=== PATIENT | female | born 1945 | race American Indian/Alaskan Native ===

== ENCOUNTER 2024-09-07 14:26 | Outpatient (OUT) | payer MEDICARE, SELFPAY ==
--- NOTE | 2024-09-07 15:42 | P.CN_ITS ---
Consult Note: HPI Data of Consult Patient: new to practice Consult date: 09/07/24 Requesting Physician: Flor Mg MD Primary Care Provider: KATLIN AYALA Consult Narrative Reason for consult: low back pain, bilateral leg neuropathy Narrative: 78yof who presents for evaluation. longstanding low back pain history >1 year. previously had injections done in office at orthopedic clinic, but no notes available for review. patient describes what sounds like trigger point injection. these were very helpful and provided >1 year relief. no imaging available for review. also endorses bilateral lower extremity neuropathy. not diabetic. has tried gabapentin, but did not help. cc:: CC: Flor Mg MD Review of Systems ROS Status of ROS 10 or more systems reviewed and unremark able except as noted in history and below Exam Narrative Exam Narrative: Psych-alert and oriented x 3. Attentive and appropriate, constitutionally normal, displays normal mood and affect per situation.? There are no obvious deficits in memory, reasoning, or intellect.? Skin-no obvious rashes, bruising, erythema noted to the patient's area of pain. Extremities- extremities are warm with minimal edema and palpable pulses. Lumbar-no significant tenderness to palpation noted in the lumbar spine and paraspinal musculature.? Pain is elicited with extension, and lateral rotation of the lumbar spine. Range of motion is slightly diminished with these motions due to pain. Facet loading maneuvers are positive bilaterally and do appear to be concordant with the patient's normal complaints of pain.? Coordination remains intact.? Gait remains non-antalgic. Assessment and Plan Assessment and Plan (1) Low back pain: Qualifiers: Chronicity: chronic Back pain laterality: unspecified Sciatica presence: unspecified whether sciatica present Qualified Code(s): M54.50 - Low back pain, unspecified; G89.29 - Other chronic pain (2) Peripheral neuropathy: Qualifiers: Peripheral neuropathy type: polyneuropathy, unspecified Qualified Code(s): G62.9 - Polyneuropathy, unspecified Plan 78yof who presents for evaluation. failed conservative measures, as noted. at this point, will order lumbar xr. also will proceed with paralumbar trigger point injections. meds reviewed. will try lyrica 50mg tid. follow up after imaging.
== END 2024-09-07 14:27 | disposition home or self-care (01) ==
LOC: PM 14:27
PROVIDERS: PCP Family Medicine; Visit Provider Anesthesiology
DX: M54.50 Low back pain, unspecified (principal); G62.9 Polyneuropathy, unspecified
CPT/HCPCS: 72110; G0463

== ENCOUNTER 2024-09-07 15:47 | Outpatient (OUT) | payer MEDICARE, SELFPAY ==
--- NOTE | 2024-09-07 15:56 | XR_ITS ---
[place] [address] Patient Name: JI SHAFFER MRN: [id number] date: 1945 Sex: F Assigned Patient Location: [facility] Current Patient Location: [facility] Accession/Order Number: [id number] Exam Date: 09/08/2024 09:19 Report Date: 09/08/2024 09:21 At the request of: SANDY DSOUZA MD Procedure: XR lumbar spine min 4V 5 views Lumbar Spine HISTORY: Chronic low back pain COMPARISON: None POSTSURGICAL CHANGES: None BONY ALIGNMENT: Mild scoliosis HYPERMOBILITY:No bending imaging. LISTHESIS:Mild degenerative listhesis FRACTURE: None DEGENERATIVE CHANGES: Extensive multilevel disc space narrowing and endplate spurring. Multilevel hypertrophic facet changes. SOFT TISSUES: Unremarkable BONY MINERALIZATION:Adequate XR/XR lumbar spine min 4V IMPRESSION: Extensive multilevel lumbar degenerative changes. Impression dictated by: Joao Main M.D.09/08/2024 9:21 AM Dictation Location: [place] [address] Electronically authenticated by: [id number] Y Date: 09/08/2024 09:21
== END 2024-09-07 15:48 | disposition home or self-care (01) ==
PROVIDERS: PCP Family Medicine; Visit Provider Anesthesiology
DX: M54.50 Low back pain, unspecified (principal)
CPT/HCPCS: 72110

== ENCOUNTER 2024-09-14 12:21 | Outpatient (OUT) | payer MEDICARE, SELFPAY ==
--- NOTE | 2024-09-14 14:00 | P.CN_ITS ---
Consult Note: HPI Data of Consult Patient: known to practice within the last 3 years Consult date: 09/14/24 Requesting Physician: Flor Mg MD Primary Care Provider: KATLIN AYALA Consult Narrative Reason for consult: low back pain Narrative: 78yof who presents for in office injection. continues to have right sided low back pain, so would like to proceed with trigger point injection. lumbar xr reviewed, significant for extensive degenerative changes and facet arthropathy. cc:: CC: Flor Mg MD Review of Systems ROS Status of ROS 10 or more systems reviewed and unremark able except as noted in history and below Meds Home Medications and Allergies Home Medications ?Medication ?Instructions ?Recorded ?Confirmed ?Type amlodipine 10 mg tablet (Norvasc) 10 mg PO DAILY 09/08/24 09/08/24 History aspirin 81 mg tablet,delayed 81 mg PO DAILY 09/08/24 09/08/24 History release escitalopram oxalate 5 mg tablet 5 mg PO DAILY 09/08/24 09/08/24 History (Lexapro) levothyroxine 100 mcg tablet 100 mcg PO DAILY 09/08/24 09/08/24 History (Synthroid) losartan 50 mg-hydrochlorothiazide 1 tab PO DAILY 09/08/24 09/08/24 History 12.5 mg tablet magnesium oxide 400 mg (241.3 mg 200 mg PO DAILY 09/08/24 09/08/24 History magnesium) tablet metformin 500 mg tablet 500 mg PO DAILY 09/08/24 09/08/24 History montelukast 10 mg tablet 10 mg PO DAILY 09/08/24 09/08/24 History (Singulair) oxybutynin chloride 5 mg tablet 5 mg PO DAILY 09/08/24 09/08/24 History pregabalin 50 mg capsule (Lyrica) 50 mg PO TID 09/08/24 09/08/24 History rosuvastatin 10 mg tablet 10 mg PO DAILY 09/08/24 09/08/24 History trazodone 100 mg tablet 50 mg PO DAILY 09/08/24 09/08/24 History Allergies Allergy/AdvReac Type Severity Reaction Status Date / Time morphine Allergy Unknown Unknown Verified 09/08/24 08:16 Exam Narrative Exam Narrative: Psych-alert and oriented x 3. Attentive and appropriate, constitutionally normal, displays normal mood and affect per situation.? There are no obvious deficits in memory, reasoning, or intellect.? Skin-no obvious rashes, bruising, erythema noted to the patient's area of pain. Extremities- extremities are warm with minimal edema and palpable pulses. Lumbar- tenderness to palpation noted in the lumbar spine and paraspinal musculature. Multiple trigger points expressed on palpation.? Pain is elicited with extension, and lateral rotation of the lumbar spine. Range of motion is slightly diminished with these motions due to pain. Facet loading maneuvers are positive bilaterally and do appear to be concordant with the patient's normal complaints of pain.? Coordination remains intact.? Gait remains non-antalgic. Assessment and Plan Assessment and Plan (1) Low back pain: Qualifiers: Chronicity: chronic Back pain laterality: unspecified Sciatica presence: unspecified whether sciatica present Qualified Code(s): M54.50 - Low back pain, unspecified; G89.29 - Other chronic pain (2) Myalgia: Plan 78yof who presents for in office injection. continues to have right sided back pain, would like to proceed. also discussed that given her lumbar xr findings, if she continued to have symptoms, she may benefit from other modalities, such as lumbar mbbs/rfas. she expressed understanding. follow up in 6 weeks. Procedure: Right paralumbar trigger point injection Medications: Bupivacaine 0.25% 4cc, depomedrol 40mg I explained the details of the procedure to the patient including the risks, benefits, and alternatives.? We had an informed discussion.? The patient verbalized understanding and signed the consent form.? All questions were answered appropriately.? A time-out was performed.? After obtai seferino a comfortable seated position, the skin overlying the right paralumbar region was prepped with alcohol 3 times. The needle was inserted in a sterile manner through the skin towards the palpated trigger point areas. The contents of the syringe were gently injected without any resistance 1cc at a time into the appropriate trigger point.? The needle was removed and pressure was applied at the injection site to decrease the incidence of ecchymosis and hematoma formation.? A sterile bandage was applied. The patient tolerated the procedure well.
== END 2024-09-14 12:22 | disposition home or self-care (01) ==
PROVIDERS: PCP Family Medicine; Visit Provider Anesthesiology
DX: M54.50 Low back pain, unspecified (principal); G89.29 Other chronic pain; M79.18 Myalgia, other site
CPT/HCPCS: 20553; J0665; J1010

== ENCOUNTER 2024-10-29 12:34 | Outpatient (OUT) | payer MEDICARE, SELFPAY ==
--- OUTSIDE RECORDS SUMMARY | 2024-10-29 12:36 | XMS_ITS | Encounter Summary ---
Author Organization [facility] Sys tem Address [id number] [address] [place] [address] Care Team Providers Care Production Supervisor Off Shift Name Role Phone Taiwo Barker Primary Care Provider + [phone] Encounter Details Date Type Department Care Team (Late st Contact Info) Description 09/09/2024 Orders Only [facility] - Family Medicine [address] [place] [address] Ref Prov, [place] [address] Social History Tobacco Use Types Packs/Day Years Used Date Smoking Tobacco: Never Smokeless Tobacco: Never Alcohol Use Standard Drinks/Week Comments Yes 0 (1 standard drink = 0.6 oz pur e alcohol) occational glass of wine [facility] Utilities Answer Date Recorded In the past 12 months has [employer], gas, oil, or water company threatened to shut off services in your home? No 08/21/2023 Social Connection and Isolat ion Panel [NHANES] Answer Date Recorded In a typical week, how many times do you talk on the phone with family, friends, or neighbors? More than three times a week 03/24/2022 How often do you get togethe r with friends or relatives? More than three times a week 03/24/2022 How often do you attend chur ch or sabianist services? More than 4 times per year 03/24/2022 Do you belong to any clubs o r organizations such as baptist groups, unions, fraternal or athletic groups, or school groups? Yes 03/24/2022 How often do you attend meet ings of the clubs or organizations you belong to? More than 4 times per year 03/24/2022 Are you , , di vorced, , never , or living with a partner? 03/24/2022 AUDIT-C Answer Date Recorded Q1: How often do you have a drink containing alc ohol? 2-4 times a month 03/24/2022 Q2: How many drinks containi ng alcohol do you have on a typical day when you are drinking? 1 or 2 03/24/2022 Q3: How often do you have si x or more drinks on one occasion? Never 03/24/2022 Overall Financial Resource Strain (CARDIA) Answe r Date Recorded How hard is it for you to pa y for the very basics like food, housing, medical care, and heating? Not hard at all 03/24/2022 PHQ-2 Answer Date Recorded Total Score 0 03/24/2024 [facility] Questionnaire Answer Date Recorded Do you feel stress - tense, restless, nervous, or anxious, or unable to sleep at night because your mind is troubled all the time - these days? Only a little 01/15/2023 Exercise Vital Sign Answer Date Recorde d On average, how many days pe r week do you engage in moderate to strenuous exercise (like a brisk walk)? 0 days 03/24/2024 On average, how many minutes do you engage in exercise at this level? 0 min 03/24/2024 PRAPARE - Transportation Answer Date Re corded In the past 12 months, has l ack of transportation kept you from medical appointments or from getting medications? No 07/2023 In the past 12 months, has l ack of transportation kept you from meetings, work, or from getting things needed for daily living? No 08/21/2023 Housing Instability Answer Date Recorde d Are you worried or concerned that in the next two months you may not have stable housing that you own, rent or stay in as a part of a household? No 08/21/2023 Childcare Answer Date Recorded Do problems getting child ca re make it difficult for you to work or study? No 03/24/2022 Employment Answer Date Recorded Do you need help finding a [facility] and/or a training program? No 03/24/2022 Hunger Screening Answer Date Recorded Within the past 12 months we worried whether our food would run out before we got money to buy more. Never True 05/18/2024 Within the past 12 months th e food we bought just didn't last and we didn't have money to get more. Never True 05/18/2024 Purpose - Life Answer Date Recorded I have a purpose and direction in my life. Agree 03/24/2022 Comments No Sex and Gender Information Value Date Recorded Sex Assigned at Not on file Legal Sex Female 11:27 AM EDT Gender Identity Not on file Sexual Orientation Not on file documented as of this encounter Plan of Treatment Upcoming Encounters Date Type Department Care Team (Late st Contact Info) Description 01/12/2025 1:30 PM EDT Office Visit [facility] - Family Medicine [address] [place] [address] Taiwo Barker DO [address], [facility] [place] [address] 03/22/2025 1:00 PM EST Office Visit [facility] [address] [place] [address] Lola Begum, WHEEL SHOP SUPERVISOR-FRONT SIGHT ATTACHER [address] [place] [id number] documented as of this encounter Goals Goal Patient Goal Type Associated Problems Recent Progress Patient-Stated? Author Reduce salt intake to 2 grams per day or less Diet No Taiwo Barker DO Note: Evaluation of progress towards goal:Increase clonidine 0.1mg to BID A1C is excellent at 5.9% Monitor BP and pulse and will review at next visit documented as of this encounter Procedures Procedure Name Priority Date/Time Associated Diagnosis Comments XR LUMBAR SPINE AP, LATERAL, FLEXION AND EXTENSION ONLY Routine 09/07/2024 3:54 PM EDT documented in this encounter Results * X-ray spine lumbar ap, lateral, flexion and extension only (09/07/2024 3:54 PM EDT) Anatomical Region Laterality Modality MSK, Neuro, Spine, L-spine N/A Compu vera Radiography us Not In System Ref Prov IMG DIAGNOSTIC IMAGING OR DERABLES Final Result documented in this encounter Visit Diagnoses Not on filedocumented in this encounter Additional Health Concerns Assessment Noted Time PHQ-9 Depression Total Score: 0 03/24/20 12:51 PM EST A Body Mass Index follow-up plan has been documented for the patient 07/14/2024 2:15 PM EST documented as of this encounter Care Teams Production Supervisor Off Shift Relationship Specialty Start Date End Date Taiwo Barker DO [address] [facility], [facility] [place] [address] PCP - General Family Medicine 01/17/22 Marcia Calderon [facility] documented as of this encounter
--- OUTSIDE RECORDS SUMMARY | 2024-10-29 12:36 | XMS_ITS | Encounter Summary ---
Author Organization [facility] Sys tem Address [id number] [address] [place] [address] Care Team Providers Care Cone Runner Name Role Phone Taiwo Barker Primary Care Provider + [phone] Reason for Visit * Reason Onset Date Comments Med Refill 04/30/2022 Encounter Details Date Type Department Care Team (Late st Contact Info) Description 04/30/2022 Refill [facility] - Family Medicine [address] [place] [address] Betty Mcmahan MA Social History Tobacco Use Types Packs/Day Years Used Date Smoking Tobacco: Never Smokeless Tobacco: Never Alcohol Use Standard Drinks/Week Comments Yes 0 (1 standard drink = 0.6 oz pur e alcohol) occational glass of wine Social Connection and Isolat ion Panel [NHANES] Answer Date Recorded In a typical week, how many times do you talk on the phone with family, friends, or neighbors? More than three times a week 03/24/2022 How often do you get togethe r with friends or relatives? More than three times a week 03/24/2022 How often do you attend chur ch or muslim services? More than 4 times per year 03/24/2022 Do you belong to any clubs o r organizations such as sikh groups, unions, fraternal or athletic groups, or [...] 03/24/2022 PHQ-2 Answer Date Recorded Total Score 5 03/24/2022 [facility] [place] [facility] - Occupational Stress Questionnaire Answer Date Recorded Do you feel stress - tense, restless, nervous, or anxious, or unable to sleep at night because your mind is troubled all the time - these days? To some extent 03/24/2022 Exercise Vital Sign Answer Date Recorde d On average, how many days pe r week do you engage in moderate to strenuous exercise (like a brisk walk)? 3 days 03/24/2022 On average, how many minutes do you engage in exercise at this level? 20 min 03/24/2022 PRAPARE - Transportation Answer Date Re corded In the past 12 months, has l ack of transportation kept you from medical appointments or from getting medications? No 09/2021 In the past 12 months, has l ack of transportation kept you from meetings, work, or from getting things needed for daily living? No 03/24/2022 Childcare Answer Date Recorded Do problems getting child ca re make it difficult for you to work or study? No 03/24/2022 Employment Answer Date Recorded Do you need help finding a [facility] career [facility] and/or a training program? No 03/24/2022 Purpose - Life Answer Date Recorded I have a purpose and direction in my life. Agree 03/24/2022 Comments No Sex and Gender Information Value Date Recorded Sex Assigned at Not on file Legal Sex Female 11:27 AM EDT Gender Identity Not on file Sexual Orientation Not on file COVID-19 Exposure Response Date Recorded In the last month, have you been in contact with someone who was confirmed or suspected to have Coronavirus / COVID-19? No / Unsure 04/17/2022 1:49 PM EST documented as of this encounter Plan of Treatment Upcoming Encounters Date Type Department Care Team (Late st Contact Info) Description 01/12/2025 1:30 PM EDT Office Visit [facility] - Family Medicine [address] [place] [address] Taiwo Barker DO [address], [place] [address] 03/22/2025 1:00 PM EST Office Visit [facility] [address] [place] [phone] Lola Begum, MANUFACTURING SCHEDULER-MILKING MACHINE MECHANIC [address] [place] [address] documented as of this encounter Goals Goal Patient Goal Type Associated Problems Recent Progress Patient-Stated? Author Reduce salt intake to 2 grams per day or less Diet No Taiwo Barker DO Note: Evaluation of progress towards goal:Increase clonidine 0.1mg to BID A1C is excellent at 5.9% Monitor BP and pulse and will review at next visit documented as of this encounter Visit Diagnoses Not on filedocumented in this encounter Additional Health Concerns Assessment Noted Time PHQ-9 Depression Total Score: 5 03/24/20 22 5:55 AM EDT documented as of this encounter Care Teams Cone Runner Relationship Specialty Start Date End Date Taiwo Barker DO [address], [facility] [place] [place] [address] PCP - General Family Medicine 01/17/22 [facility] Calderon [facility]/19/24 documented as of this encounter
--- OUTSIDE RECORDS SUMMARY | 2024-10-29 12:36 | XMS_ITS | Encounter Summary ---
Author Organization [facility] Sys tem Address [id number] [address] [place] [address] Care Team Providers Care Assistant Director Of Residence Life Name Role Phone Taiwo Barker DO Primary Care Provider + [phone] Reason for Visit * Reason Comments Med Refill Encounter Details Date Type Department Care Team (Late st Contact Info) Description 01/24/2023 Refill [facility] - Family Medicine [address] [place] [address] Taiwo Barker DO [address], [facility] [place] [address] Insomnia, unspecified Social History Tobacco Use Types Packs/Day Years [...] often do you attend chur ch or mormon services? More than 4 times per year 03/24/2022 Do you belong to any clubs o r organizations such as restorationist groups, unions, fraternal or athletic groups, or [...] PHQ-2 Answer Date Recorded Total Score 0 01/15/2023 [facility] Occupat ional [facility] - Occupational Stress Questionnaire Answer Date [...] exercise (like a brisk walk)? 0 days 01/15/2023 On average, how many minutes do you engage in exercise at this level? 0 min 01/15/2023 PRAPARE - Transportation Answer Date Re corded [...] Recorded Do you need help finding a l ocal career center and/or a training program? No 03/24/2022 Hunger Screening Answer Date Recorded Within the past 12 months we worried whether our food would run out before we got money to buy more. Never True 01/15/2023 Within the past 12 months th e food we bought just didn't last and we didn't have money to get more. Never True 01/15/2023 Purpose - Life Answer Date Recorded I [...] Medicine - Family Medicine [address] [place] [phone] Taiwo Barker DO [address] [place] [address] 03/22/2025 1:00 PM EST Office Visit [facility] [address] [place] [phone] Lola Begum, GRANTS ADMINISTRATOR-GMAT TUTOR [address] [place] [phone] documented as of this encounter Goals Goal Patient Goal Type Associated Problems Recent Progress Patient-Stated? Author Reduce salt intake to 2 grams per day or less Diet No Taiwo Barker DO Note: Evaluation of progress towards goal:Increase clonidine 0.1mg to BID A1C is excellent at 5.9% Monitor BP and pulse and will review at next visit documented as of this encounter Visit Diagnoses Diagnosis Insomnia, unspecified documented in this encounter Additional Health Concerns Assessment Noted Time PHQ-9 Depression Total Score: 0 01/16/20 23 1:10 PM EDT documented as of this encounter Care Teams Assistant Director Of Residence Life Relationship Specialty Start Date End Date Taiwo Barker DO [address] [facility], [place] [address] PCP - General Family Medicine 01/17/22 Marcia Calderon [facility] Nurse - [facility] 06/19/24 documented as of this encounter
--- OUTSIDE RECORDS SUMMARY | 2024-10-29 12:36 | XMS_ITS | Encounter Summary ---
Author Organization [employer] tem Address [facility] – [id number] [address] [place] [address] Care Team Providers Care Spring Former Name Role Phone Taiwo Barker DO Primary Care Provider [phone] Encounter Details Date Type Department Care Team (Late Contact Info) Description 03/16/2022 Orders Only [facility] - Family Medicine [address] [place] [address] External, Scanning Provider Social History Tobacco Use Types Packs/Day Years Used Date Smoking Tobacco: Never Smokeless Tobacco: Never Alcohol Use Standard Drinks/Week Comments Yes 0 (1 standard drink = 0.6 oz pur e alcohol) occational glass of wine PHQ-2 Answer Date Recorded Total Score 2 03/06/2022 Childcare Answer Date Recorded Childcare Unknown 10/29/2018 Employment Answer Date Recorded Employment Unknown 10/29/2018 Purpose - Life Answer Date Recorded Purpose and direction in life Unknown Comments Unknown Sex and Gender Information Value Date Recorded Sex Assigned at Not on file Legal Sex Female 11:27 AM EDT Gender Identity Not on file Sexual Orientation Not on file COVID-19 Exposure Response Date Recorded In the last month, have you been in contact with someone who was confirmed or suspected to have Coronavirus / COVID-19? No / Unsure 03/06/2022 9:50 AM EDT documented as of this encounter Plan of Treatment Upcoming Encounters Date Type Department Care Team (Late Contact Info) Description 01/12/2025 1:30 PM EDT Office Visit [facility] - [facility] Medicine [address] [place] [address] Taiwo Barker DO [address] [place] [address] 03/22/2025 1:00 PM EST Office Visit [facility] [address] [place] [address] Lola Begum, LOCKSTITCHER-HAT RENOVATOR [address] [place] [phone] documented as of this encounter Goals Goal [...] Procedure Name Priority Date/Time Associated Diagnosis Comments ECG 12-LEAD Routine 02/06/2022 documented in this encounter Results * ECG 12 lead (02/06/2022) 02/06/2022 us Scanning Provider External ECG ORDERABLES Final Result MANUALLY TRANSCRIBED RESULTS documented in this encounter Visit Diagnoses Not on filedocumented in this encounter Additional Health Concerns Infection Onset Date Last Indicated Resolved Time COVID-19 Rule-Out 03/26/2022 03/26/2022 03/26/2022 2:05 PM EST Assessment Noted Time PHQ-9 Depression Total Score: 2 03/06/20 22 10:01 AM EDT documented as of this encounter Care Teams Spring Former Relationship Specialty Start Date End Date Taiwo Barker DO [address] [place] [address] PCP - General Family Medicine 01/17/22 Marcia Calderon CCM Nurse - Kait 06/19/24 documented as of this encounter
--- OUTSIDE RECORDS SUMMARY | 2024-10-29 12:36 | XMS_ITS | Clinical Summary ---
Author Organization [employer] tem Address [facility] [id number] [address] [place] [address] Care Team Providers Care Human Resources Analyst Name Role Phone Taiwo Barker DO Primary Care Provider Allergies Active Allergy Reactions Criticality Noted Date Comments Morphine Sulfate Nausea And Vomiting 02/01/2022 Medications latanoprost (XALATAN) 0.005 % ophthalmic solution Administer 1 drop to both eyes nightly. Active dorzolamide-kirsten loL (COSOPT) 22.3-6.8 mg/mL ophthalmic solution Administer 1 drop to both eyes in the morning and 1 drop before bedtime. 09/10/19 23 Active magnesium oxide 200 mg magnesium tablet Take 200 mg by mouth in the morning. 90 tablet 01/03/20 24 Active escitalopram (LEXAPRO) 5 mg tabletIndication s:Anxiety Take 1 tablet (5 mg total) by mouth in the morning. 01/16/20 24 Active atrbskbd-fgvf-CA -calcium &mins (THERAGRAN-M) 9 mg iron-400 mcg tablet Take 1 tablet by mouth in the morning. Active metFORMIN (GLUCOPHAGE) 500 mg tabletIndication s:Prediabetes TAKE 1 TABLET BY MOUTH DAILY 90 tablet 1 05/07/20 24 Active aspirin 81 mg Take 1 tablet (81 mg total) by mouth in the morning. Active losartan-hydroCH LOROthiazide (HYZAAR) 100-25 mg per tablet Take 1 tablet by mouth in the morning. 90 tablet 3 05/18/20 24 Active montelukast (SINGULAIR) 10 mg tabletIndication s:Unspecified asthma, uncomplicated TAKE 1 TABLET BY MOUTH DAILY 30 tablet 5 05/31/19 25 Active amLODIPine (NORVASC) 10 mg tabletIndication s:Essential hypertension TAKE 1 TABLET BY MOUTH IN THE MORNING 90 tablet 2 06/08/19 25 Active LUMIGAN 0.01 % ophthalmic drops Administer 1 drop to both eyes nightly. 06/03/19 25 Active cholecalciferol, vitamin D3, 5,000 units tablet Take 1 tablet (5,000 Units total) by mouth every other day. Active oxybutynin XL (DITROPAN-XL) 5 mg 24 hr tabletIndication s:Overactive bladder TAKE 1 TABLET BY MOUTH DAILY 30 tablet 5 09/08/19 25 Active levothyroxine (SYNTHROID, LEVOTHROID) 100 MCG tabletIndication s:Hypothyroidism , unspecified TAKE 1 TABLET BY MOUTH DAILY 90 tablet 1 09/10/19 25 Active traZODone (DESYREL) 50 mg tabletIndication s:Insomnia, unspecified Take 0.5 tablets (25 mg total) by mouth nightly. 45 tablet 09/19/19 25 Active pregabalin (LYRICA) 50 mg capsule Take 1 capsule (50 mg total) by mouth 3 (three) times a day. Active rosuvastatin (CRESTOR) 10 mg tabletIndication s:Hyperlipidemia , unspecified TAKE 1 TABLET BY MOUTH NIGHTLY 90 tablet 10/14/19 25 Active rosuvastatin (CRESTOR) 10 mg tabletIndication s:Hyperlipidemia , unspecified take 1 tablet by mouth every day 90 tablet 2 01/20/20 24 025 Discontinued Active Problems Patient Care Coordination No te Formatting of this note migh t be different from the original. Hypothyroidism and HTN Care Plan: [06/19/2024] RN Added: Nurse to instruct on: the importance of preventative screenings and what they mean to your health the importance of your care plan -discussed and sent 06/19/24 SA RN the purpose of your medications and the importance of adherence -medrec done 06/19/24 SA RN -discussed vit d and mag dose 08/03/24 , RN -Discussed new medication: Lyrica and possible s/e. 09/17/24 AH, SKEIN TIER proper use of your blood pressure meter your Hypothyroidism and Hypertension, its diagnosis and treatment the importance of recognizing difficulty thinking and focusing, feeling down or depressed, increased sensitivity to cold, tiredness, and low energy as a S&S of your Hypothyroidism the importance of recognizing blurry vision, facial flushing, headache, and shortness of breath as a S&S of your Hypertension -discussed 06/19/24 MOHIT ACKERMAN -reviewed 08/03/24 MOHIT ACKERMAN Nurse to assist in: scheduling your appointments, as needed setting a goal to check blood pressure, continue with current treatment plans, do regular physical activity, get enough sleep, and maintain medication compliance Patient to verbalize understanding of: the importance of your care plan keeping a written list of your medications preventative screenings and what they mean to your health your medications and the importance of adherence: 09/03/2024 Take 1/2 of 400 mg Magnesium tablet to equal prescribed dose of 200 mg daily. VINCE CONTRERAS monitoring blood pressure -discussed 06/19/24 MOHIT ACKERMAN your Hypothyroidism, its diagnosis, process and treatment your Hypertension, its diagnosis, process and treatment the importance of recognizing difficulty thinking and focusing, feeling down or depressed, increased sensitivity to cold, tiredness, and low energy as a S&S of your Hypothyroidism the importance of recognizing blurry vision, facial flushing, headache, and shortness of breath as a S&S of your Hypertension Patient to commit to: check blood pressure 08/03/24 MOHIT ACKERMAN continue with current treatment plans do regular physical activity get enough sleep maintain medication compliance 09/03/2024 VINCE CONTRERAS Chronic Pain Care Plan [09/03/2024] DIANE CLARKE Added: Nurse to instruct on: your Chronic Pain, its diagnosis and treatment the importance of recognizing atrophy of involved muscle group, changes in appetite/eating, weight, changes in sleep patterns, depression, anxiety, fear of reinjury, fatigue, and irritability, restlessness as a S&S of your Chronic Pain Peripheral Neuropathy [09/29/2024] BRONSON CLARKE Added: Nurse to instruct on: your Peripheral Neuropathy, its diagnosis and treatment -Discussed and mailed educational materials on peripheral neuropathy. 09/17/24 VINCE DOBSON the importance of recognizing Extreme sensitivity to touch, Heat intolerance, Loss of balance, Numbness or tingling in the feet, and Pain during activities that shouldn't cause pain - putting weight on your feet as a S&S of your Peripheral Neuropathy Patient to verbalize understanding of: your Peripheral Neuropathy, its diagnosis, process and treatment the importance of recognizing Extreme sensitivity to touch, Heat intolerance, Loss of balance, Numbness or tingling in the feet, and Pain during activities that shouldn't cause pain - putting weight on your feet as a S&S of your Peripheral Neuropathy Nurse to assist in: setting a goal to continue with current treatment plans, do regular physical activity, get enough sleep, increase joint mobility and range of motion, maintain medication compliance, and reduce pain Patient to verbalize understanding of: monitoring Pain Scale your Chronic Pain, its diagnosis, process and treatment the importance of recognizing atrophy of involved muscle group, changes in appetite/eating, weight, changes in sleep patterns, depression, anxiety, fear of reinjury, fatigue, and irritability, restlessness as a S&S of your Chronic Pain Patient to commit to: continue with current treatment plans do regular physical activity get enough sleep increase joint mobility and range of motion maintain medication compliance reduce pain 09/03/2024 SG, SKEIN TIER 2024 Wellness Goals: Over the next 12 months, Patient will go to appointments with: Primary Care Provider 07/14/2024 MOHIT ACKERMAN Completed 09/03/2024 VINCE CONTRERAS Orthopedic 08/25/2024 Completed 09/03/2024 VINCE CONTRERAS Over the next 12 months, Patient will complete the following tests, immunizations, and preventative screenings: Annual Wellness Visit 03/24/2025 COVID-19 Vaccination 02/01/2025 Depression Screening 03/24/2025 Fall Risk Assessment 03/24/2025 Completed 09/03/2024 VINCE CONTRERAS Flu vaccine 02/01/2025 Tdap Vaccine 09/16/20242024 Education: -discussed 07/14 OV note and lab results reviewed 08/03/24 MOHIT ACKERMAN Problem Noted Date Diagnosed Date Hypersomnia 01/16/2024 Primary osteoarthritis of right hip 08/21/2023 Recurrent major depressive disorder, in full rem ission 11/15/2022 Stress incontinence 08/09/2022 08/09/2022 Urge incontinence 08/09/2022 08/09/2022 Renal cyst, right 08/09/2022 08/09/2022 Dyspnea on exertion 05/25/2022 Hip pain 03/24/2022 Hyponatremia 03/24/2022 S/P total knee arthroplasty, right 03/24/2022 Weakness 03/24/2022 Leukocytosis 03/24/2022 Acute kidney injury 03/24/2022 Anemia 03/24/2022 Decreased hearing of right ear 03/06/2022 Acquired hallux valgus 02/04/2022 Arthritis of right hip 02/04/2022 Artificial knee joint present 02/04/2022 Atrophy of vagina 02/04/2022 Bilateral sensorineural hearing loss 02/04/2022 Hypokalemia 02/04/2022 Hypothyroidism 02/04/2022 Idiopathic peripheral neuropathy 02/04/2022 Labyrinthitis 02/04/2022 Obesity with body mass index 30 or greater 02/04 Referred otalgia 02/04/2022 Acute labyrinthitis 02/04/2022 Multiple acquired skin tags 01/25/2022 Chronic pain 01/25/2022 Constipation 01/25/2022 Difficulty walking 01/25/2022 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 Essential hypertension 01/25/2022 Insomnia 01/25/2022 Joint pain 01/25/2022 Temporomandibular joint disorder 01/25/2022 Osteoarthritis of knee 10/24/2021 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 Glaucoma 05/30/2020 Degeneration of lumbar intervertebral disc 12/01 Lumbar spondylosis 12/01/2018 Bilateral tinnitus 2018 Acquired deformity of left ankle 10/21/2017 Moderate depressive episode 07/16/2017 Metatarsalgia 03/17/2017 Neuropathy 03/14/2017 Mixed hyperlipidemia 05/31/2016 Plantar fasciitis 02/27/2016 Anxiety 10/24/2015 Impaired glucose tolerance 08/25/2015 Vitamin D deficiency 08/23/2015 Osteopenia 08/22/2015 Resolved Problems Problem Noted Date Diagnosed Date Resolved Date Class 1 obesity due to exces s calories with serious comorbidity and body mass index (BMI) of 31.0 to 31.9 in adult 11/15/2022 11/26/2022 BMI 30.0-30.9,adult 08/09/2022 01/16/20 24 Dyslipidemia 05/25/2022 11/26/2022 Encounters Date Type Department Care Team Description 10/13/2024 Refill [facility] - Family Medicine [address] [place] [address] Taiwo Barker, DO Hyperlipidemia, unspecified 09/17/2024 Patient Outreach [facility] Family [facility] [address] [place] [address] Taiwo Barker, DO Essential hypertension (Primary Dx); Acquired hypothyroidism 09/16/2024 Telephone [facility] Family Medicine [address] [place] [address] Theodora Pierre, [facility] 09/16/2024 Refill [facility] Family [facility] [address] [address] Taiwo Barker, DO Insomnia, unspecified 09/09/2024 Orders Only [facility] [address] [place] [address] Ref Prov, Not In System 09/09/2024 Refill [facility] [address] [place] [address] Taiwo Barker, DO Hypothyroidism, unspecified 09/07/2024 Refill [facility] Family Medicine [address] [place] [address] Taiwo Barker, DO Overactive bladder 09/03/2024 Patient Outreach [facility] Family [facility] [address] [address] Taiwo Barker, DO Essential hypertension (Primary Dx); Acquired hypothyroidism 08/03/2024 Patient Outreach [facility] Family [facility] [address] [place] [address] Taiwo Barker, DO Essential hypertension (Primary Dx); Acquired hypothyroidism from Last 3 Months Immunizations Immunization Administration Dates Next Due COVID-19, mRNA, LNP-S, PF, 100mcg/0.5mL Dose 09/01/2021 COVID-19, mRNA, LNP-S, PF, 3 0mcg/0.3mL Dose 08/08/2020 Influenza (IM) Preservative Free 01/23/2016,06/2014 Influenza A Monovalent (H5N1 ), Adjuvanted-201202/19/2011 Influenza High Dose Preserva tive Free IM 02/29/2024,02/19/2011 Influenza Nasal, Unspecified Formulation 02/25/2017,02/18/2016,02/18/2015,02/13 Influenza Vaccine, Quadrival ent, Adjuvanted 03/07/2021 Influenza Whole 02/19/2011 Influenza, High-dose, Quadrivalent 02/05/2023 Influenza, Injectable, quadr ivalent (PF) 03/07/2021,02/23/2020,03/05/2019 Influenza, Trivalent, Adjuvanted 03/05/2019 Influenza, Unspecified 03/07/2021,2019,03/05/2019,02/25,03/29/2016,02/18/2016,01/23/2016 ,02/18/2015,02/13/2013 Pneumococcal Conjugate 13-Valent 07/22/2014 Pneumococcal Polysaccharide 08/22/2015, 3 RSV, bivalent, protein subun it RSVpreF, diluent reconstituted, 0.5 mL, PF 02/26/2023 Tdap 02/13/2013 Zoster Live 05/01/2012 Zoster Vaccine Recombinant 09/18/2021,03/27/2021 Family History Medical History Relation Name Comments Marfan syndrome Brother Heart attack Father Other Maternal Aunt - Malignant ne oplastic disease Heart attack Maternal Grandmother Other Maternal Uncle - Malignant n eoplastic disease Marfan syndrome Mother Marfan syndrome Nephew Diabetes Paternal Grandfather Atrial fibrillation Sister Hyperlipidemia Sister Hypertension Sister Lymphoma Sister Stroke Sister Thyroid nodules Sister Relation Name Status Comments Brother (Age 26) - by electrocution Father Maternal Aunt Maternal Grandmother Maternal Uncle Mother Nephew Paternal Grandfather Sister Alive Social History Tobacco Use Types Packs/Day Years Used Date Smoking Tobacco: Never Smokeless Tobacco: Never Tobacco Cessation:Counseling Given: Not Answered Alcohol Use Standard Drinks/Week Comments Yes 0 (1 standard drink = 0.6 oz pur e alcohol) occational glass of wine [facility] Utilities Answer Date Recorded In the past 12 months has e electric, gas, oil, or water company threatened [...] 03/24/2022 How often do you attend chur or religion services? More than 4 times per year 03/24/2022 Do you belong to any clubs o r organizations such as nondenominational groups, unions, fraternal or athletic groups, or [...] Answer Date Recorded Total Score 0 03/24/2024 [facility] [place] of Occupat ional Health - Occupational Stress [...] Recorded Do you need help finding a [email or web address] career center and/or a training program? No [...] on file Sexual Orientation Not on file Last Filed Vital Signs Vital Sign Reading Time Taken Comments Blood Pressure 110/62 07/14/2024 1:24 PM EST Pulse 57 07/14/2024 1:24 PM EST Temperature 36.5 C (97.7 F) 07/14/2024 1:24 PM EST Respiratory Rate 18 07/14/2024 1:24 PM EST Oxygen Saturation 97% 07/14/2024 1:24 PM EST Inhaled Oxygen Concentration - - Weight 83 kg (183 lb) 07/14/2024 1:24 PM EST Height 165.1 cm (5' 5 ) 07/14/2024 1:24 PM EST Body Mass Index 30.45 07/14/2024 1:24 PM EST Plan of Treatment Upcoming Encounters Date Type Department Care Team (Late st Contact Info) Description 01/12/2025 1:30 PM EDT Office Visit [facility] - Family Medicine [address] [place] [address] Taiwo Barker DO [address], [place] [address] 03/22/2025 1:00 PM EST Office Visit [facility] [address] [place] [address] Lola Begum, WIRE BRUSH MAKER-SENIOR ELECTRICAL DESIGNER [address] [place] [phone] Health Maintenance Due Date Last Done Comments DTaP,Tdap and Td Vaccines (2 - Td or Tdap) 02/13/2023 02/13/2013 COVID-19 Vaccine (8 - Pfizer risk 2023- season) 2024 02/29/2024, 03/08/2023, 09/01/2021, Additional history exists Influenza Vaccine 01/18/2025 02/29/2024, , 03/07/2021, Additional history exists Depression Screening 03/24/2025 03/24/2024 Medicare Annual Wellness Visit 03/24/2025 03/24/2024 , 01/15/2023 Tobacco Screening 07/14/2025 07/14/2024 Fall Risk Screening 09/03/2025 09/03/2024 Zoster (Shingles) Vaccine Completed 2021, 03/27/2021, 05/01/2012 Goals Goal Patient Goal Type Associated Problems Recent Progress Patient-Stated? Author Reduce salt intake to 2 grams per day or less Diet No Taiwo Barker DO Note: Evaluation of progress towards goal:Increase clonidine 0.1mg to BID A1C is excellent at 5.9% Monitor BP and pulse and will review at next visit Medical Devices Implanted Type Area Rip/Mould Operator Device Identifier Shelf Expiration Date Model / Serial / Lot Liner Actb 36mm D Vivacit-E Lum G7 Hip Strl Lf - Sna - [id number] Implanted:Qt y: 1 on 08/21/2023 by Irvin Combs DO at [facility] Orthopedic Implant Right: Hip [employer] 08/05/2027 [id number] / [id number] / [id number] Stem Fem 129d 3 45mm Xtd Os Fit[place] Protasul-64 Hip Rgh - Sna - [id number] Implanted:Qt y: 1 on 08/21/2023 by Irivn Combs DO at [facility] Orthopedic Implant Right: Hip [employer] 03/02/2031 [id number] / NA / [id number] Head Fem 36mm +0mm 05/02 Tpr Unv Cocr Hip Strl Lf - Sna - [id number] Implanted:Qt y: 1 on 08/21/2023 by Irvin Combs DO at [facility] Orthopedic Implant Right: Hip [employer] 10/26/2032 [id number] / NA / [id number] Shell Actb 50mm Hip 3 Hl Clr Cd [place] G7 D Hmsphr - [id number] Implanted:Qt y: 1 on 08/21/2023 by Irvin Combs DO at [facility] Orthopedic Implant Right: Hip [employer] [id number] / / [id number] Screw Bn 30mm 6.5mm St Actb Selvin Trlg Strl Rpl [id number] - Sna - [id number] Implanted:Qt y: 1 on 08/21/2023 by Irvin Combs DO at [facility] Screw Right: Hip [employer] 12/08/2032 [id number] / NA / [id number] Procedures Procedure Name Priority Date/Time Associated Diagnosis Comments XR LUMBAR SPINE AP, LATERAL, FLEXION AND EXTENSION ONLY Routine 09/07/2024 3:54 PM EDT from Last 3 Months Results * X-ray spine lumbar ap, lateral, flexion and extension only (09/07/2024 3:54 PM EDT) Anatomical Region Laterality Modality MSK, Neuro, Spine, L-spine N/A Compu vera Radiography us Not In System Ref Prov IMG DIAGNOSTIC IMAGING OR DERABLES Final Result from Last 3 Months Insurance MEDICARE [facility] Advance Directives Documents on File Type Date Recorded Patient Salon Coordinator Expl anation Living Will 04/24/2022 3:52 PM Durable Power of Correctional Supervising Cook 04/24/2022 11:09 AM * Full Code (Latest Code Status on File) Date Activated Date Inactivated Comments 08/21/2023 7:16 AM 08/23/2023 6:06 PM * Full Code Date Activated Date Inactivated Comments 03/24/2022 9:28 AM 03/26/2022 8:07 PM Care Teams Human Resources Analyst Relationship Specialty Start Date End Date Taiwo Barker DO [address], [place] [address] PCP - General Family Medicine 01/17/22 Marcia Calderon [facility] Nurse - [employer] 06/19/24
--- OUTSIDE RECORDS SUMMARY | 2024-10-29 12:36 | XMS_ITS | Encounter Summary ---
Author Organization [facility] tem Address [id number] [address] [place] [address] Care Team Providers Care Tag Meter Operator Name Role Phone Taiwo Barker Primary Care Provider + [phone] Encounter Details Date Type Department Care Team (Late st Contact Info) Description 10/04/2022 Orders Only [facility] - Family Medicine [address] [place] [address] External, Scanning Provider Social History Tobacco Use [...] often do you attend chur ch or orthodox services? More than 4 times per year 03/24/2022 Do you belong to any clubs o r organizations such as voodoo groups, unions, fraternal or athletic groups, or [...] 03/24/2022 PHQ-2 Answer Date Recorded Total Score 1 08/09/2022 [facility] [place] of Occupat ional Health - Occupational Stress [...] Medicine - Family Medicine [address] [place] [address] Taiwo Barker DO [address] [place] [address] 03/22/2025 1:00 PM EST Office Visit [facility] [address] [place] [phone] Lola Begum, CUTTING INSPECTOR-CORN POPPER [address] [place] [phone] documented as of this encounter Goals Goal [...] Procedure Name Priority Date/Time Associated Diagnosis Comments HM MAMMOGRAPHY Routine 10/04/2022 documented in this encounter Results * HM MAMMOGRAPHY (10/04/2022) Anatomical Region Laterality Modality Other us Scanning Provider External HEALTH MAINTENANCE nal Result documented in this encounter Visit Diagnoses Not on filedocumented in this encounter Additional Health Concerns Assessment Noted Time PHQ-9 Depression Total Score: 1 08/10/19 23 2:36 PM EDT documented as of this encounter Care Teams Tag Meter Operator Relationship Specialty Start Date End Date Taiwo Barker DO [address] [place] [address] PCP - General Family Medicine 01/17/22 Marcia Calderon [facility] 06/19/[facility] documented as of this encounter
--- OUTSIDE RECORDS SUMMARY | 2024-10-29 12:36 | XMS_ITS | Encounter Summary ---
Author Organization [employer] tem Address [id number] [address] [place] [address] Care Team Providers Care Film Numberer Name Role Phone Taiwo Barker DO Primary Care Provider +1 [phone] Encounter Details Date Type Department Care Team (Late Contact Info) Description 02/09/2022 Orders Only [facility] - Family Medicine [address] [place] [address] External, Scanning Provider Social History Tobacco Use Types Packs/Day Years Used Date Smoking Tobacco: Never Smokeless Tobacco: Never Alcohol Use Standard Drinks/Week Comments Yes 0 (1 standard drink = 0.6 oz pur e alcohol) occational glass of wine Childcare Answer Date Recorded Childcare Unknown 10/29/2018 [...] have Coronavirus / COVID-19? No / Unsure 02/08/2022 9:48 AM EDT documented as of this encounter Plan of Treatment Upcoming Encounters Date Type Department Care Team (Late Contact Info) Description 01/12/2025 1:30 PM EDT Office Visit [facility] - Family Medicine [address] [place] [address] Taiwo Barker DO [address], [place] [address] 03/22/2025 1:00 PM EST Office Visit [facility] [address] [place] [address] Lola Begum, ASSISTANT FIELD HOCKEY COACH-BLUNGER [address] [place] [address] documented as of this encounter Goals Goal [...] Procedure Name Priority Date/Time Associated Diagnosis Comments URINALYSIS Routine 02/09/2022 documented in this encounter Results * Urinalysis (02/09/2022) us Scanning Provider External URINE ORDERABLES Zhanna l Result MANUALLY TRANSCRIBED RESULTS documented in this encounter Visit Diagnoses Not on filedocumented in this encounter Additional Health Concerns Infection Onset Date Last Indicated Resolved Time COVID-19 Rule-Out 03/26/2022 03/26/2022 03/26/2022 2:05 PM EST documented as of this encounter Care Teams Film Numberer Relationship Specialty Start Date End Date Taiwo Barker DO [address] [place] [address] PCP - General Family Medicine 01/17/22 Marcia Calderon CCM Nurse - [facility] 06/19/24 documented as of this encounter
--- OUTSIDE RECORDS SUMMARY | 2024-10-29 12:36 | XMS_ITS | Encounter Summary ---
Author Organization [facility] tem Address [id number] [address] [place] [address] Care Team Providers Care Rotary Bar Operator Name Role Phone Taiwo Barker Primary Care Provider + [phone] Encounter Details Date Type Department Care Team (Late st Contact Info) Description 04/30/2022 Orders Only [facility] - Family Medicine [address] [place] [address] Ref Prov, [place] [address] Social History Tobacco Use Types Packs/Day Years [...] often do you attend chur ch or temple services? More than 4 times per year 03/24/2022 Do you belong to any clubs o r organizations such as jain groups, unions, fraternal or athletic groups, or [...] Answer Date Recorded Total Score 5 03/24/2022 [facility]at ional Health - Occupational Stress [...] Recorded Do you need help finding a [facility] and/or a training [...] - Family Medicine [address] [place] [address] Taiwo Barker DO [address], [place] [address] 03/22/2025 1:00 PM EST Office Visit [facility] [address] [place] [address] Lola Begum, CHAINSTITCH TUNNEL ELASTIC OPERATOR-BOND ANALYST [address] [place] [address] documented as of this encounter Goals Goal [...] Procedure Name Priority Date/Time Associated Diagnosis Comments US RETROPERITONEAL COMPLETE Routine 04/30/2022 documented in this encounter Results * Ultrasound retroperitoneal complete (04/30/2022) Anatomical Region Laterality Modality Body Ultrasound us Not In System Ref Prov IMG US ORDERABLES Final R esult documented in this encounter Visit Diagnoses Not on filedocumented in this encounter Additional Health Concerns Assessment Noted Time PHQ-9 Depression Total Score: 5 03/24/20 22 5:55 AM EDT documented as of this encounter Care Teams Rotary Bar Operator Relationship Specialty Start Date End Date Taiwo Barker DO [address], [place] [address] PCP - General Family Medicine 01/17/22 Marcia Calderon [facility] 06/[facility]/24 documented as of this encounter
--- OUTSIDE RECORDS SUMMARY | 2024-10-29 12:36 | XMS_ITS | Encounter Summary ---
Author Organization [facility] Address [facility] [id number] [address] [place] [address] Care Team Providers Care Novelty Dipper Name Role Phone Taiwo Barker DO Primary Care Provider + [phone] Reason for Visit * Reason Comments Med Refill Encounter Details Date Type Department Care Team (Late st Contact Info) Description 11/19/2022 Refill [facility] - Family Medicine [address] [place] [address] Taiwo Barker DO [address], [facility] [address] Prediabetes; Essential hypertension Social History Tobacco Use Types Packs/Day Years [...] often do you attend chur ch or yarsanism services? More than 4 times per year 03/24/2022 Do you belong to any clubs o r organizations such as sabianism groups, unions, fraternal or athletic groups, or [...] PHQ-2 Answer Date Recorded Total Score 0 11/15/2022 [facility] of Occupat ional Health - Occupational [...] - Family Medicine [address] [place] [address] Taiwo Barker DO [address], [place] [address] 03/22/2025 1:00 PM EST Office Visit [facility] [address] [place] [address] Lola Begum, COMPUTER HELP DESK REPRESENTATIVE-WEB APPLICATION DEVELOPER [address] [place] [address] documented as of this encounter Goals Goal [...] as of this encounter Visit Diagnoses Diagnosis Prediabetes Other abnormal glucose Essential hypertension Unspecified essential hypertension documented in this encounter Additional Health Concerns Assessment Noted Time PHQ-9 Depression Total Score: 0 11/16/19 23 1:19 PM EDT documented as of this encounter Care Teams Novelty Dipper Relationship Specialty Start Date End Date Taiwo Barker DO [address], [facility] [place] [address] PCP - General Family Medicine 01/17/22 Marcia Calderon CCM Nurse - [facility] 06/19/24 documented as of this encounter
--- OUTSIDE RECORDS SUMMARY | 2024-10-29 12:36 | XMS_ITS | Encounter Summary ---
Author Organization [employer] Address [facility][id number] [address] [place] [address] Care Team Providers Care Retrofit Installer Name Role Phone Taiwo Barker Primary Care Provider + [phone] Reason for Visit * Reason Onset Date Comments Med Refill 07/12/2022 Encounter Details Date Type Department Care Team (Late st Contact Info) Description 07/12/2022 Refill [facility] - Family Medicine [address] [place] [address] Kayla Rios CMA Social History Tobacco Use Types Packs/Day Years [...] often do you attend chur ch or christianity services? More than 4 times per year 03/24/2022 Do you belong to any clubs o r organizations such as congregation groups, unions, fraternal or athletic groups, or [...] PHQ-2 Answer Date Recorded Total Score 0 06/27/2022 [facility] Occupat ional Health - Occupational Stress [...] Recorded Do you need help finding a [facility] career [facility] and/or a training [...] have Coronavirus / COVID-19? No / Unsure 06/27/2022 11:30 AM EST documented as of this encounter Plan of Treatment Upcoming Encounters Date Type Department Care Team (Late st Contact Info) Description 01/12/2025 1:30 PM EDT Office Visit [facility] - Family Medicine [address] [place] [address] Taiwo Barker DO [address], [place] [address] 03/22/2025 1:00 PM EST Office Visit [facility] [address] [place] [address] Lola Begum, SENIOR QC TECHNICIAN-MEAT HOSTESS [address] [place] [address] documented as of this encounter [...] Noted Time PHQ-9 Depression Total Score: 0 06/27/19 23 11:54 AM EST documented as of this encounter Care Teams Retrofit Installer Relationship Specialty Start Date End Date Taiwo Barker DO [address], [facility] [place] [address] PCP - General Family Medicine 01/17/22 [facility] Calderon [facility]/24 documented as of this encounter
--- OUTSIDE RECORDS SUMMARY | 2024-10-29 12:36 | XMS_ITS | Clinical Summary ---
Author Organization [facility] Address [address] [place] [address] Care Team Providers Care Spreader Operator Name Role Phone Taiwo Barker MD Primary Care Provider + [phone] Allergies Active Allergy Reactions Criticality Noted Date Comments Morphine Nausea And Vomiting,Unknown Low 01/31/2022 Other Reaction(s): Nausea And Vomiting, Other (See Comments) Not true allergy, known side effect. Other reaction(s): Unknown Medications amLODIPine (Norvasc) 10 MG tablet Take 10 mg by mouth in the morning. Active aspirin 81 MG EC tablet Take 81 mg by mouth in the morning. 023 Active brimonidine (AlphaGAN P) 0.2 % ophthalmic solution instill 1 DROP IN THE RIGHT EYE TWICE DAILY 024 Active escitalopram (Lexapro) 5 MG tablet Take 1 tablet by mouth at bedtime 023 Active levothyroxine (Synthroid, Levoxyl) 100 MCG tablet Take 100 mcg by mouth Daily Active latanoprost (Xalatan) 0.005 % ophthalmic solution instill 1 (ONE) DROP IN BOTH EYES AT BEDTIME Active losartan-hydroCHLOROth iazide (Hyzaar) 100-25 MG tablet Take 1 tablet by mouth in the morning. Active metFORMIN (Glucophage) 500 MG tablet Take 1 tablet by mouth Daily 023 Active montelukast (Singulair) 10 MG tablet Take 10 mg by mouth Daily Active oxybutynin XL (Ditropan-XL) 5 MG 24 hr tablet Take 5 mg by mouth Daily Active rosuvastatin (Crestor) 10 MG tablet Take 10 mg by mouth Daily Active timolol (Timoptic-XR) 0.5 % ophthalmic gel-forming instill 1 drop by ophthalmic route every day into affected eye(s) Ophthalmic Active traZODone (Desyrel) 50 MG tablet Take 50 mg by mouth at bedtime 023 Active amoxicillin (Amoxil) 500 MG tabletIndications:Prim brenda osteoarthritis of right hip 4 tabs PO once 30-60 mins before procedure with food 4 tablet 3 024 Active methylPREDNISolone (Medrol Dospak) 4 MG tabletsIndications:Cap sulitis of metatarsophalangeal (MTP) joint of left foot Follow schedule on MEDROL PACK package instructions to be used as directed 21 tablet 024 Active Active Problems No known active problems Encounters Date Type Department Care Team Description 08/24/2024 1:00 PM EDT Ancillary Procedure [facility] [address] [place] [address] 08/24/2024 1:00 PM EDT Office Visit [facility] [place] [address] Monty Zepeda, NEVIN S/P total right hip arthroplasty; Primary osteoarthritis of right hip; Lumbar pain 08/24/2024 Bamboo flowsheet [facility] [address] [place] [address] Monty Zepeda NP 08/24/2024 Travel from Last 3 Months Family History Medical History Relation Name Comments Heart disease Father Stroke Father Pneumonia Maternal Grandfather Heart disease Maternal Grandmother child Mother Diabetes Paternal Grandmother Relation Name Status Comments Father Maternal Grandfather Maternal Grandmother Mother Paternal Grandmother Social History Tobacco Use Types Packs/Day Years Used Date Smoking Tobacco: Never Smokeless Tobacco: Never Tobacco Cessation:Counseling Given: Yes Alcohol Use Standard Drinks/Week Comments Yes 1 (1 standard drink = 0.6 oz pur e alcohol) caffeine 2-3 cups/day Comments Unknown Sex and Gender Information Value Date Recorded Sex Assigned at Not on file Legal Sex Female 7:22 PM EDT Gender Identity Not on file Sexual Orientation Not on file Last Filed Vital Signs Vital Sign Reading Time Taken Comments Blood Pressure 133/84 03/26/2024 3:30 PM EST Pulse 86 03/26/2024 3:30 PM EST Temperature - - Respiratory Rate 18 05/07/2024 1:32 PM EST Oxygen Saturation - - Inhaled Oxygen Concentration - - Weight 79.4 kg (175 lb) 05/07/2024 1:32 PM EST Height 166.4 cm (5' 5.5 ) 05/07/2024 1:32 PM EST Body Mass Index 28.68 05/07/2024 1:32 PM EST Plan of Treatment Upcoming Encounters Date Type Department Care Team (Late st Contact Info) Description 09/09/2025 1:00 PM EDT Office Visit [facility] [address] [place] [address] Monty Zepeda NP [address] [place], [place] [id number] Health Maintenance Due Date Last Done Comments Pneumococcal Vaccine: 65+ Years Completed 6, 07/22/2014, 02/17/2013 Influenza Vaccine Completed 02/29/2024, , 03/07/2021, Additional history exists Procedures Procedure Name Priority Date/Time Associated Diagnosis Comments XR HIP 2 OR 3 VW RIGHT Routine 08/24/2024 12:55 PM EDT Primary osteoarthritis of right hip from Last 3 Months Results * XR hip right 2 or 3 views (08/24/2024 12:55 PM EDT) Anatomical Region Laterality Modality Lower Extremities, Hip Right Radiograp hic Imaging Narrative 08/24/2024 1:18 PM EDT Imaging Result: 08/24/2024: X-rays AP and lateral of the right hip demonstrate a right total hip replacement in good position and alignment without signs of lucency, loosening, fracture or failure. Heterotropic ossifications are noted. Impression: Stable appearance of right total hip replacement Monty Zepeda MOLD SANDER-RADIO REPAIRMAN Monty Zepeda NP IMG XR PROCEDURES Final Result from Last 3 Months Insurance MEDICARE [facility] Care Teams Spreader Operator Relationship Specialty Start Date End Date Taiwo Barker MD PCP - General Family Medicine 02/25/23
--- OUTSIDE RECORDS SUMMARY | 2024-10-29 12:36 | XMS_ITS | Encounter Summary ---
Author Organization [facility] Address [place]-[id number] [address] [place] [address] Care Team Providers Care Photogrammetry Airplane Pilot Name Role Phone Taiwo Barker DO Primary Care Provider + [phone] Reason for Visit * Reason Comments Med Refill Encounter Details Date Type Department Care Team (Late st Contact Info) Description 09/24/2022 Refill [facility] - Family Medicine [address] [place] [address] Taiwo Barker DO [address], [facility] [place] [address] Hypothyroidism, unspecified Social History Tobacco Use Types Packs/Day [...] often do you attend chur ch or tenriism services? More than 4 times per year 03/24/2022 Do you belong to any clubs o r organizations such as anabaptist groups, unions, fraternal or athletic groups, or [...] Answer Date Recorded Total Score 1 08/09/2022 [facility] of Occupat ional Health - Occupational [...] - Family Medicine [address] [place] [address] Taiwo Barker DO [address], [place] [address] 03/22/2025 1:00 PM EST Office Visit [facility] [address] [place] [address] Lola Begum, FLOCCULATOR OPERATOR-ELASTIC ATTACHER CHAINSTITCH [address] [place] [address] documented as of this encounter [...] as of this encounter Visit Diagnoses Diagnosis Hypothyroidism, unspecified documented in this encounter Additional Health Concerns Assessment Noted Time PHQ-9 Depression Total Score: 1 08/10/19 23 2:36 PM EDT documented as of this encounter Care Teams Photogrammetry Airplane Pilot Relationship Specialty Start Date End Date Taiwo Barker DO [address] [facility] [place] [address] PCP - General Family Medicine 01/17/22 Marcia Calderon [facility] Nurse - [facility] 06/19/24 documented as of this encounter
--- OUTSIDE RECORDS SUMMARY | 2024-10-29 12:36 | XMS_ITS | Encounter Summary ---
Author Organization [facility] Address [id number] [address] [place] [address] Care Team Providers Care Journeyman Pipefitter Name Role Phone Taiwo Barker DO Primary Care Provider +[phone] Reason for Visit * Reason Comments Med Refill Encounter Details Date Type Department Care Team (Late st Contact Info) Description 03/03/2022 Refill [facility] - Family Medicine [address] [place] [address] Taiwo Barker DO [address] [facility] [place] [address] Essential (primary) hypertension Social History Tobacco Use Types Packs/Day [...] Medicine - Family Medicine [address] [place] [address] Taiwo Barker DO [address], [place] [address] 03/22/2025 1:00 PM EST Office Visit [facility] [address] [place] [address] Lola Begum, LABORATORY APPARATUS GLASS GRINDER-FITNESS TECHNICIAN [address] [place] [address] documented as of this encounter [...] as of this encounter Visit Diagnoses Diagnosis Essential (primary) hypertension Unspecified essential hypertension documented in this encounter Additional Health Concerns Infection Onset Date Last Indicated Resolved Time COVID-19 Rule-Out 03/26/2022 03/26/2022 03/26/2022 2:05 PM EST documented as of this encounter Care Teams Journeyman Pipefitter Relationship Specialty Start Date End Date Taiwo Barker DO [address] [facility] [place] [place] [address] PCP - General Family Medicine 01/17/22 Marcia Calderon CCM Nurse - [facility] 06/19/24 documented as of this encounter
--- OUTSIDE RECORDS SUMMARY | 2024-10-29 12:36 | XMS_ITS | Encounter Summary ---
Author Organization [employer] Address [id number] [address] [place] [address] Care Team Providers Care Devops Engineer Name Role Phone Taiwo Barker Primary Care Provider +[phone] Encounter Details Date Type Department Care Team (Late st Contact Info) Description 04/18/2022 Telephone [facility] [address] [place] [address] Tai Mendez, DO [address] [place] [address] Social History Tobacco Use Types Packs/Day Years [...] any clubs o r organizations such as restoration groups, unions, fraternal or athletic groups, or [...] Answer Date Recorded Total Score 5 03/24/2022 [facility] Occupat ional Health - Occupational [...] Recorded Do you need help finding a [facility] and/or a training program? [...] PM EST documented as of this encounter Miscellaneous Notes * Telephone Encounter - Brittany Dinesh - 04/18/2022 9:49 AM EST NIGHT BAKER-referred by Lucila Quintanilla-Dyspnea on exertion documented in this encounter Plan of Treatment Upcoming Encounters Date Type Department Care Team (Late st Contact Info) Description 01/12/2025 1:30 PM EDT Office Visit [facility] - Family Medicine [address] [place] [address] Taiwo Barker DO [address], [facility] [place] [address] 03/22/2025 1:00 PM EST Office Visit [facility] [address] [place] [address] Lola Begum, ADDICTION THERAPIST-SUPERVISOR PRINTING [employer] [address] [place] [address] documented as of this encounter Goals Goal [...] documented as of this encounter Care Teams Devops Engineer Relationship Specialty Start Date End Date Taiwo Barker DO [address], [place] [address] PCP - General Family Medicine 01/17/22 Marcia Calderon [facility] 06/19/24 documented as of this encounter
--- OUTSIDE RECORDS SUMMARY | 2024-10-29 12:36 | XMS_ITS | Encounter Summary ---
Author Organization [email or web address] tem Address [facility][id number] [address] [place] [address] Care Team Providers Care Daycare Worker Name Role Phone Taiwo Barker Primary Care Provider + [phone] Encounter Details Date Type Department Care Team (Late st Contact Info) Description 05/01/2022 [facility] [address] [place] [address] Brittany Mane MA Social History Tobacco Use Types Packs/Day [...] often do you attend chur ch or shinto services? More than 4 times per year 03/24/2022 Do you belong to any clubs o r organizations such as temple groups, unions, fraternal or athletic groups, or [...] Answer Date Recorded Total Score 5 03/24/2022 [facility] of Occupat ional Health - Occupational Stress [...] Miscellaneous Notes * Telephone Encounter - Brittany Mane MA - 05/01/2022 1:20 PM EST She said [facility] sent her home with levothyroxine but the dose is different. She wanted to know if she needs to be taking the 88 or 100? * Telephone Encounter - Taiwo Barker DO - 05/01/2022 1:20 PM EST Looks like her TSH was high when she was in the hospital so he increased it to 100 mcg of stay on that dose for now * Telephone Encounter - Brittany Mane MA - 05/01/2022 1:20 PM EST Patient notified and understands. documented in this encounter Plan of Treatment Upcoming Encounters Date Type Department Care Team (Late st Contact Info) Description 01/12/2025 1:30 PM EDT Office Visit [facility] - Family Medicine [address] [place] [address] Taiwo Barker DO [address], [facility] [place] [address] 03/22/2025 1:00 PM EST Office Visit [facility] [address] [place] [address] Lola Begum, TELEPHONE SERVICE ADVISER-REPATCHER [address] [place] [address] documented as of this encounter Goals Goal [...] documented as of this encounter Care Teams Daycare Worker Relationship Specialty Start Date End Date Taiwo Barker DO [address] [facility], [facility] [place] [address] PCP - General Family Medicine 01/17/22 Marcia Calderon [facility] Nurse - [facility] 06/19/24 documented as of this encounter
--- OUTSIDE RECORDS SUMMARY | 2024-10-29 12:36 | XMS_ITS | Encounter Summary ---
Author Organization [facility] tem Address [facility]-[id number] [address] [place] [address] Care Team Providers Care Fruit Cutter Name Role Phone Taiwo Barker DO Primary Care Provider +1 [phone] Encounter Details Date Type Department Care Team (Late st Contact Info) Description 09/24/2022 Orders Only [facility] - Family Medicine [address] [place] [address] Taiwo Barker DO [address] [facility] [place] [address] Social History Tobacco Use Types Packs/Day Years [...] often do you attend chur ch or mosque services? More than 4 times per year [...] Answer Date Recorded Total Score 1 08/09/2022 [facility] of Occupat ional Health - Occupational [...] - Family Medicine [address] [place] [address] Taiwo Barker DO [address] [place] [address] 03/22/2025 1:00 PM EST Office Visit [facility] [address] [place] [address] Lola Begum, RECREATION PROGRAMMER-FABRIC WORKER FITTER [address] [place] [address] documented as of this encounter Goals Goal [...] documented as of this encounter Care Teams Fruit Cutter Relationship Specialty Start Date End Date Taiwo Barker DO [address], [place] [address] PCP - General Family Medicine 01/17/22 Marcia Calderon [facility] Nurse - [facility] 06/19/24 documented as of this encounter
--- OUTSIDE RECORDS SUMMARY | 2024-10-29 12:36 | XMS_ITS | Encounter Summary ---
Author Organization [employer] [facility] Address [id number] [address] [place] [address] Care Team Providers Care Dinkey Locomotive Operator Name Role Phone Taiwo Barker DO Primary Care Provider [phone] Encounter Details Date Type Department Care Team (Late st Contact Info) Description 04/24/2023 Orders Only [facility] Internal Medicine - Family Medicine [address] [place] [address] Taiwo Barker DO [address] [facility], [facility] [place] [address] Social History Tobacco Use Types Packs/Day Years [...] often do you attend chur ch or rastafari services? More than 4 times per year 03/24/2022 Do you belong to any clubs o r organizations such as religious groups, unions, fraternal or athletic groups, or [...] Answer Date Recorded Total Score 0 01/15/2023 [facility] Occupat ional Health - [...] Recorded Do you need help finding a [facility] and/or a training program? [...] Medicine - Family Medicine [address] [place] [address] Taiwo Barker DO [address], [place] [address] 03/22/2025 1:00 PM EST Office Visit [facility] [address] [place] [id number] Lola Begum, FACE MAN-COOLER CONVEYOR LOADER [address] [place] [phone] documented as of this encounter Goals Goal [...] documented as of this encounter Care Teams Dinkey Locomotive Operator Relationship Specialty Start Date End Date Taiwo Barker DO [address], [place] [address] PCP - General Family Medicine 01/17/22 Marcia Calderon [facility] Nurse - [employer] 06/19/24 documented as of this encounter
--- OUTSIDE RECORDS SUMMARY | 2024-10-29 12:36 | XMS_ITS | Encounter Summary ---
Author Organization [employer] Address [facility] [id number] [address] [place] [address] Care Team Providers Care Glassware Finisher Name Role Phone Taiwo Barker Primary Care Provider + [phone] Encounter Details Date Type Department Care Team (Late st Contact Info) Description 04/06/2022 Telephone [facility] - Family Medicine [address] [place] [id number] Brittany Mane MA Social History Tobacco Use [...] often do you attend chur ch or congregation services? More than 4 times per year 03/24/2022 Do you belong to any clubs o r organizations such as hinduism groups, unions, fraternal or athletic groups, or [...] Answer Date Recorded Total Score 5 03/24/2022 [facility] of Occupat ional Health - Occupational Stress [...] have Coronavirus / COVID-19? No / Unsure 03/24/2022 1:04 AM EDT documented as of this encounter Miscellaneous Notes * Telephone Encounter - Brittany Mane MA - 04/06/2022 12:33 PM EST Patient's daughter called and said Екатерина is currently at [facility] and they need to speak with oneof you regarding some possible options. She asked if one of you can please call [facility] when youget a chance. * Telephone Encounter - OLE Pratt - 04/06/2022 12:33 PM EST Please call [facility] and speak to whom? * Telephone Encounter - Brittany Mane MA - 04/06/2022 12:33 PM EST The previous message I took, they did not leave a name. I just took another message off that they just left again and it was a Mel who left the message. * Telephone Encounter - KerriOLE Del Castillo - 04/06/2022 12:33 PM EST I am going to let you follow thru with this - Lucila documented in this encounter Plan of Treatment Upcoming Encounters Date Type Department Care Team (Late st Contact Info) Description 01/12/2025 1:30 PM EDT Office Visit [facility] Medicine - Family Medicine [address] [place] [address] Taiwo Barker, [address], [place] [address] 03/22/2025 1:00 PM EST Office Visit [facility] [address] [place] [address] Lola Begum, SECURITY SERGEANT-TRAFFIC CLERK [address] [place] [address] documented as of this encounter [...] documented as of this encounter Care Teams Glassware Finisher Relationship Specialty Start Date End Date Taiwo Barker DO [address] [facility], [place] [address] PCP - General Family Medicine 01/17/22 Marcia Calderon [facility] Nurse - [employer] 06/19/24 documented as of this encounter
--- OUTSIDE RECORDS SUMMARY | 2024-10-29 12:37 | XMS_ITS | Encounter Summary ---
Author Organization [facility] [employer] [facility] Address [facility] [id number] [address] [place] [address] Care Team Providers Care Optometrist Assistant Name Role Phone Taiwo Barker DO Primary Care Provider [phone] Reason for Visit * Reason Comments Med Refill Encounter Details Date Type Department Care Team (Late st Contact Info) Description 02/09/2022 Refill [facility] Internal Medicine - Family Medicine [address] [place] [address] Taiwo Barker DO [address] [facility], [facility] [place] [address] Prediabetes Social History Tobacco Use Types Packs/Day Years [...] Medicine - Family Medicine [address] [place] [address] Taiwo Barker DO [address], [place] [address] 03/22/2025 1:00 PM EST Office Visit [facility] [address] [place] [address] Lola Begum, GROUP BURNER MACHINE-MIDDLE SCHOOL READING TEACHER [address] [place] [address] [...] Visit Diagnoses Diagnosis Prediabetes Other abnormal glucose documented in this encounter Additional Health Concerns Infection Onset Date Last Indicated Resolved Time COVID-19 Rule-Out 03/26/2022 03/26/2022 03/26/2022 2:05 PM EST documented as of this encounter Care Teams Optometrist Assistant Relationship Specialty Start Date End Date Taiwo Barker DO [address] [place] [address] PCP - General Family Medicine 01/17/22 Marcia Calderon [facility] Nurse - [employer] 06/19/24 documented as of this encounter
--- OUTSIDE RECORDS SUMMARY | 2024-10-29 12:37 | XMS_ITS | Encounter Summary ---
Author Organization [employer] Address [facility] [id number] [address] [place] [address] Care Team Providers Care Barn Boss Name Role Phone Taiwo Barker Primary Care Provider + [phone] Encounter Details Date Type Department Care Team (Late st Contact Info) Description 12/03/2023 [facility] [address] [place] [address] Derrick Harvey CMA Social History Tobacco Use Types Packs/Day Years Used Date Smoking Tobacco: Never Smokeless Tobacco: Never Alcohol Use Standard Drinks/Week Comments Yes 0 (1 standard drink = 0.6 oz pur e alcohol) occational glass of wine [facility] Utilities Answer Date Recorded In the past 12 months has [employer] electric, gas, oil, or water company threatened [...] often do you attend chur ch or lutheran services? More than 4 times per year 03/24/2022 Do you belong to any clubs o r organizations such as jehovah's witness groups, unions, fraternal or athletic groups, or [...] PHQ-2 Answer Date Recorded Total Score 0 12/04/2023 [facility] of Occupat ional Health - Occupational [...] Recorded Do you need help finding a [facility] and/or a training program? No 03/24/2022 Hunger Screening Answer Date Recorded Within the past 12 months we worried whether our food would run out before we got money to buy more. Never True 12/04/2023 Within the past 12 months th e food we bought just didn't last and we didn't have money to get more. Never True 12/04/2023 Purpose - Life Answer Date Recorded I have a purpose and direction in my life. Agree 03/24/2022 Comments No Sex and Gender Information Value Date Recorded Sex Assigned at Not on file Legal Sex Female 11:27 AM EDT Gender Identity Not on file Sexual Orientation Not on file documented as of this encounter Miscellaneous Notes * Telephone Encounter - Derrick Harvey CMA - 12/03/2023 5:11 PM EDT Left message for a CV Appt. documented in this encounter Plan of Treatment Upcoming Encounters Date Type Department Care Team (Late st Contact Info) Description 01/12/2025 1:30 PM EDT Office Visit [facility] - Family Medicine [address] [place] [address] Taiwo Barker DO [address], [facility] [place] [address] 03/22/2025 1:00 PM EST Office Visit [facility] [address] [place] [address] Lola Begum, ELEVATOR ERECTOR HELPER-BRUSH PAINTER [address] [place] [address] documented as of this encounter [...] Noted Time PHQ-9 Depression Total Score: 0 08/05/19 24 2:54 PM EDT documented as of this encounter Care Teams Barn Boss Relationship Specialty Start Date End Date Taiwo Barker DO [address] [facility], [place] [address] PCP - General Family Medicine 01/17/22 Marcia Calderon [facility] documented as of this encounter
--- OUTSIDE RECORDS SUMMARY | 2024-10-29 12:37 | XMS_ITS | Encounter Summary ---
Author Organization [facility] [employer] [facility] Address [id number] [address] [place] [address] Care Team Providers Care Ed Tech Name Role Phone Taiwo Barker DO Primary Care Provider [phone] Reason for Visit * Reason Comments Med Refill Encounter Details Date Type Department Care Team (Late st Contact Info) Description 02/17/2022 Refill [facility] Medicine - Family Medicine [address] [place] [address] Taiwo Barker DO [address] [email or web address] [place] [address] Overactive bladder Social History Tobacco Use Types Packs/Day Years [...] have Coronavirus / COVID-19? No / Unsure 02/14/2022 8:39 AM EDT documented as of this encounter Plan of Treatment Upcoming Encounters Date Type Department Care Team (Late st Contact Info) Description 01/12/2025 1:30 PM EDT Office Visit [facility] - Family Medicine [address] [place] [address] Taiwo Barker DO [address], [place] [address] 03/22/2025 1:00 PM EST Office Visit [facility] [address] [place] [address] Lola Begum, COUNTY SURVEYOR-RHIC SYSTEMS SAFETY ENGINEER [address] [place] [address] documented as of this encounter [...] as of this encounter Visit Diagnoses Diagnosis Overactive bladder Hypertonicity of bladder documented in this encounter Additional Health Concerns Infection Onset Date Last Indicated Resolved Time COVID-19 Rule-Out 03/26/2022 03/26/2022 03/26/2022 2:05 PM EST documented as of this encounter Care Teams Ed Tech Relationship Specialty Start Date End Date Taiwo Barker DO [address] [place] [address] PCP - General Family Medicine 01/17/22 Marcia Calderon [facility] Nurse - [employer] 06/19/24 documented as of this encounter
--- NOTE | 2024-10-29 13:12 | PM.CN ---
Consult Note: HPI Data of Consult Patient: known to practice within the last 3 years Consult date: 10/29/24 Requesting Physician: Rosalee Stinson NP Primary Care Provider: KATLIN AYALA Consult Narrative Reason for consult: low back pain Narrative: 78 year old female with chronic low back pain and polyneuropathy, notes pain well controlled since last visit. finds benefit to pregabalin 50mg TID without side effects. denies falls/injury since last visit. cc:: CC: Rosalee Stinson NP Review of Systems ROS Status of ROS 10 or more systems reviewed and unremarkable except as noted in history and below Meds Home Medications and Allergies Home Medications ?Medication ?Instructions ?Recorded ?Confirmed ?Type amlodipine 10 mg tablet (Norvasc) 10 mg PO DAILY 09/08/24 09/08/24 History aspirin 81 mg tablet,delayed 81 mg PO DAILY 09/08/24 09/08/24 History release escitalopram oxalate 5 mg tablet 5 mg PO DAILY 09/08/24 09/08/24 History (Lexapro) levothyroxine 100 mcg tablet 100 mcg PO DAILY 09/08/24 09/08/24 History (Synthroid) losartan 50 mg-hydrochlorothiazide 1 tab PO DAILY 09/08/24 09/08/24 History 12.5 mg tablet magnesium oxide 400 mg (241.3 mg 200 mg PO DAILY 09/08/24 09/08/24 History magnesium) tablet metformin 500 mg tablet 500 mg PO DAILY 09/08/24 09/08/24 History montelukast 10 mg tablet 10 mg PO DAILY 09/08/24 09/08/24 History (Singulair) oxybutynin chloride 5 mg tablet 5 mg PO DAILY 09/08/24 09/08/24 History pregabalin 50 mg capsule (Lyrica) 50 mg PO TID 09/08/24 09/08/24 History rosuvastatin 10 mg tablet 10 mg PO DAILY 09/08/24 09/08/24 History trazodone 100 mg tablet 50 mg PO DAILY 09/08/24 09/08/24 History Allergies Allergy/AdvReac Type Severity Reaction Status Date / Time morphine Allergy Unknown Unknown Verified 09/08/24 08:16 Exam Narrative Exam Narrative: .Psych-alert and oriented x 3. Attentive and appropriate, constitutionally normal, displays normal mood and affect per situation.? There are no obvious deficits in memory, reasoning, or intellect.? Skin-no obvious rashes, bruising, erythema noted to the patient's area of pain. Extremities- extremities are warm with minimal edema and palpable pulses. Lumbar-no significant tenderness to palpation noted in the lumbar spine and paraspinal musculature.? Pain is elicited with extension, and lateral rotation of the lumbar spine. Range of motion is slightly diminished with these motions due to pain. Facet loading maneuvers are positive bilaterally and do appear to be concordant with the patient's normal complaints of pain.? Coordination remains intact.? Gait remains non-antalgic Assessment and Plan Assessment and Plan (1) Low back pain: Qualifiers: Chronicity: chronic Back pain laterality: unspecified Sciatica presence: unspecified whether sciatica present Qualified Code(s): M54.50 - Low back pain, unspecified; G89.29 - Other chronic pain (2) Myalgia: (3) Peripheral neuropathy: Qualifiers: Peripheral neuropathy type: polyneuropathy, unspecified Qualified Code(s): G62.9 - Polyneuropathy, unspecified Plan 78 year old female with low back pain and polyneuropathy. Has failed to benefit from > 6 weeks of HEP, heat, ice, tylenol, NSAIDs. lumbar xray consistent with moderate-severe multilevel degenerative changes. pain well controlled with current medication regimen, defer further workup at this time. f/u 3 months, sooner if needed
== END 2024-10-29 12:35 | disposition home or self-care (01) ==
LOC: PM 12:34
PROVIDERS: PCP Family Medicine; Visit Provider Nurse Practitioner
DX: M54.50 Low back pain, unspecified (principal); G89.29 Other chronic pain
CPT/HCPCS: G0463

== ENCOUNTER 2025-01-27 13:19 | Outpatient (OUT) | payer MEDICARE, SELFPAY ==
--- OUTSIDE RECORDS SUMMARY | 2025-01-27 13:34 | XMS_ITS | CCD ---
Author Organization [facility] CliniSywv Care Team Providers Care Sorter Operator Name Role Phone LUCILA JUAN Admitting Unavailable LUCILA JUAN Attending Unavailable LUCILA JUAN Primary Care Unavailable LUCILA JUAN Consulting Unavailable TAIWO AYALA Admitting Unavailable FURTAIWO GONZALEZ Attending Unavailable TAIWO AYALA Primary Care Unavailable TAIWO AYALA Admitting Unavailable FUREDUNGTAIWO Attending Unavailable TAIWO AYALA Primary Care Unavailable TAIWO AYALA Primary Care Unavailable Dianne Combs Attending Unavail able GarretDianne Admitting Unavail able GarretDianne Admitting Unavail able TAIWO AYALA Primary Care Unavailable Dianne Combs Attending Unavail able Antoine Uriostegui Consulting Unavailable TAIWO AYALA Primary Care Unavailable GarretDianne mcnulty Attending Unavail able Dianne Combs Admitting Unavail able TAIWO AYALA Primary Care Physician [phone] ERIS GILL Attending Unavailable Nyasia Key Attending Unavailable Nyasia Key Attending Unavailable Nyasia Key Referring Unavailable Nyasia Key Admitting Unavailable Self, Referral Attending Unavailable Self, Referral Admitting Unavailable Taiwo Ayala Primary Care Unavailable Taiwo Ayala MD Primary Care Provider Taiwo Ayala DO Primary Care Provider TAIWO AYALA Referring Unavailable TAIWO AYALA Primary Care Unavailable DIANNE COMBS Attending Unavailable DIANNE COMBS Referring Unavailable TAIWO AYALA Primary Care Unavailable DIANNE COMBS Referring Unavailable TAIWO AYALA Primary Care Unavailable FURLONG, TAIWO G Referring Unavailable FURLONG, TAIWO G Primary Care Unavailable GARRET, DIANNE Moffett Admitting Unavailable GARRET, DIANNE Moffett Attending Unavailable FURLONG, TAIWO G Primary Care Unavailable GEREMIAS ORELLANA Referring Unavailable FURLONG, TAIWO G Primary Care Unavailable FURLONG, TAIWO G Referring Unavailable FURLONG, TAIWO G Primary Care Unavailable FURLONG, TAIWO G Referring Unavailable FURLONG, TAIWO G Primary Care Unavailable WAYNE TRAN Attending Unavailable FURLONG, TAIWO G Referring Unavailable FURLONG, TAIWO G Primary Care Unavailable FURLONG, TAIWO G Referring Unavailable FURLONG, TAIWO G Primary Care Unavailable Furlong Taiwo HARDY Primary Care Provider DIANNE COMBS Attending Unavailable GARRET, DIANNE Moffett Attending Unavailable GARRET, DIANNE Moffett Attending Unavailable GARRET, DIANNE Moffett Referring Unavailable BLACKSTONEMILY Attending Unavailable GARRET, DIANNE Moffett Referring Unavailable KELNATALIIAYASIF Attending Unavailable GARRET, DIANNE Moffett Referring Unavailable KELBLEYASIF Attending Unavailable GARRET, DIANNE Moffett Referring Unavailable KELBLEY, ASIF Attending Unavailable GARRET, DIANNE Moffett Referring Unavailable KELBLEY, ASIF Attending Unavailable GARRET, DIANNE Moffett Referring Unavailable BLACKSTONEMILY T Attending Unavailable GARRET, DIANNE Moffett Referring Unavailable GARRET, DIANNE Moffett Attending Unavailable KELBLEY, ASIF Attending Unavailable GARRET, DIANNE Moffett Referring Unavailable KELBLEYASIF Attending Unavailable GARRET, DIANNE Moffett Referring Unavailable MAK CARDOZO Attending Unavailable GARRET, DIANNE Moffett Referring Unavailable BLACKSTON, EMILY T Attending Unavailable GARRET, DIANNE Moffett Referring Unavailable BRINKMAK Attending Unavailable GARRET, DIANNE Moffett Referring Unavailable KELBLEY, ASIF Attending Unavailable GARRET, DIANNE Moffett Referring Unavailable BLACKSTON, EMILY T Attending Unavailable GARRET, DIANNE Moffett Referring Unavailable BLACKSTON, EMILY T Attending Unavailable GARRET, DIANNE Moffett Referring Unavailable GARRET, DIANNE Moffett Attending Unavailable GARRET, DIANNE Moffett Referring Unavailable GARRET, DIANNE Moffett Referring Unavailable LEE HESTER Attending Unavailable LEE HESTER Attending Unavailable LEE HESTER Attending Unavailable SERGIO VELEZ Attending Unavailable SERGIO VELEZ Referring Unavailable Furlong DOTaiwo Primary Care Provider [phone] Haritha HARDY, Flor Phillips Attending Unavailable Haritha HARDY, Flor Phillips Attending Unavailable FURLONG, TAIWO Yung Attending Unavailable FURLONG, TAIWO G Referring Unavailable FURLONG, ATIWO G Primary Care Unavailable FURLONG, TAIWO G Referring Unavailable FURLONG, TAIWO G Primary Care Unavailable FURLONG, TAIWO G Attending Unavailable FURLONG, TAIWO G Referring Unavailable FURLONG, TAIWO G Primary Care Unavailable FURLONG, TAIWO G Attending Unavailable FURLONG, TAIWO G Referring Unavailable FURLONG, TAIWO G Primary Care Unavailable Allergies Allergy Classification Reported Allergen(s) Allergy Type Date of Onset Reaction(s) Facility (20 sources) Morphine; Translations: [morphine] Drug Allergy 01-31-2022 Nausea And Vomiting, Unknown, Other (See Comments) [facility] (20 sources) Morphine; Translations: [MORPHINE SULFATE] Drug Allergy 02-01-2022 [facility] Current Medications Medication Drug Class(es) Dates Sig (Normalized) Sig (Original) amLODIPine 10 mg oral tablet (20 sources) Dihydropyridine Calcium Channel Krysten Start: 11-19-2022 End: 06-08-2024 take 1 tablet by mouth in the morning amLODIPine (NORVASC) 10 mg tablet Indications: Essential hypertension TAKE 1 TABLET BY MOUTH IN THE MORNING 90 tablet 2 06/08/2024 Active Start: 05-23-2022 amLODIPine 5 m g Tab Refills(s) 0 Start Date: 05/23/22 Status: Ordered amoxicillin 500 mg oral tablet (13 sources) Penicillin-class Antibacterial Start: 02-11-2024 take 4 tablets by mouth once at mealtime amoxicillin (Amoxil) 500 MG tablet Indications: Primary osteoarthritis of right hip 4 tabs PO once 30-60 mins before procedure with food 4 tablet 3 02/11/2024 Active aspirin 325 mg delayed release oral tablet (20 sources) Platelet Aggregation Inhibitor, Nonsteroidal Anti-inflammatory Drug Start: 08-22-2023 End: 05-18-2024 take 1 tablet by mouth in the morning aspirin 325 mg EC tablet Take 1 tablet (325 mg total) by mouth in the morning. 08/23/2023 Active Start: 11-15-2022 End: 08-23-2023 take 1 tablet by mouth in the morning aspirin 81 MG EC tablet Take 81 mg by mouth in the morning. 11/15/2022 Active bimatoprost 0.1 mg/ml ophthalmic solution (13 sources) Prostaglandin Analog Start: 06-03-2024 take 1 drop(s) into the eye(s) once daily LUMIGAN 0.01 % ophthalmic drops Administer 1 drop to both eyes nightly. 06/03/2024 Active cholecalciferol 0.125 mg oral tablet (13 sources) Vitamin D take 1 tablet by mouth every other day cholecalciferol, vitamin D3, 5,000 units tablet Take 1 tablet (5,000 Units total) by mouth every other day. Active take 1 tablet by mouth in the mo rning cholecalciferol, vitamin D3, 5,000 units tablet Take 1 tablet (5,000 Units total) by mouth in the morning. Active cloNIDine hydrochloride 0.1 mg oral tablet (1 source) Central alpha-2 Adrenergic Agonist Start: 05-23-2022 cloNIDine 0.1 mg tab Refills(s) 0 Start Date: 05/23/22 Status: Ordered dorzolamide 20 mg/ml / timolol 5 mg/ml ophthalmic solution (20 sources) Carbonic Anhydrase Inhibitor, beta-Adrenergic Krysten Start: 09-09-2022 take 1 drop(s) into the eye(s) in the morning dorzolamide-timol oL (COSOPT) 22.3-6.8 mg/mL ophthalmic solution Administer 1 drop to both eyes in the morning and 1 drop before bedtime. 09/09/2022 Active Start: 05-23-2022 dorzolamide-ti molol Opth 2%-0.5% Elsa Refill(s) 0 Start Date: 05/23/22 Status: Ordered escitalopram 5 mg oral tablet (20 sources) Serotonin Reuptake Inhibitor Start: 08-21-2023 End: 08-23-2023 take 5 mg by mouth once daily 5 mg, oral, Nightly, First dose on Sat08/21/23 at 2200, Look-alike/sound-alike medication - verify indication for use. Start: 08-21-2023 End: 08-21-2023 escitalopram (LEXAPRO) 10 mg tablet - Pyxis Override Pull Start: 05-23-2022 End: 01-12-2025 take 1 tablet by mouth once daily escitalopram (LEXAPRO) 5 mg tablet Indications: Anxiety Take 1 tablet (5 mg total) by mouth nightly. 01/12/2025 Active Start: 05-23-2022 escitalopram 5 mg oral tablet 3 EA, TAKE 1 TABLET BY MOUTH EVERYDAY AT BEDTIME, Refills(s) 0 Start Date: 05/23/22 Status: Ordered ferrous sulfate 325 mg delayed release oral tablet (5 sources) Start: 07-25-2023 End: 09-23-2023 take 1 tablet by mouth in the morning ferrous sulfate 325 (65 FE) mg EC tablet Take 1 tablet (325 mg total) by mouth in the morning. 07/25/2023 09/23/2023 Active Start: 05-23-2022 ferrous sulfat e 325 mg Tab 6 EA, TAKE 1 TABLET BY MOUTH TWICE A DAY WITH MEALS, Refills(s) 0 Start Date: 05/23/22 Status: Ordered Fish Oils (1 source) Start: 05-23-2022 Fish Oil 1000 mg oral capsule 3 EA, TAKE 1 CAPSULE BY MOUTH EVERY DAY, Refills(s) 0 Start Date: 05/23/22 Status: Ordered hydroCHLOROthiazide 25 mg oral tablet (1 source) Thiazide Diuretic Start: 05-23-2022 hydrochlorothiazide 25 mg Tab Refills(s) 0 Start Date: 05/23/22 Status: Ordered hydroCHLOROthiazide 25 mg / losartan potassium 100 mg oral tablet (20 sources) Thiazide Diuretic, Angiotensin 2 Receptor Krysten Start: 11-26-2022 End: 05-18-2024 take 1 tablet by mouth once in the morning losartan-hydroCHLOROth iazide (HYZAAR) 100-25 mg per tablet Take 1 tablet by mouth in the morning. 90 tablet 3 05/18/2024 Active take 1 tablet by tomeka th in the morning losartan-hydroCHLOROthiazide (Hyzaar) 10 0-25 MG tablet Take 1 tablet by mouth in the morning. Active latanoprost 0.05 mg/ml ophthalmic solution (20 sources) Prostaglandin Analog Start: 05-23-[address] Opth 0.005% Elsa 1 drop(s), OPTH, Once a day (at bedtime), 2.5 mL, Refill(s) 0 Start Date: 05/23/22 Status: Ordered End: 01-12-2025 take 1 drop(s) into the eye(s) once daily latanoprost (XALATAN) 0.005 % ophthalmic solution Administer 1 drop to both eyes nightly. 01/12/2025 Discontinued (Therapy completed) take 1 drop(s) into the eye(s) at bedtime latanoprost (Xalatan) 0.005 % ophthalmic solution instill 1 (ONE) DROP IN BOTH EYES AT BEDTIME Active levothyroxine sodium 0.1 mg oral tablet (20 sources) l-Thyroxine Start: 08-22-2023 End: 08-23-2023 100 mcg, oral, Daily, First dose on [facility] 08/22/23 at 0600, Look-alike/sound-alike medication. Verify indication for use Administer on empty stomach at least ONE hour before or TWO hours after food Enteral Feeding: For 7 days or less of tube feeding- do NOT hold tube feedings, after 7 days- hold tube feedings ONE hour before and ONE hour after administration DOES NOT APPLY TO NEONATES Monitor thyroid function tests weekly Start: 08-22-2023 End: 08-22-2023 levothyroxine (SYNTHROID, LE VOTHROID) 50 MCG tablet - Pyxis Override Pull Start: 12-24-2022 End: 09-09-2024 take 1 tablet by mouth once daily levothyroxine (SYNTHROID, LEVOTHROID) 100 MCG tablet Indications: Hypothyroidism, unspecified TAKE 1 TABLET BY MOUTH DAILY 90 tablet 1 09/09/2024 Active magnesium oxide 200 mg oral tablet (20 sources) Start: 01-03-2024 take 1 tablet by mouth in the morning magnesium oxide 200 mg magnesium tablet Take 200 mg by mouth in the morning. 90 tablet 01/03/2024 Active metFORMIN hydrochloride 500 mg oral tablet (20 sources) Biguanide Start: 05-07-2024 End: 11-12-2024 take 1 tablet by mouth once daily metFORMIN (GLUCOPHAGE) 500 mg tablet Indications: Prediabetes TAKE 1 TABLET BY MOUTH ONCE DAILY 90 tablet 1 11/12/2024 Active Start: 05-23-2022 End: 11-18-2023 take 1 tablet by mouth once daily metFORMIN (Glucophage) 500 MG tablet Take 1 tablet by mouth Daily 05/23/2022 Active methylPREDNISolone (14 sources) Corticosteroid Start: 03-26-2024 methylPREDNISo lone (Medrol Dospak) 4 MG tablets Indications: Capsulitis of metatarsophalangeal (MTP) joint of left foot Follow schedule on MEDROL PACK package instructions to be used as directed 21 tablet 03/26/2024 Active Start: 02-11-2024 End: 02-11-2024 methylPREDNISolone acetate ( DEPO-Medrol) injection 40 mg Start: 02-11-2024 End: 02-11-2024 40 mg, Injection, Once PRN P rocedure, Starting on Sat02/11/24 at 1334, For 1 dose Metoprolol (1 source) beta-Adrenergic Krysten Start: 05-23-2022 Metoprolol tartrate 50 mg Tab 30 tab(s), Refills(s) 0 Start Date: 05/23/22 Status: Ordered 24 hr mirabegron 25 mg extended release oral tablet (3 sources) beta3-Adrenergic Agonist Start: 01-12-2025 take 2 tablets by mouth every twenty-four hours in the morning mirabegron (MYRBETRIQ) 25 mg tablet extended release 24 hr Take 2 tablets (50 mg total) by mouth in the morning. 30 tablet 5 01/12/2025 Active montelukast 10 mg oral tablet (20 sources) Leukotriene Receptor Antagonist Start: 05-23-2022 End: 01-12-2025 take 1 tablet by mouth once daily in the morning montelukast (SINGULAIR) 10 mg tablet Indications: Unspecified asthma, uncomplicated Take 1 tablet (10 mg total) by mouth every morning. 30 tablet 11 01/12/2025 Active illpdicv-arme-SB-ca lcium &mins (THERAGRAN-M) 9 mg iron-400 mcg tablet (18 sources) vcqvptuc-lozo-YS -ca lcium &mins (THERAGRAN-M) 9 mg iron-400 mcg tablet Take 1 tablet by mouth in the morning. Active ofloxacin 3 mg/ml ophthalmic solution (1 source) Quinolone Antimicrobial Start: 12-04-2023 End: 12-11-2023 ofloxacin (OCUFLOX) 0.3 % ophthalmic solution Indications: Acute conjunctivitis of both eyes, unspecified acute conjunctivitis type Administer 1 drop to both eyes in the morning and 1 drop at noon and 1 drop in the evening and 1 drop before bedtime. Do all this for 7 days. 10 mL 12/04/2023 12/11/2023 Active oxyCODONE hydrochloride 5 mg oral tablet (3 sources) Opioid Agonist Start: 08-22-2023 End: 08-29-2023 take 1 tablet by mouth every six hours as needed for pain oxyCODONE (ROXICODONE) 5 mg immediate release tablet Indications: Post-operative pain Take 1 tablet (5 mg total) by mouth every 6 (six) hours as needed for pain for up to 7 days. Max Daily Amount: 20 mg 0 08/22/2023 08/29/2023 Active Start: 08-21-2023 End: 08-23-2023 take 1 tablet by mouth every three hours as needed for pain oxyCODONE (ROXICODONE) immediate release tablet 5 mg pregabalin 50 mg oral capsule (7 sources) take 1 capsule by mouth three times daily pregabalin (LYRICA) 50 mg capsule Take 1 capsule (50 mg total) by mouth 3 (three) times a day. Active rosuvastatin calcium 10 mg oral tablet (20 sources) HMG-CoA Reductase Inhibitor Start: take 1 tablet by mouth once daily rosuvastatin (CRESTOR) 10 mg tablet Indications: Hyperlipidemia, unspecified TAKE 1 TABLET BY MOUTH NIGHTLY 90 tablet 3 01/18/2025 Active Start: 04-24-2023 End: 01-18-2025 take 1 tablet by mouth once daily rosuvastatin (CRESTOR) 10 mg tablet Indications: Hyperlipidemia, unspecified TAKE 1 TABLET BY MOUTH NIGHTLY 90 tablet 10/13/2024 01/18/2025 Discontinued traZODone hydrochloride 50 mg oral tablet (20 sources) Serotonin Reuptake Inhibitor Start: 09-18-2024 End: 12-07-2024 take 0.5 tablet by mouth once daily traZODone (DESYREL) 50 mg tablet Indications: Insomnia, unspecified TAKE 1/2 (ONE-HALF) OF A TABLET BY MOUTH NIGHTLY 45 tablet 12/07/2024 Active Start: 05-23-2022 End: 09-18-2024 take 1 tablet by mouth once daily traZODone (DESYREL) 50 mg tablet Indications: Insomnia, unspecified Take 1 tablet (50 mg total) by mouth nightly. 90 tablet 1 01/16/2024 09/18/2024 Discontinued Completed/Discontinued Medications Medication Drug Class(es) Dates Sig (Normalized) Sig (Original) acetaminophen 500 mg oral tablet (2 sources) Start: 08-21-2023 End: 08-23-2023 take 1 tablet by mouth every six hours acetaminophen (TYLENOL EXTRA STRENGTH) tablet 1,000 mg Start: 08-21-2023 End: 08-21-2023 acetaminophen (TYLENOL) tabl et 650 mg bisacodyl 10 mg rectal suppository (1 source) Stimulant Laxative Start: 08-23-2023 End: 08-23-2023 bisacodyL (DULCOLAX) suppository 10 mg brimonidine tartrate 2 mg/ml ophthalmic solution (20 sources) alpha-Adrenergic Agonist Start: 08-22-2023 End: 08-23-2023 take 1 drop(s) into the eye(s) twice daily 1 drop, right eye, 2 times daily, First dose on Sat08/22/23 at 0900 Start: 05-30-2023 End: 07-14-2024 take 1 drop(s) into the eye(s) twice daily brimonidine (AlphaGAN P) 0.2 % ophthalmic solution instill 1 DROP IN THE RIGHT EYE TWICE DAILY 05/30/2023 Active calcium chloride 0.0014 meq/ml / potassium chloride 0.004 meq/ml / sodium chloride 0.103 meq/ml / sodium lactate 0.028 meq/ml injectable solution (1 source) Start: 08-21-2023 End: 08-21-2023 lactated ringers infusion calcium citrate 250 mg / ergocalciferol 100 mg oral tablet (6 sources) Provitamin D2 Compound End: 07-14-2024 take 1 tablet by mouth in the morning, then take 1 tablet by mouth once at bedtime calcium citrate-vitamin D2 250 mg-2.5 mcg (100 unit) per tablet Take 1 tablet by mouth in the morning and 1 tablet before bedtime. 07/14/2024 Discontinued (Therapy completed) celecoxib 200 mg oral capsule (1 source) Nonsteroidal Anti-inflammatory Drug Start: 08-21-2023 End: 08-21-2023 celecoxib (CeleBREX) capsule 200 mg docusate sodium 50 mg / sennosides, skilled nursing 8.6 mg oral tablet (1 source) Start: 08-22-2023 End: 08-23-2023 sennosides-docu sate sodium (SENOKOT-S) 8.6-50 mg 1 tablet hydrOXYzine hydrochloride 10 mg oral tablet (1 source) Antihistamine Start: 08-21-2023 End: 08-23-2023 hydrOXYzine (ATARAX) tablet 10 mg losartan (COZAAR) 100 mg, hydroCHLOROthiazide (HYDRODIURIL) 25 mg for HYZAAR 100/25 (1 source) Start: 08-22-2023 End: 08-23-2023 take 1 dose by mouth once daily oral, Daily, First dose on Sat08/22/23 at 0900, Give both components as replacement for Hyzaar 100/25. magnesium hydroxide 80 mg/ml oral suspension (1 source) Start: 08-23-2023 End: 08-23-2023 magnesium hydroxide (MILK OF MAGNESIA) suspension 30 mL magnesium lactate 84 mg extended release oral tablet (1 source) End: 03-24-2024 magnesium (MAGTAB) 84 mg tablet extended release CR tablet Take 250 mg by mouth in the morning. 03/24/2024 Discontinued (Therapy completed) 2 ml ondansetron 2 mg/ml injection (1 source) Serotonin-3 Receptor Antagonist Start: 08-21-2023 End: 08-23-2023 take 4 mg intravenously every six hours as needed for nausea and vomiting ondansetron (PF) (ZOFRAN) injection 4 mg 24 hr oxybutynin chloride 5 mg extended release oral tablet (20 sources) Cholinergic Muscarinic Antagonist Start: 05-23-2022 End: 01-12-2025 take 1 tablet by mouth once daily oxybutynin XL (DITROPAN-XL) 5 mg 24 hr tablet Indications: Overactive bladder TAKE 1 TABLET BY MOUTH DAILY 30 tablet 5 09/07/2024 01/12/2025 Discontinued (Therapy completed) 1000 ml sodium chloride 9 mg/ml injection (20 sources) Start: 08-21-2023 End: 08-23-2023 sodium chloride 0.9 % infusion Start: 07-12-2023 End: 07-14-2024 apply 1 drop(s) into the eye(s) once daily sodium chloride (LESVIA 128) 5 % ophthalmic ointment Administer 1 drop to both eyes nightly. 07/12/2023 07/14/2024 Discontinued (Dose adjustment) Start: 11-15-2022 End: 07-12-2023 apply 1 drop(s) into the eye(s) in the morning sodium chloride (LESVIA 128) 5 % ophthalmic ointment Administer 1 drop to both eyes in the morning. 3.5 g 12 11/15/2022 07/12/2023 Discontinued 12 hr timolol 5 mg/ml ophthalmic solution (20 sources) beta-Adrenergic Krysten Start: 08-22-2023 End: 08-23-2023 1 drop, both eyes, Daily, First dose on Debbie 08/22/23 at 0900 Start: 05-23-2022 take 1 drop(s) into the eye(s) once daily Timolol Maleate (Eqv-Timoptic) 0.5% ophthalmic solution Refill(s) 0, 5 mL, INSTILL 1 DROP INTO THE AFFECTED EYE(S) ONCE DAILY Start Date: 05/23/22 Status: Ordered End: 07-14-2024 apply 1 drop(s) into the eye(s) once daily timolol (Timoptic-XR) 0.5 % ophthalmic gel-forming instill 1 drop by ophthalmic route every day into affected eye(s) Ophthalmic Active tranexamic acid 650 mg oral tablet (1 source) Antifibrinolytic Agent Start: 08-21-2023 End: 08-21-2023 tranexamic acid (LYSTEDA) tablet 1,950 mg Problems Active Problems Problem Classification Problem Date Documented Date Episodic/Chronic Acquired foot deformities (20 sources) Acquired hallux valgus; Translations: [Hallux valgus (acquired), unspecified foot] Onset: 2 02-04-2022 Chronic Anxiety disorders (20 sources) Anxiety; Translations: [Anxiety disorder, unspecified] Onset: 6 05-22-2022 Chronic Asthma (9 sources) Uncomplicated asthma; Translations: [Unspecified asthma, uncomplicated] Onset: 5 05-30-2024 Chronic Diabetes mellitus without complication (13 sources) Diabetes mellitus; Translations: [Type 2 diabetes mellitus without complications] Onset: 2 05-22-2022 Chronic Diseases of white blood cells (20 sources) Leukocytosis; Translations: [Elevated white blood cell count, unspecified] Onset: 2 03-24-2022 Chronic Disorders of lipid metabolism (20 sources) Hyperlipidemia; Translations: [Mixed hyperlipidemia] Onset: 7 Resolved: 3 05-22-2022 Chronic Essential hypertension (20 sources) Essential hypertension; Translations: [Essential (primary) hypertension] Onset: 2 05-22-2022 Chronic Genitourinary symptoms and ill-defined conditions (20 sources) Urge incontinence; Translations: [Stress incontinence (female) (male)] Onset: 3 Chronic Glaucoma (20 sources) Glaucoma; Translations: [Unspecified glaucoma] Onset: 1 05-22-2022 Chronic Heart valve disorders (20 sources) 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; 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] Onset: 2 01-25-2022 Chronic Menopausal disorders (20 sources) Atrophy of vagina; Translations: [Postmenopausal atrophic vaginitis] Onset: 2 05-22-2022 Chronic Mood disorders (20 sources) Moderate depression; Translations: [Moderate depressive episode] Onset: 8 01-25-2022 Chronic Nutritional deficiencies (20 sources) Vitamin D deficiency; Translations: [Vitamin D deficiency, unspecified] Onset: 6 05-22-2022 Chronic Osteoarthritis (20 sources) Osteoarthritis of right hip joint; Translations: [Unilateral primary osteoarthritis, right hip] Onset: 2 02-07-2024 Chronic Other acquired deformities (2 sources) Contracture of joint of left ankle; Translations: [Contracture, left ankle] 03-26-2024 Chronic Other acquired deformities (2 sources) Contracture of joint of right ankle; Translations: [Contracture, right ankle] 03-26-2024 Chronic Other connective tissue disease (4 sources) History of total hip arthroplasty; Translations: [Presence of right artificial hip joint] 02-07-2024 Chronic Other connective tissue disease (20 sources) History of total knee arthroplasty; Translations: [Presence of right artificial knee joint] Onset: 2 02-11-2024 Chronic Other connective tissue disease (20 sources) Artificial knee joint present; Translations: [Presence of unspecified artificial knee joint] Onset: 2 02-04-2022 Chronic Other connective tissue disease (5 sources) Capsulitis of metatarsophalangeal joint of left foot; Translations: [Other enthesopathy of left foot and ankle] 03-26-2024 Episodic Other connective tissue disease (5 sources) Capsulitis of metatarsophalangeal joint of right foot; Translations: [Other enthesopathy of right foot and ankle] 03-26-2024 Episodic Other connective tissue disease (2 sources) Myalgia, unspecified site; Translations: [Myalgia and myositis, unspecified] 02-11-2024 Episodic Other diseases of bladder and urethra (5 sources) Overactive bladder; Translations: [Overactive bladder] 05-17-2023 Chronic Other diseases of bladder and urethra (1 source) Overactive bladder; Translations: [Overactive bladder] Onset: 5 Chronic Other diseases of kidney and ureters (1 source) 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; Translations: [Cyst of kidney, acquired] Onset: 3 Episodic Other ear and sense organ disorders (20 sources) Sensorineural hearing loss, bilateral; Translations: [Sensorineural hearing loss, bilateral] Onset: 2 02-04-2022 Chronic Other ear and sense organ disorders (20 sources) Hearing loss of right ear; Translations: [Unspecified hearing loss, right ear] Onset: 2 03-06-2022 Chronic Other nervous system disorders (20 sources) Neuropathy; Translations: [Polyneuropathy, unspecified] Onset: 7 05-22-2022 Chronic Other nervous system disorders (20 sources) Chronic pain; Translations: [Other chronic pain] Onset: 2 03-24-2022 Chronic Other nervous system disorders (20 sources) Difficulty walking; Translations: [Difficulty in walking, not elsewhere classified] Onset: 2 03-24-2022 Chronic Other nervous system disorders (20 sources) Idiopathic peripheral neuropathy; Translations: [Hereditary and idiopathic neuropathy, unspecified] Onset: 2 02-04-2022 Chronic Other nervous system disorders (20 sources) Gonzalez neuroma of bilateral feet; Translations: [Lesion of plantar nerve, bilateral lower limbs] Onset: 2 02-04-2022 Chronic Other non-traumatic joint disorders (20 sources) Arthritis of right hip; Translations: [Unilateral primary osteoarthritis, right hip] Onset: 2 05-22-2022 Chronic Other nutritional; endocrine; and metabolic disorders (20 sources) Body mass index 30+ - obesity; Translations: [Obesity, unspecified] Onset: 2 Resolved: 4 07-12-2023 Chronic Residual codes; unclassified (20 sources) Hypersomnia; Translations: [Hypersomnia, unspecified] Onset: 4 01-16-2024 Chronic Spondylosis; intervertebral disc disorders; other back problems (20 sources) Spondylosis without myelopathy or radiculopathy, lumbar region; Translations: [Lumbar spondylosis] Onset: 9 05-22-2022 Chronic Spondylosis; intervertebral disc disorders; other back problems (4 sources) Low back pain; Translations: [Lumbar pain] 08-24-2024 Episodic Systemic lupus erythematosus and connective tissue disorders (4 sources) Other giant cell arteritis; Translations: [OTHER GIANT CELL ARTERITIS] Onset: 9 Chronic Thyroid disorders (20 sources) Hypothyroidism; Translations: [Hypothyroidism, unspecified] Onset: 2 05-22-2022 Chronic Unclassified (1 source) Encounter for screening mammogram for malignant neoplasm of breast; Translations: [Encounter for screening mammogram for malignant neoplasm of breast] Onset: 3 Unclassified (1 source) right hip degenerative joint disease Onset: 4 Unclassified (1 source) Other intervertebral disc degeneration, lumbar region with discogenic back pain and lower extremity pain; Translations: [Other intervertebral disc degeneration, lumbar region with discogenic back pain and lower extremity pain] Onset: 2 Unclassified (1 source) maw Onset: 4 Past or Other Problems Problem Classification Problem Date Documented Da te Episodic/Chronic Acute and unspecified renal failure (20 sources) Acute renal failure syndrome; Translations: [Acute kidney failure, unspecified] Onset: 2 03-24-2022 Episodic Conditions associated with dizziness or vertigo (20 sources) Acute labyrinthitis; Translations: [Labyrinthitis, unspecified ear] Onset: 2 02-04-2022 Episodic Deficiency and other anemia (20 sources) Anemia; Translations: [Anemia, unspecified] Onset: 2 05-22-2022 Episodic Deficiency and other anemia (2 sources) Anemia, unspecified; Translations: [Anemia, unspecified] Onset: 2 Episodic Diabetes mellitus without complication (20 sources) Impaired glucose tolerance; Translations: [Impaired glucose tolerance (oral)] Onset: 6 02-04-2022 Episodic Disorders of teeth and jaw (20 sources) Temporomandibular joint disorder; Translations: [Unspecified temporomandibular joint disorder, unspecified side] Onset: 2 01-25-2022 Episodic Fluid and electrolyte disorders (20 sources) Hypokalemia; Translations: [Hypokalemia] Onset: 2 02-04-2022 Episodic Inflammation; infection of eye (except that caused by tuberculosis or sexually transmitteddisease) (1 source) Acute conjunctivitis of bilateral eyes; Translations: [Unspecified acute conjunctivitis, bilateral] 12-04-2023 Episodic Malaise and fatigue (20 sources) Asthenia; Translations: [Weakness] Onset: 2 03-24-2022 Episodic Mood disorders (20 sources) Mood disorders Onset: 4 Resolved: 5 03-24-2024 Other acquired deformities (20 sources) Acquired deformity of left ankle; Translations: [Unspecified acquired deformity of left lower leg] Onset: 8 01-25-2022 Episodic Other bone disease and musculoskeletal deformities (20 sources) Osteopenia; Translations: [Other specified disorders of bone density and structure, unspecified site] Onset: 6 01-25-2022 Episodic Other connective tissue disease (20 sources) Plantar fasciitis; Translations: [Plantar fascial fibromatosis] Onset: 6 05-22-2022 Episodic Other connective tissue disease (20 sources) Metatarsalgia; Translations: [Metatarsalgia, unspecified foot] Onset: 7 02-04-2022 Episodic Other diseases of kidney and ureters (20 sources) Cyst of kidney; Translations: [Cyst of kidney, acquired] Onset: 3 05-23-2022 Episodic Other ear and sense organ disorders (1 source) Tinnitus Onset: 9 05-22-2022 Episodic Other ear and sense organ disorders (20 sources) Bilateral tinnitus; Translations: [Tinnitus, bilateral] Onset: 9 02-04-2022 Episodic Other ear and sense organ disorders (20 sources) Referred otalgia; Translations: [Otalgia, unspecified ear] Onset: 2 02-04-2022 Episodic Other gastrointestinal disorders (20 sources) Constipation; Translations: [Constipation, unspecified] Onset: 2 01-25-2022 Episodic Other lower respiratory disease (20 sources) Dyspnea on exertion; Translations: [Other forms of dyspnea] Onset: 3 05-25-2022 Episodic Other nervous system disorders (1 source) Other acute postprocedural pain; Translations: [Other acute postprocedural pain] Onset: 4 Episodic Other nervous system disorders (1 source) Postoperative pain ; Translations: [Other acute postprocedural pain] 08-22-2023 Episodic Other non-traumatic joint disorders (20 sources) Joint pain; Translations: [Pain in unspecified joint] Onset: 2 01-25-2022 Episodic Other non-traumatic joint disorders (20 sources) Hip pain; Translations: [Pain in unspecified hip] Onset: 2 03-24-2022 Episodic Other nutritional; endocrine; and metabolic disorders (20 sources) Obesity caused by energy imbalance; Translations: [Class 1 obesity due to excess calories with serious comorbidity and body mass index (BMI) of 31.0 to 31.9 in adult] Onset: 3 Resolved: 3 11-26-2022 Chronic Other nutritional; endocrine; and metabolic disorders (1 source) Overweight; Translations: [Overweight] 01-16-2024 Episodic Other skin disorders (20 sources) Multiple skin tags; Translations: [Other hypertrophic disorders of the skin] Onset: 2 01-25-2022 Episodic Residual codes; unclassified (20 sources) Insomnia; Translations: [Insomnia, unspecified] Onset: 2 01-25-2022 Episodic Residual codes; unclassified (1 source) Insomnia, unspecified; Translations: [Insomnia, unspecified] Onset: 4 Episodic Screening and history of mental health and substance abuse codes (1 source) Patient encounter status; Translations: [Encounter for screening for depression] 03-24-2024 Episodic Unclassified (20 sources) Onset: 4 Resolved: 5 01-16-2024 Results Test Name Value Interpretation Reference Range Facility COMPREHENSIVE METABOLIC PANE Charly 01-12-2025 Albumin [Mass/Vol] 4.3 g/dL Normal 3.2-5.3 [facility] Comment on above: Performed By: #### C MP #### [facility] ([facility]) [address] [place] [address] VIR ALP [Catalytic activity/Vol] 75 U/L Normal 39-130 [facility] Comment on above: Performed By: #### C MP #### [facility] ([facility]) [address] [place] [address] VIR ALT [Catalytic activity/Vol] 14 U/L Normal <=31 [facility] Comment on above: Performed By: #### C MP #### [facility] ([facility]) [address] [place] [address] VIR Anion gap [Moles/Vol] 12 mmol/L Normal 5-15 [facility] Comment on above: Performed By: #### C MP #### [facility] ([facility]) [address] [place] [address] VIR AST [Catalytic activity/Vol] 23 U/L Normal <=41 [facility] Comment on above: Performed By: #### C MP #### [facility] ([facility]) [address] [place] [address] VIR Bilirubin [Mass/Vol] 0.4 mg/dL Normal 0.3-1.2 [facility] Comment on above: Performed By: #### C MP #### [facility] ([facility]) [address] [place] [address] VIR Calcium [Mass/Vol] 9.3 mg/dL Normal 8.5-10.5 [facility] Comment on above: Performed By: #### C MP #### [facility] ([facility]) [address] [place] [address] VIR Chloride [Moles/Vol] 103 mmol/L Normal 98-109 [facility] Comment on above: Performed By: #### C MP #### [facility] ([facility]) [address] [place] [address] VIR CO2 [Moles/Vol] 26 mmol/L Normal 22-32 [facility] Comment on above: Performed By: #### C MP #### [facility] ([facility]) [address] [place] [address] VIR Creatinine [Mass/Vol] 0.76 mg/dL Normal 0.40-1.00 [facility] Comment on above: Result Comment: METH OD TRACEABLE TO IDMS STANDARD Performed By: #### C MP #### [facility] ([facility]) [address] [place] [address] VIR GFR/1.73 sq M.predicted among non-blacks MDRD (S/P/Bld) [Vol rate/Area] 79 mL/min/{1.73_m2} Normal >=60 [facility] Comment on above: Result Comment: Repo rted eGFR is based on the CKD-EPI 1 equation that does not use a race coefficient. EGFR not calculated due to patient's gender not being defined. Performed By: #### C MP #### [facility] ([facility]) [address] [place] [address] VIR Glucose [Mass/Vol] 96 mg/dL Normal 65-99 [facility] Comment on above: Performed By: #### C MP #### [facility] ([facility]) [address] [place] [address] VIR Potassium [Moles/Vol] 3.9 mmol/L Normal 3.5-5.0 [facility] Comment on above: Performed By: #### C MP #### [facility] ([facility]) [address] [place] [address] VIR Protein [Mass/Vol] 7.2 g/dL Normal 6.0-8.0 [facility] Comment on above: Performed By: #### C MP #### [facility] ([facility]) [address] [place] [address] VIR Sodium [Moles/Vol] 141 mmol/L Normal 134-146 [facility] Comment on above: Performed By: #### C MP #### [facility] ([facility]) [address] [place] [address] VIR Urea nitrogen [Mass/Vol] 17 mg/dL Normal 5-27 [facility] Comment on above: Performed By: #### C MP #### [facility] ([facility]) [address] [place] [address] VIR Comprehensive metabolic pane charly 01-12-2025 Albumin [Mass/Vol] 4.3 g/dL 3.2 - 5.3 g/dL [facility] ALP [Catalytic activity/Vol] 75 U/L 39 - 130 U/L [facility] ALT No additional P-5'-P [Catalytic activity/Vol] 14 U/L NINF - 31 U/L [facility] Anion gap [Moles/Vol] 12 mmol/L 5 - 15 mmol/L [facility] AST [Catalytic activity/Vol] 23 U/L NINF - 41 U/L [facility] Bilirubin [Mass/Vol] 0.4 mg/dL 0.3 - 1.2 mg/dL [facility] Calcium [Mass/Vol] 9.3 mg/dL 8.5 - 10.5 mg/dL [facility] Chloride [Moles/Vol] 103 mmol/L 98 - 109 mmol/L [facility] CO2 [Moles/Vol] 26 mmol/L 22 - 32 mmol/L [facility] Creatinine [Mass/Vol] 0.76 mg/dL 0.40 - 1.00 mg/dL [facility] Comment on above: METHOD TRACEABLE TO IDMS STANDARD EGFR Non-Race Dependent 79 - PINF [facility] Comment on above: Reported eGFR is bas ed on the CKD-EPI 2020 equation that does not use a race coefficient. EGFR not calculated due to patient's gender not being defined. Glucose [Mass/Vol] 96 mg/dL 65 - 99 mg/dL [facility] Interpretation and review of laboratory results Normal [facility] Potassium [Moles/Vol] 3.9 mmol/L 3.5 - 5.0 mmol/L [facility] Protein [Mass/Vol] 7.2 g/dL 6.0 - 8.0 g/dL [facility] Sodium [Moles/Vol] 141 mmol/L 134 - 146 mmol/L [facility] Urea nitrogen [Mass/Vol] 17 mg/dL 5 - 27 mg/dL [facility] HEMOGLOBIN A1Con 01-12-2025 Glucose [Mass/Vol] 131 mg/dL Normal [facility] Comment on above: Performed By: #### H A1C #### [facility] ([facility]) [address] [place] [address] VIR HbA1c (Bld) [Mass fraction] 6.2 % High 4.4-5.6 [facility] Comment on above: Result Comment: ADA Guidelines Result HgbA1c Normal : less than 5.7 % Prediabetes : 5.7 % to 6.4 % Diabetes : > 6.4 % Use with caution in patients with abnormal hemoglobin variants as the half-life of red blood cells and in vivo glycation rates are affected. Performed By: #### H A1C #### [facility] ([facility]) [address] [place] [address] VIR Hemoglobin A1con 01-12-2025 Average glucose Estimated from glycated hemoglobin (Bld) [Mass/Vol] 131 mg/dL [facility] HbA1c (Bld) [Mass fraction] 6.2 % High 4.4 - 5.6 % [facility] Comment on above: ADA Guidelines Result HgbA1c Normal : less than 5.7 % Prediabetes : 5.7 % to 6.4 % Diabetes : > 6.4 % Use with caution in patients with abnormal hemoglobin variants as the half-life of red blood cells and in vivo glycation rates are affected. Interpretation and review of laboratory results Abnormal [facility] LIPID PROFILEon 01-12-2025 Cholesterol [Mass/Vol] 115 mg/dL Low 150-200 [facility] Comment on above: Performed By: #### L IPR #### [facility] ([facility]) [address] [place] [address] VIR Cholesterol in HDL [Mass/Vol] 50 mg/dL Normal >39 [facility] Comment on above: Result Comment: HDL <40 mg/dL - High Risk HDL > or = 40mg/dL- Desirable HDL >60 mg/dL - Negative Risk Performed By: #### L IPR #### [facility] ([facility]) [address] [place] [address] VIR Cholesterol in LDL [Mass/Vol] 41 mg/dL Normal <130 [facility] Comment on above: Result Comment: LDL <100 mg/dL - Desirable LDL >160 mg/dL - High Risk Performed By: #### L IPR #### [facility] ([facility]) [address] [place] [address] VIR CHOLESTEROL:HDL 2.3 Normal 1.0-5.0 [facility] Comment on above: Performed By: #### L IPR #### [facility] ([facility]) [address] [place] [address] VIR Triglyceride [Mass/Vol] 118 mg/dL Normal 27-150 [facility] Comment on above: Performed By: #### L IPR #### [facility] ([facility]) [address] [place] [address] VIR VERY LOW LIPOPROTEIN 24 mg/dL Normal 0-30 [facility] Comment on above: Performed By: #### L IPR #### [facility] ([facility]) [address] [place] [address] VIR Lipid profileon 01-12-2025 Cholesterol [Mass/Vol] 115 mg/dL Low 150 - 200 mg/dL [facility] Cholesterol in HDL [Mass/Vol] 50 mg/dL 39 - PINF mg/dL [facility] Comment on above: HDL <40 mg/dL - High Risk HDL > or = 40mg/dL- Desirable HDL >60 mg/dL - Negative Risk Cholesterol in HDL [Mass/Vol] 2.3 mg/dL 1.0 - 5.0 [facility] Cholesterol in LDL [Mass/Vol] 41 mg/dL NINF - 130 mg/dL [facility] Comment on above: LDL <100 mg/dL - Good irable LDL >160 mg/dL - High Risk Cholesterol in VLDL [Mass/Vol] 24 mg/dL 0 - 30 mg/dL [facility] Interpretation and review of laboratory results Abnormal [facility] Triglyceride [Mass/Vol] 118 mg/dL 27 - 150 mg/dL [facility] No Panel Informationon 01-12 [facility] THYROID PROFILE INCLUDES TSH FT4on 01-12-2025 Free T4 [Mass/Vol] 1.02 ng/dL Normal 0.61-1.60 [facility] Comment on above: Performed By: #### T HYR #### [facility] ([facility]) [address] [place] [address] VIR TSH 0.29 uIU/mL Low 0.49-4.67 [facility] Comment on above: Performed By: #### T HYR #### [facility] ([facility]) [address] [place] [address] VIR Thyroid profile includes TSH FT4on 01-12-2025 Free T4 [Mass/Vol] 1.02 ng/dL 0.61 - 1.60 ng/dL [facility] Interpretation and review of laboratory results Abnormal [facility] TSH Qn 0.29 m[IU]/L Low [facility] XR Hip - right 3 [facility] Result: 08/24/2024: X-rays AP and lateral of the right hip demonstrate a right total hip replacement in good position and alignment without signs of lucency, loosening, fracture or failure. Heterotropic ossifications are noted. Impression: Stable appearance of right total hip replacement Sergio Velez RADIOLOGY RESIDENT-POWER DISTRIBUTION ENGINEER [facility] (narrative) [facility] BASIC METABOLIC PANLon 07-14 Anion gap [Moles/Vol] 11 mmol/L Normal 5-15 [facility] Comment on above: Performed By: #### H A1C, 01657-0, BMP #### [facility] ([id number]) [address], [address] [place] [address] Calcium [Mass/Vol] 10.0 mg/dL Normal 8.5-10.5 [facility] Comment on above: Performed By: #### H A1C, 11530-4, BMP #### [facility] ([id number]) [address], [address] [place] [address] Chloride [Moles/Vol] 99 mmol/L Normal 98-109 [facility] Comment on above: Performed By: #### H A1C, 39559-9, BMP #### [facility] ([id number]) [address], [address] [place] [address] CO2 [Moles/Vol] 28 mmol/L Normal 22-32 [facility] Comment on above: Performed By: #### H A1C, 06702-7, BMP #### [facility] ([id number]) [address], [address] [place] [address] Creatinine [Mass/Vol] 0.90 mg/dL Normal 0.40-1.00 [facility] Comment on above: Result Comment: METH OD TRACEABLE TO IDMS STANDARD Performed By: #### H A1C, 67667-1, BMP #### [facility] ([id number]) [address], [address] [place] [address] GFR/1.73 sq M.predicted among non-blacks MDRD (S/P/Bld) [Vol rate/Area] 65 mL/min/{1.73_m2} Normal >59 [facility] Comment on above: Result Comment: Reported eGFR is based on the CKD-EPI 2020 equation that does not use a race coefficient. Performed By: #### H A1C, 92875-1, BMP #### [facility] ([id number]) [address], [address] [place] [address] Glucose [Mass/Vol] 107 mg/dL High 65-99 [facility] Comment on above: Performed By: #### H A1C, 96973-2, BMP #### [facility] ([id number]) [address], [address] [place] [address] Potassium [Moles/Vol] 3.6 mmol/L Normal 3.5-5.0 [facility] Comment on above: Performed By: #### H A1C, 66400-0, BMP #### [facility] ([id number]) [address], [address] [place] [address] Sodium [Moles/Vol] 138 mmol/L Normal 134-146 [facility] Comment on above: Performed By: #### H A1C, 63690-8, BMP #### [facility] ([id number]) [address], [address] [place] [address] Urea nitrogen [Mass/Vol] 18 mg/dL Normal 5-27 [facility] Comment on above: Performed By: #### H A1C, 79304-9, BMP #### [facility] ([id number]) [address], [address] [place] [address] HGB A1C (GLYCO-HGB)on 2024 Glucose [Mass/Vol] 126 mg/dL Normal [facility] Comment on above: Performed By: #### H A1C, 88356-9, NATO #### [facility] ([id number]) [address] [facility] [address] [place] [address] HbA1c (Bld) [Mass fraction] 6.0 % High 4.4-5.6 [facility] Comment on above: Result Comment: NOTE ADA Guidelines Result HgbA1c Normal : less than 5.7 % Prediabetes : 5.7 % to 6.4 % Diabetes : > 6.4 % Use with caution in patients with abnormal hemoglobin variants as the half-life of red blood cells and in vivo glycation rates are affected. Performed By: #### H A1C, 00757-7, NATO #### [facility] ([id number]) [facility], [address] [address] Vitamin D+Metabolites [Mass/ Vol]on 07-14-2024 VITAMIN D 25 HYD TOT 109.4 ng/mL High 30-100 [facility] Comment on above: Result Comment: Vitamin D status 25 [place] Vitamin D Deficiency <20 ng/mL Insufficiency 20-29 ng/mL Sufficiency 30-100 ng/mL Toxicity >100 ng/mL NOTE: A pediatric reference range has not been established by the account development associate of this kit. The [place] [employer] recommends a Vitamin D level of = or >20ng/mL in infants and children. Performed By: #### H A1C, 51410-3, BMP #### [facility] ([id number]) [facility], [address] [address] No Panel Informationon 02-10 Dianne Combs, 02/12/2024 2:16 PM Trigger Point Injection ([place] [address] [place] [address]): right gluteus janelle on 02/11/2024 1:34 PM Indications: pain Details: 21 G needle Medications: 40 mg methylPREDNISolone acetate 40 MG/ML Outcome: tolerated well, no immediate complications Procedure, treatment alternatives, risks and benefits explained, specific risks discussed. [facility] XR Hip - right 3 [facility] Result: February 11, 2024 x-rays AP and lateral of the right hip demonstrate Press-Fit hip replacement in good position alignment without signs of loosening fracture or failure. Impression: Stable appearance of right total hip replacement Harsh Combs D.O. [facility] Radiology Study observation (narrative) [employer] XR Knee - right 1 or 2 Views on 02-11-2024 Imaging Result: February 11, 2004 x-rays AP and lateral of the right knee demonstrate a cemented knee replacement in good position alignment without signs of loosening fracture or failure. Impression: Stable appearance of right total knee replacement Harsh Combs D.O. [employer] e Radiology Study observation (narrative) [facility] [employer] COMPLETE BLOOD COUNTon 01-21 Erythrocyte distribution width (RBC) [Ratio] 14.7 % Normal 11.5-15.0 [facility] Comment on above: Performed By: #### C DOM GUERIN, , THYR, HA1C #### [facility] ([id number]) [address] [place] [address] Hematocrit (Bld) [Volume fraction] 37.7 % Normal 35-47 [facility] Comment on above: Performed By: #### C DOM GUERIN, , THYR, HA1C #### [facility] ([id number]) [address] [place] [address] Hemoglobin (Bld) [Mass/Vol] 12.5 g/dL Normal 11.7-15.5 [facility] Comment on above: Performed By: #### C APOORVA CMP, , THYR, HA1C #### [facility] ([id number]) [address] [place] [address] MCH (RBC) [Entitic mass] 29.1 pg Normal 27-34 [facility] Comment on above: Performed By: #### C BC, CMP, 21377-9, THYR, HA1C #### [facility] ([id number]) [address] [place] [address] MCHC (RBC) [Mass/Vol] 33.0 g/dL Normal 32-36 [facility] Comment on above: Performed By: #### C BC, CMP, 42504-0, THYR, HA1C #### [facility] ([id number]) [address] [place] [address] MCV (RBC) [Entitic vol] 88 fL Normal 80-100 [facility] Comment on above: Performed By: #### C BC, CMP, 44933-3, THYR, HA1C #### [facility] ([id number]) [address] [place] [address] Platelet mean volume (Bld) [Entitic vol] 10.4 fL Normal 7-12 [facility] Comment on above: Performed By: #### Lauro BC, CMP, 62250-6, THYR, HA1C #### [facility] ([id number]) [address] [place] [address] Platelets (Bld) [#/Vol] 280 10*3/uL Normal 150-450 [facility] Comment on above: Performed By: #### C BC, CMP, 05271-8, THYR, HA1C #### [facility] ([id number]) [address] [place] [address] RBC COUNT 4.28 X10E12/L Normal 3.80-5.20 [facility] Comment on above: Performed By: #### C BC, CMP, 78426-5, THYR, HA1C #### [facility] ([id number]) [address], [address] [place] [address] WBC (Bld) [#/Vol] 6.4 10*3/uL Normal 4.0-11.0 [facility] Comment on above: Performed By: #### C BC, CMP, 83669-8, THYR, HA1C #### [facility] ([id number]) [address], [address] [place] [address] COMPREHENSIVE METABOLIC PANE Charly 01-22-2024 Albumin [Mass/Vol] 3.8 g/dL Normal 3.2-5.3 [facility] Comment on above: Performed By: #### C BC, CMP, 15962-4, THYR, HA1C #### [facility] ([id number]) [address], [address] [place] [address] ALP [Catalytic activity/Vol] 64 U/L Normal 39-130 [facility] Comment on above: Performed By: #### C BC, CMP, 25211-7, THYR, HA1C #### [facility] ([id number]) [address], [address] [place] [address] ALT [Catalytic activity/Vol] 11 U/L Normal 0-31 [facility] Comment on above: Performed By: #### C BC, CMP, 43118-5, THYR, HA1C #### [facility] ([id number]) [address], [address] [place] [address] Anion gap [Moles/Vol] 10 mmol/L Normal 5-15 [facility] Comment on above: Performed By: #### C BC, CMP, 61546-5, THYR, HA1C #### [facility] ([id number]) [address], [address] [place] [address] AST [Catalytic activity/Vol] 18 U/L Normal 0-41 [facility] Comment on above: Performed By: #### C BC, CMP, 62596-3, THYR, HA1C #### [facility] ([id number]) [address], [address] [place] [address] Bilirubin [Mass/Vol] 0.4 mg/dL Normal 0.3-1.2 [facility] Comment on above: Performed By: #### C BC, CMP, , THYR, HA1C #### [facility] ([id number]) [address], [address] [place] [address] Calcium [Mass/Vol] 9.4 mg/dL Normal 8.5-10.5 [facility] Comment on above: Performed By: #### Lauro BC, CMP, , THYR, HA1C #### [facility] ([id number]) [address], [address] [place] [address] Chloride [Moles/Vol] 106 mmol/L Normal 98-109 [facility] Comment on above: Performed By: #### Lauro BC, CMP, , THYR, HA1C #### [facility] ([id number]) [address], [address] [place] [address] CO2 [Moles/Vol] 29 mmol/L Normal 22-32 [facility] Comment on above: Performed By: #### Lauro BC, CMP, , THYR, HA1C #### [facility] ([id number]) [address], [address] [place] [address] Creatinine [Mass/Vol] 0.66 mg/dL Normal 0.40-1.00 [facility] Comment on above: Result Comment: METH OD TRACEABLE TO IDMS STANDARD Performed By: #### C BC, CMP, , THYR, HA1C #### [facility] ([id number]) [address], [address] [place] [address] GFR/1.73 sq M.predicted among non-blacks MDRD (S/P/Bld) [Vol rate/Area] 89 mL/min/{1.73_m2} Normal >59 [facility] Comment on above: Result Comment: Reported eGFR is based on the CKD-EPI 2020 equation that does not use a race coefficient. Performed By: #### C BC, CMP, 50833-9, THYR, HA1C #### [facility] ([id number]) [address], [address] [place] [address] Glucose [Mass/Vol] 105 mg/dL High 65-99 [facility] Comment on above: Performed By: #### C BC, CMP, , THYR, HA1C #### [facility] ([id number]) [address], [address] [place] [address] Potassium [Moles/Vol] 3.6 mmol/L Normal 3.5-5.0 [facility] Comment on above: Performed By: #### Lauro BC, CMP, , THYR, HA1C #### [facility] ([id number]) [address], [address] [place] [address] Protein [Mass/Vol] 6.7 g/dL Normal 6.0-8.0 [facility] Comment on above: Performed By: #### C BC, CMP, 32333-4, THYR, HA1C #### [facility] ([id number]) [address], [address] [place] [address] Sodium [Moles/Vol] 145 mmol/L Normal 134-146 [facility] Comment on above: Performed By: #### C BC, CMP, 34140-4, THYR, HA1C #### [facility] ([id number]) [address], [address] [place] [address] Urea nitrogen [Mass/Vol] 14 mg/dL Normal 5-27 [facility] Comment on above: Performed By: #### C BC, CMP, 96601-5, THYR, HA1C #### [facility] ([id number]) [address], [address] [place] [address] HGB A1C (GLYCO-HGB)on 2023 Glucose [Mass/Vol] 137 mg/dL Normal [facility] Comment on above: Performed By: #### Lauro VERNON, BMP #### [facility] ([id number]) [address], [facility] [address] [place] [address] HbA1c (Bld) [Mass fraction] 6.4 % High 4.4-5.6 [facility] Comment on above: Result Comment: NOTE ADA Guidelines Result HgbA1c Normal : less than 5.7 % Prediabetes : 5.7 % to 6.4 % Diabetes : > 6.4 % Use with caution in patients with abnormal hemoglobin variants as the half-life of red blood cells and in vivo glycation rates are affected. Performed By: #### C JANEEN, BMP #### [facility] ([id number]) [address], [address] [place] [address] MAGNESIUMon 01-22-2024 Magnesium [Mass/Vol] 1.8 mg/dL Normal 1.8-2.6 [facility] Comment on above: Performed By: #### C BC, CMP, 07353-0, THYR, HA1C #### [facility] ([id number]) [address], [address] [place] [address] THYROID PROFILEon 01-22-2024 Free T4 [Mass/Vol] 1.07 ng/dL Normal 0.61-1.60 [facility] Comment on above: Performed By: #### C JANEEN, BMP #### [facility] ([id number]) [address] [place] [address] TSH 1.36 uIU/mL Normal 0.49-4.67 [facility] Comment on above: Performed By: #### Lauro VERNON, BMP #### [facility] ([id number]) [address], [address] [place] [address] MAGNESIUMon 01-01-2024 Magnesium [Mass/Vol] 1.7 mg/dL Low 1.8-2.6 [facility] Comment on above: Performed By: #### 1 9123-9 #### [facility] ([id number]) [address], [address] [place] [address] Lipid 1996 panelon Cholesterol [Mass/Vol] 120 mg/dL Low 150-200 [facility] Comment on above: Performed By: #### 2 4331-1 #### [facility] ([id number]) [address], [address] [place] [address] Cholesterol in HDL [Mass/Vol] 54 mg/dL Normal >39 [facility] Comment on above: Result Comment: HDL <40 mg/dL - High Risk HDL > or = 40mg/dL- Desirable HDL >60 mg/dL - Negative Risk Performed By: #### 2 4331-1 #### [facility] ([id number]) [address], [address] [place] [address] Cholesterol in LDL [Mass/Vol] 48 mg/dL Normal <130 [facility] Comment on above: Result Comment: LDL <100 mg/dL - Desirable LDL >160 mg/dL - High Risk Performed By: #### 2 4331-1 #### [facility] ([id number]) [address], [address] [place] [address] Cholesterol in VLDL [Mass/Vol] 18 mg/dL Normal 0-30 [facility] Comment on above: Performed By: #### 2 4331-1 #### [facility] ([id number]) [address], [address] [place] [address] CHOLESTEROL:HDL 2.2 Normal 1.0-5.0 [facility] Comment on above: Performed By: #### 2 4331-1 #### [facility] ([id number]) [address] [place] [address] Triglyceride [Mass/Vol] 91 mg/dL Normal 27-150 [facility] Comment on above: Performed By: #### 2 4331-1 #### [facility] ([id number]) [address], [address] [place] [address] HGB AND HCTon 08-23-2023 Hematocrit (Bld) [Volume fraction] 28.8 % Low 35-47 [facility] Comment on above: Performed By: #### H H #### [facility] ([id number]) [address] [place] [address] Hemoglobin (Bld) [Mass/Vol] 9.9 g/dL Low 11.7-15.5 [facility] Comment on above: Performed By: #### H H #### [facility] ([id number]) [address] [place] [address] Hemoglobin and hematocrit, b loodon 08-23-2023 Hematocrit (Bld) [Volume fraction] 28.8 % Low 35 - 47 % [facility] Hemoglobin (Bld) [Mass/Vol] 9.9 g/dL Low 11.7 - 15.5 g/dL [facility] Interpretation and review of laboratory results Abnormal [facility] ABO Rh Repeaton 08-21-2023 ABO A [facility] Rh Nom (Bld) Positive [facility] XR HIP RT 2-3 VIEWS W OR WO PELVISon 08-21-2023 XR HIP RT 2-3 VIEWS W OR WO PELVIS XR HIP RT 2-3 VIEWS W OR WO PELVIS XR HIP RT 2-3 VIEWS W OR WO PELVIS HISTORY: Hip replacement. COMPARISON: 03/24/2022. IMPRESSION: Reference air kerma 9.9 mGy. Fluoroscopic guidance provided. Please see details within procedural/operative note. Finalized by Jovani James MD on 08/21/2023 5:01 PM Normal [facility] XR Pelvis and Hip - right 2 Viewson 08-21-2023 History: [Postoperative evaluation] [Right hip radiographs demonstrate interval placement of a total right hip prosthesis. Alignment and appearance of the prosthesis appear unremarkable. There is no obvious fracture, excessive femoral shortening, or evidence of hardware malposition.] Impression: [Unremarkable appearance total right hip prosthesis.] Finalized by Kaleb Ogden MD on 08/21/2023 5:19 PM Theodore Javed MD - 08/21/2023 History: [Postoperative evaluation] [Right hip radiographs demonstrate interval placement of a total right hip prosthesis. Alignment and appearance of the prosthesis appear unremarkable. There is no obvious fracture, excessive femoral shortening, or evidence of hardware malposition.] Impression: [Unremarkable appearance total right hip prosthesis.] Finalized by Kaleb Ogden MD on 08/21/2023 5:19 PM [facility] Radiology Study observation (narrative) [facility] XR HIP RT 2-3 VIEWS W OR WO PELVIS HISTORY: Hip replacement. COMPARISON: 03/24/2022. IMPRESSION: Reference air kerma 9.9 mGy. Fluoroscopic guidance provided. Please see details within procedural/operative note. Finalized by Jovani James MD on 08/21/2023 5:01 PM Jovani Arias MD - 08/21/2023 XR HIP RT 2-3 VIEWS W OR WO PELVIS HISTORY: Hip replacement. COMPARISON: 03/24/2022. IMPRESSION: Reference air kerma 9.9 mGy. Fluoroscopic guidance provided. Please see details within procedural/operative note. Finalized by Jovani James MD on 08/21/2023 5:01 PM [facility] Radiology Study observation (narrative) [facility] XR Pelvis and Hip - right 2 ViewsOrdered By: Theodore Ogden on 08-21-2023 [facility] Work Phone: XR Pelvis and Hip - right 2 ViewsOrdered By: Jovani James on 08-21-2023 [facility] Work Phone: BASIC METABOLIC PANLon 07-24 Anion gap [Moles/Vol] 10 mmol/L Normal 5-15 [facility] Comment on above: Performed By: #### C BCA, BMP #### [facility] ([id number]) [address], [address] [place] [address] Calcium [Mass/Vol] 9.5 mg/dL Normal 8.5-10.5 [facility] Comment on above: Performed By: #### C BCA, BMP #### [facility] ([id number]) [address], [address] [place] [address] Chloride [Moles/Vol] 103 mmol/L Normal 98-109 [facility] Comment on above: Performed By: #### C BCA, BMP #### [facility] ([id number]) [address], [address] [place] [address] CO2 [Moles/Vol] 29 mmol/L Normal 22-32 [facility] Comment on above: Performed By: #### C BCA, BMP #### [facility] ([id number]) [address], [address] [place] [address] Creatinine [Mass/Vol] 0.79 mg/dL Normal 0.40-1.00 [facility] Comment on above: Result Comment: METH OD TRACEABLE TO IDMS STANDARD Performed By: #### C BCA, BMP #### [facility] ([id number]) [address] [address] [place] [address] GFR/1.73 sq M.predicted among non-blacks MDRD (S/P/Bld) [Vol rate/Area] 76 mL/min/{1.73_m2} Normal >59 [facility] Comment on above: Result Comment: Reported eGFR is based on the CKD-EPI 2020 equation that does not use a race coefficient. Performed By: #### C BCA, BMP #### [facility] ([id number]) [address] [address] Glucose [Mass/Vol] 94 mg/dL Normal 65-99 [facility] Comment on above: Performed By: #### C BCA, BMP #### [facility] ([id number]) [address] [address] Potassium [Moles/Vol] 3.6 mmol/L Normal 3.5-5.0 [facility] Comment on above: Performed By: #### C BCA, BMP #### [facility] ([id number]) [address] [address] Sodium [Moles/Vol] 142 mmol/L Normal 134-146 [facility] Comment on above: Performed By: #### C BCA, BMP #### [facility] ([id number]) [address] [address] Urea nitrogen [Mass/Vol] 11 mg/dL Normal 5-27 [facility] Comment on above: Performed By: #### C BCA, BMP #### [facility] ([id number]) [address] [address] Basic Metabolic Panelon 03-0 Anion gap [Moles/Vol] 10 mmol/L 5 - 15 mmol/L [facility] Calcium [Mass/Vol] 9.5 mg/dL 8.5 - 10.5 mg/dL [facility] Chloride [Moles/Vol] 103 mmol/L 98 - 109 mmol/L [facility] CO2 [Moles/Vol] 29 mmol/L 22 - 32 mmol/L [facility] Creatinine [Mass/Vol] 0.79 mg/dL 0.40 - 1.00 mg/dL [facility] Comment on above: METHOD TRACEABLE TO IDWV STANDARD eGFR (CKD-EPI)non-race dependent 76 - PINF [facility] Comment on above: Reported eGFR is based on the CKD-EPI 2020 equation that does not use a race coefficient. Glucose [Mass/Vol] 94 mg/dL 65 - 99 mg/dL [facility] Potassium [Moles/Vol] 3.6 mmol/L 3.5 - 5.0 mmol/L [facility] Sodium [Moles/Vol] 142 mmol/L 134 - 146 mmol/L [facility] Urea nitrogen [Mass/Vol] 11 mg/dL 5 - 27 mg/dL [facility] CBC AND AUTO DIFFon 07-25-19 ABSOLUTE BASOPHIL 0.0 X10E9/L Normal 0.0-0.2 [facility] Comment on above: Performed By: #### C BCA, BMP #### [facility] ([id number]) [address] [place] [address] ABSOLUTE NEUTROPHIL 4.0 X10E9/L Normal 1.5-6.6 [facility] Comment on above: Performed By: #### C BCA, BMP #### [facility] ([id number]) [address] [place] [address] Basophils/100 WBC (Bld) 0.7 % Normal [facility] Comment on above: Performed By: #### C BCA, BMP #### [facility] ([id number]) [address] [place] [address] Eosinophils (Bld) [#/Vol] 0.2 10*3/uL Normal 0.0-0.4 [facility] Comment on above: Performed By: #### C BCA, BMP #### [facility] ([id number]) [address], [address] [place] [address] Eosinophils/100 WBC (Bld) 3.6 % Normal [facility] Comment on above: Performed By: #### Lauro VERNON, BMP #### [facility] ([id number]) [address], [address] [place] [address] Erythrocyte distribution width (RBC) [Ratio] 14.1 % Normal 11.5-15.0 [facility] Comment on above: Performed By: #### C JANEEN, BMP #### [facility] ([id number]) [address], [address] [place] [address] Hematocrit (Bld) [Volume fraction] 40.2 % Normal 35-47 [facility] Comment on above: Performed By: #### Lauro VERNON, BMP #### [facility] ([id number]) [address] [place] [address] Hemoglobin (Bld) [Mass/Vol] 13.5 g/dL Normal 11.7-15.5 [facility] Comment on above: Performed By: #### Lauro VERNON, BMP #### [facility] ([id number]) [address], [address] [place] [address] Lymphocytes (Bld) [#/Vol] 1.8 10*3/uL Normal 1.0-3.5 [facility] Comment on above: Performed By: #### Lauro VERNON, BMP #### [facility] ([id number]) [address], [address] [place] [address] Lymphocytes/100 WBC (Bld) 27.2 % Normal [facility] Comment on above: Performed By: #### Lauro VERNON, BMP #### [facility] ([id number]) [address], [address] [place] [address] MCH (RBC) [Entitic mass] 30.4 pg Normal 27-34 [facility] Comment on above: Performed By: #### C JANEEN, BMP #### [facility] ([id number]) [address], [address] [place] [address] MCHC (RBC) [Mass/Vol] 33.7 g/dL Normal 32-36 [facility] Comment on above: Performed By: #### C JANEEN, BMP #### [facility] ([id number]) [address], [address] [place] [address] MCV (RBC) [Entitic vol] 90 fL Normal 80-100 [facility] Comment on above: Performed By: #### C JANEEN, BMP #### [facility] ([id number]) [address] [place] [address] Monocytes (Bld) [#/Vol] 0.6 10*3/uL Normal 0-0.9 [facility] Comment on above: Performed By: #### C JANEEN, BMP #### [facility] ([id number]) [address], [address] [place] [address] Monocytes/100 WBC (Bld) 9.0 % Normal [facility] Comment on above: Performed By: #### C JANEEN, BMP #### [facility] ([id number]) [address], [address] [place] [address] Neutrophils/100 WBC (Bld) 59.5 % Normal [facility] Comment on above: Performed By: #### C JANEEN, BMP #### [facility] ([id number]) [address], [address] [place] [address] Platelet mean volume (Bld) [Entitic vol] 10.1 fL Normal 7-12 [facility] Comment on above: Performed By: #### C JANEEN, BMP #### [facility] ([id number]) [address], [address] [place] [address] Platelets (Bld) [#/Vol] 260 10*3/uL Normal 150-450 [facility] Comment on above: Performed By: #### C JANEEN, BMP #### [facility] ([id number]) [address], [address] [place] [address] RBC COUNT 4.46 X10E12/L Normal 3.80-5.20 [facility] Comment on above: Performed By: #### Lauro VERNON, BMP #### [facility] ([id number]) [address] [place] [address] WBC (Bld) [#/Vol] 6.8 10*3/uL Normal 4.0-11.0 [facility] Comment on above: Performed By: #### Lauro VERNON, BMP #### [facility] ([id number]) [address] [place] [address] CBC auto differentialon Basophils (Bld) [#/Vol] 0.0 10*3/uL [facility] Basophils/100 WBC (Bld) 0.7 % [facility] Eosinophils (Bld) [#/Vol] 0.2 10*3/uL [facility] Eosinophils/100 WBC (Bld) 3.6 % [facility] Erythrocyte distribution width (RBC) [Ratio] 14.1 % 11.5 - 15.0 % [facility] Hematocrit (Bld) [Volume fraction] 40.2 % 35 - 47 % [facility] Hemoglobin (Bld) [Mass/Vol] 13.5 g/dL 11.7 - 15.5 g/dL [facility] Lymphocytes (Bld) [#/Vol] 1.8 10*3/uL [facility] Lymphocytes/100 WBC (Bld) 27.2 % [facility] MCH (RBC) [Entitic mass] 30.4 pg 27 - 34 pg [facility] MCHC (RBC) [Mass/Vol] 33.7 g/dL 32 - 36 g/dL [facility] MCV (RBC) [Entitic vol] 90 fL 80 - 100 fL [facility] Monocytes (Bld) [#/Vol] 0.6 10*3/uL [facility] Monocytes/100 WBC (Bld) 9.0 % [facility] Neutrophils (Bld) [#/Vol] 4.0 10*3/uL [facility] Neutrophils/100 WBC (Bld) 59.5 % [facility] Platelet mean volume (Bld) [Entitic vol] 10.1 fL 7 - 12 fL [facility] Platelets (Bld) [#/Vol] 260 10*3/uL [facility] RBC (Bld) [#/Vol] 4.46 10*6/uL [facility] WBC corrected for nucl RBC Auto (Bld) [#/Vol] 6.8 [facility] ECG 12 leadon 07-25-2023 TRACEMASTERVUE [facility] Basic Metabolic Panelon 06-21 Anion gap [Moles/Vol] 10 mmol/L 5 - 15 mmol/L [facility] Calcium [Mass/Vol] 9.3 mg/dL 8.5 - 10.5 mg/dL [facility] Chloride [Moles/Vol] 104 mmol/L 98 - 109 mmol/L [facility] CO2 [Moles/Vol] 26 mmol/L 22 - 32 mmol/L [facility] Creatinine [Mass/Vol] 0.74 mg/dL 0.40 - 1.00 mg/dL [facility] Comment on above: METHOD TRACEABLE TO IDWV STANDARD eGFR (CKD-EPI)non-race dependent 82 - PINF [facility] Comment on above: Reported eGFR is based on the CKD-EPI 2020 equation that does not use a race coefficient. Glucose [Mass/Vol] 110 mg/dL High 65 - 99 mg/dL [facility] Potassium [Moles/Vol] 3.7 mmol/L 3.5 - 5.0 mmol/L [facility] Sodium [Moles/Vol] 140 mmol/L 134 - 146 mmol/L [facility] Urea nitrogen [Mass/Vol] 13 mg/dL 5 - 27 mg/dL [facility] Hemoglobin A1con 07-12-2023 Average glucose Estimated from glycated hemoglobin (Bld) [Mass/Vol] 134 mg/dL [facility] HbA1c (Bld) [Mass fraction] 6.3 % High 4.4 - 5.6 % [facility] [employer] [facility] Comment on above: NOTE ADA Guidelines Result HgbA1c Normal : less than 5.7 % Prediabetes : 5.7 % to 6.4 % Diabetes : > 6.4 % Use with caution in patients with abnormal hemoglobin variants as the half-life of red blood cells and in vivo glycation rates are affected. Interpretation and review of laboratory results Abnormal [facility] [employer] Lipid 1996 panelon Cholesterol [Mass/Vol] 115 mg/dL Low 150 - 200 mg/dL [facility] [employer] Cholesterol in HDL [Mass/Vol] 54 mg/dL 39 - PINF mg/dL [facility] [employer] Comment on above: HDL <40 mg/dL - High Risk HDL > or = 40mg/dL- Desirable HDL >60 mg/dL - Negative Risk Cholesterol in LDL [Mass/Vol] 41 mg/dL NINF - 130 mg/dL [facility] [employer] Comment on above: LDL <100 mg/dL - Desirable LDL >160 mg/dL - High Risk Cholesterol in VLDL [Mass/Vol] 20 mg/dL 0 - 30 mg/dL [facility] [employer] Cholesterol.total /Cholesterol in HDL [Mass ratio] 2.1 {ratio} 1.0 - 5.0 [facility] Triglyceride [Mass/Vol] 102 mg/dL 27 - 150 mg/dL [facility] [employer] No Panel Informationon 07-12 Interpretation and review of laboratory results Abnormal [facility] MM screening mammo BI w/CADo n 10-03-2022 MM screening mammo BI w/CAD [facility] [employer] [address] [place] [address] Mammography Report Signed Patient: Екатерина Shaffer MR#: [id number] 70 : 1945 Acct:[id number] Age/Sex: 76 / F ADM Date: 10/03/22 Loc: [place] Room: [facility] Attending Dr: Referral Self Copies to: Taiwo Ayala DO SELF,REFERRAL Ordering Provider: SELF,REFERRAL Date of Service: 10/03/22 MM/MM screening mammo BI w/CAD: SCREENING CLINICAL DATA: Screening for malignancy. SCREENING MAMMOGRAM - FULL FIELD DIGITAL WITH TOMOSYNTHESIS AND CAD COMPARISON:Mammograms dating back to 2018. Tomosynthesis craniocaudal and mediolateral oblique views of both breasts were obtained using low- dose digital technique. This examination was reviewed with the aid of CAD. The breast tissue is composed of scattered fibroglandular densities. There are no dominant masses, typically malignant calcifications or architectural distortion. There has been no significant interval change. MM/MM screening mammo BI w/CAD IMPRESSION: NO MAMMOGRAPHIC EVIDENCE OF MALIGNANCY. ROUTINE FOLLOW-UP IS RECOMMENDED IN ONE YEAR. RESULT CODE: 1 Negative DENSITY CODE: 2 (approximately 25-50% glandular) FOLLOW UP: 1YR The false-negative rate of mammography is approximately 10-percent. Management of a palpable abnormality must be based on clinical grounds. Patient was entered into a reminder system with a target due date for the next mammogram. Impression dictated by: Devendra Maldonado Jr., Shaheen10/03/2022 2:04 PM Dictation Location: [facility] Transcribed By: [facility] 10/03/22 1404 Dictated By: Devendra Maldonado Jr, DO 10/03/22 140 Signed By: 10/03/22 1404 [facility] PT - Home Exercise Programon 07-02-2022 PT - Home Exercise Program [id number]#1. 00CD:127 [facility] PT - Home Exercise Programon 06-27-2022 PT - Home Exercise Program [id number]#1. 00CD:127 [facility] Nonvisit Note - PTon 023 Nonvisit Note - PT weather [facility] PT - Home Exercise Programon 06-12-2022 PT - Home Exercise Program [id number]#1. 00CD:127 [facility] [facility] PT - Otheron 06-12-2022 PT - Other [id number]#[id number] 0CD:127 [facility] Coding Summary.on 06-01-2022 Coding Summary. CD:[id number] Gh 0bWw+PGhlYWQ+NC5MAGBoZ 57ukOQwvM1YC9mCMJ0RPOL CLDIWGV4ZQE5tgIY1QStxA 2VybiAv YlpljSMcML34CEl1KUK4bK sfLPwapO4etLMyF9p3MvLr PZ00uB80VTysXWYeRbV7Bj ZpbjsgbWFy R5xaYbQeeXDrNei+PHRhYm xlIHdpZHRoPScxMDAlJyBz qRdgXL7gGw1gEWHaJKDakJ xhcHNlOiBj k9suOSPiKMkuWR2vhTskC5 TmiYZ7BMBvu7r1Bs23kQS+ HCTlFMM5fRftTNnsu457He Yxk9tnAHB4 jDTyDIujLHM8T83qs3J9KH TyXAQpEJG7sFC0rQ9nyBhk urymS9FacDApBcB5OCS5qX VcuP6joMnu sdiocH1fIjh+U48WUZ7AJE SUHN2SDxl9P3IkCbapkOE+ IU65KHNgSN01cZOsbVGcz1 ajkCm4VsHr HXQhUCV7nBnaWXjlm5EgPU EdP38daGEya2V9LNNtnRaw jYIhImSnbDD0sL3rNErawh uvv9pekkcp Xqouo0fprh32qT15F92dKC otXMPyQLN8YUZbLPGqqIob nr3awR0hGm2+MGqaf5hhc7 ipdEd6CzJp KJTassNerAgwORO1p0DmQn 37L6OenAbvd1LsEiu1ot60 lZSuf0T8aAP7CWnlCVDkbD 4yEJbyIzQ6 VAQgDeNozM99xRBkFNvoJh 3gfBbyrLysZY3bRGMbgtxj ZPWfiA0jXPXqhSHecRfvUX 4wNTBpbjtm q141KcZsEPM8ZGAnkVCnQ9 JkuW0qWhFnJNDiDGEdB0Lu jIOyKFsvF481ZOwdWbH7IP TyrzEjL6Fu PWDjxLceHrW6i2A6Ix0Zj9 CbziduEUE3CBrcMUXhSkZi JnZrHhF5Z0GpAnh9KUJgbA pfSI2cM0Ck XBFowgvgeofjsYV5QWQlWH RtwF14mHGkFMdbZf2jy8E2 d340OBOhPPEpqG80Lc5uaG ogMTBwdCBU wK3qrsgir7ernydmUxUjGS CjCEn7BUs2HNJhoImyHgEw SBA9RmN3RGV8yMOxwK6ctM fouuezxV4w Oyc+X29njY2tLHZ1WSW3wk vmGWDxhzCjPS67UA25O1Zb PjwvdGFibGU+PGRpdiBzdH zgRL0aVkWg b2myx4LbQFrcT0HxNOXsHS cnQsw0IKQbRBX3sVZ5hA2t LMMjTPqhc1M5zDV1O1Avfy Ihdw2en2fb YMQtGHokP59ncUVgn0D1BJ GyxQU6QPWsgLzzMeEwxB59 Oyc+OJYiuYish2PfApvbh8 gfk5lbvGy9 HsJlCERfrzKnzQegDMM7q5 NsWa99T25hEMjsWGHhILNx EMWkAZUnsJpqvt7liZ4dHb 8+PGNvbCB3 qMB9uL2aWJMgFoE1RWkzV4 36EjCtmOQpHroaj7hgs5ug oYp9AqGuZYZpyjRkiBveZJ O3h2YeTh63 Q85oUIoeUTUyHKKaOOVuRV JubPzfss5mcS0zUa3+PC9j q3bzdc24vJ47uCR+PHRkIH H6eJadSHly LKAuwZ9dVAhsOmK7YVAsPd WvdJ95mCKgEKdoFp8feUgf rXcfCC5mAWLaxgzvp172Je Wtw9txEATh zGIcXAgpRRO3V67va8O8RE QoZYThBGP6sXF7pD3ffRop bjogbGVmdDsgdmVydGljYW wrABeoA929 IHRvcDsnPlBhdGllbnQgTm SaBAl3M9JhBdj8QVTyqEmf AN1toJRbZLmhWn2ymAoqeO rfSY5xEQWl nbfyv857CiTie7xmSLHjeH EgJPofUBW0D39qz4A7LKMu WOLdFHF3iZZ9yX0bwNrwmo ogbGVmdDsg onDtqXeiIZqgWWkrF906AO RvcDsnPkJpcnRoIERhdGU6 YE89DS69tGAab4N3hCC8I1 BhZGRpbmct blveqEN7GMDcLFGkiN49Qu 5dmRzhLj6nFFTqDNN9CFWg sUUmX3OefD5gPiIjTFVtEM MxJ9WoqRTt GOemB392SAyaEbR3ODMflo KmR2IaSMQglLefKeY1j4M1 Fq1NI7O5LK41SX30jZEsa0 D1sMH4D7Rw VQDjdoehfbkvrWB3HKXzYG CauM03Kp5mpYnnWb8oECLc LGL0VHXjdXEuS1OyyR7mBc AjMDAwMDAw A3ZubJGgPGohP345KAjcEj N6XTXikwVlB4PbTFMzmGip JdK5v3Z4Xw0PRJc9SF19EC 88tSDpa9C2 kKV6Y6GkJILzskisdxzevI R5HVKvUEZyeD37Pw5wqArv Aw7iHNRlBNK6XNDfiGWxZ5 MuhU5gEwOh PDBzXHItF3OkvQLdKJnzA4 19KWieJaO8AOEtytKxU1Gu HPIynUlfLgT9n1Z7Tf9IBO QxCV65IBD3 dLY7AW43SP21H3ErNxjmsT FibGU+PHRhYmxlIHdpZHRo XOjuBQMrFbBmuXleQX6fUq 9yZGVyLWNv vUnezPQoJfGjd0wsTCLzYQ giRK0xkWxlZ2IwiWT2HBGv t8s3Wp29I62gY4WvtOH+PG DijLX2oVQ7 iR7aAxBlNuJ7QGnnS685Pv GdmAAlGksyx7esc8gqgTe2 FdM3TJJefnPufLfqRRN8x8 EbLl85S26l IHdpZHRoPSIxNSUiIHZhbG oiaq8clS6lOg3+PGNvbCB3 rXW8gB1lNxHqImJ4EKoiY4 49InRvcCIv Thwan5hkl8bsjEx9AtLyGP DscvBixRnoJHK0u9UaIn35 Z5VewImwy5ZrTdy8yc96nD Ztb7A1nPY1 R5CeUKKrreyaoRDieCiqYZ 5rXUIiviieKPSneY3qQWYk E1a6DdJaLoN2OUilA0Lrdr O2HCHvzWYj FJphBZC5U11lt2A1RHFkOR BbVUJ8fUK5nH1fnYpsuipz bGVmdDsgdmVydGljYWwtYW beU241NYSa rDsiOHQrtL8oZPPnuOVrnN ozHJ9mFPRbmgkyPfLIEZAA UyquRp4CB2VeFYzkxFW+PH AyWDF8aTqy HFxiGRTkfQ4gQNLfZ6c3Js AyAnJ1XGbwN9ArNADsqoru Xf70yO3eIgThWsZ7YQgwW4 NgqdM4IIGn mEKxLSuxSCQ9T37vc0J1RM HvDYLlRKB4vXF7vH2lsIas bjogbGVmdDsgdmVydGljYW biMRhxL745 ARZtmBwxNiN2AlC8RuM5RV S4D9JeNdb8DFGwuQjcOR1z sWLdMJlfVs6hkThznXnmBW 4wNTBpbjtw DFYgjD0kANSycXGtoLfrRV 3bZRWvsjuwf591LsHwNJH0 AQMdzNZeX0UmrD0rEeRtOY XaACLfD6Vz tRLqEHdxF080KYskFlX1QA WqohFgT1AiXHQklKbsAuA2 u3C6Js78QOEZOHGpsnyciX Q+PHRkIHN0 qVssSRszFVUbmQ1kMXVmG9 u4VmSzZrL5CDikH5GmFTEt vdemLf77lJ6oRcLhFcN8XY flD7IpjoP6 CFDuyTTxQWbqSDW6R32ho5 S4VKIkKZNzOCK0vGA4wC4t bGlnbjogbGVmdDsgdmVydG ljYWwtYWxp N098XKKpeNraFyHsiKGlAM wvdGQ+HKZxEMI3eIpuAZal LJVhdX5wGVOiD5b4BrZzNf I6CAseM4Cr OZKjczrlDt05gY6bLxXxKb E2REfeX7VhgpX9AAYukTZf BOznTDK5L81pr9K7HOVrXV JlQTR3lHU6 zR2jcIzcdqpawIKavJaycg FvpJssPZzkSBqiP162CQSl eNfkEgWgU0OxeplqDxalkO Q+OL42nq07 L5KqNkksOto9KQGdVVB2xZ V3qC0iBZBvXPgcl7A7eYP9 D3SfyrAjhb0hi3bjVMGuJM enI67qvLPd q2B5VLYazPR4ZBOroRgbWu LhxI74Wxz+GJSvoJgje8Wm Lizgo2eur2zsaDc1BpOmBE IgdmFsaWdu EBU3h0YgNz40D71kNAeqHR LyEIAkUMPlUXBtiSherp9r qT4lNz7+TOMskUR9iCC6tN 0bRhOcGtC5 SDeuH966AtMpdMLxAdubz5 wat3tkpMu2CqOvCAXfpuIf qPhoNXQ1b8CnQn00I1HejM sdw6DoFok6 rl33cYGpv0F1wJV7U1WrFJ DrsoptsFKpoBnjBE9aDICw ayjdTLZrtT5qCSYtV0b5Dd JnHkF1MNfu Z5NkrzZ9MEUwgGWeKJFurO PWxL1xinqui3xwtkzqWyAq YYClJYy7IPl3FXSoiRzqWs EeASX8IwT8 XNV5nYVoxK2jjDywafbuaG 9wOyc+SEh7e9snpVYqYE9n yKM1WB68EJ14nPVyd2M0yG P1E6ZgRWIo qeyilalypES9DBLeZEYcfO 15Mv3yoDnpCq3eRGAvPID7 IEAbrYSdQ4JadD6hXePsKX RtVERgR7Ul sPQlTOyjJ974FTbiPlD3EK CdenTuU8BwVDJlpIjsIjZ9 y0Y8Qn3RQB88LU86QY75hG Niu3L3lYV8 G7JpUSGojswonnfadQY2SV OjNXBeaJ32Ka0mgAajLh5h ZGGbFJJ7CLMumJQnJ9ZeqH 9yOiAjMDAw KLHwV2XoqBRwVGwiL940PP puZdS7WGZxqfJdE0NyMHBh hHqhAtC4n2X8Ui0YFr89PS 95ZR13kTXv s6G6tKQ2Y3GyTTMorzqzyy njuIN6ICQjFOQkaG58Ch3e sMnhCd4zEQEgOZM9QHJkhE HbX2GkgX2w ApFuLJOeMPZyH0GdkCLgHE zyE768WJfoCrN0UCQilmYe L5IpRDSomYcoIdC9t2A8Vu 1KRDutabw5 G8ZqXmbtdAU+VC97JEJwZB 12nHSsmDPpx5jpiJp1ZgPf OLFsHLJ3jLpbHSrdb3NrWQ PsF08ogDLm c2U6 (more content not included)... [facility] PT - Assessmentson PT - Assessments [id number]#1. 00CD:127 [facility] PT - Consentson 05-31-2022 PT - Consents [id number]#1. 00CD:127 [facility] Formson 05-24-2022 Forms [id number]#1.0 0CD:127 [facility] Lab Reportson 05-24-2022 Lab Reports [id number]#1.0 0CD:127 [facility] Intermediate Recordson 05-24 Intermediate Records [id number]#1.0 0CD:127 [facility] Screenson 05-24-2022 Screens [id number]#1.0 0CD:127 [facility] Ambulatory Visit Summaryon 0 05-23-2022 Ambulatory Visit Summary ЕКАТЕРИНА SHAFFER :1945 Visit Date:05/23/2022 Ambulatory Visit Instructions Your Diagnosis Renal cyst, right Urge incontinence Tests Performed Urnls Dip Stick Auto w/o Microscopy POC 63911 Your Care Team Attending Physician - Nyasia Key MD Primary Care Physician - TAIWO AYALA DO This Is Your Medications List Contact prescribing physician if questions or concerns amlodipine (amLODIPine 5 mg Tab) clonidine (cloNIDine 0.1 mg tab) dorzolamide-timolol ophthalmic (dorzolamide-timolol Opth 2%-0.5% Elsa) escitalopram (escitalopram 5 mg oral tablet) ferrous sulfate (ferrous sulfate 325 mg Tab) hydrochlorothiazide (hydrochlorothiazide 25 mg Tab) latanoprost ophthalmic (latanoprost Opth 0.005% Elsa) metformin (metformin 500 mg Tab) metoprolol (Metoprolol tartrate 50 mg Tab) montelukast (montelukast 10 mg Tab) omega-3 polyunsaturated fatty acids (Fish Oil 1000 mg oral capsule) oxybutynin (oxybutynin 5 mg ER Tab) timolol ophthalmic (Timolol Maleate (Eqv-Timoptic) 0.5% ophthalmic solution) trazodone (traZODONE 50 mg Tab) Procedures Performed Total knee replacement. (02/26/2022), Appendectomy, Cholecystectomy, Hysterectomy, Ligation of fallopian tube. Discharge Vitals Height 165 cm Height 65 in Weight 85 kg Weight 187 lb BMI 31.22 What to do next Scheduled Follow-Up Appointments Saturday. 2022 10:15 AM EST With: Nyasia Key MD Where: [facility] Patient Educationon 05-23-19 23 Patient Education Obstetrics and Gynecology Overactive Bladder, Adult Overactive bladder refers to a condition in which a person has a sudden need to pass urine. The person may leak urine if he or she cannot get to the bathroom fast enough (urinary incontinence). A person with this condition may also wake up several times in the night to go to the bathroom. Overactive bladder is associated with poor nerve signals between your bladder and your brain. Your bladder may get the signal to empty before it is full. You may also have very sensitive muscles that make your bladder squeeze too soon. These symptoms might interfere with daily work or social activities. What are the causes? This condition may be associated with or caused by: ? Urinary tract infection. ? Infection of nearby tissues, such as the prostate. ? Prostate enlargement. ? Surgery on the uterus or urethra. ? Bladder stones, inflammation, or tumors. ? Drinking too much caffeine or alcohol. ? Certain medicines, especially medicines that get rid of extra fluid in the body (diuretics). ? Muscle or nerve weakness, especially from: ? A spinal cord injury. ? Stroke. ? Multiple sclerosis. ? Parkinson's disease. ? Diabetes. ? Constipation. What increases the risk? You may be at greater risk for overactive bladder if you: ? Are an older adult. ? Smoke. ? Are going through menopause. ? Have prostate problems. ? Have a neurological disease, such as stroke, dementia, Parkinson's disease, or multiple sclerosis (MS). ? Eat or drink things that irritate the bladder. These include alcohol, spicy food, and caffeine. ? Are overweight or obese. What are the signs or symptoms? Symptoms of this condition include: ? Sudden, strong urge to urinate. ? Leaking urine. ? Urinating 8 or more times a day. ? Waking up to urinate 2 or more times a night. How is this diagnosed? Your health care provider may suspect overactive bladder based on your symptoms. He or she will diagnose this condition by: ? A physical exam and medical history. ? Blood or urine tests. You might need bladder or urine tests to help determine what is causing your overactive bladder. You might also need to see a health care provider who specializes in urinary tract problems (urologist). How is this treated? Treatment for overactive bladder depends on the cause of your condition and whether it is mild or severe. You can also make lifestyle changes at home. Options include: ? Bladder training. This may include: ? Learning to control the urge to urinate by following a schedule that directs you to urinate at regular intervals (timed voiding). ? Doing Kegel exercises to strengthen your pelvic floor muscles, which support your bladder. Toning these muscles can help you control urination, even if your bladder muscles are overactive. ? Special devices. This may include: ? Biofeedback, which uses sensors to help you become aware of your body's signals. ? Electrical stimulation, which uses electrodes placed inside the body (implanted) or outside the body. These electrodes send gentle pulses of electricity to strengthen the nerves or muscles that control the bladder. ? Women may use a plastic device that fits into the vagina and supports the bladder (pessary). ? Medicines. ? Antibiotics to treat bladder infection. ? Antispasmodics to stop the bladder from releasing urine at the wrong time. ? Tricyclic antidepressants to relax bladder muscles. ? Injections of botulinum toxin type A directly into the bladder tissue to relax bladder muscles. ? Lifestyle changes. This may include: ? Weight loss. Talk to your health care provider about weight loss methods that would work best for you. ? Diet changes. This may include reducing how much alcohol and caffeine you consume, or drinking fluids at different times of the day. ? Not smoking. Do not use any products that contain nicotine or tobacco, such as cigarettes and e-cigarettes. If you need help quitting, ask your health care provider. ? Surgery. ? A device may be implanted to help manage the nerve signals that control urination. ? An electrode may be implanted to stimulate electrical signals in the bladder. ? A procedure may be done to change the shape of the bladder. This is done only in very severe cases. Follow these instructions at home: Lifestyle ? Make any diet or lifestyle changes that are recommended by your health care provider. These may include: ? Drinking less fluid or drinking fluids at different times of the day. ? Cutting down on caffeine or alcohol. ? Doing Kegel exercises. ? Losing weight if needed. ? Eating a healthy and balanced diet to prevent constipation. This may include: ? Eating foods that are high in fiber, such as fresh fruits and vegetables, whole grains, and beans. ? Limiting foods that are high in fat and processed sugars, such as fried and sweet foods. General instructions ? Take ove (more content not included)... [facility] Urology Office/Clinic Noteon 05-23-2022 Urology Office/Clinic Note Chief Complaint New Pt *Renal Cyst HPI Staff Pt is a new pt, never before seen in our office. Here today due to Hx of Renal Cyst & Nocturia. *Oxybutynin ER 5mg therapy from PCP for bladder control. Renal US done 04/11/22 Nocturia- 4x/night for the past 2-3months Leaking at night- underwear is wet. Does not wear a pad or brief. Urgency during day at times. Oxybutynin has helped, been taking for 6-7months. Has been having some Lt flank pain. PVR today is 22 History of Present Illness Tests reviewed: reviewed UA, external records of retroperitoneal US report, CT pelvis, labs and notes from [place] and rehab I have reviewed the previous health record information and history for this patient from external providers I have reviewed and verified the staff HPI to be accurate for this encounter. There have been no associated fever, chills, flank pain, or blood in the urine. Review of Systems PHQ Score Initial Depression Screen Score: 0 ROS - Provider Constitutional: denies weight loss, denies hot flashes. Eyes: denies eye problems. Gastrointestinal: denies nausea, denies vomiting. Cardiovascular: denies chest pain or angina. Integumentary: no dryness Musculoskeletal: denies musculoskeletal symptoms. ENMT: denies otolaryngeal symptoms. Respiratory: no shortness of breath. Heme/Lymph: denies easy bleeding tendency, denies easy bruising tendency. Psychiatric: no confusion, no anxiety. Genitourinary: see HPI Physical Exam Vitals & Measurements HT: 65 in HT: 165 cm WT: 85 kg WT: 187 lb BMI: 31.22 General Appearance: alert , no acute distress, well nourished, well developed female. Head: normocephalic . Eyes: normal orbit and globe. ENMT: normal examination of external ears. Chest: symmetric chest rise, respirations non labored . Cardiovascular: regular rate and rhythm. Abdomen: soft, non distended, no tenderness Genitourinary: bladder nonpalpable, no flank tenderness. Skin: warm, dry, no bruising. Psychiatric: cooperative, affect appropriate for age, normal judgement, euthymic mood. Assessment/Plan 1. Renal cyst, right (N28.1: Cyst of kidney, acquired) Renal US done 04/11/22 showed a right renal cyst, measuring 5.6 x 5.4cm, no evidence of hydronephrosis; no indication if cyst is complex or simple. Pt states she had imaging done in [place] where the cyst was also found. Review of CT pelvis and records via pt portal does not mention renal cyst. Unable to view on imaging. Discussed potential etiologies and implications of renal cyst. Simple renal cysts do not require surveillance. However unable to view images and report was not specific. Discussed obtaining CT scan or repeat renal US for confirmation. -Pt's daughter will call outside facility where imaging was done to get copy of image or obtain clarification on report. She will call with any new information 2. Urge incontinence (N39.41: Urge incontinence) ICIQ - 13. PVR - 22mL. UA today shows small leukocytes. Asymptomatic UA done 02/06/22 showed large blood and large leukocytes. Negative cultures. Pt denies recurrent UTIs. Pt states she has more severe urgency later in the day. Discussed management options, such as increasing dosage of Oxybutynin, alternative medications, behavioral modifications, procedures and PFPT. -Encouraged pt to stop fluid intake 2 hrs before bedtime, behavioral modifications, bowel regimen -Begin timed voids and Kegel exercises -Pt to continue taking Oxybutynin 5 mg ER. Denies side effects -Will refer pt to pelvic floor physical therapy at [facility] Ordered: [facility] Evaluate Patient, Develop a Plan of Care, & Implement Plan 3. Stress incontinence (N39.3: Stress incontinence (female) (male)) Reports leakage with coughing, standing, activity. Not using pads, changes underwear. More bothered by urge incontinence. Discussed treatment options from least to more invasive. Pt would like to proceed with PFPT -Referral to PFPT. Education provided today Orders: Measure Post Void residual urine and/or bladder capacity by US- non-imaging 09849 Urnls Dip Stick Auto w/o Microscopy POC 17694 Follow-up With When Contact Information Shahid HARDY, Nyasia Shearer, URL, URO In 2 months [address], [place] [address]- [phone] Additional Instructions: Patient Education Overactive Bladder, Adult I, Majo Parker , personally scribed for Dr. Mills on 05/23/2022 11:25:09. . Documentation recorded by the scribe, Majo Parker, accurately reflects the services(s) I performed and decisions made by me. Authenticated by Dr. Key on 05/23/2022 13:33:53. Problem List/Past Medical History Ongoing Anemia Anxiety Arthritis of right hip Atrophy of vagina Diabetes mellitus Essential hypertension Glaucoma Hypothyroidism Lumbar spondylosis Mixed hyperlipidemia Neuropathy Plantar fasciitis Renal cyst, right (more content not included)... [facility] Comment on above: Result Comment: Elec tronically Signed By: Nyasia Key MD\.br\Date and Time Signed: 05/23/22 13:33 EST\.br\Electronically Co-Signed By: Majo Parker\.br\Date and Time Co-Signed: 05/23/22 11:26 EST Inpatient Patient Summaryon 02-28-2022 [place] [address] Patient Discharge Instructions Name: ЕКАТЕРИНА SHAFFER : 1945 Patient Address: [address] [place] [address] Primary Care Provider: Name: TAIWO AYALA After you are discharged if you find you have any questions, please, call [phone] ext [phone] to speak to a nurse. The Pharmacy at [facility] is open Saturday through Saturday from 9A to 6P and Saturday and Saturday from 9A to 5P Discharge Diagnosis: 1:Primary osteoarthritis of right knee; 2:Sinus bradycardia; 3:Diabetes mellitus; 4:Hypertension; 5:Hypothyroidism; 6:Glaucoma; 7:Anxiety Prescription Information: If you have been given a prescription for narcotics, seek immediate medical attention if you have any difficulty breathing or any sudden status changes such as confusion and sleepiness. If you or anyone you know is experiencing suicidal thoughts, mental health, alcohol and/or drug addiction problems; contact the Mental Health & Recovery [facility] 10/12 Crisis Hotline -Text 5TZFR ge 819218. If you received any narcotics, sedation, or any other medication that causes drowsiness for the next 24 hours, unless otherwise directed: ? Do not drive a car. ? Do not operate machinery such as power tools, lawn mowers, drills, sewing machines, or stoves ? Avoid alcoholic beverages and drugs for allergies, nerves, or sleep ? Do not make important personal or business decisions or sign any legal documents [facility] would like to thank you for allowing us to assist you with your healthcare needs. The following includes patient education materials and information regarding your injury/illness. ЕКАТЕРИНА SHAFFER has been given the following list of follow-up instructions, prescriptions, and patient education materials: Follow-up Instructions With: Address: When: TAIWO AYALA [address] [place] [address] Business (1) 03/06/2022 10:00 AM With: Address: When: Dianne Combs [address] [place] [address], [facility] [address] [place] [address] [facility] (1) 03/06/2022 1:00 PM Medications During the course of your visit, your medication list was updated with the most current information. The details of those changes are reflected below: Medications That Were Updated - Follow Below Instructions Other Medications Updated: hydroCHLOROthiazide (hydroCHLOROthiazide 25 mg oral tablet) 1 tab(s) Oral every day. TAKE 1 TABLET BY MOUTH EVERY DAY. Updated: latanoprost ophthalmic (latanoprost 0.005% ophthalmic solution) 1 Drops Both eyes once a day (at bedtime). INSTILL 1 DROP IN BOTH EYES AT BEDTIME DIRECTED. Updated: metoprolol (Metoprolol Succinate ER 50 mg oral tablet, extended release) 1 tab(s) Oral every day. TAKE 1 TABLET BY MOUTH EVERY MORNING. Updated: montelukast (montelukast 10 mg oral tablet) 1 tab(s) Oral every day. TAKE 1 TABLET BY MOUTH EVERY DAY. Medications to Continue That Have Not Changed Other Medications cloNIDine (cloNIDine 0.1 mg oral tablet) 1 tab(s) Oral 2 times a day. ferrous sulfate (ferrous sulfate 325 mg (65 mg elemental iron) oral delayed release tablet) 1 tab(s) Oral every day. levothyroxine (levothyroxine 100 mcg (0.1 mg) oral tablet) 1 tab(s) Oral every day. losartan (losartan 100 mg oral tablet) 1 tab(s) Oral every day. metFORMIN (metFORMIN 500 mg oral tablet) 1 tab(s) Oral every day. potassium chloride (potassium chloride 20 mEq oral tablet, extended release) 1 tab(s) Oral every day. rosuvastatin (rosuvastatin 10 mg oral tablet) 1 tab(s) Oral every day. sodium chloride, hypertonic, ophthalmic (Lesvia 128 ophthalmic ointment) small amount Both eyes At bedtime. timolol ophthalmic (timolol hemihydrate 0.5% ophthalmic solution) 1 Drops Both eyes once a day (in the morning). traZODone (traZODone 50 mg oral tablet) 1 tab(s) Oral once a day (at bedtime). It is important to always keep an active list of medications available so that you can share with other providers and manage your medications appropriately. As an additional courtesy, we are also providing you with your final active medications list that you can keep with you. cloNIDine (cloNIDine 0.1 mg oral tablet) 1 tab(s) Oral 2 times a day. ferrous sulfate (ferrous sulfate 325 mg (65 mg elemental iron) oral delayed release tablet) 1 tab(s) Oral every day. hydroCHLOROthiazide (hydroCHLOROthiazide 25 mg oral tablet) 1 tab(s) Oral every day. TAKE 1 TABLET BY MOUTH EVERY DAY. latanoprost ophthalmic (latanoprost 0.005% ophthalmic solution) 1 Drops Both eyes once a day (at bedtime). INSTILL 1 DROP IN BOTH EYES AT BEDTIME DIRECTED. levothyroxine (levothyroxine 100 mcg (0.1 mg) oral tablet) 1 tab(s) Oral every day. losartan (losartan 100 mg oral tablet) 1 tab(s) Oral every day. metFORMIN (metFORMIN 500 mg oral tablet) 1 tab(s) Oral every day. metoprolol (Metoprolol Succinate ER 50 mg oral tablet, extended release) (more content not included)... [facility] Telemetry Stripson 2 Telemetry Strips [id number]#[id number] OTGTIFF [facility] Consultation/Specialist Note on 02-27-2022 Consultation/Spec ialist Note Patient: ЕКАТЕРИНА SHAFFER Age: 76 years Sex: FEMALE : 1945 Associated Diagnoses: None Author: JULITO WINTER Basic Information 1 day s/p RT TKA (DOS 02/26/22) Subjective pt sitting up in bed, eating breakfast, she notes her pain is 5/10 and had a rough night last night, she notes she had some nausea early this am but has since passed, she lives alone and is looking to stay another day Review of Systems denies chest pain Health Status Allergies: Allergic Reactions (All) No known allergies Objective dressing to the right knee is clean dry and intact, kryo cuff on, epc cuff and vera hose on bilaterally, weak dorsalis pedis pulses +1/2, donell wrap intact Impression and Plan d/c home once seen with therapy at least twice more and pain is better controlled, pt would like to stay another day due to not having help at home [Electronically Signed on: 02/27/2022 09:05 EDT] JULITO WINTER [Verified on: 02/27/2022 09:05 EDT] JULITO WINTER Normal [facility] Nutrition Noteon 02-27-2022 Nutrition Note Pt admitted for scheduled Rt knee surgery. Diet has been advanced to Cardiac/DM, eating 100%. Usual post op vitamins/minerals and oral nutritional supplements in place. Minor nausea noted this am. Last BM pre-surgery. Bowel meds in place. Pre-op labs wnl. BS ranging 103-155mg/dl. No chewing/swallowing problems noted. No wt hx. Pre-op wt used for assessment. Pt is at high nutrition risk r/t surgery greater than 65yr, however, no immediate nutrition concerns at this time. Will adjust diet to 1800CD. low Na and have BROWN offer prune juice. WIll continue to monitor. Normal [facility] POCT Glucose Levelon 022 Glucose [Mass/Vol] 126 mg/dL High 74-118 [facility] Comment on above: Performed By: #### 4 [id number] ####[facility] ([facility])[address] [place] [id number] Glucose [Mass/Vol] 127 mg/dL High 74-118 [facility] Comment on above: Performed By: #### 4 [id number] ####[facility] (DEFAULT)[address] [place] [address] Glucose [Mass/Vol] 130 mg/dL High 74-118 [facility] Comment on above: Performed By: #### 4 [id number] #### [facility] (DEFAULT) [address] [place] [address] Telemetry Stripson 2 Telemetry Strips [id number] 00 [id number] 0OTGTIFF Normal [facility] Anesthesia Noteon 02-26-2022 Anesthesia Note Patient: JIMENEZ SHAFFER Age: 76 years Sex: FEMALE : 1945 Associated Diagnoses: None Author: Ivan Troncoso MD Postoperative Information Post Operative Note: Post Anesthesia Care Unit. Anesthetic utilized: General, Adductor Canal and IPACK Nerve blocks for post-operative pain control. . . Health Status Allergies: Allergic Reactions (All) No known allergies Physical Examination VS/Measurements Vital Signs (last 24 hrs) Last Charted Heart Rate Monitored L 49 bpm (FEB 26 10:50) Resp Rate 14 br/min (FEB 26 10:50) SBP H 162 mmHg (FEB 26 10:50) DBP 82 mmHg (FEB 26 10:50) General: Alert and oriented, Mild distress, Reports Headache and Nausea. Respiratory: Respirations are non-labored. Cardiovascular: Normal rate, Regular rhythm. Neurologic: Alert, Oriented. Review / Management Condition: Stable. Assessment Anesthetic outcome No anesthetic complications noted. Adequate pain relief. Complaint of nausea and vomiting. Pain well controlled. Reports numbness and itching around knee. c/o BROWN and Nausea. . Plan Transfer/ Discharge: Patient can be discharged from PACU when criteria met. [Electronically Signed on: 02/26/2022 10:56 EDT] Ivan Troncoso MD [Verified on: 02/26/2022 10:56 EDT] Ivan Troncoso MD [facility] Anesthesia Note Patient: JIMENEZ SHAFFER Age: 76 years Sex: FEMALE : 1945 Associated Diagnoses: None Author: Ivan Troncoso MD Preoperative Information Anesthesia history: Patient history: Unknown problem with prior Peripheral Nerve block for TKA. Post-op Nausea. Review of Systems Constitutional: Negative. Respiratory: No shortness of breath. Cardiovascular: No chest pain. Health Status Allergies: Allergic Reactions (All) No known allergies Current medications: Home Medications (14) Active cloNIDine 0.1 mg oral tablet 0.1 mg = 1 tab(s), PO, BID ferrous sulfate 325 mg (65 mg elemental iron) oral delayed release tablet 325 mg = 1 tab(s), PO, Daily hydroCHLOROthiazide 25 mg oral tablet latanoprost 0.005% ophthalmic solution levothyroxine 100 mcg (0.1 mg) oral tablet 100 mcg = 1 tab(s), PO, Daily losartan 100 mg oral tablet 100 mg = 1 tab(s), PO, Daily metFORMIN 500 mg oral tablet 500 mg = 1 tab(s), PO, Daily Metoprolol Succinate ER 50 mg oral tablet, extended release montelukast 10 mg oral tablet Lesvia 128 ophthalmic ointment small amount, Both eyes, HS potassium chloride 20 mEq oral tablet, extended release 20 mEq = 1 tab(s), PO, Daily rosuvastatin 10 mg oral tablet 10 mg = 1 tab(s), PO, Daily timolol hemihydrate 0.5% ophthalmic solution 1 drop(s), Both eyes, qAM traZODone 50 mg oral tablet 50 mg = 1 tab(s), PO, Once a day (at bedtime) Problem list (past medical history): All Problems At risk of pressure sore / SNOMED CT 306306844 / Confirmed Diabetes mellitus / SNOMED CT 679270178 / Confirmed Glaucoma / SNOMED CT 01815813 / Confirmed Hypertension / SNOMED CT 7485563538 / Confirmed Hypothyroidism / SNOMED CT 47332318 / Confirmed Neuropathy / SNOMED CT 0368675221 / Confirmed Histories Family History: CAD (coronary artery disease) Father NE (myocardial infarction) Father Marfan syndrome Brother Procedure history: Hysterectomy (401317666). Appendectomy (825506693). Tubal ligation (156624870). Sinus (8485551349). Comments: 07/02/2019 12:34 JADE Kaufman RN, Chrissie Moffett Surgery Cholecystectomy ([id number]). Social History Electronic Cigarette/Vaping Assessment Electronic Cigarette Use: Never. Alcohol Assessment Use: Current. Beer, Wine, 1-2 times per month Tobacco Assessment Never (less than 100 in lifetime) Tobacco Use:. Never tobacco user Tobacco Use:. Never Smokeless Tobacco Use:. . Social & Psychosocial Habits Alcohol 07/02/2019 Alcohol Use: Current Type: Beer, Wine Frequency: 1-2 times per month Tobacco 07/02/2019 Smoking tobacco use: Never (less than 100 in l 02/06/2022 Smoking tobacco use: Never tobacco user Smokeless tobacco use: Never Electronic Cigarette/Vaping 02/06/2022 Electronic Cigarette Use: Never . Physical Examination VS/Measurements Vital Signs (last 24 hrs) Last Charted Heart Rate Peripheral L 40 bpm (FEB 26 07:30) Resp Rate 16 br/min (FEB 26 07:30) SBP 133 mmHg (FEB 26 07:30) DBP 68 mmHg (FEB 26 07:30) General: Alert and oriented, No acute distress. Airway: Mallampati classification: II (soft palate, fauces, uvula visible). Mouth: Dentures ( Upper and lower dentures, Partial plate ). Respiratory: Respirations are non-labored. Cardiovascular: Normal rate, Regular rhythm, Bradycardia. Neurologic: Alert, Oriented. Review / Management Laboratory Results Plan [place] [employer]hesi[employer]#(ASA ) physical status classification: Class III. Anesthetic Preoperative Plan Anesthesia: General. , Regional Plan for Adductor Canal and IPACK nerve blocks for post operative pain control. , Plan for LMA. Anesthetic plan, risks, benefits, and alternatives discussed with the patient and/or family. Patient verbalized understanding. Informed consent was given. Consent was signed by the patient. Daughters x 2 present at interview. . [Electronically Signed on: 02/26/2022 07:42 EDT] Ivan Troncoso MD [Verified on: 02/26/2022 07:42 EDT] Ivan Troncoso MD [facility] Consent Formson 02-26-2022 Consent Forms [id number] 02 [id number] OTGTIFF [facility] MAGR Intraoperative Recordon 02-26-2022 MAGR Intraoperative Record MAGR Intra-Op Record Summary Primary Physician: Dianne Combs DO Finalized Date/Time: 02/26/22 10:04:39 Pt. Name: ЕКАТЕРИНА SHAFFER/Sex: 1945 FEMALE Med Rec #: [id number] Physician: Dianne Combs DO Financial #: [id number] Pt. Type: D Room/Bed: [facility] Admit/Disch: 02/26/22 05:54:00 - Institution: Case Times MAGR Entry 1 Patient In Room Time 02/26/22 07:43:00 Out Room Time 02/26/22 09:54:00 Anesthesia Start Time 02/26/22 07:43:00 Stop Time 02/26/22 10:00:00 Surgery Start Time 02/26/22 08:08:00 Stop Time 02/26/22 09:45:00 Last Modified By: Jillian Talley RN 02/26/22 10:04:32 Case Attendance MAGR Entry 1 Entry 2 Entry 3 Case Attendee Dianne Combs Bradley MD [facility] DO Role Performed Surgeon - Primary Anesthesiologist of Scrub Personnel Record Time In 02/26/22 08:00:00 02/26/22 07:43:00 02/26/22 07:43:00 Time Out 02/26/22 09:24:00 02/26/22 09:54:00 02/26/22 09:54:00 Procedure Arthroplasty Knee Arthroplasty Knee Arthroplasty Knee Total(Right) Total(Right) Total(Right) Last Modified By: Jillian Talley RN, Jacquelyn RN Burns, Jacquelyn RN 02/26/22 09:55:43 02/26/22 09:55:43 02/26/22 09:55:43 Entry 4 Entry 5 Entry 6 Case Attendee Anna Marie Gibson CST, CST, Brittany E CSFA Burns, Jacquelyn RN CSFA PATTERN KEEPER Role Performed Human Resources Talent Manager Human Resources Talent Manager Enroute Controller Time In 02/26/22 07:43:00 02/26/22 07:43:00 02/26/22 07:43:00 Time Out 02/26/22 09:39:00 02/26/22 09:54:00 02/26/22 09:54:00 Procedure Arthroplasty Knee Arthroplasty Knee Arthroplasty Knee Total(Right) Total(Right) Total(Right) Last Modified By: Jillian Talley RN, Jacquelyn RN Burns, Jacquelyn RN 02/26/22 09:55:43 02/26/22 09:55:43 02/26/22 09:55:43 General Comments: REP: STUART SANFORD IN ROOM AT 0815 AND OUT OF ROOM AT 0855 Surgical Procedures MAGR Pre-Care Text: A.20 Verifies operative procedure, surgical site, and laterality Im.150 Develops individualized plan of care Entry 1 Procedure Arthroplasty Knee Total Primary Procedure Yes Primary Surgeon Dianne Combs Right Harsh DO Surgeon Comment RIGHT TOTAL KNEE Start 02/26/22 08:08:00 Stop 02/26/22 09:45:00 Anesthesia Type General Surgical Service Orthopedics Wound Class Clean Technique Details Closure Technique Primary Entire procedure No was performed via laparoscope or robotic assistance Last Modified By: Jillian Talley RN 02/26/22 09:44:14 Post-Care Text: O.730 The patient's care is consistent with the individualized perioperative plan of care General Case Data MAGR Pre-Care Text: A.350.1 Classifies surgical wound Entry 1 Case Information OR MAGR OR 05 Case Level Level 5 Wound Class Clean Specialty Orthopedics ASA Class 3 Diagnosis Preop Diagnosis DJD RIGHT KNEE Postop Same As Preop Yes Postop Diagnosis DJD RIGHT KNEE Blunt or No Is the procedure No penetrating injury considered occured prior to Emergent/Urgent? the start of the procedure: Last Modified By: Jillian Talley RN 02/26/22 08:12:36 Post-Care Text: O.760 Patient receives consistent and comparable care regardless of the setting Time Out MAGR Entry 1 Time out date/time 02/26/22 08:06:00 All team members Yes have introduced themselves by name and role Surgeon, Yes Surgeon reviews Yes anesthesia, nurse critical or confirm patient, unexpected steps, site, procedure operative duration, anticipated blood loss Anesthesia team Yes Nursing team Yes reviews any reviews sterility patient-specific (including concerns indicator results) and equipment issues/concerns Antibiotic Antibiotic Yes prophylaxis given within the last 60 minutes Is essential N/A imaging displayed? Last Modified By: Jillian Talley RN 02/26/22 08:15:17 Patient Positioning MAGR Pre-Care Text: A.280 Identifies baseline musculoskeletal status Im.40 Positions the patient Im.80 Applies safety devices Entry 1 Procedure Arthroplasty Knee Body Position Supine Total(Right) Left Arm Position Extended on padded arm Right Arm Position Extended on padded arm board board Left Leg Position Extended Right Leg Position Extended Feet Uncrossed? Yes Press Points Checked Yes Additional HEEL GEL UNDER LEFT Positioning Device Arm Boards, Arm Strap, Information HEEL. BLANKET UNDER THE Pillow, Safety Strap RIGHT OPERATING HIP. Outcome Met (O.80) Yes Last Modified By: Jillian Talley RN 02/26/22 08:16:21 Post-Care Text: E.290 Evaluates musculoskeletal status O.80 Patient is free from signs and symptoms of injury related to positioning Skin Prep MAGR Pre-Care Text: A.30 Verifies allergies Im.270 Performs skin preparation Im.270.1 Implements protective measures to prevent skin and tissue injury due to chemical sources Entry 1 Skin Prep Syntegrity Prep Agents (Im.270) 2% Chlorhexidine Prep By Jillian Talley RN Gl (more content not included)... [facility] MAGR Intraoperative Record MAGR Intra-Op Record Summary Primary Physician: Finalized Date/Time: 02/26/22 09:27:15 Pt. Name: ЕКАТЕРИНА SHAFFER/Sex: 1945 FEMALE Med Rec #: [id number] Physician: Dianne Combs DO Financial #: [id number] Pt. Type: D Room/Bed: / Admit/Disch: 02/26/22 05:54:00 - Institution: Case Times MAGR Entry 1 Patient In Room Time 02/26/22 07:20:00 Out Room Time 02/26/22 07:41:00 Anesthesia Start Time 02/26/22 07:22:00 Stop Time 02/26/22 07:41:00 Surgery Start Time 02/26/22 07:29:00 Stop Time 02/26/22 07:35:00 Last Modified By: Margi Beard RN 02/26/22 07:45:18 Case Attendance MAGR Entry 1 Entry 2 Entry 3 Case Attendee Ivan Troncoso MD, Margi Arana RN, RN Role Performed Anesthesiologist of Enroute Controller Enroute Controller Record Time In 02/26/22 07:20:00 02/26/22 07:20:00 02/26/22 07:20:00 Time Out 02/26/22 07:41:00 02/26/22 07:41:00 02/26/22 07:41:00 Procedure Adductor Canal Adductor Canal Adductor Canal Block(Right) Block(Right) Block(Right) Last Modified By: Margi Beard RN, Lora RN Draper, Lora RN 02/26/22 07:45:20 02/26/22 07:45:20 02/26/22 07:45:20 Surgical Procedures MAGR Pre-Care Text: A.20 Verifies operative procedure, surgical site, and laterality Im.150 Develops individualized plan of care Entry 1 Procedure Adductor Canal Block Primary Procedure Yes Primary Surgeon Ivan Troncoso MD Modifiers Right Surgeon Comment ADDUCTOR CANAL BLOCK Start 02/26/22 07:29:00 AND IPAC BLOCK PRIOR TO RIGHT TOTAL KNEE Stop 02/26/22 07:35:00 Anesthesia Type Regional Block Surgical Service Anesthesia Wound Class Clean Technique Details Closure Technique N/A Entire procedure No was performed via laparoscope or robotic assistance Last Modified By: Margi Beard RN 02/26/22 07:44:53 Post-Care Text: O.730 The patient's care is consistent with the individualized perioperative plan of care General Comments: Adductor block done at 0731 and IPAC block start time of 0733 and stop time of at 0735 General Case Data MAGR Pre-Care Text: A.350.1 Classifies surgical wound Entry 1 Case Information OR MAGR Proc Room Case Level None Wound Class Clean Specialty Anesthesia ASA Class 3 Diagnosis Preop Diagnosis ADDUCTOR CANAL BLOCK Postop Same As Preop Yes AND IPAC BLOCK PRIOR TO RIGHT TOTAL KNEE Postop Diagnosis ADDUCTOR CANAL BLOCK AND IPAC BLOCK PRIOR TO RIGHT TOTAL KNEE Blunt or No Is the procedure No penetrating injury considered occured prior to Emergent/Urgent? the start of the procedure: Last Modified By: Margi Beard RN 02/26/22 07:35:47 Post-Care Text: O.760 Patient receives consistent and comparable care regardless of the setting Time Out MAGR Entry 1 Time out date/time 02/26/22 07:21:00 All team members Yes have introduced themselves by name and role Surgeon, Yes Surgeon reviews Yes anesthesia, nurse critical or confirm patient, unexpected steps, site, procedure operative duration, anticipated blood loss Anesthesia team Yes Nursing team Yes reviews any reviews sterility patient-specific (including concerns indicator results) and equipment issues/concerns Antibiotic Antibiotic N/A prophylaxis given within the last 60 minutes Is essential Yes imaging displayed? Last Modified By: Margi Beard RN 02/26/22 07:26:33 Patient Positioning MAGR Pre-Care Text: A.280 Identifies baseline musculoskeletal status Im.40 Positions the patient Im.80 Applies safety devices Entry 1 Procedure Adductor Canal Body Position Supine Block(Right) Left Arm Position Resting at Side Right Arm Position Resting at Side Left Leg Position Extended Right Leg Position Extended Feet Uncrossed? Yes Press Points Checked Yes Outcome Met (O.80) Yes Last Modified By: Margi Beard RN 02/26/22 07:26:46 Post-Care Text: E.290 Evaluates musculoskeletal status O.80 Patient is free from signs and symptoms of injury related to positioning Skin Prep MAGR Pre-Care Text: A.30 Verifies allergies Im.270 Performs skin preparation Im.270.1 Implements protective measures to prevent skin and tissue injury due to chemical sources Entry 1 Skin Prep Syntegrity Prep Agents (Im.270) Chlorhexidine Gluconate Prep By Ivan Troncoso MD and Alcohol Prep Area (Im.270) Thigh Prep Area Details Right Skin Prep Agent Dry Yes Without Pooling Hair Removal Syntegrity Hair Removal Methods No hair removal performed Outcome Met (O.100) Yes Last Modified By: Margi Beard RN 02/26/22 07:27:12 Post-Care Text: E.10 Evaluates for signs and symptoms of physical injury to skin and tissue O.100 Patient is free from signs and symptoms of chemical injury Departure from OR MAGR Entry 1 Present on Depart N/A Via Stretcher Post-op Destination Main Skin DFO Condition Warm Description Condition Dry Description Report Given To Jillian Talley RN Airway Maintenance Patient (more content not included)... [facility] MAGR PACU Recordon MAGR PACU Record MAGR PACU Record Summary Primary Physician: Dianne Combs DO Finalized Date/Time: 02/26/22 11:00:46 Pt. Name: ЕКАТЕРИНА SHAFFER/Sex: 1945 FEMALE Med Rec #: [id number] Physician: Dianne Combs DO Financial #: [id number] Pt. Type: D Room/Bed: 201/1 Admit/Disch: 02/26/22 05:54:00 - Institution: PACU Case Times MAGR Entry 1 In PACU I 02/26/22 09:54:00 Discharge from PACU 02/26/22 10:58:00 I Last Modified By: Maryam Antonio RN 02/26/22 11:00:39 Finalized By: Maryam Antonio RN Document Signatures Signed By: Maryam Antonio RN 02/26/22 11:00 [facility] MAGR Postoperative Recordon 02-26-2022 MAGR Postoperative Record MAGR Phase II Record Summary Primary Physician: Dianne Combs DO Finalized Date/Time: 02/26/22 11:56:37 Pt. Name: ЕКАТЕРИНА SHAFFER/Sex: 1945 FEMALE Med Rec #: [id number] Physician: Dianne Combs DO Financial #: [id number] Pt. Type: O Room/Bed: 201/1 Admit/Disch: 02/26/22 05:54:00 - Institution: Phase II Case Times MAGR Pre-Care Text: Patient is free from s/s of injury. Patient remains free from compromised physical state related to surgery or anesthesia. Patient comfort maintained. Patient/family verbalize understanding of discharge instructions. Entry 1 In PACU II 02/26/22 11:00:00 Discharge from PACU 02/26/22 12:00:00 II Last Modified By: Amanda Bird RN 02/26/22 11:56:32 Post-Care Text: The patient remains free from s/s of injury. Patient's vital signs stable, circulation maintained, return to preop mental and physical status, opsite/dressing intact, minimal or absent nausea and vomiting, tolerates po intake. Patient verbalizes adequate pain control. Patient/family express understanding of discharge instructions. Finalized By: Amanda Bird RN Document Signatures Signed By: Amanda Bird RN 02/26/22 11:56 [facility] Preoperative Recordon 1 [facility] Preoperative Record [facility] Pre-Op Record Summary Primary Physician: Dianne Combs DO Finalized Date/Time: 02/26/22 09:27:45 Pt. Name: ЕКАТЕРИНА SHAFFER/Sex: 1945 FEMALE Med Rec #: [id number] Physician: Dianne Combs DO Financial #: [id number] Pt. Type: D Room/Bed: / Admit/Disch: 02/26/22 05:54:00 - Institution: Pre-Op Case Times MAGR Pre-Care Text: Patient will be optimally prepared for surgery. Patient is free from s/s of injury. Provide information to patient/family related to plan of care. Verify patient allergies. Confirm identity and verify consent before the operative or invasive procedure. Entry 1 Patient Arrival Time 02/26/22 06:08:00 Preop Departure 02/26/22 07:41:00 Last Modified By: Margi Beard RN 02/26/22 09:27:38 Post-Care Text: Patient is prepared mentally and physically and is ready for surgery. The patient remains free from s/s of injury. Patient/family express understanding of plan of care and participate in decisions affecting his or her perioperrative plan of care. Allergies documented appropriately. Patient identifiers and consent correct. General Comments: Reviewed with patient for the next 24 hours not to do anything that requires concentration. Denies chest pain, shortness of breath or illlnessess. Deneis pacemaker/defib. Denies sleep apnea. Finalized By: Margi Beard RN Document Signatures Signed By: Margi Beard RN 02/26/22 09:27 Normal [facility] Operative Report - Surgeon/P tello 02-26-2022 Operative Report - Surgeon/Physician Preoperative diagnosis: Primary osteoarthritis right knee Postoperative diagnosis: Same Procedure: Right total knee replacement Implants: DePuy attune cruciate retaining knee size 6 femur, size 6 tibia, 7 mm polyethylene spacer and 32 mm patella Cemented prosthesis metal on poly on metal Surgeon: Francie Combs D.O. Anesthesia: General Indications for surgery: Primary osteoarthritis with radiographic findings and clinical symptoms with progression with failure of conservative treatment Estimated blood loss: 250 Complications: No complications Findings: Tricompartmental osteoarthritis Procedure summary: After administration of anesthesia the right knee was prepped and draped in usual fashion a timeout was taken. Although tourniquet was applied it was not utilized during surgery. An anterior medial parapatellar approach was utilized the fat pad was excised and the patella was cut in line tended to tendon it sized out to 32 and was prepared with the peg drill and then covered with a protector. The knee was placed in flexion and step drill was inserted. An intramedullary guide was inserted and 9 mm 4 degree cut was taken. The knee was then dislocated and the meniscus were excised the anterior cruciate ligament was excised. An extra medullary cutting guide was secured to the tibia and referencing off the spine and the tibia cut was taken perpendicular to the axis of the tibia. The knee was then placed in extension with a spacer block and a drop sergio the cut was perpendicular and the collaterals were balancing nicely. The knee was placed back in flexion and the sizer was attached it sized out to a 6 with anterior reference pins were inserted and the sizer was removed. A distal femoral cutting block was attached and the anterior and posterior cuts were taken followed by the posterior chamfer and then lastly the anterior chamfer. Next a sulcus cut was taken. At this point I took time to make sure all remnants of meniscus were removed cleaned from the knee and I cleaned out the posterior capsule. I then inserted a size 6 trial with a size 6 tibia ultimately a 7 mm spacer produced the best balance with full terminal extension and flexion to 120 degrees plus. The tibia is prepared with a drill and a broach. At this point the cement was mixed on the back table and the bone was washed with pulse lavage. As soon as the cement was completely mixed it was applied to the prosthesis. The tibial component was cemented to place followed by the femoral component. Next the cruciate retaining 7 mm polyethylene spacer was clicked into place. The patella was washed and dried and the patella was cemented in place the knee was left in terminal extension with compression across the joint and a clamp on the patella until the cement was completely hardened. The joint was thoroughly irrigated and the joint was bathed in a mixture of pro benign and saline. The knee was then placed in flexion the knee was washed some more and the capsule was pared with a #2 Ethibond suture and 0 Vicryl suture. The fat and subcutaneous layers were closed with 0 Vicryl suture and skin clips superficially bacitracin Adaptic and sterile dressings were applied. [Electronically Signed on: 02/26/2022 09:36 EDT] Dianne Combs DO [Verified on: 02/26/2022 09:36 EDT] Dianne Combs DO [facility] POCT Glucose Levelon 022 Glucose [Mass/Vol] 138 mg/dL High 74-118 [facility] Comment on above: Performed By: #### 4 [id number] #### [facility] (DEFAULT) [address] [place] [id number] Glucose [Mass/Vol] 155 mg/dL High 74-118 [facility] Comment on above: Performed By: #### 4 [id number] ####[facility] (DEFAULT)[address] [place] [id number] Glucose [Mass/Vol] 103 mg/dL Normal 74-118 [facility] Comment on above: Performed By: #### 4 [id number] #### [facility] (DEFAULT) [address] [place] [address] Pharmacy Noteon 02-26-2022 Pharmacy Note Home Medications (14 ) Active cloNIDine 0.1 mg oral tablet 0.1 mg = 1 tab(s), PO, BID ferrous sulfate 325 mg (65 mg elemental iron) oral delayed release tablet 325 mg = 1 tab(s), PO, Daily hydroCHLOROthiazide 25 mg oral tablet latanoprost 0.005% ophthalmic solution levothyroxine 100 mcg (0.1 mg) oral tablet 100 mcg = 1 tab(s), PO, Daily losartan 100 mg oral tablet 100 mg = 1 tab(s), PO, Daily metFORMIN 500 mg oral tablet 500 mg = 1 tab(s), PO, Daily Metoprolol Succinate ER 50 mg oral tablet, extended release montelukast 10 mg oral tablet Lesvia 128 ophthalmic ointment small amount, Both eyes, HS potassium chloride 20 mEq oral tablet, extended release 20 mEq = 1 tab(s), PO, Daily rosuvastatin 10 mg oral tablet 10 mg = 1 tab(s), PO, Daily timolol hemihydrate 0.5% ophthalmic solution 1 drop(s), Both eyes, qAM traZODone 50 mg oral tablet 50 mg = 1 tab(s), PO, Once a day (at bedtime) [Electronically Signed on: 02/26/2022 11:53 EDT] Basilio Marte [Verified on: 02/26/2022 11:53 EDT] Basilio Marte [facility] XR Knee One or Two Views Rig hton 02-26-2022 XR Knee One or Two Views Right EXAM: XR Knee One or Two Views Right HISTORY: S/P Knee Replacement COMPARISON: None TECHNIQUE: AP and lateral views of the right knee were obtained with portable technique at 1028 hours. FINDINGS: There are prosthetic devices about the distal femur and tibial plateau in satisfactory position and alignment. Postoperative changes at the posterior patellar level appears unremarkable. Soft tissue swelling and air noted primarily anteriorly compatible with recent surgery. Postoperative marisol noted anteriorly. No definite acute fracture or dislocation. IMPRESSION: Right knee study demonstrates grossly unremarkable post arthroplasty changes as described. Follow up as needed. Final Dictated by: Emre Wolfe MD Dictated DT/TM: 02/26/22 10:41 Signed (Electronic Signature): Emre Wolfe MD 02/26/22 4:26 pm Technologist: Carlos DUDLEY [facility] Patient Handouton 02-25-2022 Patient Handout Orthopedics Knee Rehabilitation in the Home After knee surgery, it is important to follow instructions from your health care provider about rehabilitation or rehab. It is important to design a program that is safe and effective for you. Your health care provider and rehabilitation therapist will work with you to meet your specific abilities and needs. What are the benefits? Knee rehab can help: ? Strengthen your knee. ? Improve the flexibility and movement (range of motion) of your knee joint. ? Reduce swelling. ? Improve blood flow and prevent blood clots. How to do exercises at home Continue exercises at home that your health care provider or physical therapist instructed you to do in the hospital. Do not exercise in a pool until your incision has healed and your health care provider says that you can. Pool exercise is also called aquatic therapy. Before you exercise ? Take pain medicines, if told by your health care provider. Do not take the medicine if it makes you feel dizzy or sleepy. ? Do a warm-up activity, such as gentle walking or riding a stationary bike, as told by your health care provider. This warms up your muscles and helps to prevent injury. While doing exercises ? When standing, make sure you are near something sturdy that you can hold onto for balance, such as a heavy chair or the wall. ? Do exercises exactly as told by your health care provider and adjust them as directed. ? As you are recovering, choose an exercise pace that is comfortable for you, and gradually work up to your goal. ? Do not use a lot of force to bend your knee. Bend it gently. Increase activity as your knee heals. Follow these instructions at home: Activity ? Rest as told by your health care provider. ? Avoid sitting for a long time without moving. Get up to take short walks every 1?2 hours. This is important to improve blood flow and breathing. Ask for help if you feel weak or unsteady. ? Do not lift anything that is heavier than 10 lb (4.5 kg), or the limit that you are told, until your health care provider says that it is safe. ? Do not use your knee to support your body weight until your health care provider says that you can. Use crutches or a walker as told by your health care provider. ? Do not twist or kneel on your injured knee. ? Return to your normal activities as told by your health care provider. Ask your health care provider what activities are safe for you. Managing pain, stiffness, and swelling ? Put ice on affected areas after you exercise, or as needed. Icing can help to relieve joint pain and swelling. To do this: ? Put ice in a plastic bag or use the icing device (cold flow pad or cold therapy unit) that you were given. Follow instructions from your health care provider about how to use the icing device. ? Place a towel between your skin and the bag or device. ? Leave the ice on for 20 minutes, 2?3 times a day. ? If directed, apply heat to affected areas before you exercise, or as needed. Heat can reduce the stiffness of your muscles and joints. Use the heat source that your health care provider recommends, such as a moist heat pack or a heating pad. To do this: ? Place a towel between your skin and the heat source. ? Leave the heat on for 20?30 minutes. ? Remove the heat if your skin turns bright red. This is especially important if you are unable to feel pain, heat, or cold. You may have a greater risk of getting burned. ? Wear compression stockings as told by your health care provider. These stockings help to prevent blood clots and reduce swelling in your legs. ? Raise your legs while sitting or lying down. Do not place your knee on top of pillows to elevate it. Keep your legs straight to prevent your knee from getting stuck in a bent position (contracture). Preventing falls ? Keep your home well-lit and free of clutter, especially in walkways and stairways. Keep floors dry and use non-skid mats. ? Remove tripping hazards from floors, such as throw rugs and cords. ? Install grab bars in bathrooms, and put night-lights in your bedroom and bathroom. ? Wear closed-toe shoes that fit well and support your feet. Wear shoes that have rubber soles or low heels. ? Talk with your health care provider about any cpyq-miv-xrntsza and prescription medicines that you are taking. Some medicines can cause dizziness or changes in blood pressure, which increase your risk of falling. General recommendations ? Teach your family about your condition and how they can help in your recovery. Include them during a physical therapy session. ? Keep all follow-up visits as told by your health care provider and physical therapist. This is important. Questions to ask your health care provider ? What exercises are safe for me to do? ? How often should I do the exercises? ? How can I manage the pain during exercise? (more content not included)... [facility] Coding Summaryon 02-24-2022 Coding Summary HTMLBase 64 [id number] Q+[id number] [id number] 6gvSM2NFmkO7SesiOq HaofoEJyIE09DUc1YLJ1fI saRDxzlV2okCAuG0j6BdBx SX33jT19OFxjXJTiQbR1Di ZpbjsgbWFy V5qyRvBmpHDsUdf+PHRhYm xlIHdpZHRoPScxMDAlJyBz rNwsKI1zDc9tNJJbJLAofU xhcHNlOiBj q3iwBOIkLBqxGK9eeSpnJ7 CqiHL0PCTlq4r5Uu76pTI+ SQGpFWD5lYnuSMmat274Kv Bkb5ofWYM4 cMFaZUycECT0I44fd7N8GP WoUXWvBWZ6mNY6aX6edRjo ktkpT6SweMTtZmG0WLD5fQ PtjV6hxKpg ayvpsG4tBpn+E65PVP7OMI IOJZ1HPwa2E3GzEbcfgVN+ RU32IVEbWJ20nHIuzWXbf0 zkuVd1EqCs USNyKIJ6uDldBQyos7BpNJ QoT68bhWXat7K9BKWyvBjo xYVkMrSpoWN5lL6aHWauxm qsp1jyfjdl Eutpg0sads57wO78L78jHI ftUXZzVUN1CYDaKXKvsEnn gm9wyB9mCc9+YYzix1ckn6 cwdAh2OzBt EGUbzeHbeFmzZMI1w6IvZv 00D1JrkGvji7KtVag2jb17 eODqj1M7iKC7HWihOSYxpP 0vQTkqRrR4 QUJqCjNbmW35xDUkODkeKu 9wwAzyeYnmDV6dTWOjqerw YFMbkG1jMGTyoLXggJotEE 4wNTBpbjtm p933HqSuRBO1IMLtdUEwR4 QbpF3cMvPsCOPtHDOvL9Yd dTVoMTvmW145YNczZaN4PN LviyIiD4Ft ZJOmoPveWvC2g6W1Fh7Dx7 MhstgvIJB2TPmrYIEvIqH2 IpUnWtD4Q6ZkUyp8DVFvqV awQO2jX7Yp FKWdrcclehxtsRU9QPHnYY JaiL80hQBtOOgtNo0gl1W1 a794IXPxYRGwaF67Qp6ejS ogMTBwdCBU iD7kkcemc8ncsltySsQvGL TjTQo8WSv4TWFifLacHfAi DAK2WzG3UFV1oYQifZ0xdQ tggkyuyF0c Oyc+X19ysT4eHYT8YAG8ya weBHYzxjNpOE49IX95A3Wm PjwvdGFibGU+PGRpdiBzdH xuXK0nIoSy b4dvi3HsVPfeN0WlTEUmSA pmDjc5XWKrYWO4kZN9xV7s NNCdZZvjb7R2aEZ3D5Ivtv Xzfj7lf4ql NFGkBWldA61gvFIfy4M3KW YvxJS9RMFhbWjjSfMcsD64 Oyc+VTMatGqmr8IsWpncn1 azw5fjkSm8 VnWzNXMntaTkwBpuRUN6a5 OqYz17P17hWIpdSSFxPXCw GOYsPQBxfRhcdu0zdT5cOb 8+PGNvbCB3 cXI9mB1iLHZsUoV8IQhxZ2 30AnXvrIAjJljpl0pbt1qb cVr0FeXeVLGhyoDpoIwtZE W9f4JdLh42 J87sZYciDZGkTIAzARScWL JxmHadnk9ucE2bPv6+PC9j v0acew39hO74lQX+PHRkIH M8bWzoMLuo PYOvbR1dOCmpElC9QWUhWm AtsO47wGLmLDcpOx0xgZqa kKbsAK5qBRExwqztv086Ns Nbe0xsPTUe iSJyBRtcHKO0O79ik0L0HP LpJUIlNPC4lWW0iN9sjVve bjogbGVmdDsgdmVydGljYW ltCPgiB684 IHRvcDsnPlBhdGllbnQgTm FyCEe9Y6AxJud7YNLaoTgf JL8ccYXnIAaaJt5amNgtxO vuLB7aKWSn abyue942VkWck4soRTEyvP JlYYptLUX8K44dq2B9AAHd CDEaDLS8yIV4xY3flBvrot ogbGVmdDsg slJpcUrtVUxvGIvcZ038MP RvcDsnPkJpcnRoIERhdGU6 BO12RA85oZZwv2Z2uCS1B0 BhZGRpbmct sydaiQE4DOQeRFRsvZ61Yf 0upEkvIa8kGPXzBCC9TIBr hPYzC5FabQ9mRvDvXPOhFC MtH1EraQSa ILviM845FRaxClF2MYEqtp LdN5GrZPKpjKqwCfR6g8V3 Jf5VZ1F9MI20UO72xHSpx5 R8bFM9Y7Wt QFJmdovzpujqwES1ACWvKH XqwD74Am5lzJmzMt5lIUAw WRR8WGGykXEpJ1WtjM2iDq AjMDAwMDAw K5BusCScYRvjV939JLbhVt M5XRJbgpRfY6KvJJDilPwd LiS7k4Z3Nn1RRUj5KF25WK 03vGWci4I8 lPO6Z9TaKAQpovvamwinkO B3VNHxRFBbjJ15Ir2umOeg Rr4eVJJrEQT8ODTwhNPzF3 SbtI9lXdGg BLOwNNIyV3LjsUZvVDpyF8 38XMjqPrJ5ZKZuxkFgS0Gy YNWmxVcnBsY9t3E0Ew5QMI TrHX14CTD0 aTN9VD04ZE23F6GuEfxalH FibGU+PHRhYmxlIHdpZHRo TQqfRPBaJxIudUxxYF3rKs 9yZGVyLWNv oEdilUKeJvSxb8kuMZNgEF dlKW2azTokQ0IhiBA8GJEo r3p3Qz96P51pF1UyoDP+PG SblOW9gNQ9 oM2eIkWbAuI8RRhhJ033We QkzZVtBkste3jay4ryeAl4 MbT1TZWrzzUkbDxiOPJ9h3 IaIw48D77o IHdpZHRoPSIxNSUiIHZhbG zuun9xlN1oOa8+PGNvbCB3 yJC5mT5fGrCqHuO6ZJwrU9 49InRvcCIv Ssxbo4kfa1hfwBj9FnQwUN SlmpNowOniUMP2s5WhLd37 A7SjeUtjr7RpJcf8wr49zL Hhd7D1rOT7 M5VtZBFkuhrgrXHvcWtzNL 0yNMHkbclhIPLejR7zCKQk O8h1QyJiKxS5TKxcR9Refg N8KQPgkKBq TAacRFE7B07hh8O8JIHmYN VuAAT8bMH5rG1gjMjvvsfp bGVmdDsgdmVydGljYWwtYW dgC432LHVt sLguZRJbtT0aTEMqrMAmmK dzSA9kUPZbnvmsUiBXCHTX KlxzLs6IH8MjAOrinYH+PH KwVOL7sNmy VVojYCDxaZ2fTXBfM6n7Yi BfRyY1AUudW1DmDSGnmoyb Oq56jG0vQrXuChS5QTjnZ5 IdmnW0OOBv zZUeFWoyDRT4I07wz3W4EM TdFMIwEXK9bZJ3mK4eoLna bjogbGVmdDsgdmVydGljYW vgFJduG854 JKWooFlcWeF0OiT6WoA8AX H6R3JlFkq1OQAziOzzAK2e gZLyZDttOu8vtIoxpGdwAZ 4wNTBpbjtw VYUppC3xGZUkdQVvpHrsPY 3sDFHjegyux430BfUgKBV3 SOUxmXGqY0RuxF9gKnZvEF QyNPEtS2Ah lZLrQWujK402IAqdNqW8WC JbeyEoX3VaGEEyeUpiHnP0 v9Y5Jx82WDKGLYAjifpudC Q+PHRkIHN0 bZzrKKgsGWOjeZ3uARGoU1 p3BsLdVsK9DSdgA0GpBKLo ijyxKi27jN2uLaZcFrH8KW poH3TslmW5 QTKwcLYyQHllEPP7V72ce6 O7OBCdXIVoEUR1sHO8zE2n bGlnbjogbGVmdDsgdmVydG ljYWwtYWxp X250OZBhwPkxFvNJYMKEFB wvdGQ+OTPaAKY8aColFEpl LZRcrS0tFKIiE5n1BrBcZp O1WJebK8Tk EICzdbltUe13uG8xSpMyPs F1QUepM1QyraJ1ZLEwvSYq IXrqUCO3T85ei3H7SIUdPJ DuHVK2hWF7 cU5kuEifmoanaPBuzPanat JlgMccTEwoOQbyW169NKIj oKzxDt7MRB89HY87C0UnHl wvdGFibGU+ PHRhYmxlIHdpZHRoPScxMD LhBiLkzSjwZT3fXs4tKDKo JSRunDilmQNgFfEfu7ctEM WfQAlnNP0x sMneU6DupLP2WBCin2c2Sb 99M99mU2HutIN+PGNvbCB3 vYG9uH2cFjTrQbS4PZqiV2 49InRvcCIv Zigbd4rzn6wdgVq6BbKzIR VuckAqcYkhIZS3h0HaKq37 W86aEHoiVNGaHABjNWOxKK HrpTxikx6f sY1gOr9+FHBajRZ6gDL6vN 9qNaEhBeU3MKuhB815JgFc gZGnXpboH21lZ8AasOM+PH YuMfa4KRLs yIgsAA8zcIRmQOtiIt4jXX L9ElXsPdOwMPmsW2MfJQNz gjbyslrueWX3SUFwNBWdtB 30Of6hwJqd Of9hRZZnBWH3DWDuoBNrA2 ZhiM8fXmOdIQLgNUOlP2Ul jILhLVnrM653JPpxNiV2PB KqylLqV8Xd HENaqKofXrZ4w3O2Lf6WeM aopKZtXU6aAcNuRMw7Y6Ma Ayu8TCKedGoiAI5nqNEwAS sxPn9gbVkp rGgtDN0pGJVemqtys428Es Tnj5wtCXRblUJjTVyfPEO5 V85rx0Z6EVYwDDIpEVN2hR Y2qC7tgPep bjogbGVmdDsgdmVydGljYW ruZDifS778RIBmnZfgSrKT Tlc7E4RlJtv8RIWouXlwGA 0ncGFkZGlu Ik0fwCkiuNhfAY5lINMsof ujx616VmFyk9qoFGMyoQPu MNcvEMZ2I14hq0E0WPUuDQ QuNFY6gOE5 wD9nwBfrpjlodUZfiNzdqp BjhNuvPBetJDajJ835YMCf tGnmFt7ZIsf9H1OqHoh2UK ShkJwjAE1b oTNaUEdcKy6heDnzlPtcFC 1iHRQrntxca007YoUhb0dy KMHvmAErDYioYWI8M68nf8 R9BMSzXMTi LGF9yWC8oX3huAxxqshdvP VmdDsgdmVydGljYWwtYWxp U039GJScfAcvUjNnkWXkWw wvdGQ+PC90 mz86H2KhFyxnQzn6NERtXI Z4yKX2qS0mMVDqMByss7S4 wJL6Y1EkkyDkqo0sb3iiBN EzXWfeL22j bGF (more content not included)... [facility] Coding Summary HTMLBase 64 AsbacxdaKJd1tTq+PGhlYW Q+OO2UFNAvG00tySItxG9R T6uJQL6FVZQDIEPWKX3UKX 0grGK3CIfwL9DeqzFz CeuxwLNpMW17JKg4MUZ5tJ shFDvnyD7cnXNlZ4h8JjNt AZ61zB35LAswQZEfCtT3Uj ZpbjsgbWFy R1pnGtFytPTzLop+PHRhYm xlIHdpZHRoPScxMDAlJyBz bMsnJZ5aYu5mRILfGDAdjV xhcHNlOiBj d0bzSSHuTPefWQ1nmGweJ7 HssOI8WUHbw4t3Th79lZW+ NRAnYNI7mXscVRqrf613Cf Xhh3tmUWL3 pYEgAHbgTSV9O57xc7W5MQ EnSKLbUAJ6uUF4wR0yeJlk ocnyW7EoaJOoNlX8WSV3aQ KvrS3rrJaz evtkbR6iKdp+F00NFT0BNF LWEV4TCgj9D9EhYkmhaQO+ YN22SMBvZA03oIQbuFMuf6 qzdGn5IdMt CXSuYFB9kVpeHUpyb0IgHN GcZ53mpUFpz7E7BXPgeCib dVWkEaBbzLM8wD6aNBrhqe mcf3uuuqop Fnllk7ltrl98lH82C61eSA hsRXIzHCF9HDDlRGCspYvo rl1xwJ7lRn2+UKoye7gux5 fvoOm1GvVo OHWgrxNerVinKHG4f2NpVe 73Q0TpeGmqq8OeZlj1rx88 sCWlz2E5sHL1CYlqNPCaiF 3sBThmLhU1 UEGlIpExcA63vMLkDMmtXe 2sqIcokPcqIC1wQYDhfosv ZMEezU0zNIQymHWbmDddKN 4wNTBpbjtm f278XgVdMHG6WPSahKXnT1 WtoC5uInHgYLMrBBOaE7Ep iHNzOBsqU573EOkkRiA1JU AaztIbL0Wx LBCcxNcoDxL1j2F7Yd6Zf5 WoxzgnUTQ6ZVooXEOfKsR5 NpEsCiH4A6DoTnk9INBprH cePP0cB8Iw QKDnculcfzjyiGR8HYSsZC DrfY76oXGlIZhjVq0ts1E8 w773MZKyGDMwgE69Gj4fkX ogMTBwdCBU iO2hrvqai8cvbfyfDiYdWF OiQUx1PHj7VHWgvRqpLzRo JCB0KiI9ZTP8jEZbkA4nmI ohbgefpL9f Oyc+B20peO5jTQZ6DXU2rp wxGIOhwoEnIV11AK06R3Jj PjwvdGFibGU+PGRpdiBzdH vhPV9mLgFl f8vdz8VsQTrbK2CoWUVsQW hbOyl0SBWvQRE3gCT5oP9k XDEnTEljz1X7oGM5I2Jjgg Vawi1ac4lj CTDcWYzfL03rtEGsm1G3RW AqyPG9ADRafRgeZnBssS05 Oyc+NQIupDdoi9FcCtzok7 iby5zheTl7 OeNyHUZawxDlhDahEUE9w6 PbTb95L69oAFoeSSYvWYKp XSRoKEQatYjxcb3smH2mPf 8+PGNvbCB3 tSR2oD8bAQGtXgR9XKswB3 03XjNamBPjQolwq1xie5yf cYx5XvGoJWUvnfWqlOsoIU O1o9RvEt82 H71vOMrvXRSxFOGtAGJoXN UehVlzqs2tjM5yNs1+PC9j o4uqeb07qA87tFO+PHRkIH M5jKdxUBdj BHOfzE4aLQlnTaT2UVPwDu KziX44bBOwIVxzQv3duMdq xUmdYA2aZXYpxgvob230Ty Vek7euCEGv zQYnIUykNAQ2X15bj9B1XO OwUIXkMIE3rZU0mN7gfFsr bjogbGVmdDsgdmVydGljYW ueJHekZ779 IHRvcDsnPlBhdGllbnQgTm ExAOd0B8FxPvm6ZEMqzTvs UQ9gsABqQXwnAa8qgJjtgT feRF6yFNOr obvul776LfKde1jmMUWyyT IoTRssJQO4Z12vx4Y7GSBg CURrHQV6cYZ7wM8eyMybli ogbGVmdDsg vjJziSrqFYcvGOxyH185TY RvcDsnPkJpcnRoIERhdGU6 US12NU04aFLxc0I3tSV1I8 BhZGRpbmct viwroWM7DSAuMJCslN26Zv 8jzSjtIt2kVWEjLVP6WSLl fTImN4AzwL4jQtAuSPNbJU WcR2HkzUCu QBdzS215ZJofFrX0YOJbrt ToL5JaPZCbhRykSjN7i4Y4 Zo0XS1H6LE16QT27nAKur1 V1gRN2U9Je EOCrneojtsvzuBJ0LQBkVS XgnL89Ew5wkGxbMi8pCBYo DDN9JZFyyGSoX5CgeK3eMi AjMDAwMDAw Y4FktXDrCXhhW937UFnwIw U4QVGfnbTtY8UuMLMzpHdp NgR4r6U1Rs6QDQk0YC13YS 82eDDne3N8 lDV3X7HsSRUxgjjpwfqvqV G9PCKsGRYqiH79Zn3pmKej Sw5cNBRgKPK7VANmwHQfT1 SotM0cFjSv RBMcCPNhW2PrdILpCZkrC6 32GTynMiF3WUZolmZaD6Ac ZSZpkSrlYwT6d7J6Nm7MIE LuCP83WJG9 lNW5EL33RZ60G2OrSbmknU FibGU+PHRhYmxlIHdpZHRo UNcmXWPbAqQaaGmrZU3pUs 9yZGVyLWNv bCluwUSjRwGmv6jfRDZxXN eqIC0nkRrxK6IgpTM5FFWx m6j4Zd89D29tZ3YckVA+PG HojMD3yNV1 gZ2kHrHyCcS5BIjpP221Fn SpdDSkPeyzj7qnn0uwuEt5 QmJ5IGNwysGodIgvPLM2g8 UbJy71P89v IHdpZHRoPSIxNSUiIHZhbG zhnt9ttW7sTc1+PGNvbCB3 iJQ8bT0yMhCbPwH6PEvpB2 49InRvcCIv Fgukm7tch4qurGb7XjIyPU IxjuEgvXbgFZP6a0TdXq07 Q3TksSrtg3NsUjt1ky17yR Ytv6N5zLZ3 M5RnEVSvfxofbICgiCuhIE 9jKMRyhnkoCTNonX8tXZRh R3t9WlRwUkW7XNyuI0Nucw N2APWgdJEg LNouYHD1X89yf2R9CPVkSS BlKJD1pCU4oM8ubJlabske bGVmdDsgdmVydGljYWwtYW xhC663UBYe sViaNUZtkA2qZNAkuOOcqT ruVV6lRXByjcwrInBXTOTY XrbqNq2PE2OkMRthsYO+PH IcZEK4zCaa ZCkcBNOeaU1iSEUaY0x0Js UtXmC6BLjoC5MfJYHbaaie Rm53rP5eJuPbPkM1NYxqV9 AdgwP9AGGc yDKdQUuvZPB6A70bf7B6TX XiDHCzABY1hHW5sL8atKxk bjogbGVmdDsgdmVydGljYW joIAapJ148 OGEayMgkVwQ1EvY9BgA4CT T0W8KzMms1TXXnpGrpWH7j lUFfWUfqQd6ssDgnhJjcLL 4wNTBpbjtw HWZopL7wIOJvbMUdnDtiSZ 5sTZFvavinr225YiXmICQ6 ALAbxIHoL4TenE0gAvEkCS GeNKDbH0Rs aSBbYEivL523ENvkQmE0EF YzoiQmH1NgCNNktJeoVaV9 h8L6Qr90ORBCUNKrdutpaB Q+PHRkIHN0 vRqrYKyzFHEmuO8zYRCjO3 l8TaQyJgJ9TOlzH6JbZZSt jgfoWu36vA9nGmCoNxV5HA ppU6KgxvE4 DNEkmBIgIKkrDXK0Z72ul5 U5HQBlEJQxDYU3mHC6xT0q bGlnbjogbGVmdDsgdmVydG ljYWwtYWxp I671LRByoHcbOuBLCEANUU wvdGQ+JOOeUPM0iXuwRYxw QZWinV2vQAHpQ8h0AuTfJp W0VMtfB0Dx ASIfmfgoKn99sO6dVpNnUf T3EBntO7VjudR4JEYtlOTv EMqiGUD8D78bv0S4WWGbZF FuNKZ5wFQ9 jI5wvXqaxvuniKEzfAqnbe RttJkyLImnZWueQ064HWVa yTldRl3IQO45VS98G2FtBu wvdGFibGU+ PHRhYmxlIHdpZHRoPScxMD AaYbKnaFyrRD4aQf2yDMGd EXAxxXrdbBOvSbKyf3cfGD TzKPdfIB7a aAwnB1SiaYB7FPUwq8t5Up 54S03qV5IlvEP+PGNvbCB3 gIO1rV2dAfUqOqR6QJnqF5 49InRvcCIv Uzdcb9xmz0nshTs8SoJdXC ToqqYqbDfiVBH8n4LzHe11 V35pOLfgUTXzUWOkOUClLM XubCdwnh8t qG4zAo5+FBCwoXX6oKK8yN 4yDzGlQjJ1MXuuO020OwBu aIWsQmbmY19kF9DyaTP+PH VkFoh8IWYs vHzbFI9ceNNlXBhhPo1vQE W7SaOdZiWmUQidF1UxBKHd dbxlssdzjVR8EJCjLESaiC 17Wd4tcSxq Jg7zPCZsTVS9RXTqcPVjR7 GaxP0zKoNcGBTfSOGyD8Ke dOQlHWfpN880NHljFiD9VB JcimTkC1Sd GTBshBvwFxA3b5O9Or3MfA zjmQGyCC7hPsImENk9G1Dd Mxl7FAQmbSqnUI3gcQOdEH tsVc3caYvj iEbyHE7pSBCpjorzg817To Cfy2mrAHOvcFSbDQgcBRG9 P14ht9A2KQQlIVNxXWQ5jD A6fL9zgCjr bjogbGVmdDsgdmVydGljYW fnJJgdH910FFIriMsyGxGQ Thr5S9ZqTro4HLLnsAcnMX 0ncGFkZGlu Ox7udAfgkTcsXS8kKKMlfx wbq373FjDer6rkKPGtzJBw QNtwIEE1Q26eb3E9LQUsXK ItMUZ7pPU3 qK9vmDtqihuojRHyvXjwhj PphFkaGVdtVSugY079DOXs tXnyXt2WIir1M8JkSzi3NG EvnPelPD2m tGSoVJhaYu8guFfuhNrzMJ 4kKSSqokyhn933HcYtf5jh ATTmlUVfBOtpSYY3V02hz1 U4ZUOqSHUy BZU5xHJ3yX7xgNkfpevemY VmdDsgdmVydGljYWwtYWxp X192NHGguLfxZbFtpUEjVp wvdGQ+PC90 eo64U9NyXoasRmz8NUKyZF K9pCQ4vA6tXJFiDLzwn3Z4 fCX7H4UuhpAxdh1or7lnLC SyKDniE33r bGF (more content not included)... [facility] Progress Note - Nurseon 10-0 Progress Note - Nurse Spoke with pt and informed her to be here at 6am and NPO after MN, she verbalizes understanding. [Electronically Signed on: 02/23/2022 09:36 EDT] Shyanne Brown RN [Verified on: 02/23/2022 09:36 EDT] Shyanne Brown RN Normal [facility] 2019 Novel Coronavirus (CoVI D-19), OSMANY LCon 02-22-2022 SARS-CoV-2 (COVID-19) RNA OSMANY+probe Ql (Unsp spec) Not detected Invalid Interpretation Code Not Detected [facility] Comment on above: Result Comment: This nucleic acid amplification test was developed and its performance characteristics determined by [employer]. Nucleic acid amplification tests include RT- PCR and TMA. This test has not been FDA cleared or approved. This test has been authorized by FDA under an Emergency Use Authorization (EUA). This test is only authorized for the duration of time the declaration that circumstances exist justifying the authorization of the emergency use of in vitro diagnostic tests for detection of SARS-CoV-2 virus and/or diagnosis of COVID-19 infection under section 564(b)(1) of the Act, 21 U.S.C. 360bbb-3(b) (1), unless the authorization is terminated or revoked sooner. When diagnostic testing is negative, the possibility of a false negative result should be considered in the context of a patient's recent exposures and the presence of clinical signs and symptoms consistent with COVID-19. An individual without symptoms of COVID-19 and who is not shedding SARS-CoV-2 virus would expect to have a negative (not detected) result in this assay. Performed At: [address] [id number] Tanesha Blackwood PhD Ph:[phone] Performed By: #### 6 [id number] #### [facility] (DEFAULT) [address] [place] [address] C Urineon 02-08-2022 C Urine Urine Culture ordere d as a result of parameters set on specific urine dip and urine microsopic results. Mixed skin, or urogenital kelvin. Clinically insignificant Normal [facility] Comment on above: Performed By: #### 5 [id number], [id number], [id number] #### [facility] (DEFAULT) [address] [place] [address] C MRSA Screenon 02-07-2022 C MRSA Screen Negative Normal [facility] Comment on above: Performed By: #### 1 [id number] ####[facility] (DEFAULT)[address] [place] [address] Provider Orderson 02-07-2022 Provider Orders [id number] TGTIFF Normal [facility] .Auto Diff 1on 02-06-2022 Auto [place] % 12 % Normal 1-12 [facility] Comment on above: Performed By: #### 7 [id number], [id number], [id number] ####[facility] (DEFAULT)[address] [place] [address] 95164 Baso Abs# 0.0 x10 Normal 0.0-0.2 [facility] Comment on above: Performed By: #### 7 [id number], [id number], [id number] ####[facility] (DEFAULT)[address] [place] [address] 29024 Basophils/100 WBC (Bld) 0.4 % Normal 0.2-2.0 [facility] Comment on above: Performed By: #### 7 [id number], [id number], [id number] ####[facility] (DEFAULT)[address] [place] [address] 19243 Eos Abs# 0.2 x10 Normal 0.0-0.4 [facility] Comment on above: Performed By: #### 7 [id number], [id number], [id number] ####[facility] (DEFAULT)[address] [place] [address]758 Eosinophils/100 WBC (Bld) 3.0 % Normal 0.9-4.0 [facility] Comment on above: Performed By: #### 7 [id number], [id number], [id number] ####[facility] (DEFAULT)[address] [place] [address] Lymph Abs# 1.9 x10 Normal 1.3-2.9 [facility] Comment on above: Performed By: #### 7 [id number], [id number], [id number] ####[facility] (DEFAULT)[address] [place] [address] Lymphocytes/100 WBC (Bld) 27 % Normal 14-48 [facility] Comment on above: Performed By: #### 7 [id number], [id number], [id number] ####[facility] (DEFAULT)[address] [place] [address] [place] Abs# 0.8 x10 Normal 0.0-0.8 [facility] Comment on above: Performed By: #### 7 [id number], [id number], [id number] ####[facility] (DEFAULT)[address] [place] [address] Neut Abs# 4.0 x10 Normal 1.5-9.2 [facility] Comment on above: Performed By: #### 7 [id number], [id number], [id number] ####[facility] (DEFAULT)[address] [place] [address] Neutrophils/100 WBC (Bld) 57 % Normal 44-88 [facility] Comment on above: Performed By: #### 7 [id number], [id number], [id number] ####[facility] (DEFAULT)[address] [place] [address] Standardon 02-06-2022 eGFR Non AA >60 Invalid Interpretation Code [facility] Comment on above: Performed By: #### 7 [id number], [id number], [id number] ####[facility] (DEFAULT)[address] [place] [address] eGFR AA >60 Invalid Interpretation Code [facility] Comment on above: Result Comment: Cutter Tender chucho Kidney disease could be indicated at eGFRs of less than 60 ml/min/1.73m2. Kidney Failure is indicated at less than 15 ml/min/1.73m2 Performed By: #### 7 [id number], [id number], [id number] ####[facility] (DEFAULT)[address] [place] [address]9870 Anion gap [Moles/Vol] 15.0 mmol/L Normal 5.0-19.0 [facility] Comment on above: Performed By: #### 7 [id number], [id number], [id number] ####[facility] (DEFAULT)[address] [place] [address] 89655 Calcium [Mass/Vol] 9.6 mg/dL Normal 8.9-10.3 [facility] Comment on above: Performed By: #### 7 [id number], [id number], [id number] ####[facility] (DEFAULT)[address] [place] [address] 77393 Chloride [Moles/Vol] 101 mmol/L Normal 101-111 [facility] Comment on above: Performed By: #### 7 537205, [id number], [id number] ####[facility] (DEFAULT)[address] [place] [address] 53457 CO2 [Moles/Vol] 25 mmol/L Normal 21-32 [facility] Comment on above: Performed By: #### 7 693491, [id number], [id number] ####[facility] (DEFAULT)[address] [place] [address] 96677 Creatinine [Mass/Vol] 0.72 mg/dL Normal 0.60-1.30 [facility] Comment on above: Performed By: #### 7 404578, [id number], [id number] ####[facility] (DEFAULT)[address] [place] [address] 43969 Glucose [Mass/Vol] 118.0 mg/dL Normal 74.0-118.0 [facility] Comment on above: Performed By: #### 7 [id number], [id number], [id number] ####[facility] (DEFAULT)[address] [place] [address]3458 Osmolality 274 mOsm/L Invalid Interpretation Code [facility] Comment on above: Performed By: #### 7 129183, [id number], [id number] ####[facility] (DEFAULT)[address] [place] [address] Potassium [Moles/Vol] 3.6 mmol/L Normal 3.6-5.1 [facility] Comment on above: Performed By: #### 7 646054, [id number], [id number] ####[facility] (DEFAULT)[address] [place] [address] 04128 Sodium [Moles/Vol] 137.0 mmol/L Normal 136.0-144.0 [facility] Comment on above: Performed By: #### 7 [id number], [id number], [id number] ####[facility] (DEFAULT)[address] [place] [address] Urea nitrogen [Mass/Vol] 11 mg/dL Normal 8-26 [facility] Comment on above: Performed By: #### 7 180363, [id number], [id number] ####[facility] (DEFAULT)[address] [place] [address] Urea nitrogen/Creatini ne [Mass ratio] 15.0 mg/mg Normal 4.6-16.2 [facility] Comment on above: Performed By: #### 7 [id number], [id number], [id number] ####[facility] (DEFAULT)[address] [place] [address] CBC w/ Auto Diffon 2 Erythrocyte distribution width (RBC) [Ratio] 13.2 % Normal 11.5-15.0 [facility] Comment on above: Performed By: #### 7 [id number], [id number], [id number] #### [facility] (DEFAULT) [address] [place] [address] Hematocrit (Bld) [Volume fraction] 40.8 % High 33.7-40.4 [facility] Comment on above: Performed By: #### 7 [id number], [id number], [id number] #### [facility] (DEFAULT) [address] [place] [address] 74560 Hemoglobin (Bld) [Mass/Vol] 13.7 g/dL Normal 11.3-15.9 [facility] Comment on above: Performed By: #### 7 [id number], [id number], [id number] #### [facility] (DEFAULT) [address] [place] [address] 93264 Instr WBC 7.0 x10 Invalid Interpretation Code [facility] Comment on above: Performed By: #### 7 [id number], [id number], [id number] #### [facility] (DEFAULT) [address] [place] [address] 64777 Man Diff? Auto Normal [facility] Comment on above: Performed By: #### 7 [id number], [id number], [id number] #### [facility] (DEFAULT) [address] [place] [address] 93527 MCH (RBC) [Entitic mass] 30 pg Normal 24-34 [facility] Comment on above: Performed By: #### 7 956150, [id number], [id number] #### [facility] (DEFAULT) [address] [place] [address] 88231 MCHC (RBC) [Mass/Vol] 34 g/dL Normal 26-37 [facility] Comment on above: Performed By: #### 7 504709, [id number], [id number] #### [facility] (DEFAULT) [address] [place] [address] 31237 MCV (RBC) [Entitic vol] 89 fL Normal 81-100 [facility] Comment on above: Performed By: #### 7 [id number], [id number], [id number] #### [facility] (DEFAULT) [address] [place] [address] 19604 Platelet 280 x10 Normal 138-427 [facility] Comment on above: Performed By: #### 7 198548, [id number], [id number] #### [facility] (DEFAULT) [address] [place] [address] 44193 Platelet mean volume (Bld) [Entitic vol] 10.9 fL High 6.3-10.2 [facility] Comment on above: Performed By: #### 7 505797, [id number], [id number] #### [facility] (DEFAULT) [address] [place] [address] RBC 4.60 x10 Normal 3.70-5.30 [facility] Comment on above: Performed By: #### 7 965839, [id number], [id number] #### [facility] (DEFAULT) [address] [place] [address] 82606 WBC 7.0 x10 Normal 3.5-10.5 [facility] Comment on above: Performed By: #### 7 687848, [id number], [id number] #### [facility] (DEFAULT) [address] [place] [address] 31582 UA Jpwwu4th 02-06-2022 UA Amorph. Few Normal [facility] Comment on above: Order Comment: Urina lysis Microscopic order added on by Discern Expert Rules system. Performed By: #### 5 [id number], [id number], [id number] #### [facility] (DEFAULT) [address] [place] [address] 53108 UA Bacteria Trace Normal [facility] Comment on above: Order Comment: Urina lysis Microscopic order added on by Discern Expert Rules system. Performed By: #### 5 [id number], [id number], [id number] #### [facility] (DEFAULT) [address] [place] [address] 67455 UA RBC 0-2 Normal [facility] Comment on above: Order Comment: Urina lysis Microscopic order added on by Discern Expert Rules system. Performed By: #### 5 [id number], [id number], [id number] #### [facility] (DEFAULT) [address] [place] [address] 29586 UA Squam Epi Few Normal [facility] Comment on above: Order Comment: Urina lysis Microscopic order added on by Discern Expert Rules system. Performed By: #### 5 [id number], [id number], [id number] #### [facility] (DEFAULT) [address] [place] [address] UA WBC 5-10 Normal [facility] Comment on above: Order Comment: Urina lysis Microscopic order added on by Discern Expert Rules system. Performed By: #### 5 [id number], [id number], [id number] #### [facility] (DEFAULT) [address] [place] [address] UA w Culture if Ind Standard on 02-06-2022 Breakpoint UA Normal [facility] Comment on above: Performed By: #### 5 [id number], [id number], [id number] #### [facility] (DEFAULT) [address] [place] [address] Color (U) Yellow Normal [facility] Comment on above: Performed By: #### 5 [id number], [id number], [id number] #### [facility] (DEFAULT) [address] [place] [address] Culture? Indicated Invalid Interpretation Code [facility] Comment on above: Result Comment: Resu lt created by rule GL_MAGR_ADD_UA_CULT Result created by rule GL_MAGR_ADD_UA_CULT Result created by rule GL_MAGR_ADD_UA_CULT1 Result created by rule GL_MAGR_ADD_UA_CULT Performed By: #### 5 [id number], [id number], [id number] #### [facility] (DEFAULT) [address] [place] [address] Glucose (U) [Mass/Vol] Negative Normal [facility] Comment on above: Performed By: #### 5 [id number], [id number], [id number] #### [facility] (DEFAULT) [address] [place] [address] 18461 Ketones Ql (U) Negative Normal [facility] Comment on above: Performed By: #### 5 [id number], [id number], [id number] #### [facility] (DEFAULT) [address] [place] [address] 00185 Micro? Indicated Invalid Interpretation Code [facility] Comment on above: Result Comment: Resu lt created by rule GL_MAGR_ADD_UA_MICRO Performed By: #### 5 [id number], [id number], [id number] #### [facility] (DEFAULT) [address] [place] [address] 55546 UA Bilirubin Negative Normal [facility] Comment on above: Performed By: #### 5 9868028, [id number], [id number] #### [facility] (DEFAULT) [address] [place] [address] 54503 UA Blood TRACE Abnormal NEGATIVE [facility] Comment on above: Performed By: #### 5 [id number], [id number], [id number] #### [facility] (DEFAULT) [address] [place] [address] 50875 UA Clarity CLEAR Normal CLEAR [facility] Comment on above: Performed By: #### 5 [id number], [id number], [id number] #### [facility] (DEFAULT) [address] [place] [address] 87910 UA Leuk Est LARGE Abnormal NEGATIVE [facility] Comment on above: Performed By: #### 5 [id number], [id number], [id number] #### [facility] (DEFAULT) [address] [place] [address] 09323 UA Nitrite Negative Normal NEGATIVE [facility] Comment on above: Performed By: #### 5 [id number], [id number], [id number] #### [facility] (DEFAULT) [address] [place] [address] 04323 UA pH 6.5 Normal 5-8 [facility] Comment on above: Performed By: #### 5 3645499, [id number], [id number] #### [facility] (DEFAULT) [address] [place] [address] 07945 UA Protein Negative Normal NEGATIVE [facility] Comment on above: Performed By: #### 5 3047066, [id number], [id number] #### [facility] (DEFAULT) [address] [place] [address] 47954 UA Spec Grav 1.010 Normal 1.001-1.035 [facility] Comment on above: Performed By: #### 5 [id number], [id number], 7206995 #### [facility] (DEFAULT) [address] [place] [address] 51429 UA Urobilinogen 1.0 mg/dL Normal 0.2-1.0 [facility] Comment on above: Performed By: #### 5 [id number], [id number], [id number] #### [facility] (DEFAULT) [address] [place] [address] 71572 Urine Source Clean Catch Normal [facility] Comment on above: Performed By: #### 5 [id number], [id number], [id number] #### [facility] (DEFAULT) [address] [place] [address] 91195 COMPREHENSIVE METABOLIC PANE [facility] 10-24-2021 Albumin [Mass/Vol] 4.2 g/dL Normal 3.6-5.1 [facility] Comment on above: Performed By: #### 1 7306, 35935, 496, 7600, 10390 #### [facility] [place] [address] Guest Services Manager: Kiran Cortez MD Albumin/Globulin [Mass ratio] 1.6 {ratio} Normal 1.0-2.5 [facility] Comment on above: Performed By: #### 1 7306, 58406, 496, 7600, 95433 #### [facility] [place] [address] Guest Services Manager: Kiran Cortez MD ALP [Catalytic activity/Vol] 58 U/L Normal 37-153 [facility] Comment on above: Performed By: #### 1 7306, 17235, 496, 7600, 40138 #### [facility] [place] [address] Guest Services Manager: Kiran Cortez MD ALT [Catalytic activity/Vol] 16 U/L Normal 6-29 [facility] Comment on above: Performed By: #### 1 7306, 80406, 496, 7600, 35667 #### [facility] of [address], [address] [place] [address] Guest Services Manager: Kiran Cortez MD AST [Catalytic activity/Vol] 19 U/L Normal 10-35 [facility] Comment on above: Performed By: #### 1 7306, 12361, 496, 7600, 88693 #### [facility] of [address], [address] [place] [address] Guest Services Manager: Kiran Cortez MD Bilirubin [Mass/Vol] 0.6 mg/dL Normal 0.2-1.2 [facility] Comment on above: Performed By: #### 1 7306, 31037, 496, 7600, 34498 #### [facility] [address], [address] [place] [address] Guest Services Manager: Kiran Cortez MD BUN/CREATININE RATIO NOT APPLICABLE Normal 6-22 [facility] Comment on above: Performed By: #### 1 7306, 11429, 496, 7600, 46922 #### [facility] [address], [address] [place] [address] Guest Services Manager: Kiran Cortez MD Calcium [Mass/Vol] 9.5 mg/dL Normal 8.6-10.4 [facility] Comment on above: Performed By: #### 1 7306, 43965, 496, 7600, 67281 #### [facility] [address], [address] [place] [address] Guest Services Manager: Kiran Cortez MD Chloride [Moles/Vol] 106 mmol/L Normal 98-110 [facility] Comment on above: Performed By: #### 1 7306, 85227, 496, 7600, 83892 #### [facility] of [address], [address] [place] [address] Guest Services Manager: Kiran Cortez MD CO2 [Moles/Vol] 27 mmol/L Normal 20-32 [facility] Comment on above: Performed By: #### 1 7306, 83578, 496, 7600, 82292 #### [facility] [place] [address], [address] [place] [address] Guest Services Manager: Kiran Cortez MD Creatinine [Mass/Vol] 0.76 mg/dL Normal 0.60-0.93 [facility] Comment on above: Result Comment: For patients >49 years of age, the reference limit for Creatinine is approximately 13% higher for people identified as -Yemeni. Performed By: #### 1 7306, 53378, 496, 7600, 66503 #### [facility] [address], [address] [place] [address] Guest Services Manager: Kiran Cortez MD eGFR NON-AFR. MALDIVIAN 76 mL/min/1.73m2 Normal > OR = 60 [facility] Comment on above: Performed By: #### 1 7306, 45563, 496, 7600, 91043 #### [facility] [place] [address] Guest Services Manager: Kiran Cortez MD GFR/1.73 sq M.predicted among blacks MDRD (S/P/Bld) [Vol rate/Area] 88 mL/min/{1.73_m2} Normal > OR = 60 [facility] Comment on above: Performed By: #### 1 7306, 93607, 496, 7600, 93928 #### [facility] [address], [address] [place] [address] Guest Services Manager: Kiran Cortez MD Globulin (S) [Mass/Vol] 2.7 g/dL Normal 1.9-3.7 [facility] Comment on above: Performed By: #### 1 7306, 89777, 496, 7600, 17539 #### [facility] [place] [address] Guest Services Manager: Kiran Cortez MD Glucose [Mass/Vol] 100 mg/dL High 65-99 [facility] Comment on above: Result Comment: Fasting reference interval For someone without known diabetes, a glucose value between 100 and 125 mg/dL is consistent with prediabetes and should be confirmed with a follow-up test. Performed By: #### 1 7306, 04108, 496, 7600, 59346 #### [facility] [place] [address] Guest Services Manager: Kiran Cortez MD Potassium [Moles/Vol] 4.0 mmol/L Normal 3.5-5.3 [facility] Comment on above: Performed By: #### 1 7306, 20913, 496, 7600, 27467 #### [facility] [address], [address] [place] [address] Guest Services Manager: Kiran Cortez MD Protein [Mass/Vol] 6.9 g/dL Normal 6.1-8.1 [facility] Comment on above: Performed By: #### 1 7306, 49041, 496, 7600, 86446 #### [facility] [place] [address] Guest Services Manager: Kiran Cortez MD Sodium [Moles/Vol] 143 mmol/L Normal 135-146 [facility] Comment on above: Performed By: #### 1 7306, 72346, 496, 7600, 17076 #### [facility] [place] [address] Guest Services Manager: Kiran Cortez MD Urea nitrogen [Mass/Vol] 20 mg/dL Normal 7-25 [facility] Comment on above: Performed By: #### 1 7306, 19554, 496, 7600, 82807 #### [facility] [place] [address] Guest Services Manager: Kiran Cortez MD HEMOGLOBIN A1con 10-24-2021 HEMOGLOBIN A1c 6.0 % of total Hgb High <5.7 [facility] Comment on above: Result Comment: For someone without known diabetes, a hemoglobin A1c value between 5.7% and 6.4% is consistent with prediabetes and should be confirmed with a follow-up test. For someone with known diabetes, a value <7% indicates that their diabetes is well controlled. A1c targets should be individualized based on duration of diabetes, age, comorbid conditions, and other considerations. This assay result is consistent with an increased risk of diabetes. Currently, no consensus exists regarding use of hemoglobin A1c for diagnosis of diabetes for children. Performed By: #### 1 7306, 96093, 496, 7600, 82147 #### [facility] [address], [address] [place] [address] Guest Services Manager: Kiran Cortez MD LIPID PANEL, [facility] 06-0 Cholesterol [Mass/Vol] 135 mg/dL Normal <200 [facility] Comment on above: Order Comment: FASTI NG:YES FASTING: YES Performed By: #### 1 7306, 46766, 496, 7600, 37374 #### [facility] [address], [address] [place] [address] Guest Services Manager: Kiran Cortez MD Cholesterol in HDL [Mass/Vol] 55 mg/dL Normal > OR = 50 [facility] Comment on above: Order Comment: FASTI NG:YES FASTING: YES Performed By: #### 1 7306, 05533, 496, 7600, 47715 #### [facility] [address], [address] [place] [address] Guest Services Manager: Kiran Cortez MD Cholesterol in LDL [Mass/Vol] 62 mg/dL Normal [facility] Comment on above: Order Comment: FASTI NG:YES FASTING: YES Result Comment: Refe rence range: <100 Desirable range <100 mg/dL for primary prevention; <70 mg/dL for patients with CHD or diabetic patients with > or = 2 CHD risk factors. LDL-C is now calculated using the Micha calculation, which is a validated novel method providing better accuracy than the Friedewald equation in the estimation of LDL-C. Jose Cruz PATTEN et al. ROMELIA. 2013;310(19): 6794-4341 (http://education.[employer].Andre Phillipe/faq/UBT864) Performed By: #### 1 7306, 90360, 496, 7600, 60467 #### [facility] [place] [address] [place] [address] Guest Services Manager: Kiran Cortez MD Cholesterol.total /Cholesterol in HDL [Mass ratio] 2.5 {ratio} Normal <5.0 [facility] Comment on above: Order Comment: FASTI NG:YES FASTING: YES Performed By: #### 1 7306, 24699, 496, 7600, 47512 #### [facility] [address], [address] [place] [address] Guest Services Manager: Kiran Cortez MD NON HDL CHOLESTEROL 80 mg/dL (calc) Normal <130 [facility] Comment on above: Order Comment: FASTI NG:YES FASTING: YES Result Comment: For patients with diabetes plus 1 major ASCVD risk factor, treating to a non-HDL-C goal of <100 mg/dL (LDL-C of <70 mg/dL) is considered a therapeutic option. Performed By: #### 1 7306, 87879, 496, 7600, 35517 #### [facility] [place] [address] Guest Services Manager: Kiran Cortez MD Triglyceride [Mass/Vol] 98 mg/dL Normal <150 [facility] Comment on above: Order Comment: FASTI NG:YES FASTING: YES Performed By: #### 1 7306, 25303, 496, 7600, 88719 #### [facility] [address], [address] [place] [address] Guest Services Manager: Kiran Cortez MD TSH+FREE T4on 10-24-2021 Free T4 [Mass/Vol] 1.5 ng/dL Normal 0.8-1.8 [facility] Comment on above: Performed By: #### 1 7306, 48229, 496, 7600, 92015 #### [facility] [place] [address] Guest Services Manager: Kiran Cortez MD TSH Qn 0.54 m[IU]/L Normal 0.40-4.50 [facility] Comment on above: Performed By: #### 1 7306, 47405, 496, 7600, 81492 #### [facility] [address], [address] [place] [address] Guest Services Manager: Kiran Cortez MD VITAMIN D,25-OH,TOTAL,IAon 0 10-24-2021 VITAMIN D,25-OH,TOTAL,IA 58 ng/mL Normal 30-100 [facility] Comment on above: Result Comment: Julianna min D Status 25-OH Vitamin D: Deficiency: <20 ng/mL Insufficiency: 20 - 29 ng/mL Optimal: > or = 30 ng/mL For 25-OH Vitamin D testing on patients on D2-supplementation and patients for whom quantitation of D2 and D3 fractions is required, the [facility]Assure[facility](TM) 25-OH VIT D, (D2,D3), LC/MS/MS is recommended: order code 42678 (patients >2yrs). See Note 1 Note 1 For additional information, please refer to http://education.[employer]/faq/RSH783 (This link is being provided for informational/ educational purposes only.) Performed By: #### 1 7306, 61012, 496, 7600, 40693 #### [facility] [address], [address] [place] [address] Guest Services Manager: Kiran Cortez MD BASIC METABOLIC PANELon BUN/CREATININE RATIO NOT APPLICABLE Normal 6-22 [facility] Comment on above: Order Comment: FASTI NG:YES FASTING: YES Performed By: #### 4 96, 17252 #### [facility] [address], [address] [place] [address] Guest Services Manager: Kiran Cortez MD Calcium [Mass/Vol] 9.8 mg/dL Normal 8.6-10.4 [facility] Comment on above: Order Comment: FASTI NG:YES FASTING: YES Performed By: #### 4 96, 12608 #### [facility] [address], [address] [place] [address] Guest Services Manager: Kiran Cortez MD Chloride [Moles/Vol] 104 mmol/L Normal 98-110 [facility] Comment on above: Order Comment: FASTI NG:YES FASTING: YES Performed By: #### 4 96, 12054 #### [facility] [address], [address] [place] [address] Guest Services Manager: Kiran Cortez MD CO2 [Moles/Vol] 31 mmol/L Normal 20-32 [facility] Comment on above: Order Comment: FASTI NG:YES FASTING: YES Performed By: #### 4 96, 07025 #### [facility] [address], [address] [place] [address] Guest Services Manager: Kiran Cortez MD Creatinine [Mass/Vol] 0.76 mg/dL Normal 0.60-0.93 [facility] Comment on above: Order Comment: FASTI NG:YES FASTING: YES Result Comment: For patients >49 years of age, the reference limit for Creatinine is approximately 13% higher for people identified as -Yemeni. Performed By: #### 4 96, 90630 #### [facility] [address], [address] [place] [address] Guest Services Manager: Kiran Cortez MD eGFR NON-AFR. MALDIVIAN 76 mL/min/1.73m2 Normal > OR = 60 [facility] Comment on above: Order Comment: FASTI NG:YES FASTING: YES Performed By: #### 4 96, 12963 #### [facility] [address], [address] [place] [address] Guest Services Manager: Kiran Cortez MD GFR/1.73 sq M.predicted among blacks MDRD (S/P/Bld) [Vol rate/Area] 88 mL/min/{1.73_m2} Normal > OR = 60 [facility] Comment on above: Order Comment: FASTI NG:YES FASTING: YES Performed By: #### 4 96, 88464 #### [facility] [address], [address] [place] [address] Guest Services Manager: Kiran Cortez MD Glucose [Mass/Vol] 91 mg/dL Normal 65-99 [facility] Comment on above: Order Comment: FASTI NG:YES FASTING: YES Result Comment: Fasting reference interval Performed By: #### 4 96, 60422 #### [facility] [address], [address] [place] [address] Guest Services Manager: Kiran Cortez MD Potassium [Moles/Vol] 4.1 mmol/L Normal 3.5-5.3 [facility] Comment on above: Order Comment: FASTI NG:YES FASTING: YES Performed By: #### 4 96, 46153 #### [facility] [address], [address] [place] [address] Guest Services Manager: Kiran Cortez MD Sodium [Moles/Vol] 142 mmol/L Normal 135-146 [facility] Comment on above: Order Comment: FASTI NG:YES FASTING: YES Performed By: #### 4 96, 76073 #### [facility] [address], [address] [place] [address] Guest Services Manager: Kiran Cortez MD Urea nitrogen [Mass/Vol] 13 mg/dL Normal 7-25 [facility] Comment on above: Order Comment: FASTI NG:YES FASTING: YES Performed By: #### 4 96, 02969 #### [facility] [address], [address] [place] [address] Guest Services Manager: Kiran Cortez MD HEMOGLOBIN A1con 07-21-2021 HEMOGLOBIN A1c 6.3 % of total Hgb High <5.7 [facility] Comment on above: Result Comment: For someone without known diabetes, a hemoglobin A1c value between 5.7% and 6.4% is consistent with prediabetes and should be confirmed with a follow-up test. For someone with known diabetes, a value <7% indicates that their diabetes is well controlled. A1c targets should be individualized based on duration of diabetes, age, comorbid conditions, and other considerations. This assay result is consistent with an increased risk of diabetes. Currently, no consensus exists regarding use of hemoglobin A1c for diagnosis of diabetes for children. Performed By: #### 4 96, 65980 #### [facility] [address], [address] [place] [address] Guest Services Manager: Kiran Cortez MD [facility] METABOLIC PANE [facility] 11-29-2020 Albumin [Mass/Vol] 4.2 g/dL Normal 3.6-5.1 [facility] Comment on above: Performed By: #### 7 600, 03066, 63820 #### [facility] [address], [address] [place] [address] Guest Services Manager: Kiran Cortez MD Albumin/Globulin [Mass ratio] 1.6 {ratio} Normal 1.0-2.5 [facility] Comment on above: Performed By: #### 7 600, 56501, 37960 #### [facility] [address], [address] [place] [address] Guest Services Manager: Kiran Cortez MD ALP [Catalytic activity/Vol] 65 U/L Normal 37-153 [facility] Comment on above: Performed By: #### 7 600, 67491, 09173 #### [facility] [address], [address] [place] [address] Guest Services Manager: Kiran Cortez MD ALT [Catalytic activity/Vol] 15 U/L Normal 6-29 [facility] Comment on above: Performed By: #### 7 600, 46189, 92954 #### [facility] [place] [address] Guest Services Manager: Kiran Cortez MD AST [Catalytic activity/Vol] 19 U/L Normal 10-35 [facility] Comment on above: Performed By: #### 7 600, 76362, 71197 #### [facility] [place] [address] Guest Services Manager: Kiran Cortez MD Bilirubin [Mass/Vol] 0.5 mg/dL Normal 0.2-1.2 [facility] Comment on above: Performed By: #### 7 600, 32528, 69374 #### [facility] [place] [address] Guest Services Manager: Kiran Cortez MD BUN/CREATININE RATIO NOT APPLICABLE Normal 6-22 [facility] Comment on above: Performed By: #### 7 600, 73040, 83390 #### [facility] [address], [address] [place] [address] Guest Services Manager: Kiran Cortez MD Calcium [Mass/Vol] 9.5 mg/dL Normal 8.6-10.4 [facility] Comment on above: Performed By: #### 7 600, 04270, 08136 #### [facility] [address], [address] [place] [address] Guest Services Manager: Kiran Cortez MD Chloride [Moles/Vol] 103 mmol/L Normal 98-110 [facility] Comment on above: Performed By: #### 7 600, 76911, 39397 #### [facility] [address], [address] [place] [address] Guest Services Manager: Kiran Cortez MD CO2 [Moles/Vol] 30 mmol/L Normal 20-32 [facility] Comment on above: Performed By: #### 7 600, 09242, 73906 #### [facility] [address], [address] [place] [address] Guest Services Manager: Kiran Cortez MD Creatinine [Mass/Vol] 0.74 mg/dL Normal 0.60-0.93 [facility] Comment on above: Result Comment: For patients >49 years of age, the reference limit for Creatinine is approximately 13% higher for people identified as -Yemeni. Performed By: #### 7 600, 92817, 52964 #### [facility] [address], [address] [place] [address] Guest Services Manager: Kiran Cortez MD eGFR NON-AFR. MALDIVIAN 78 mL/min/1.73m2 Normal > OR = 60 [facility] Comment on above: Performed By: #### 7 600, 92170, 04006 #### [facility] [address], [address] [place] [address] Guest Services Manager: Kiran Cortez MD GFR/1.73 sq M.predicted among blacks MDRD (S/P/Bld) [Vol rate/Area] 91 mL/min/{1.73_m2} Normal > OR = 60 [facility] Comment on above: Performed By: #### 7 600, 98494, 74364 #### [facility] [address], [address] [place] [address] Guest Services Manager: Kiran Cortez MD Globulin (S) [Mass/Vol] 2.7 g/dL Normal 1.9-3.7 [facility] Comment on above: Performed By: #### 7 600, 84922, 64865 #### [facility] [address], [address] [place] [address] Guest Services Manager: Kiran Cortez MD Glucose [Mass/Vol] 108 mg/dL High 65-99 [facility] Comment on above: Result Comment: Fasting reference interval For someone without known diabetes, a glucose value between 100 and 125 mg/dL is consistent with prediabetes and should be confirmed with a follow-up test. Performed By: #### 7 600, [id number], 41621 #### [facility] [address], [address] [place] [address] Guest Services Manager: Kiran Cortez MD Potassium [Moles/Vol] 4.0 mmol/L Normal 3.5-5.3 [facility] Comment on above: Performed By: #### 7 600, 10763, 03401 #### [facility] [place] [address] Guest Services Manager: Kiran Cortez MD Protein [Mass/Vol] 6.9 g/dL Normal 6.1-8.1 [facility] Comment on above: Performed By: #### 7 600, 46386, 68841 #### [facility] [place] [address] Guest Services Manager: Kiran Cortez MD Sodium [Moles/Vol] 141 mmol/L Normal 135-146 [facility] Comment on above: Performed By: #### 7 600, 54710, 18848 #### [facility] [address] [place] [place] [address] Guest Services Manager: Kiran Cortez MD Urea nitrogen [Mass/Vol] 11 mg/dL Normal 7-25 [facility] Comment on above: Performed By: #### 7 600, 69318, 02637 #### [facility] [address], [address] [place] [address] Guest Services Manager: Kiran Cortez MD LIPID PANEL, [facility] 11-17 Cholesterol [Mass/Vol] 125 mg/dL Normal <200 [facility] Comment on above: Order Comment: FASTI NG:YES FASTING: YES Performed By: #### 7 600, 32599, 86586 #### [facility] [address], [address] [place] [address] Guest Services Manager: Kiran Cortez MD Cholesterol in HDL [Mass/Vol] 57 mg/dL Normal > OR = 50 [facility] Comment on above: Order Comment: FASTI NG:YES FASTING: YES Performed By: #### 7 600, 60688, 43808 #### [facility] [address], [address] [place] [address] Guest Services Manager: Kiran Cortez MD Cholesterol in LDL [Mass/Vol] 48 mg/dL Normal [facility] Comment on above: Order Comment: FASTI NG:YES FASTING: YES Result Comment: Refe rence range: <100 Desirable range <100 mg/dL for primary prevention; <70 mg/dL for patients with CHD or diabetic patients with > or = 2 CHD risk factors. LDL-C is now calculated using the Micha calculation, which is a validated novel method providing better accuracy than the Friedewald equation in the estimation of LDL-C. Jose Cruz PATTEN et al. ROMELIA. 2013;310(19): 5584-7038 (http://education.[employer].Andre Phillipe/faq/BWR535) Performed By: #### 7 600, 04988, 02255 #### [facility] [address], [address] [place] [address] Guest Services Manager: Kiran Cortez MD Cholesterol.total /Cholesterol in HDL [Mass ratio] 2.2 {ratio} Normal <5.0 [facility] Comment on above: Order Comment: FASTI NG:YES FASTING: YES Performed By: #### 7 600, 56645, 18574 #### [facility] [place] [address] Guest Services Manager: Kiran Cortez MD NON HDL CHOLESTEROL 68 mg/dL (calc) Normal <130 [facility] Comment on above: Order Comment: FASTI NG:YES FASTING: YES Result Comment: For patients with diabetes plus 1 major ASCVD risk factor, treating to a non-HDL-C goal of <100 mg/dL (LDL-C of <70 mg/dL) is considered a therapeutic option. Performed By: #### 7 600, 75111, 85524 #### [facility] [place] [address] Guest Services Manager: Kiran Cortez MD Triglyceride [Mass/Vol] 115 mg/dL Normal <150 [facility] Comment on above: Order Comment: FASTI NG:YES FASTING: YES Performed By: #### 7 600, 87728, 67927 #### [facility] [place] [address] Guest Services Manager: Kiran Cortez MD TSH+FREE T4on 11-29-2020 Free T4 [Mass/Vol] 1.2 ng/dL Normal 0.8-1.8 [facility] Comment on above: Performed By: #### 7 600, 80188, 29916 #### [facility] [place] [address] Guest Services Manager: Kiran Cortez MD TSH Qn 1.10 m[IU]/L Normal 0.40-4.50 [facility] Comment on above: Performed By: #### 7 600, 38938, 15761 #### [facility] [place] [address] Guest Services Manager: Kiran Cortez MD CBC AUTO DIFFon 08-20-2018 Basophils (Bld) [#/Vol] 0.1 103/ul Normal 0.0-0.1 [facility] Comment on above: Performed By: #### C BC #### [facility] [address] [place], [place] [id number] Sadiq Trini Basophils/100 WBC (Bld) 0.6 % Normal 0.2-2.0 [facility] Comment on above: Performed By: #### C BC #### [facility] [address] [place], [place] [id number] Sadiq Trini Eosinophils (Bld) [#/Vol] 0.3 103/ul Normal 0.0-0.7 [facility] Comment on above: Performed By: #### C BC #### [facility] [address] [place] [address] Sadiq Trini Eosinophils/100 WBC (Bld) 4.0 % Normal 0.9-7.0 [facility] Comment on above: Performed By: #### C BC #### [facility] [address] [place] [address] Sadiq Trini Erythrocyte distribution width (RBC) [Ratio] 13.0 % Normal 11.0-15.0 [facility] Comment on above: Performed By: #### C BC #### [facility] [address] [place], [place] [id number] Sadiq Trini Hematocrit (Bld) [Volume fraction] 39.7 % Normal 36.0-48.0 [facility] Comment on above: Performed By: #### C BC #### [facility] [address] [place], [place] [id number] Sadiq Trini Hemoglobin (Bld) [Mass/Vol] 13.4 g/dL Normal 12.0-16.0 [facility] Comment on above: Performed By: #### C BC #### [facility] [address] [place] [address] Sadiq Trini IG # 0.01 10e3/ul Normal 0.00-0.03 [facility] Comment on above: Performed By: #### C BC #### [facility] [address] [place] [address] Sadiq Trini IG % 0.1 % Normal 0.0-0.5 [facility] Comment on above: Performed By: #### C BC #### [facility] [address] [place], [place] [id number] Sadiq Trini Lymphocytes (Bld) [#/Vol] 2.0 103/ul Normal 1.2-3.8 [facility] Comment on above: Performed By: #### C BC #### [facility] [address] [place], [place] [id number] Sadiq Trini Lymphocytes/100 WBC (Bld) 24.3 % Normal 20.5-60.0 [facility] Comment on above: Performed By: #### C BC #### [facility] [address] [place], [place] [id number] Sadiq Trini MANUAL DIFF REQ NO Normal [facility] Comment on above: Performed By: #### C BC #### [facility] [address] [place], [place] [id number] Sadiq Trini MCH (RBC) [Entitic mass] 30.2 pg Normal 26.7-34.0 [facility] Comment on above: Performed By: #### C BC #### [facility] [address] [place], [place] [id number] Sadiq Trini MCHC (RBC) [Mass/Vol] 33.8 g/dL Normal 29.9-35.2 [facility] Comment on above: Performed By: #### C BC #### [facility] [address] [place], [place] [id number] Sadiq Trini MCV (RBC) [Entitic vol] 89.6 fL Normal 81.0-99.0 [facility] Comment on above: Performed By: #### C BC #### [facility] [address] [place], [place] [id number] Sadiq Trini Monocytes (Bld) [#/Vol] 0.6 103/ul Normal 0.3-0.8 [facility] Comment on above: Performed By: #### C BC #### [facility] [address] [place], [place] [id number] Sadiq Trini Monocytes/100 WBC (Bld) 7.7 % Normal 1.7-12.0 [facility] Comment on above: Performed By: #### C BC #### [facility] [address] [place], [place] [address] Sadiq Trini Neutrophils (Bld) [#/Vol] 5.2 103/ul Normal 1.4-6.5 [facility] Comment on above: Performed By: #### C BC #### [facility] [address] [place], [place] [address] Sadiq Trini Neutrophils/100 WBC (Bld) 63.3 % Normal 43.0-75.0 [facility] Comment on above: Performed By: #### C BC #### [facility] [address] [place], [place] [id number] Sadiq Trini Platelet mean volume (Bld) [Entitic vol] 11.1 fL Normal 9.5-13.5 [facility] Comment on above: Performed By: #### C BC #### [facility] [address] [place] [address] Sadiq Trini Platelets (Bld) [#/Vol] 285 103/ul Normal 150-450 [facility] Comment on above: Performed By: #### C BC #### [facility] [address] [place], [place] [id number] Sadiq Trini RBC (Bld) [#/Vol] 4.43 106/ul Normal 4.20-5.40 [facility] Comment on above: Performed By: #### C BC #### [facility] [address] [place], [place] [id number] Sadiq Trini WBC (Bld) [#/Vol] 8.3 103/ul Normal 4.0-11.0 [facility] Comment on above: Performed By: #### C BC #### [facility] [address] [place], [place] [address] Sadiq Trini CRPon 08-20-2018 CRP [Mass/Vol] 0.2 mg/dL Normal <=1.0 [facility] Comment on above: Performed By: #### C RP #### [facility] [address] [place], [place] [address] Sadiq Trini SED RATE [facility] 2018 SED RATE 10 mm/hr Normal <=30 [facility] Comment on above: Performed By: #### S EDR #### [facility] [address] [place], [place] [address] Sadiq Feliz SEDRH METHOD AND NORMAL CHANGE 06/24/15. RESULTS ARE NOT AFFECTED BY HEMATOCRIT. Normal [facility] Comment on above: Performed By: #### S EDR #### [facility] [address] [place], [place] [address] Sadiq Feliz Vital Signs Date Time Vital Sign Value Performing Clinician Faci lity 01-12-2025 13:38-0400 Body height 165.1 cm Taiwo [employer] DO Work Phone: [facility] [employer] 01-12-2025 13:38-0400 Body mass index (BMI) [Ratio] 31.52 kg/m2 Taiwo Furlong DO Work Phone: [facility] [employer] 01-12-2025 13:38-0400 Body temperature 97.7 [degF] Tai[facility]long [facility] 01-12-2025 13:38-0400 Body weight 85.91 kg Taiwo Furlong DO Work Phone: [facility] [employer] 01-12-2025 13:38-0400 Diastolic blood pressure 70 mm[Hg] Taiwo Furlong DO Work Phone: [facility] [employer] 01-12-2025 13:38-0400 Heart rate 56 /min Taiwo Furlong DO [facility] 01-12-2025 13:38-0400 Respiratory rate 18 /min Taiwo Furlong DO Work Phone: [facility] [employer] 01-12-2025 13:38-0400 SaO2% (BldA) [Mass fraction] 99 % Taiwo Furlong DO Work Phone: [facility] [employer] 01-12-2025 13:38-0400 Systolic blood pressure 120 mm[Hg] Taiwo Furlong DO Work Phone: [facility] [employer] 07-14-2024 13:24-0500 Body height 165.1 cm Taiwo Furlong DO Work Phone: [facility] [employer] 07-14-2024 13:24-0500 Body mass index (BMI) [Ratio] 30.45 kg/m2 Taiwo Furlong DO Work Phone: [facility] [employer] 07-14-2024 13:24-0500 Body temperature 97.7 [degF] Taiwo Furlong DO Work Phone: [facility] [employer] 07-14-2024 13:24-0500 Body weight 83.01 kg Taiwo Furlong DO Work Phone: [facility] [employer] 07-14-2024 13:24-0500 Diastolic blood pressure 62 mm[Hg] Taiwo Furlong DO Work Phone: [facility] [employer] 07-14-2024 13:24-0500 Heart rate 57 /min Taiwo Furlong DO Work Phone: [facility] [employer] 07-14-2024 13:24-0500 Respiratory rate 18 /min Taiwo Furlong DO Work Phone: [facility] [employer] 07-14-2024 13:24-0500 SaO2% (BldA) [Mass fraction] 97 % Taiwo Furlong DO Work Phone: [facility] [employer] 07-14-2024 13:24-0500 Systolic blood pressure 110 mm[Hg] Taiwo Furlong DO Work Phone: [facility] [employer] 05-18-2024 12:54-0500 Body height 165.1 cm Wayne Tran MD Work Phone: [facility] [employer] 05-18-2024 12:54-0500 Body mass index (BMI) [Ratio] 30.32 kg/m2 Wayne Tran MD Work Phone: [facility] 05-18-2024 12:54-0500 Body weight 82.64 kg Wayne Tran MD Work Phone: [facility] 05-18-2024 12:54-0500 Diastolic blood pressure 80 mm[Hg] Wayne Tran MD Work Phone: [facility] 05-18-2024 12:54-0500 Heart rate 59 /min Wayne Tran MD Work Phone: [facility] 05-18-2024 12:54-0500 SaO2% (BldA) [Mass fraction] 100 % Wayne Tran MD Work Phone: [facility] 05-18-2024 12:54-0500 Systolic blood pressure 138 mm[Hg] Wayne Tran MD Work Phone: [facility] 05-07-2024 13:32-0500 Body height 166.4 cm Lee Brown DPM Work Phone: [facility] 05-07-2024 13:32-0500 Body mass index (BMI) [Ratio] 28.68 kg/m2 Lee Brown DPM Work Phone: [facility] 05-07-2024 13:32-0500 Body weight 79.38 kg Lee Brown DPM Work Phone: [facility] 05-07-2024 13:32-0500 Respiratory rate 18 /min Lee Brown DPM Work Phone: [facility] 04-09-2024 13:15-0500 Body height 166.4 cm Lee Brown DPM Work Phone: [facility] 04-09-2024 13:15-0500 Body mass index (BMI) [Ratio] 28.68 kg/m2 Lee Brown DPM Work Phone: [facility] 04-09-2024 13:15-0500 Body weight 79.38 kg Lee Brown DPM Work Phone: [facility] 04-09-2024 13:15-0500 Respiratory rate 18 /min Lee Hester DPM Work Phone: [facility] 03-26-2024 15:30-0500 Body height 166.4 cm Lee Hester DPM Work Phone: [facility] 03-26-2024 15:30-0500 Body mass index (BMI) [Ratio] 28.68 kg/m2 Lee Hester DPM Work Phone: [facility] 03-26-2024 15:30-0500 Body weight 79.38 kg Lee Hester DPM Work Phone: [facility] 03-26-2024 15:30-0500 Diastolic blood pressure 84 mm[Hg] Lee Hester DPM Work Phone: [facility] 03-26-2024 15:30-0500 Heart rate 86 /min Lee Dakota DPM Work Phone: [facility] 03-26-2024 15:30-0500 Systolic blood pressure 133 mm[Hg] Lee Hester DPM Work Phone: [facility] 03-24-2024 12:50-0500 Body height 165.1 cm Taiwo Furlong DO Work Phone: [facility] 03-24-2024 12:50-0500 Body mass index (BMI) [Ratio] 29.62 kg/m2 Taiwo Furlong DO Work Phone: [facility] 03-24-2024 12:50-0500 Body weight 80.74 kg Taiwo Furlong DO Work Phone: [facility] 03-24-2024 12:50-0500 Diastolic blood pressure 72 mm[Hg] Taiwo Furlong DO Work Phone: [facility] 03-24-2024 12:50-0500 Systolic blood pressure 110 mm[Hg] Taiwo Furlong DO Work Phone: [facility] [employer] [facility] 01-16-2024 13:07-0400 Body height 165.1 cm Taiwo Furlong DO Work Phone: [facility] [employer] [facility] 01-16-2024 13:07-0400 Body mass index (BMI) [Ratio] 29.29 kg/m2 Taiwo Furlong DO Work Phone: [facility] [employer] 01-16-2024 13:07-0400 Body temperature 98.2 [degF] Taiwo Furlong DO Work Phone: [facility] [employer] [facility] 01-16-2024 13:07-0400 Body weight 79.83 kg Taiwo Furlong DO Work Phone: [facility] [employer] [facility] 01-16-2024 13:07-0400 Diastolic blood pressure 70 mm[Hg] Taiwo Furlong DO Work Phone: [facility] [employer] [facility] 01-16-2024 13:07-0400 Heart rate 55 /min Taiwo Furlong DO Work Phone: [facility] [employer] 01-16-2024 13:07-0400 SaO2% (BldA) [Mass fraction] 95 % Taiwo Furlong DO Work Phone: [facility] [employer] [facility] 01-16-2024 13:07-0400 Systolic blood pressure 110 mm[Hg] Taiwo Furlong DO Work Phone: [facility] [employer] [facility] 12-04-2023 14:24-0400 Body height 165.1 cm Eveline Gates RADIOLOGY RESIDENT-POWER DISTRIBUTION ENGINEER Work Phone: [facility] [employer] [facility] 12-04-2023 14:24-0400 Body mass index (BMI) [Ratio] 2.83 kg/m2 Eveline Gates RADIOLOGY RESIDENT-POWER DISTRIBUTION ENGINEER Work Phone: [facility] [employer] [facility] 12-04-2023 14:24-0400 Body temperature 98.71 [degF] Eveline Gates RADIOLOGY RESIDENT-POWER DISTRIBUTION ENGINEER Work Phone: [employer] 12-04-2023 14:24-0400 Body weight 7.71 kg Eveline Gates RADIOLOGY RESIDENT-POWER DISTRIBUTION ENGINEER Work Phone: [employer] 12-04-2023 14:24-0400 Diastolic blood pressure 60 mm[Hg] Eveline Gates RADIOLOGY RESIDENT-POWER DISTRIBUTION ENGINEER [facility] 12-04-2023 14:24-0400 Heart rate 61 /min Eveline Gates RADIOLOGY RESIDENT-POWER DISTRIBUTION ENGINEER Work Phone[facility] 12-04-2023 14:24-0400 Respiratory rate 18 /min Eveline Gates RADIOLOGY RESIDENT-POWER DISTRIBUTION ENGINEER Work [facility] 12-04-2023 14:24-0400 SaO2% (BldA) [Mass fraction] 95 % Eveline Gates APRN-POWER DISTRIBUTION ENGINEER Work Phone[facility] 12-04-2023 14:24-0400 Systolic blood pressure 100 mm[Hg] Eveline Gates RADIOLOGY RESIDENT-POWER DISTRIBUTION ENGINEER Work Phone: [employer] 08-23-2023 11:21-0400 Diastolic blood pressure 67 mm[Hg] Dianne Combs DO [facility] 08-23-2023 11:21-0400 Systolic blood pressure 119 mm[Hg] Dianne Harrisston DO Work Phone[facility] 08-23-2023 07:56-0400 Body temperature 98.01 [degF] Dianne Garret DO Work Phone: [employer] 08-23-2023 07:56-0400 Heart rate 67 /min Dianne Combs DO [facility] 08-23-2023 07:56-0400 Respiratory rate 16 /min Dianne Garret DO [facility] 08-23-2023 07:56-0400 SaO2% (BldA) [Mass fraction] 92 % Dianne Combs DO Work Phone: [facility] [employer] 08-23-2023 05:10-0400 Body mass index (BMI) [Ratio] 30.05 kg/m2 Dianne Combs DO Work Phone: [facility] [employer] 08-23-2023 05:10-0400 Body weight 81.92 kg Dianne Combs DO Work Phone: [facility] [employer] 08-21-2023 10:22-0400 Body height 165.1 cm Dianne Combs DO Work Phone: [facility] [employer] 08-05-2023 14:55-0400 Body height 165.1 cm Taiwo Ayala DO Work Phone: [facility] [employer] 08-05-2023 14:55-0400 Body mass index (BMI) [Ratio] 31.12 kg/m2 Taiwo Furlong DO Work Phone: [facility] [employer] 08-05-2023 14:55-0400 Body temperature 97 [degF] Taiwo Furlong DO Work Phone: [facility] [employer] 08-05-2023 14:55-0400 Body weight 84.82 kg Taiwo Furlong DO Work Phone: [facility] [employer] 08-05-2023 14:55-0400 Diastolic blood pressure 70 mm[Hg] Taiwo Furlong DO Work Phone: [facility] [employer] 08-05-2023 14:55-0400 Heart rate 63 /min Taiwo Furlong DO Work Phone: [facility] [employer] 08-05-2023 14:55-0400 SaO2% (BldA) [Mass fraction] 97 % Taiwo Furlong DO Work Phone: [facility] [employer] 08-05-2023 14:55-0400 Systolic blood pressure 126 mm[Hg] Taiwo Furlong DO Work Phone: [facility] 07-25-2023 10:59-0500 Body height 165.1 cm [facility] 1 [facility] 07-25-2023 10:59-0500 Body mass index (BMI) [Ratio] 30.95 kg/m2 [facility] 1 [facility] 07-25-2023 10:59-0500 Body weight 84.37 kg Pmh 1 [facility] 07-12-2023 10:20-0500 Body height 165.1 cm Taiwo Furlong DO Work Phone: [facility] 07-12-2023 10:20-0500 Body mass index (BMI) [Ratio] 31.02 kg/m2 Taiwo Furlong DO Work Phone: [facility] 07-12-2023 10:20-0500 Body temperature 98.71 [degF] Taiwo Furlong DO Work Phone: [facility] 07-12-2023 10:20-0500 Body weight 84.55 kg Taiwo Furlong DO Work Phone: [facility] 07-12-2023 10:20-0500 Diastolic blood pressure 60 mm[Hg] Taiwo Furlong DO Work Phone: [facility] 07-12-2023 10:20-0500 Heart rate 64 /min Taiwo Furlong DO Work Phone: [facility] 07-12-2023 10:20-0500 SaO2% (BldA) [Mass fraction] 93 % Taiwo Furlong DO Work Phone: [facility] 07-12-2023 10:20-0500 Systolic blood pressure 112 mm[Hg] Taiwo Furlong DO Work Phone: [facility] 05-17-2023 14:23-0500 Body height 165.1 cm Geremias Orellana MD Work Phone: [facility] 05-17-2023 14:23-0500 Body mass index (BMI) [Ratio] 32.12 kg/m2 Geremias Orellana MD [facility] 05-17-2023 14:23-0500 Body weight 87.54 kg Geremias Orellana MD Work Phone[facility] 05-17-2023 14:23-0500 Diastolic blood pressure 76 mm[Hg] Geremias Orellana MD Work Phone: [facility] [employer] 05-17-2023 14:23-0500 Heart rate 63 /min Geremias Orellana MD Work Phone: [facility] [employer] 05-17-2023 14:23-0500 SaO2% (BldA) [Mass fraction] 93 % Geremias Orellana MD Work [facility] 05-17-2023 14:23-0500 Systolic blood pressure 126 mm[Hg] Geremias Orellana MD Work Phone: [facility] [employer] Encounters Encounter Date Encounter Type Care Provider Facility Start: 01-18-2025 End: 01-18-2025 Refill Taiwo Ayala DO Work Phone: [facility] Comment on above: Hyperlipidemia, unsp ecified Start: 01-13-2025 End: 01-14-2025 Follow-up encounter Taiwo Watters Phone: [facility] Comment on above: Thyroid profile incl udes TSH FT4, Hemoglobin A1c, Lipid profile, Comprehensive metabolic panel Start: 01-12-2025 End: 01-12-2025 ambulatory [facility] Start: 01-12-2025 End: 01-12-2025 Office outpatient visit 25 minutes Taiwo Ayala DO Work Phone: [facility] Comment on above: Essential hypertensi on (Primary Dx); Anxiety; Unspecified asthma, uncomplicated; Degeneration of intervertebral disc of lumbar region with discogenic back pain and lower extremity pain; Mixed hyperlipidemia; Impaired glucose tolerance; Hypothyroidism, unspecified type; Overactive bladder Start: 12-07-2024 End: 12-07-2024 Refill Taiwo Aga Furlong DO Work Phone: [facility] Comment on above: Insomnia, unspecifie d; Unspecified asthma, uncomplicated Start: 11-23-2024 End: 11-23-2024 Refill Taiwo Aga Furlong DO Work Phone: [facility] Comment on above: Anxiety Start: 11-12-2024 End: 11-12-2024 Refill Taiwo G Furlong DO Work Phone: [facility] [place] Comment on above: Prediabetes Start: 10-13-2024 End: 10-13-2024 Refill Taiwo G Furlong DO Work Phone: [facility] [facility], [place], operated by [facility] Comment on above: Hyperlipidemia, unsp ecified Start: 09-16-2024 End: 09-18-2024 Telephone encounter Theodora Pierre [facility] Comment on above: Insomnia, unspecifie d Start: 09-14-2024 End: 09-14-2024 ambulatory Flor Mg MD Facility: [facility] Start: 09-09-2024 End: 09-09-2024 Refill Taiwo G Furlong DO Work Phone: [facility] Comment on above: Hypothyroidism, unsp ecified Start: 09-07-2024 End: 09-07-2024 Refill Taiwo G Furlong DO Work Phone: [facility] Comment on above: Overactive bladder Start: 09-07-2024 End: 09-07-2024 ambulatory Flor Mg MD Facility:[facility] Start: 08-24-2024 End: 08-24-2024 Bamboo flowslucio Velez NP Work Phone: [facility] Start: 08-24-2024 End: 08-24-2024 Bamboo flowsheet Sergio Velez SAS PROGRAMMER ANALYST Work Phone: [facility] Start: 08-24-2024 End: 08-24-2024 Office outpatient visit 15 minutes Sergio Velez SAS PROGRAMMER ANALYST Work Phone: [facility] Comment on above: S/P total right hip arthroplasty; Primary osteoarthritis of right hip; Lumbar pain Start: 08-24-2024 End: 08-24-2024 ambulatory SERGIO VELEZ Not Available Start: 07-15-2024 End: 07-15-2024 Orders Only Taiwo Ayala DO Work Phone: [facility] Start: 07-14-2024 End: 07-14-2024 ambulatory [facility] Start: 07-14-2024 End: 07-14-2024 Office outpatient visit 25 minutes Taiwo Ayala DO Work Phone: [facility] Comment on above: Essential hypertensi on (Primary Dx); Vitamin D deficiency; Impaired glucose tolerance; Recurrent major depressive disorder, in full remission ([facility]); Class 1 obesity due to excess calories with serious comorbidity and body mass index (BMI) of 30.0 to 30.9 in adult Start: 07-14-2024 End: 07-14-2024 ambulatory [facility] Start: 06-08-2024 End: 06-08-2024 Refill Taiwo Ayala DO Work Phone: [facility] Comment on above: Essential hypertensi on Start: 05-30-2024 End: 05-31-2024 Refill Taiwo Ayala DO Work Phone: [facility] Comment on above: Unspecified asthma, uncomplicated Start: 05-18-2024 End: 05-18-2024 Office outpatient visit 15 minutes Wayne Tran MD Work Phone: [facility] Comment on above: Essential hypertensi on (Primary Dx) Start: 05-18-2024 End: 05-18-2024 ambulatory WAYNE LUGOFLORENTIN [facility] Start: 05-15-2024 End: 05-15-2024 Telephone encounter Candelaria Sofi LINTON [facility] Start: 05-07-2024 End: 05-07-2024 Bamboo flowsheet Lee Hester DPM Work Phone: [facility] Start: 05-07-2024 End: 05-07-2024 Bamboo flowsheet Lee Moffett Brown DPM Work Phone: [facility] Start: 05-07-2024 End: 05-07-2024 Office outpatient visit 15 minutes Lee Hester DPM Work Phone: [facility] Comment on above: Capsulitis of metata rsophalangeal (MTP) joint of left foot (Primary Dx); Capsulitis of metatarsophalangeal (MTP) joint of right foot Start: 05-07-2024 End: 05-07-2024 ambulatory LEE HESTER Not Available Start: 04-09-2024 End: 04-09-2024 Bamboo flowsheet Lee Moffett Brown DPM Work Phone: [facility] Start: 04-09-2024 End: 04-09-2024 Bamboo flowsheet Lee Moffett Brown DPM Work Phone: [facility] Start: 04-09-2024 End: 04-09-2024 Office outpatient visit 15 minutes Lee Hester DPM Work Phone: [facility] Comment on above: Capsulitis of metata rsophalangeal (MTP) joint of left foot (Primary Dx); Capsulitis of metatarsophalangeal (MTP) joint of right foot Start: 04-09-2024 End: 04-09-2024 ambulatory LEE HESTER Not Available Start: 03-26-2024 End: 03-26-2024 Office outpatient new 30 minutes Lee Hester DPM Work Phone: [facility] Comment on above: Capsulitis of metata rsophalangeal (MTP) joint of left foot (Primary Dx); Capsulitis of metatarsophalangeal (MTP) joint of right foot; Contracture of left ankle; Contracture of right ankle Start: 03-26-2024 End: 03-26-2024 ambulatory LEE HESTER Not Available Start: 03-26-2024 End: 03-26-2024 Bamboo flowsheet Lee Hester DPM Work Phone: [facility] Start: 03-26-2024 End: 03-26-2024 Bamboo flowsheet Lee Hester DPM Work Phone: [facility] Start: 03-24-2024 End: 03-24-2024 Patient encounter procedure Taiwo Ayala DO Work Phone: [facility] Comment on above: Medicare annual well ness visit, subsequent (Primary Dx); Screening for depression Start: 03-24-2024 End: 03-24-2024 ambulatory [facility] Start: 03-20-2024 End: 03-22-2024 Refill Taiwo Aylaa DO Work Phone: [facility] Comment on above: Hypothyroidism, unsp ecified Start: 02-16-2024 End: 02-17-2024 Refill Delaney Allan RADIOLOGY RESIDENT-POWER DISTRIBUTION ENGINEER Work Phone: [facility] Comment on above: Overactive bladder Start: 02-11-2024 End: 02-11-2024 Bamboo flowsheet Dianne Combs DO Work Phone: [facility] Start: 02-11-2024 End: 02-11-2024 Bamboo flowsheet Dianne Combs DO Work Phone: [facility] Start: 02-11-2024 End: 02-11-2024 Office outpatient visit 25 minutes Dianne Moffett Garret DO Work Phone: [facility] Comment on above: Arthritis of right k nee (Primary Dx); Primary osteoarthritis of right hip; S/P total right hip arthroplasty; S/P total knee arthroplasty, right; Trigger point Start: 02-11-2024 End: 02-11-2024 ambulatory DIANNE RICKETTSDLESTON Not Available Start: 02-10-2024 End: 02-14-2024 Refill Jaquelin Garcia RADIOLOGY RESIDENT-POWER DISTRIBUTION ENGINEER Work Phone: [facility] Comment on above: Med Refill Start: 01-22-2024 End: 01-22-[address] [facility] Start: 01-18-2024 End: 01-20-2024 Refill Taiwo Ayala DO Work Phone: [facility] Comment on above: Hyperlipidemia, unsp ecified Start: 01-16-2024 End: 01-16-2024 Office outpatient visit 25 minutes Taiwo Ayala DO Work Phone: [facility] Comment on above: Essential hypertensi on (Primary Dx); Anxiety; Impaired glucose tolerance; Acquired hypothyroidism; Anemia, unspecified type; Insomnia, unspecified; Hyperlipidemia, unspecified; Hypersomnia; Overweight Start: 01-16-2024 End: 01-16-2024 ambulatory [facility] Start: 01-03-2024 End: 01-03-2024 Orders Only Shamika Russ RN [facility] Comment on above: Essential hypertensi on (Primary Dx) Start: 01-01-2024 End: 01-01-[address] [facility] Start: 12-21-2023 End: 12-22-2023 [facility] Work [facility]: [facility] Comment on above: Hypothyroidism, unsp ecified Start: 12-15-2023 End: 12-22-2023 Refill Taiwo Yung Furlong DO Work Phone: [facility] Comment on above: Overactive bladder Start: 12-04-2023 End: 12-04-2023 Office outpatient visit 15 minutes Eveline Gates RADIOLOGY RESIDENT-POWER DISTRIBUTION ENGINEER Work Phone: [facility] Comment on above: Acute conjunctivitis of both eyes, unspecified acute conjunctivitis type (Primary Dx) Start: 12-04-2023 End: 12-04-2023 ambulatory EMILY DILL Not Available Start: 12-03-2023 End: 12-04-2023 Refill Derrick Harvey C[facility] Comment on above: Anxiety Start: 12-02-2023 End: 12-02-2023 ambulatory EMILY DILL Not Available Start: 11-29-2023 End: 12-02-2023 ambulatory ASIF RODRIBLEY Not Available Start: 11-27-2023 End: 11-27-2023 ambulatory MAK BRINK Not Available Start: 11-20-2023 End: 11-20-2023 ambulatory EMILY Castillo PHILTON Not Available Start: 11-18-2023 End: 11-22-2023 Refill Taiwo Yung Furlong DO Work Phone: [facility] Comment on above: Prediabetes Med Refill Start: 11-18-2023 End: 11-18-2023 ambulatory MAK BRINK Not Available Start: 11-14-2023 End: 11-14-2023 ambulatory ASIF KELBLEY Not Available Start: 11-12-2023 End: 11-12-2023 ambulatory ASIF KELBLEY Not Available Start: 11-07-2023 End: 2023 ambulatory EMILY Castillo PHILTON Not Available Start: 11-05-2023 End: 11-05-2023 ambulatory ASIF RODRIBLEY Not Available Start: 11-05-2023 End: 11-05-2023 Refill Taiwo Webblong DO [facility] Comment on above: Unspecified asthma, uncomplicated Start: 10-31-2023 End: 10-31-2023 ambulatory ASIF SANDRA Not Available Start: 10-29-2023 End: 10-29-2023 ambulatory ASIF SANDRA Not Available Start: 10-28-2023 End: 10-28-2023 ambulatory GEREMIAS ORELLANA [facility] Start: 10-24-2023 End: 10-24-2023 ambulatory ASIF SANDRA Not Available Start: 10-22-2023 End: 10-22-2023 ambulatory EMILY DILL Not Available Start: 10-01-2023 End: 10-01-2023 ambulatory DIANNE COMBS Not Available Start: 09-17-2023 End: 09-17-2023 Refill Taiwo Ayala DO Work Phone: [facility] Comment on above: Hypothyroidism, unsp ecified; Essential hypertension Start: 09-10-2023 End: 09-10-2023 ambulatory DIANNE COMBS Not Available Start: 09-03-2023 End: 09-03-2023 ambulatory DIANNE COMBS Not Available Start: 08-21-2023 End: 08-23-2023 ambulatory DIANNE COMBS [facility] Start: 08-21-2023 End: 08-23-2023 Subsequent hospital visit by physician Dianne Combs DO Work Phone: [facility] Comment on above: Post-operative pain (Primary Dx); Primary osteoarthritis of right hip Start: 08-12-2023 End: 08-12-2023 ambulatory TAIWO Yung [facility] Start: 08-05-2023 End: 08-05-2023 Office outpatient visit 15 minutes Taiwo Ayala DO Work Phone: [facility] Comment on above: Primary osteoarthrit is of right hip (Primary Dx); Pre-op evaluation; Essential hypertension Start: 08-05-2023 End: 08-05-2023 Preprocedural examination done Taiwo Ayala DO Work Phone: [facility] Start: 07-25-2023 End: 07-25-2023 Patient encounter procedure [facility] Pre-Admission Testing 1 [facility] - Pre Admit Comment on above: Essential hypertensi on (Primary Dx); Type 2 diabetes mellitus without complication, without long-term current use of insulin ([facility]); Preop examination; Anemia, unspecified type Start: 07-25-2023 End: 07-25-2023 Preprocedural examination done [facility] 1 [facility] Start: 07-25-2023 End: 07-25-2023 ambulatory DIANNE COMBS [facility] Start: 07-25-2023 Encounter for other preprocedural examination TAIWO WEBBOFE [facility] Start: 07-12-2023 End: 07-12-2023 Office outpatient visit 25 minutes Taiwo Ayala DO Work Phone: [facility] Comment on above: Type 2 diabetes manish itus without complication, without long- term current use of insulin ([facility]) (Primary Dx); Essential hypertension; Mixed hyperlipidemia; Insomnia, unspecified; Recurrent major depressive disorder, in full remission ([facility]); Obesity with body mass index 30 or greater Start: 06-18-2023 Telephone encounter Adrianna Grayson RN [facility] Comment on above: Surgical Or Dental C learance Start: 05-29-2023 Refill Lucila Tran Dwight RADIOLOGY RESIDENT-ASSESSMENT ANALYST Work Phone: [facility] Comment on above: Anxiety Start: 05-17-2023 End: 05-17-2023 Office outpatient visit 15 minutes Geremias Orellana MD Work Phone: [facility] Comment on above: Essential hypertensi on (Primary Dx); Mild mitral regurgitation; Mild tricuspid regurgitation; Dyslipidemia Start: 05-17-2023 Refill Taiwo thakur DO Work Phone: [facility] Comment on above: Prediabetes; Essential hypertension Overactive bladder; Unspecified asthma, uncomplicated Start: 05-17-2023 Telephone encounter Marcia Meredith RN [facility] Start: 05-16-2023 Telephone encounter July WILLIAMSON [facility] Start: 10-03-2022 End: 10-03-2022 ambulatory Referral Self Facility:[facility] Start: 08-01-2022 ambulatory ERISWILMA GILL Facili ty:[facility] Start: 05-30-2022 End: 09-17-2022 ambulatory Nyasia Key [facility] Start: 05-25-2022 ambulatory ERIS GILL Facility :[facility] Start: 05-23-2022 End: 05-24-2022 ambulatory Nyasia MAmarilys Shahid Facility:[facility] Start: 05-23-2022 End: 05-23-2022 Patient encounter procedure Nyasia Key [facility] Start: 02-26-2022 End: 02-28-2022 ambulatory Antoine Uriostegui Facility:[facility] Start: 02-21-2022 End: 02-22-2022 ambulatory Dianne House Elm Mott Facility:[facility] Start: 02-07-2022 End: 02-07-2022 [facility] Start: 12-09-2018 End: 01-01-2019 Patient encounter procedure TAIWO AYALA Facility: Start: 10-03-2018 Patient encounter procedure TAIWO AYALA Facility: Start: 08-20-2018 End: 08-21-2018 Patient encounter procedure LUCILA JUAN Facility: Procedures Date Procedure Procedure Detail Performing Clinician Start: 01-12-2025 Comprehensive metabo lic panel Taiwo Ayala DO Work Phone: Start: 01-12-2025 Lipid panel Taiwo south DO Work Phone: Start: 01-12-2025 Adult depression scr eening assessment Taiwo Ayala DO Work Phone: Start: 08-24-2024 Radex hip unilateral with pelvis 2-3 views Sergio Velez SAS PROGRAMMER ANALYST Work Phone: Start: 05-18-2024 Follow-up visit Follow-up WAYNE LANGE Start: 03-24-2024 Adult depression scr eening assessment Taiwo Furlong DO Work Phone: Start: 02-11-2024 Injection single/advertising production manager trigger point 1/2 muscles Dianne Combs DO Work Phone: Start: 02-11-2024 End: 02-11-2024 Radex hip unilateral with pelvis 2-3 views Dianne Combs DO Work Phone: Start: 01-16-2024 Adult depression scr eening assessment Taiwo Furlong DO Work Phone: Start: 12-04-2023 Adult depression scr eening assessment Derrick Harvey CMA Start: 08-23-2023 Blood count hemoglobin Sergio Castillo Velez RADIOLOGY RESIDENT-POWER DISTRIBUTION ENGINEER Work Phone: Start: 08-21-2023 End: 08-21-2023 Radex hip unilateral with pelvis 2-3 views Dianne Combs DO Work Phone: Start: 08-21-2023 End: 08-21-2023 Arthrp acetblr/prox fem prostc agrft/algrft Dianne Combs DO Work Phone: Start: 08-21-2023 REPEATED ABORH Dianne Combs DO Work Phone: Start: 08-05-2023 Adult depression scr eening assessment Taiwo Furlong DO Work Phone: Start: 07-12-2023 Adult depression scr eening assessment Taiwo Furlong DO Work Phone: Start: 01-15-2023 Adult depression scr eening assessment July Roman A Start: 02-26-2022 Total knee replacement Nyasia Key Comment on above: Outside Source Comme nt: right Appendectomy Nyasia Lue Cholecystectomy Nyasia Lue Hysterectomy Nyasia Lue Ligation of fallopian tube K fermin Key Plan of Treatment Date Care Activity Detail Author Start: 07-14-2034 DTaP,Tdap and Td Vaccines (3 - Td or Tdap) DTaP,Tdap and Td Vaccines (3 - Td or Tdap) [facility] Start: 01-12-2026 Depression Screening Depression Screening [facility] Start: 01-12-2026 Fall Risk Screening Fall Risk Screening [facility] Start: 01-12-2026 Tobacco Screening Tobacco Screening [facility] Start: 09-09-2025 End: 09-09-2025 Patient encounter procedure 09/09/2025 1:00 PM EDT Office Visit [facility] [address] [place] [phone] Sergio Velez, SAS PROGRAMMER ANALYST [address] [place] [address] [facility] Start: 09-03-2025 Fall Risk Screening Fall Risk Screening [facility] Start: 07-14-2025 Tobacco Screening Tobacco Screening [facility] Start: 06-14-2025 End: 06-14-2025 Patient encounter procedure 06/14/2025 1:00 PM EST [facility] [address] [place] [address] Taiwo Ayala, DO [address], [facility] [place] [address] [facility] Start: 05-18-2025 Tobacco Screening Tobacco Screening [facility] Start: 03-24-2025 Depression Screening Depression Screening [facility] Start: 03-24-2025 Fall Risk Screening Fall Risk Screening [facility] Start: 03-24-2025 Medicare Annual Wellness Visit Medicare Annual Wellness Visit [facility] Start: 03-22-2025 End: 03-22-2025 Patient encounter procedure 03/22/2025 1:00 PM EST Office Visit [facility] [address] [place] [address] Lola Begum, RADIOLOGY RESIDENT-POWER DISTRIBUTION ENGINEER [address] [place] [address] [facility] Start: 01-18-2025 COVID-19 Vaccine (8 - Pfizer risk season) COVID-19 Vaccine (8 - Pfizer risk ) [facility] Start: 01-18-2025 Influenza vaccination Influenza Vaccine [facility] Start: 01-15-2025 Adult BMI Follow Up Plan Adult BMI Follow Up Plan [facility] Start: 01-15-2025 Adult BMI Screening Adult BMI Screening [facility] Start: 01-15-2025 Depression Screening Depression Screening [facility] Start: 01-15-2025 Fall Risk Screening Fall Risk Screening [facility] Start: 01-15-2025 Tobacco Screening Tobacco Screening [facility] Start: 01-12-2025 End: 01-12-2025 Patient encounter procedure 01/12/2025 1:30 PM EDT Office Visit [facility] [address] [place] [address] Taiwo Ayala, [address], [place] [address] [facility] Start: 12-03-2024 Adult BMI Follow Up Plan Adult BMI Follow Up Plan [facility] Start: 12-03-2024 Adult BMI Screening Adult BMI Screening [facility] Start: 12-03-2024 Depression Screening Depression Screening [facility] Start: 12-03-2024 Tobacco Screening Tobacco Screening [facility] Start: 08-29-2024 COVID-19 Vaccine (8 - Pfizer risk season) COVID-19 Vaccine (8 - Pfizer risk ) [facility] Start: 08-25-2024 End: 08-25-2024 Patient encounter procedure 08/25/2024 1:00 PM EDT Office Visit [facility] [address] [place] [id number] Sergio Velez, SAS PROGRAMMER ANALYST [address] [place] [address] [facility] Start: 08-24-2024 End: 08-24-2024 Patient encounter procedure 08/24/2024 1:00 PM EDT Office Visit [facility] [address] [facility] [place] [phone] Sergio Velez, SAS PROGRAMMER ANALYST [address] [place], [place] [id number] S/P total right hip arthroplasty [facility] Comment on above: S/P total right hip arthroplasty Start: 08-22-2024 Adult BMI Screening Adult BMI Screening [facility] Start: 08-20-2024 Tobacco Screening Tobacco Screening [facility] Start: 08-04-2024 Adult BMI Screening Adult BMI Screening [facility] Start: 08-04-2024 Depression Screening Depression Screening [facility] Start: 08-04-2024 Fall Risk Screening Fall Risk Screening [facility] Start: 08-04-2024 Tobacco Screening Tobacco Screening [facility] Start: 07-24-2024 Adult BMI Screening Adult BMI Screening [facility] Start: 07-24-2024 Tobacco Screening Tobacco Screening [facility] Start: 07-14-2024 End: 07-14-2024 Patient encounter procedure 07/14/2024 1:30 PM EST [facility] [address] [place] [address] Taiwo Ayala DO [address], [place] [address] [facility] Start: 07-12-2024 Adult BMI Screening Adult BMI Screening [facility] Start: 07-12-2024 Depression Screening Depression Screening [facility] Start: 07-12-2024 Fall Risk Screening Fall Risk Screening [facility] Start: 07-12-2024 Tobacco Screening Tobacco Screening [facility] Start: 05-18-2024 End: 05-18-2024 Patient encounter procedure 05/18/2024 1:15 PM EST Office Visit [facility] [address] [place] [phone] Wayne Tran MD [address] [place] [address] [facility] Start: 05-17-2024 Adult BMI Screening Adult BMI Screening [facility] Start: 05-17-2024 Tobacco Screening Tobacco Screening [facility] Start: 05-07-2024 End: 05-07-2024 Patient encounter procedure 05/07/2024 1:40 PM EST Office Visit [facility] [address] [facility] [address] [place] [phone] Lee Hester DPM [address] [address] Capsulitis of metatarsophalangeal (MTP) joint of left foot (Primary Dx); Capsulitis of metatarsophalangeal (MTP) joint of right foot [facility] Comment on above: Capsulitis of metatarsophalangeal (MTP) joint of left foot (Primary Dx); Capsulitis of metatarsophalangeal (MTP) joint of right foot Start: 04-25-2024 COVID-19 Vaccine ( season) COVID-19 Vaccine ( season) [facility] Start: 04-09-2024 End: 04-09-2024 Clinical Support 04/09/2024 1:00 PM EST Clinical Support [facility] [address] [facility] [address] [place] [phone] Lee Hester DPM [address] [address] Capsulitis of metatarsophalangeal (MTP) joint of left foot (Primary Dx); Capsulitis of metatarsophalangeal (MTP) joint of right foot [facility] Comment on above: Capsulitis of metatarsophalangeal (MTP) joint of left foot (Primary Dx); Capsulitis of metatarsophalangeal (MTP) joint of right foot Start: 03-26-2024 End: 03-26-2024 Patient encounter procedure 03/26/2024 3:30 PM EST Office Visit [facility] [address] [place] [address] Lee Hester, KAEL [address] [facility] [address] [place] [address] Arrived [facility] Comment on above: Arrived Start: 03-24-2024 End: 03-24-2024 Patient encounter procedure 03/24/2024 1:00 PM EST Office Visit [facility] [address] [place] [address] [facility] Start: 02-25-2024 End: 02-25-2024 Patient encounter procedure 02/25/2024 1:00 PM EDT Office Visit [facility] [address] [facility] [address] [place] [address] Dianne Combs, DO [address] [facility] [address] [place] [address] [facility] Start: 02-11-2024 End: 02-11-2024 Patient encounter procedure 02/11/2024 1:15 PM EDT Office Visit [facility] [address] [place] [address] Dianne Combs, DO [address] [facility] [address] [place] [address] Primary osteoarthritis of right hip; S/P total right hip arthroplasty [facility] Comment on above: Primary osteoarthritis of right hip; S/P total right hip arthroplasty Start: 01-21-2024 End: 01-21-2024 Patient encounter procedure 01/21/2024 1:00 PM EDT [facility] [address] [place] [address] [facility] Start: 01-19-2024 COVID-19 Vaccine ( season) COVID-19 Vaccine () [facility] Start: 01-19-2024 COVID-19 Vaccine () COVID-19 Vaccine () [facility] Start: 01-19-2024 Influenza vaccination [facility] Start: 01-16-2024 Depression Screening Depression Screening [facility] Start: 01-16-2024 Fall Risk Screening Fall Risk Screening [facility] Start: 01-16-2024 End: 01-02-2025 Magnesium [Mass/volume] in Serum or Plasma Magnesium Lab Routine Essential hypertension Expected: 01/16/2024 (Approximate), Expires: 01/02/2025 [facility] Work Phone: Comment on above: Expected: 01/16/2024 (Approximate), Expi res: 01/02/2025 Start: 01-16-2024 Medicare Annual Wellness Visit Medicare Annual Wellness Visit [facility] Start: 01-16-2024 End: 01-16-2024 Patient encounter procedure 01/16/2024 1:00 PM EDT [facility] [address] [place] [address] Taiwo Ayala, DO [address] [place] [address] [facility] - [facility] Start: 11-27-2023 Adult BMI Screening Adult BMI Screening [facility] Start: 11-27-2023 Tobacco Screening Tobacco Screening [facility] Start: 11-22-2023 End: 11-19-2024 Magnesium [Mass/volume] in Serum or Plasma Magnesium Lab Routine Essential hypertension Expected: 11/22/2023 (Approximate), Expires: 11/19/2024 [employer] Work Phone: Comment on above: Expected: 11/22/2023 (Approximate), Expi res: 11/19/2024 Start: 08-21-2023 End: 08-21-2023 Anesthesia consultation 08/21/2023 12:00 PM EDT Anesthesia Event [facility] [address] [place] [address] Julian Delacruz, DO [address] [facility] [place] [address] [facility] Start: 08-21-2023 End: 08-21-2023 Admission to same day surgery center [facility] Comment on above: REPLACEMENT TOTAL JOINT HIP [62511 (CPT )] REPLACEMENT TOTAL ALISSA INT HIP ANTERIOR SUPINE INTERMUSCULAR [82430 (CPT )] Start: 08-21-2023 End: 08-21-2023 Arthrp acetblr/prox fem prostc agrft/algrft [facility] Start: 08-21-2023 Subsequent hospital visit by physician [facility] Start: 08-12-2023 End: 07-11-2024 Crossmatch RBC Crossmatch RBC Blood Bank Routine Essential hypertension Type 2 diabetes mellitus without complication, without long-term current use of insulin ([facility]) Preop examination Anemia, unspecified type Expected: 08/12/2023, Expires: 07/11/2024 [employer] Comment on above: Expected: 08/12/2023, Expires: Start: 08-12-2023 End: 07-11-2024 Type and screen(includes indirect jay) Type and screen(includes indirect jay) Blood Bank Routine Essential hypertension Type 2 diabetes mellitus without complication, without long-term current use of insulin ([facility]) Preop examination Anemia, unspecified type Expected: 08/12/2023, Expires: 07/11/2024 [facility] Work Phone: Comment on above: Expected: 08/12/2023, Expires: Start: 08-05-2023 End: 08-05-2023 Patient encounter procedure 08/05/2023 3:00 PM EDT Office Visit [facility] - [facility] [address] [place] [address] Taiwo Ayala, DO [address] [place] [address] [facility] - [facility] Start: 07-25-2023 End: 07-25-2023 Patient encounter procedure 07/25/2023 11:15 AM EST Procedure visit [facility] [address] [place] [phone] [facility] Start: 07-12-2023 End: 07-12-2023 Patient encounter procedure 07/12/2023 10:30 AM EST Office Visit [facility] - Family Medicine [address] [place] [address] Taiwo Ayala, DO [address] [place] [address] [facility] - [facility] Start: 05-17-2023 End: 05-17-2023 Patient encounter procedure 05/17/2023 2:30 PM EST Office Visit [facility] [address] [phone] Geremias Orellana MD [address] [place] [address] [facility] Start: 05-03-2023 COVID-19 Vaccine ( season) COVID-19 Vaccine () [facility] [employer] [facility] Start: 02-13-2023 DTaP,Tdap and Td Vaccines (2 - Td or Tdap) DTaP,Tdap and Td Vaccines (2 - Td or Tdap) [facility] [employer] [facility] Start: 01-18-2023 COVID-19 Vaccine ( season) COVID-19 Vaccine () [facility] [employer] [facility] Start: 01-18-2023 Influenza vaccination Influenza Vaccine [facility] Start: 11-10-1963 Adult BMI Follow Up Plan [facility] End: 07-14-2025 Basic metabolic 2000 panel - Serum or Plasma Basic Metabolic Panel Lab Routine Essential hypertension 1 Occurrences starting 07/14/2024 until 07/14/2025 [employer] Phone: Comment on above: 1 Occurrences starting 07/14/2024 until 07/14/2025 End: 01-15-2025 CBC panel - Blood by Automated count CBC Lab Routine Anemia, unspecified type 1 Occurrences starting 01/16/2024 until 01/15/2025 [facility] [employer] Comment on above: 1 Occurrences starting 01/16/2024 until 01/15/2025 End: 01-15-2025 Comprehensive metabolic 2000 panel - Serum or Plasma Comprehensive metabolic panel Lab Routine Essential hypertension 1 Occurrences starting 01/16/2024 until 01/15/2025 [facility] Comment on above: 1 Occurrences starting 01/16/2024 until 01/15/2025 End: 01-15-2025 Hemoglobin A1c/Hemoglobin.total in Blood Hemoglobin A1c Lab Routine Impaired glucose tolerance 1 Occurrences starting 01/16/2024 until 01/15/2025 [facility] Comment on above: 1 Occurrences starting 01/16/2024 until 01/15/2025 End: 07-14-2025 Hemoglobin A1c/Hemoglobin.total in Blood Hemoglobin A1c Lab Routine Impaired glucose tolerance 1 Occurrences starting 07/14/2024 until 07/14/2025 [facility] Comment on above: 1 Occurrences starting 07/14/2024 until 07/14/2025 End: 05-17-2024 Lipid panel Lipid panel Lab Routine Essential hypertension 1 Occurrences starting 05/17/2023 until 05/17/2024 [facility] Work Phone: Comment on above: 1 Occurrences starting 05/17/2023 until 05/17/2024 End: 01-15-2025 Thyroid profile includes TSH FT4 Thyroid profile includes TSH FT4 Lab Routine Acquired hypothyroidism 1 Occurrences starting 01/16/2024 until 01/15/2025 [employer] Work Phone: Comment on above: 1 Occurrences starting 01/16/2024 until 01/15/2025 End: 07-14-2025 Vitamin D 25 hydroxy Vitamin D 25 hydroxy Lab Routine Vitamin D deficiency 1 Occurrences starting 07/14/2024 until 07/14/2025 [facility] Comment on above: 1 Occurrences starting 07/14/2024 until 07/14/2025 Immunizations Immunization Date Immunization Notes Care Provider [facility] 02-29-2024 influenza, high dose seasonal, preservative-free [employer] Work Phone: [facility] [employer] [facility] 02-29-2024 influenza virus vacc ine, unspecified formulation Lee Hester [facility] Work Phone: [facility] 02-26-2023 RSV, bivalent, prote in subunit RSVpreF, diluent reconstituted, 0.5 mL, PF [employer] Work Phone: [facility] [employer] 02-05-2023 Influenza, High-dose , Quadrivalent [employer] DO Work Phone: [facility] [employer] [facility] 02-05-2023 influenza virus vacc ine, unspecified formulation [facility] DO Work Phone: [facility] [employer] [facility] 09-18-2021 zoster vaccine recombinant Nyasia Key [facility] 09-01-2021 COVID-19, mRNA, LNP- S, PF, 100mcg/0.5mL Dose July [facility] 09-01-2021 SARS-CoV-2 mRNA (obvhkpgxjyn-efdg-xtywnm e) vaccine Nyasia Key [facility] 03-27-2021 zoster vaccine recombinant Nyasia Lue [facility] 03-07-2021 Influenza Vaccine, Quadrivalent, Adjuvanted July [facility] 03-07-2021 influenza virus vacc ine, unspecified formulation Nyasia Lue [facility] 03-07-2021 influenza, injectabl e, quadrivalent, preservative free July [facility] 02-13-2021 SARS-CoV-2 (COVID-19 ) mRNA BNT-162b2 vax Nyasia Lue [facility] 08-08-2020 SARS-CoV-2 (COVID-19 ) mRNA BNT-162b2 vax Nyasia Lue [facility] Comment on above: Result Comment: 2022: COMMUNICATION ANALYST: [employer] 07-18-2020 SARS-CoV-2 (COVID-19 ) mRNA BNT-162b2 vax Nyasia Lue [facility] 07-11-2020 SARS-CoV-2 (COVID-19 ) mRNA BNT-162b2 vax Nyasia Lue [facility] Comment on above: Result Comment: 2022: [id number] 06-20-2020 SARS-CoV-2 (COVID-19 ) mRNA BNT-162b2 vax Nyasia Lue [facility] Comment on above: Result Comment: 2022: [id number] 02-23-2020 influenza virus vacc ine, unspecified formulation Nyasia Lue [facility] 02-23-2020 influenza, injectabl e, quadrivalent, preservative free July [facility] 03-05-2019 influenza virus vacc ine, unspecified formulation Nyasia Lue [facility] 03-05-2019 influenza, injectabl e, quadrivalent, preservative free July [facility] 03-05-2019 Seasonal trivalent influenza vaccine, adjuvanted, preservative free July [facility] 02-25-2017 influenza nasal, unspecified formulation July [facility] 02-25-2017 influenza virus vacc ine, unspecified formulation July [facility] 02-25-2017 influenza, unspecifi ed formulation Nyasia Lue [facility] 03-29-2016 influenza virus vacc ine, unspecified formulation Nyasia Lue [facility] 02-18-2016 influenza nasal, unspecified formulation July [facility] 02-18-2016 influenza virus vacc ine, unspecified formulation July [facility] 02-18-2016 influenza, unspecifi ed formulation Nyasia Lue [facility] 01-23-2016 influenza virus vacc ine, unspecified formulation Nyasia Lue [facility] 01-23-2016 influenza, seasonal, injectable, preservative free Taiwo Furlong DO Work Phone: [facility] 08-22-2015 pneumococcal polysaccharide vaccine, 23 valent Nyasia Lue [facility] 02-18-2015 influenza nasal, unspecified formulation July [facility] 02-18-2015 influenza virus vacc ine, unspecified formulation Julyrebeca [facility] 02-18-2015 influenza, seasonal, injectable, preservative free Julyrebeca [facility] 02-18-2015 influenza, unspecifi ed formulation Nyasia Lue [facility] Comment on above: Result Comment: 2022: UNIT: UNKNOWN\.BR\COMMUNICATION ANALYST: [email or web address] 07-22-2014 pneumococcal conjuga te vaccine, 13 valent Nyasia Lue [facility] Comment on above: Result Comment: 2022: UNIT: UNKNOWN\.BR\COMMUNICATION ANALYST: WYETH 02-17-2013 pneumococcal polysaccharide vaccine, 23 valent Nyasia Lue [facility] Comment on above: Result Comment: 2022: COMMUNICATION ANALYST: MERCK 02-13-2013 influenza nasal, unspecified formulation Julyrebeca [facility] 02-13-2013 influenza virus vacc ine, unspecified formulation Julyrebeca [facility] 02-13-2013 influenza, unspecifi ed formulation Nyasia Lue [facility] Comment on above: Result Comment: 2022: UNIT: UNKNOWN 02-13-2013 tetanus toxoid, redu denise diphtheria toxoid, and acellular pertussis vaccine, adsorbed Nyasia Lue [facility] 05-01-2012 zoster vaccine, live Nyasia L ue [facility] 02-19-2011 influenza A monovale nt (H5N1), adjuvanted, National stockpile 2012 Julyrebeca [facility] 02-19-2011 influenza virus vacc ine, whole virus July [facility] 02-19-2011 influenza, high dose seasonal, preservative-free July [facility] 02-19-2011 influenza, whole Nyasia Key [facility] Payers Date Payer Category Payer Unknown [id number] 2022 Self-pay 2019 Managed Care Other (unspecified) [facility] [id number] .[id number] 2019 Private Health Insurance 1.2 .[id number] .[id number] 2008 Medicare [id number] 2008 Medicare [id number]. 1.13.693.2 .[id number] 1959 Medicare [id number] 1959 Unknown [id number] 1943 Unknown [id number] 2.16.840.1.920595.3.579.2 .593 1943 Unknown [id number] 2.16.840.1.867666.3.579.2 .593 1943 Unknown [id number] 2.16.840.1.186507.3.579.2 .593 1943 Unknown [id number] 2.16.840.1.370971.3.579.2 .718 1943 Unknown [id number] 2.16.840.1.814747.3.579.2 .1943 Unknown [id number] 2.16.840.1.228443.3.579.2 .1943 Unknown [id number] 2.16.840.1.085613.3.579.2 .1943 Unknown [id number] 2.16.840.1.478632.3.579.2 .1943 Unknown [id number] 2.16840.1.935226.3.579.2 .1943 Unknown [id number] 2.840.1.318357.3.579.2 .1285 1943 Unknown [id number] 2.840.1.217378.3.579.2 .1285 1943 Unknown [id number] 2.840.1.502134.3.579.2 .1285 1943 Unknown [id number] 2.840.1.681143.3.579.2 .1285 1943 Unknown [id number] 2.840.1.877270.3.579.2 .1285 1943 Unknown [id number] 2.16.840.1.300840.3.579.2 .1285 1943 Unknown [id number] 2.16.840.1.909753.3.579.2 .1285 1943 Unknown [id number] 2.16.840.1.687440.3.579.2 .1285 1943 Unknown [id number] 2.16.840.1.766366.3.579.2 .1285 1943 Unknown [id number] 2.16.840.1.520293.3.579.2 .1286 1943 Unknown [id number] 2.16.840.1.649611.3.579.2 .1259 1943 Unknown [id number] 2.16.840.1.211976.3.579.2 .1259 1943 Unknown [id number] 2.16.840.1.817189.3.579.2 .125 1943 Unknown [id number] 2.16.840.1.504510.3.579.2 .1259 1943 Unknown [id number] 2.16840.1.670434.3.579.2 .1259 1943 Unknown [id number] 2.16840.1.902391.3.579.2 .1259 1943 Unknown [id number] 2.840.1.156905.3.579.2 .125 1943 Unknown [id number] 2.16840.1.577311.3.579.2 .125 1943 Unknown [id number] 2.16840.1.166601.3.579.2 .125 1943 Unknown [id number] 2.16840.1.508965.3.579.2 .1259 1943 Unknown [id number] 2.16840.1.951558.3.579.2 .125 1943 Unknown [id number] 2.16.840.1.184505.3.579.2 .1259 1943 Unknown [id number] 2.16840.1.034237.3.579.2 .125 1943 Unknown [id number] 2.16840.1.364827.3.579.2 .1259 1943 Unknown [id number] 2.16840.1.582114.3.579.2 .1259 1944 Unknown [id number] 2.16.840.1.810342.3.579.2 .1258 1943 Unknown [id number] 2.16.840.1.826957.3.579.2 .1258 1943 Unknown [id number] 2.16.840.1.427753.3.579.2 .1258 1943 Unknown [id number] 2.16.840.1.657955.3.579.2 .1258 1943 Unknown [id number] 2.16.840.1.382399.3.579.2 .1258 1943 Unknown [id number] 2.16.840.1.676920.3.579.2 .1258 1943 Unknown [id number] 2.16840.1.516400.3.579.2 .1258 1943 Unknown [id number] 2.16840.1.580481.3.579.2 .1258 1943 Unknown [id number] 2.16.840.1.408564.3.579.2 .1258 1943 Unknown [id number] 2.16.840.1.156232.3.579.2 .1258 1943 Unknown [id number] 2.16840.1.087796.3.579.2 .1258 1943 Unknown [id number] 2.16.840.1.571712.3.579.2 .125 1943 Unknown [id number] 2.16.840.1.506260.3.579.2 .1943 Unknown [id number] 2.16.840.1.999682.3.579.2 .196 1943 Unknown [id number] 2.16.840.1.613833.3.579.2 .1286 1943 Unknown [id number] 2.16840.1.945345.3.579.2 .1286 1943 Unknown [id number] 2.16.840.1.868851.3.579.2 .1286 1943 Unknown [id number] 2.16.840.1.547367.3.579.2 .1286 Unknown [id number] 2.16.840.1.883760.3.579.2 .531 Social History Date Type Detail Facility Start: 01-16-2022 End: 05-23-2022 Tobacco smoking status Never smoked tobacco (finding) [facility] Tobacco smoking status Never [facility] Start: 03-24-2022 End: 07-30-2023 Sex Assigned At Female [facility] Start: 01-16-2022 End: 02-25-2023 Tobacco use and exposure Smokeless tobacco non-user [facility] Start: 09-10-2023 End: 01-12-2025 Alcoholic beverage intake Current drinker of alcohol (finding) [facility] Start: 03-24-2022 End: 09-10-2023 Alcoholic beverage intake [facility] Start: 02-25-2023 Alcohol Comment caffeine 2-3 cups/day [facility] Start: 1945 Sex assigned at Not on file [facility] Has the [employer], or [employer] threatened to shut off services in your home in past 12Mo No [facility] Do you belong to any clubs or organizations such as mosque groups, unions, fraternal or athletic groups, or school groups? Yes [facility] Are you now , , , , never or living with a partner? [facility] How often to you hav e a drink containing alcohol? 2-4 times a month [facility] How many standard dr inks containing alcohol do you have on a typical day? 1 or 2 [facility] How often do you hav e 6 or more drinks on 1 occasion? Never [facility] Do you feel stress - tense, restless, nervous, or anxious, or unable to sleep at night because your mind is troubled all the time - these days [OSQ] Only a little [employer] [facility] Start: 01-16-2022 Alcohol Comment occational glass of wine [facility] Start: 12-23-2014 Sex Female (finding) [facility] Medical Equipment Procedure Code Equipment Code Equipment Origin al Text Equipment Identifier Dates Liner Actb 36mm D Vivacit-E Lum G7 Hip Strl Lf - Sna - [id number] Start: 08-21-2023 Stem Fem 129d 3 45mm Xtd Os Fitmore Protasul-64 Hip Rgh - Sna - [id number] Start: 08-21-2023 Head Fem 36mm +0 mm 05/02 Tpr Unv Cocr Hip Strl Lf - Sna - [id number] Start: 08-21-2023 Shell Actb 50mm Hip 3 Hl Clr Cd [place] G7 D Hmsphr - [id number] Start: 08-21-2023 Screw Bn 30mm 6. 5[address] St Actb Selvin Trlg Strl Rpl [id number] - Sna - [id number] Start: 08-21-2023 Goals Date Patient Goal Desired Activity /State Personal health goal Comment on above: Formatting of this n ote might be different from the original. Evaluation of progress towards goal:Increase clonidine 0.1mg to BID A1C is excellent at 5.9% Monitor BP and pulse and will review at next visit Personal health goal Comment on above: Formatting of this n ote might be different from the original. Evaluation of progress towards goal: [facility] Functional Status Date Assessment Result Facility 05-23-2022 Functional Status N/A [facility] Clinical Notes 02-12-2022 to 01-13-2025 Telephone Encounter - Derrick Harvey CMA - 01/13/2025 2:01 PM EDTTelephone Encounter - Derrick Harvey CMA - 01/13/2025 2:01 PM EDTTaiwo Ayala DO - 01/12/2025 1:30 PM EDT Note Date & Type Note Facility 01-13-2025 Miscellaneous Notes Pt returned our call and I read result note. Pt verbally states she understands. documented in this encounter [facility] 01-13-2025 Telephone encounter Note Pt returned our call and I read result note. Pt verbally states she understands. [facility] 01-12-2025 History of Present illness Narrative Subjective Patient ID: Екатерина Shaffer is a 79 y.o. female. Екатерина is here today for a 6 mo. CV f/u. She is doing well. Since her last visit she was started on pregabalin for her polyneuropathy, which she notes has significantly improved her pain from a 10/10 to a 2/10. She notes that her blood pressure since starting the medication has significantly improved as well, and has recorded it at home around 120/60 for the last few months. She thinks the swelling in her legs is also improved since she started taking the pregabalin. She denies any cardiovascular symptoms, chest pain, shortness of breath, headaches, changes in vision, difficulty urinating. She notes that she has been having increased urinary frequency even with her oxybutinin. She hasn't had any accidents though. She notes that her back started hurting last Saturday and continues to ache today without any radiation of pain, around the L5 level. She has a history of degenerative disk disease at the same level. All questions and concerns were addressed during this visit. Hyperlipidemia Pertinent negatives include no chest pain or shortness of breath. Hypertension Pertinent negatives include no chest pain, headaches, palpitations or shortness of breath. The following portions of the patient's history were reviewed and updated as appropriate: allergies, current medications, past family history, past medical history, past social history, past surgical history, problem list, and medication reconciliation was completed including current medication and post discharge medication. Review of Systems Constitutional: Negative. Negative for activity change, appetite change, chills, diaphoresis, fatigue, fever and unexpected weight change. HENT: Negative. Eyes: Negative. Negative for visual disturbance. Respiratory: Negative. Negative for apnea, cough, choking, chest tightness, shortness of breath, wheezing and stridor. Cardiovascular: Negative. Negative for chest pain, palpitations and leg swelling. Gastrointestinal: Negative. Negative for nausea and vomiting. Endocrine: Negative. Genitourinary: Positive for frequency. Negative for difficulty urinating, dyspareunia, dysuria, enuresis and hematuria. Musculoskeletal: Positive for back pain. Negative for arthralgias and joint swelling. Skin: Negative. Allergic/Immunologic: Negative. Neurological: Negative for dizziness, syncope, weakness, numbness and headaches. Hematological: Negative. Psychiatric/Behavioral: Negative. Negative for agitation, behavioral problems and confusion. Objective Physical Exam Vitals reviewed. Exam conducted with a video library assistant present (Luigi Alva MS3). Constitutional: General: She is not in acute distress. Appearance: Normal appearance. She is obese. She is not ill-appearing, toxic-appearing or diaphoretic. HENT: Head: Normocephalic and atraumatic. Nose: Nose normal. Mouth/Throat: Mouth: Mucous membranes are moist. Pharynx: Oropharynx is clear. Eyes: Extraocular Movements: Extraocular movements intact. Conjunctiva/sclera: Conjunctivae normal. Cardiovascular: Rate and Rhythm: Normal rate and regular rhythm. Pulses: Normal pulses. Heart sounds: Normal heart sounds. No murmur heard. Pulmonary: Effort: Pulmonary effort is normal. No respiratory distress. Breath sounds: Normal breath sounds. No stridor. No wheezing, rhonchi or rales. Chest: Chest wall: No tenderness. Abdominal: General: Abdomen is flat. There is no distension. Palpations: Abdomen is soft. There is no mass. Tenderness: There is no abdominal tenderness. Musculoskeletal: General: No swelling, tenderness, deformity or signs of injury. Right lower leg: No edema. Left lower leg: No edema. Comments: Lower back pain Skin: General: Skin is warm and dry. Neurological: General: No focal deficit present. Mental Status: She is alert and oriented to person, place, and time. Mental status is at baseline. Psychiatric: Mood and Affect: Mood normal. Behavior: Behavior normal. Thought Content: Thought content normal. Judgment: Judgment normal. Assessment/Plan Екатерина was seen today for hyperlipidemia and hypertension. Diagnoses and all orders for this visit: Degeneration of intervertebral disc of lumbar region with discogenic back pain and lower extremity pain Recommend low back exercises. Anxiety - escitalopram (LEXAPRO) 5 mg tablet; Take 1 tablet (5 mg total) by mouth nightly. Renew lexapro. Unspecified asthma, uncomplicated - montelukast (SINGULAIR) 10 mg tablet; Take 1 tablet (10 mg total) by mouth every morning. Renew montelukast. Risks of depression discussed. She would like to continue it. Essential hypertension - Comprehensive metabolic panel; Future - Comprehensive metabolic panel Blood pressure at goal. Check CMP. Mixed hyperlipidemia - Lipid profile; Future - Lipid profile Check lipid panel. Impaired glucose tolerance - Hemoglobin A1c; Future - Hemoglobin A1c Check A1c to see if she has developed diabetes. Hypothyroidism, unspecified type - Thyroid profile includes TSH FT4; Future - Thyroid profile includes TSH FT4 Check TSH and T4. Overactive bladder Will try mybetriq 25 mg. Stop oxybutynin. Other orders - mirabegron (MYRBETRIQ) 25 mg tablet extended release 24 hr; Take 2 tablets (50 mg total) by mouth in the morning. Note composed on part by Luigi Alva, MS3 [facility] documented in this encounter [facility] 09-16-2024 Miscellaneous Notes Patient came in wondering if the trazadone can be decreased to 25mg? Yes. She can break it in 1/2 Notified via documented in this encounter [facility] 09-16-2024 Telephone encounter Note Patient came in wondering if the trazadone can be decreased to 25mg? [facility] 09-16-2024 Telephone encounter Note Yes. She can break it in 1/2 [facility] 09-16-2024 Telephone encounter Note Notified via VM [facility] 08-24-2024 History of Present illness Narrative Images from the original note were not included. HISTORY OF PRESENT ILLNESS: EST PT Екатерина Shaffer is an 78 y.o. @ female. (EST PT) S/P ANTERIOR RT BINA 08/21/23 (1 YR)-DR COMBS. XRAY TODAY EPIC 08/24/24 XRAY EPIC 02/11/24 XRAY EPIC 10/01/23 WALKING UNASSISTED. DENIES PAIN IN HIP. NOTES SHE HAS SOME PAIN IN RT BUTTOCKS. DENIES GIVING OUT. [place] ANY OTHER ISSUES. PLEASED WITH OUTCOME. ALLERGIES: Allergies Allergen Reactions Morphine Nausea And Vomiting and Unknown Other Reaction(s): Nausea And Vomiting, Other (See Comments) Not true allergy, known side effect. Other reaction(s): Unknown HOME MEDICATIONS: Current Outpatient Medications Medication Instructions amLODIPine (NORVASC) 10 mg, Oral, Every morning amoxicillin (Amoxil) 500 MG tablet 4 tabs PO once 30-60 mins before procedure with food aspirin 81 mg, Oral, Daily RT brimonidine (AlphaGAN P) 0.2 % ophthalmic solution instill 1 DROP IN THE RIGHT EYE TWICE DAILY escitalopram (Lexapro) 5 MG tablet 1 tablet, Oral, Nightly latanoprost (Xalatan) 0.005 % ophthalmic solution instill 1 (ONE) DROP IN BOTH EYES AT BEDTIME levothyroxine (SYNTHROID, LEVOXYL) 100 mcg, Oral, Daily losartan-hydroCHLOROthiazide (Hyzaar) 100-25 MG tablet 1 tablet, Oral, Every morning metFORMIN (Glucophage) 500 MG tablet 1 tablet, Oral, Daily methylPREDNISolone (Medrol Dospak) 4 MG tablets Follow schedule on MEDROL PACK package instructions to be used as directed montelukast (SINGULAIR) 10 mg, Oral, Daily oxybutynin XL (DITROPAN-XL) 5 mg, Oral, Daily rosuvastatin (CRESTOR) 10 mg, Oral, Daily timolol (Timoptic-XR) 0.5 % ophthalmic gel-forming instill 1 drop by ophthalmic route every day into affected eye(s) Ophthalmic traZODone (DESYREL) 50 mg, Oral, Nightly PHYSICAL EXAM: Right Hip Exam Tenderness Right hip tenderness location: SI and low back. Range of Motion Adduction: normal External rotation: normal Internal rotation: normal Muscle Strength Abduction: 5/5 Adduction: 5/5 Flexion: 5/5 Other Right hip sensation: Radicular pain from low back. Pulse: present Vitals: There is no height or weight on file to calculate BMI. Tobacco Use: Low Risk (08/24/2024) Patient History Smoking Tobacco Use: Never Smokeless Tobacco Use: Never Passive Exposure: Not on file Alcohol Use: Not At Risk (03/24/2022) Received from [facility], [facility] Frequency of Alcohol Consumption: 2-4 times a month Average Number of Drinks: 1 or 2 Frequency of Binge Drinking: Never IMAGING: XR hip right 2 or 3 views Imaging Result: 08/24/2024: X-rays AP and lateral of the right hip demonstrate a right total hip replacement in good position and alignment without signs of lucency, loosening, fracture or failure. Heterotropic ossifications are noted. Impression: Stable appearance of right total hip replacement Sergio Velez RADIOLOGY RESIDENT-POWER DISTRIBUTION ENGINEER Procedures Orders Placed This Encounter Procedures XR hip right 2 or 3 views Order Specific Question: Reason for exam: Answer: total Ambulatory referral to Pain Medicine Was getting back injections with Dr Combs, would like to have injections for lumbar back pain. Standing Status: Future Standing Expiration Date: 02/23/2025 Referral Priority: Routine Referral Type: Consultation Referral Reason: Specialty Services Required Referred to Provider: Dudley Damian MD Requested Specialty: Pain Medicine Number of Visits Requested: 1 ASSESSMENT: ICD-10-CM 1. S/P total right hip arthroplasty Z96.641 2. Primary osteoarthritis of right hip M16.11 XR hip right 2 or 3 views 3. Lumbar pain M54.50 Ambulatory referral to Pain Medicine PLAN: I reviewed xray with patient which showed a stable RT BINA. She states her hip is doing well but her low back and SI are starting to hurt again. She would like to have more back injections. I discussed with patient that I would recommend she see sonam lemos for her back injections. She is agreeable to this and referral will be sent. She will follow up in 1 year for RCK and xray of her right hip. Questions answered in laymen terms at the bedside. The diagnosis, home exercise plan and any ongoing restrictions/ recommendations reviewed. If unable to be reached in office, I recommend evaluation at nearest Emergency Room if any symptoms worsened or new symptoms develop for requiring urgent evaluation. Sergio Velez RADIOLOGY RESIDENT-POWER DISTRIBUTION ENGINEER documented in this encounter [facility] 07-14-2024 History of Present illness Narrative Subjective Patient ID: Екатерина Shaffer is a 78 y.o. female. Екатерина presents today for CV recheck. She is doing great. She has no new problems to report. She is taking all of her medications. She sees the product demonstrator once a year and just had an appointment in April. She has not had any chest pain or shortness a breath. The following portions of the patient's history were reviewed and updated as appropriate: allergies, current medications, past family history, past medical history, past social history, past surgical history, problem list, and medication reconciliation was completed including current medication and post discharge medication. Review of Systems Constitutional: Negative. HENT: Negative. Eyes: Negative. Respiratory: Negative. Cardiovascular: Negative. Gastrointestinal: Negative. Endocrine: Negative. Genitourinary: Negative. Musculoskeletal: Negative. Skin: Negative. Allergic/Immunologic: Negative. Neurological: Negative. Hematological: Negative. Psychiatric/Behavioral: Negative. Objective Physical Exam Vitals reviewed. Constitutional: General: She is not in acute distress. Appearance: She is obese. She is not ill-appearing. HENT: Head: Normocephalic. Eyes: General: No scleral icterus. Extraocular Movements: Extraocular movements intact. Conjunctiva/sclera: Conjunctivae normal. Neck: Vascular: No carotid bruit. Cardiovascular: Rate and Rhythm: Normal rate and regular rhythm. Pulses: Normal pulses. Heart sounds: Normal heart sounds. No murmur heard. Pulmonary: Effort: Pulmonary effort is normal. No respiratory distress. Breath sounds: Normal breath sounds. No wheezing, rhonchi or rales. Musculoskeletal: Cervical back: Neck supple. Lymphadenopathy: Cervical: No cervical adenopathy. Neurological: General: No focal deficit present. Mental Status: She is alert and oriented to person, place, and time. Cranial Nerves: Cranial nerves 2-12 are intact. Psychiatric: Attention and Perception: Attention normal. Mood and Affect: Mood and affect normal. Speech: Speech normal. Behavior: Behavior normal. Behavior is cooperative. Thought Content: Thought content normal. Cognition and Memory: Cognition normal. Judgment: Judgment normal. Assessment/Plan Екатерина was seen today for hypothyroidism and hypertension. Diagnoses and all orders for this visit: Essential hypertension - Basic Metabolic Panel; Future Blood pressure at goal. Check BMP. Vitamin D deficiency - Vitamin D 25 hydroxy; Future Check vitamin-D level. Impaired glucose tolerance - Hemoglobin A1c; Future Check A1c to see if she has developed diabetes. Recurrent major depressive disorder, in full remission (CMS-HCC) Stable. Continue current regimen. Class 1 obesity due to excess calories with serious comorbidity and body mass index (BMI) of 30.0 to 30.9 in adult She is obese. She would benefit from weight loss. Diet exercise and weight loss discussed and encouraged. She does have exercise machines inside but admits to being lazy as to why she does not use them. Patient noted to have elevated BMI and the following intervention(s) were applied: encouragement to exercise and prescribed diet education. documented in this encounter [facility] 05-18-2024 History of Present illness Narrative Екатерина Shaffer Date of visit: 05/18/2024 Date of : 1945 Age: 78 y.o. 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 Essential hypertension Insomnia Joint pain Lumbar spondylosis Acquired deformity of left ankle Moderate depressive episode Mixed hyperlipidemia Neuropathy Osteoarthritis of knee Osteopenia Temporomandibular joint disorder Vitamin D deficiency Plantar fasciitis Acquired hallux valgus Arthritis of right hip Artificial knee joint present Atrophy of vagina Bilateral sensorineural hearing loss Bilateral tinnitus Glaucoma Hypokalemia Hypothyroidism Idiopathic peripheral neuropathy Impaired glucose tolerance Labyrinthitis Metatarsalgia Gonzalez's neuroma of both feet Obesity with body mass index 30 or greater Referred otalgia Decreased hearing of right ear Acute labyrinthitis Hip pain Hyponatremia S/P total knee arthroplasty, right Weakness Leukocytosis Acute kidney injury ([facility]) Anemia Dyspnea on exertion Stress incontinence Urge incontinence Renal cyst, right Recurrent major depressive disorder, in full remission ([facility]) Primary osteoarthritis of right hip Hypersomnia Allergies Allergen Reactions Morphine Sulfate Nausea And Vomiting Current Outpatient Medications Medication Sig Dispense Refill amLODIPine (NORVASC) 10 mg tablet take 1 tablet by mouth in the morning 90 tablet 2 aspirin 81 mg Take 1 tablet (81 mg total) by mouth in the morning. brimonidine (ALPHAGAN) 0.2 % ophthalmic solution instill 1 DROP IN THE RIGHT EYE TWICE DAILY calcium citrate-vitamin D2 250 mg-2.5 mcg (100 unit) per tablet Take 1 tablet by mouth in the morning and 1 tablet before bedtime. dorzolamide-timoloL (COSOPT) 22.3-6.8 mg/mL ophthalmic solution Administer 1 drop to both eyes in the morning and 1 drop before bedtime. escitalopram (LEXAPRO) 5 mg tablet Take 1 tablet (5 mg total) by mouth in the morning. latanoprost (XALATAN) 0.005 % ophthalmic solution Administer 1 drop to both eyes nightly. levothyroxine (SYNTHROID, LEVOTHROID) 100 MCG tablet TAKE 1 TABLET BY MOUTH DAILY 90 tablet 1 magnesium oxide 200 mg magnesium tablet Take 200 mg by mouth in the morning. 90 tablet 0 metFORMIN (GLUCOPHAGE) 500 mg tablet TAKE 1 TABLET BY MOUTH DAILY 90 tablet 1 montelukast (SINGULAIR) 10 mg tablet take 1 tablet by mouth daily 30 tablet 5 gowxczfb-nchn-OZ-calcium &mins (THERAGRAN-M) 9 mg iron-400 mcg tablet Take 1 tablet by mouth in the morning. oxybutynin XL (DITROPAN-XL) 5 mg 24 hr tablet take 1 tablet by mouth every day 30 tablet 5 rosuvastatin (CRESTOR) 10 mg tablet take 1 tablet by mouth every day 90 tablet 2 sodium chloride (LESVIA 128) 5 % ophthalmic ointment Administer 1 drop to both eyes nightly. traZODone (DESYREL) 50 mg tablet Take 1 tablet (50 mg total) by mouth nightly. 90 tablet 1 losartan-hydroCHLOROthiazide (HYZAAR) 100-25 mg per tablet Take 1 tablet by mouth in the morning. 90 tablet 3 timolol (TIMOPTIC-XE) 0.5 % ophthalmic gel-forming instill 1 drop by ophthalmic route every day into affected eye(s) Ophthalmic (Patient not taking: Reported on 05/18/2024) No current facility-administered medications for this visit. Chief Complaint Patient presents with Follow-up EST PT F/U 1YR L/S MS LABS DONE SCHED W/ PT History of Present Illness I last saw this 78-year-old 11/2022 in the office 04/2023 She endorses that she has been doing well. She denies chest pain, worsening shortness of breath, syncope or palpitations. She has glaucoma for which she follows up regularly with her eye doctor She is retired from [employer]. She is unaccompanied today CV TESTING HISTORY: ECHO: Echo complete W/O contrast Result Date: 06/06/2022 Left Ventricle: There is moderate focal basal increased wall thickness/hypertrophy. Remaining wall segments are mildly increased. Systolic function is normal with an ejection fraction of 60-65%. The quantitative EF by 2D Duran biplane is 59%. Grade I diastolic dysfunction (impaired relaxation) is present. Right Ventricle: Right ventricular size appears normal. Systolic function is normal. Mitral Valve: There is omgwd-dw-vyri regurgitation. There is no evidence of mitral valve stenosis. Tricuspid Valve: There is mild regurgitation. There is no evidence of tricuspid valve stenosis. STRESS: No results found. HOLTER: No results found. CARDIAC CATH: No results found. CAROTID: No results found. CXR: No results found. 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 Essential hypertension Glaucoma 05/30/2020 BILATERAL Hypokalemia Hypothyroidism Impaired glucose tolerance 08/25/2015 Insomnia Joint pain Labyrinthitis Lumbar spondylosis 12/01/2018 Metatarsalgia 03/17/2017 Mixed hyperlipidemia 05/31/2016 Moderate depressive disorder 07/16/2017 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 Multiple acquired skin tags Neuropathy 03/14/2017 Osteoarthritis of hip 10/24/2021 Plantar fasciitis 02/27/2016 Referred otalgia Regurgitation of food Shoulder pain Temporomandibular joint disorder Tinnitus 2018 Visual impairment Vitamin D deficiency 08/23/2015 Past Surgical History: Procedure Laterality Date APPENDECTOMY CATARACT EXTRACTION Bilateral CHOLECYSTECTOMY HYSTERECTOMY LAPAROTOMY OOPHERECTOMY Bilateral at different time than uterus MANDIBLE FRACTURE SURGERY jaw broken/pt states she was 14 or 15 REPLACEMENT TOTAL JOINT HIP ANTERIOR SUPINE INTERMUSCULAR Right 08/21/2023 Performed by Dianne Combs DO at [facility] REPLACEMENT TOTAL KNEE Left 07/27/2019 REPLACEMENT TOTAL KNEE Right 02/2022 right Family History Problem Relation Age of Onset Marfan syndrome Mother Heart attack Father Stroke Sister 65 Hyperlipidemia Sister Hypertension Sister Lymphoma Sister Atrial fibrillation Sister Thyroid nodules Sister 68 Marfan syndrome Brother Other Maternal Aunt - Malignant neoplastic disease Other Maternal Uncle - Malignant neoplastic disease Heart attack Maternal Grandmother Diabetes Paternal Grandfather Marfan syndrome Nephew Social History Socioeconomic History Marital status: Spouse name: Not on file Number of children: Not on file Years of education: Not on file Highest education level: Not on file Occupational History Not on file Tobacco Use Smoking status: Never Smokeless tobacco: Never Vaping Use Vaping status: Never Used Substance and Sexual Activity Alcohol use: Yes Comment: occational glass of wine Drug use: Never Sexual activity: Not Currently Partners: Male Other Topics Concern Caffeine Use Yes Social History Narrative Not on file Social Drivers of Health Financial Resource Strain: Low Risk (03/24/2022) Overall Financial Resource Strain (CARDIA) Difficulty of Paying Living Expenses: Not hard at all Food Insecurity: No Food Insecurity (05/18/2024) Hunger Screening Food Insecurity - Worry: Never True Food Insecurity - Inability: Never True Transportation Needs: No Transportation Needs (08/21/2023) PRAPARE - Transportation Lack of Transportation (Medical): No Lack of Transportation (Non-Medical): No Physical Activity: Inactive (03/24/2024) Exercise Vital Sign Days of Exercise per Week: 0 days Minutes of Exercise per Session: 0 min Stress: No Stress Concern Present (01/15/2023) [employer] - Occupational Stress Questionnaire Feeling of Stress : Only a little Social Connections: Moderately Integrated (03/24/2022) Social Connection and Isolation Panel [NHANES] Frequency of Communication with Friends and Family: More than three times a week Frequency of Social Gatherings with Friends and Family: More than three times a week Attends Worship Services: More than 4 times per year Active Member of Clubs or Organizations: Yes Attends Club or Organization Meetings: More than 4 times per year Marital Status: Interpersonal Safety: Not At Risk (08/21/2023) Humiliation, Afraid, Rape, and Kick questionnaire Fear of Current or Ex-Partner: No Emotionally Abused: No Physically Abused: No Sexually Abused: No Housing Instability: Low Risk (08/21/2023) Housing Instability Housing Instability: No Review of Systems Review of Systems Constitutional: Negative. HENT: Negative. Eyes: Positive for blurred vision. Cardiovascular: Negative. Vascular: Negative. Respiratory: Negative. Endocrine: Negative. Hematologic/Lymphatic: Negative. Skin: Negative. Musculoskeletal: Positive for muscle weakness. Gastrointestinal: Negative. Genitourinary: Negative. Neurological: Positive for headaches and loss of balance. Psychiatric/Behavioral: Negative. Allergic/Immunologic: Negative. CARDIOVASCULAR: Please review HPI. Physical Examination General appearance: Alert, oriented and cooperative. In no acute distress. Pleasant Skin: Warm and dry to touch. Respiratory: Clear to auscultation bilaterally, no use of accessory muscles. Cardiovascular: RRR with normal S1 and S2 with no murmurs. Musculoskeletal: No peripheral edema. VITAL SIGNS: BP 138/80 (BP Site: Left Arm, BP Postition: Sitting) Pulse 59 Ht 165.1 cm (5' 5 ) Wt 82.6 kg (182 lb 3.2 oz) SpO2 100% BMI 30.32 kg/m Orders Placed or Reconciled This Encounter Medications aspirin 81 mg Sig: Take 1 tablet (81 mg total) by mouth in the morning. losartan-hydroCHLOROthiazide (HYZAAR) 100-25 mg per tablet Sig: Take 1 tablet by mouth in the morning. Dispense: 90 tablet Refill: 3 Medications Discontinued During This Encounter Medication Reason aspirin 325 mg EC tablet losartan-hydroCHLOROthiazide (HYZAAR) 100-25 mg per tablet Reorder IMPRESSIONS/PLAN There are no diagnoses linked to this encounter. 1. Intolerant of metoprolol with fatigue -intolerant of DONELL inhibitors with cough 2. Primary hypertension, controlled --Norvasc/losartan/hydrochlorothi azide 3. Hyperlipidemia On rosuvastatin --labs 10/2023 4. Normal left ventricular systolic function on echocardiogram 05/2022 5. Type 2 diabetes 6. Hypothyroid, on Synthroid No changes or testing from a cardiology standpoint Hyzaar refilled per patient request TODAYS ORDERS No orders of the defined types were placed in this encounter. FOLLOW UP Return in about 1 year (around 05/18/2025). PCP: Taiwo Ayala DO Referring Physician: Taiwo Ayala DO [address] [place] [address] documented in this encounter [facility] 05-15-2024 Miscellaneous Notes Left message for patient to remind them to bring their most current medication list with them to their appointment. documented in this encounter [facility] 05-15-2024 Telephone encounter Note Left message for patient to remind them to bring their most current medication list with them to their appointment. [facility] 05-07-2024 History of Present illness Narrative Patient: Екатерина Shaffer : 1945 PCP: Taiwo Ayala MD SUBJECTIVE Екатерина Shaffer 78 y.o. presents today for follow up of capsulitis and synovitis to the left 2nd MPJ region Currently they rate their pain on a 1-10 scale a 0-1 States prior treatments of steroid injection and nsaids with positive improvement in the past States pain is aggrevated with WB. Pt has similar problem to the right foot of right 2nd MPJ capsulitis. Patient rates pain a 0-1/10. Pt has been wearing orthotics and breaking them in with patient noted great in improvement. Allergies: Allergies Allergen Reactions Morphine Nausea And Vomiting and Unknown Other Reaction(s): Nausea And Vomiting, Other (See Comments) Not true allergy, known side effect. Other reaction(s): Unknown Past Medical History: Past Medical History: Diagnosis Date Arthritis Cataract Diverticulosis Glaucoma (CMS/HCC) Hypertension (CMS/HCC) Thyroid disease ([facility]) Medications: Current Outpatient Medications: amLODIPine (Norvasc) 10 MG tablet, Take 10 mg by mouth in the morning., Disp: , Rfl: amoxicillin (Amoxil) 500 MG tablet, 4 tabs PO once 30-60 mins before procedure with food, Disp: 4 tablet, Rfl: 3 aspirin 81 MG EC tablet, Take 81 mg by mouth in the morning., Disp: , Rfl: brimonidine (AlphaGAN P) 0.2 % ophthalmic solution, instill 1 DROP IN THE RIGHT EYE TWICE DAILY, Disp: , Rfl: escitalopram (Lexapro) 5 MG tablet, Take 1 tablet by mouth at bedtime, Disp: , Rfl: latanoprost (Xalatan) 0.005 % ophthalmic solution, instill 1 (ONE) DROP IN BOTH EYES AT BEDTIME, Disp: , Rfl: levothyroxine (Synthroid, Levoxyl) 100 MCG tablet, Take 100 mcg by mouth Daily, Disp: , Rfl: losartan-hydroCHLOROthiazide (Hyzaar) 100-25 MG tablet, Take 1 tablet by mouth in the morning., Disp: , Rfl: metFORMIN (Glucophage) 500 MG tablet, Take 1 tablet by mouth Daily, Disp: , Rfl: methylPREDNISolone (Medrol Dospak) 4 MG tablets, Follow schedule on MEDROL PACK package instructions to be used as directed, Disp: 21 tablet, Rfl: 0 montelukast (Singulair) 10 MG tablet, Take 10 mg by mouth Daily, Disp: , Rfl: oxybutynin XL (Ditropan-XL) 5 MG 24 hr tablet, Take 5 mg by mouth Daily, Disp: , Rfl: rosuvastatin (Crestor) 10 MG tablet, Take 10 mg by mouth Daily, Disp: , Rfl: timolol (Timoptic-XR) 0.5 % ophthalmic gel-forming, instill 1 drop by ophthalmic route every day into affected eye(s) Ophthalmic, Disp: , Rfl: traZODone (Desyrel) 50 MG tablet, Take 50 mg by mouth at bedtime, Disp: , Rfl: Social History: Social History Socioeconomic History Marital status: Spouse name: Not on file Number of children: Not on file Years of education: Not on file Highest education level: Not on file Occupational History Not on file Tobacco Use Smoking status: Never Smokeless tobacco: Never Substance and Sexual Activity Alcohol use: Yes Alcohol/week: 1.0 standard drink of alcohol Types: 1 Standard drinks or equivalent per week Comment: caffeine 2-3 cups/day Drug use: Never Sexual activity: Not on file Other Topics Concern Not on file Social History Narrative Not on file Social Drivers of Health Financial Resource Strain: Low Risk (03/24/2022) [facility] Overall Financial Resource Strain (CARDIA) Difficulty of Paying Living Expenses: Not hard at all Food Insecurity: No Food Insecurity (03/24/2024) Received from [facility] Hunger Screening Within the past 12 months we worried whether our food would run out before we got money to buy more.: Never True Within the past 12 months the food we bought just didn't last and we didn't have money to get more.: Never True Transportation Needs: No Transportation Needs (08/21/2023) [facility] PRAPARE - Transportation Lack of Transportation (Medical): No Lack of Transportation (Non-Medical): No Physical Activity: Inactive (03/24/2024) Received from [facility] Exercise Vital Sign Days of Exercise per Week: 0 days Minutes of Exercise per Session: 0 min Stress: No Stress Concern Present (01/15/2023) [facility] [employer] [facility] [employer] [facility] - Occupational Stress Questionnaire Feeling of Stress : Only a little Social Connections: Moderately Integrated (03/24/2022) [facility] Social Connection and Isolation Panel [NHANES] Frequency of Communication with Friends and Family: More than three times a week Frequency of Social Gatherings with Friends and Family: More than three times a week Attends Worship Services: More than 4 times per year Active Member of Clubs or Organizations: Yes Attends Club or Organization Meetings: More than 4 times per year Marital Status: Intimate Partner Violence: Not on file Housing Stability: Low Risk (08/21/2023) Received from [facility], [facility] Housing Instability Are you worried or concerned that in the next two months you may not have stable housing that you own, rent or stay in as a part of a household?: No ROS: Gastrointestinal: denies abdominal pain, ulcers, or changes in appetite or bowel habits Musculoskeletal: Positive generalized arthritis to joints and denies loss of strength. Cardiovascular: denies CP, palpitations, irregular rhythms OBJECTIVE LE EXAM: DERM: Positive hair growth to b/l feet with good skin turgor noted. Negative openings in skin VASC: Palpable pedal pulsed b/l with warm to cool tibia to toes b/l NEURO: Gross sensation intact digits 1-10 and b/l feet ORTHO: +5/5 DF/PF/IN/EV right, +5/5 DF/PF/IN/EV left. 20 degrees inversion and 10 degrees eversion STJ b/l. Ankle ROM less than 10 degrees b/l. Minimal pain on palpation to left 2nd MPJ capsule plantarly with negative Hayley test and right 2nd MPJ capsule plantarly with negative Hayley test ASSESSMENT 1. Capsulitis of metatarsophalangeal (MTP) joint of left foot 2. Capsulitis of metatarsophalangeal (MTP) joint of right foot PLAN Patient to continue with oral anti - inflammatories as needed for pain and recommended OTC medications such as tylenol or Ibuprofen Continue with orthotics. Lee Hester DPM documented in this encounter [facility] 04-09-2024 History of Present illness Narrative Patient: Екатерина Shaffer : 1945 PCP: Taiwo Ayala MD SUBJECTIVE Екатерина Cecelia Ida 78 y.o. presents today for follow up of capsulitis and synovitis to the left second MPJ region Currently they rate their pain on a 1-10 scale a 0-1 States prior treatments of steroid injection and nsaids with positive improvement States pain is aggrevated with WB. Pt has similar problem to the right foot of right 2nd MPJ capsulitis. Patient rates pain a 0-1/10. Patient prior took a Medrol Dosepak She awaits non covered orthotics with metatarsal pads and presents today for fitting Allergies: Allergies Allergen Reactions Morphine Nausea And Vomiting and Unknown Other Reaction(s): Nausea And Vomiting, Other (See Comments) Not true allergy, known side effect. Other reaction(s): Unknown Past Medical History: Past Medical History: Diagnosis Date Arthritis Cataract Diverticulosis Glaucoma (CMS/HCC) Hypertension (CMS/HCC) Thyroid disease (CMS/HCC) Medications: Current Outpatient Medications: amLODIPine (Norvasc) 10 MG tablet, Take 10 mg by mouth in the morning., Disp: , Rfl: amoxicillin (Amoxil) 500 MG tablet, 4 tabs PO once 30-60 mins before procedure with food, Disp: 4 tablet, Rfl: 3 aspirin 81 MG EC tablet, Take 81 mg by mouth in the morning., Disp: , Rfl: brimonidine (AlphaGAN P) 0.2 % ophthalmic solution, instill 1 DROP IN THE RIGHT EYE TWICE DAILY, Disp: , Rfl: escitalopram (Lexapro) 5 MG tablet, Take 1 tablet by mouth at bedtime, Disp: , Rfl: latanoprost (Xalatan) 0.005 % ophthalmic solution, instill 1 (ONE) DROP IN BOTH EYES AT BEDTIME, Disp: , Rfl: levothyroxine (Synthroid, Levoxyl) 100 MCG tablet, Take 100 mcg by mouth Daily, Disp: , Rfl: losartan-hydroCHLOROthiazide (Hyzaar) 100-25 MG tablet, Take 1 tablet by mouth in the morning., Disp: , Rfl: metFORMIN (Glucophage) 500 MG tablet, Take 1 tablet by mouth Daily, Disp: , Rfl: methylPREDNISolone (Medrol Dospak) 4 MG tablets, Follow schedule on MEDROL PACK package instructions to be used as directed, Disp: 21 tablet, Rfl: 0 montelukast (Singulair) 10 MG tablet, Take 10 mg by mouth Daily, Disp: , Rfl: oxybutynin XL (Ditropan-XL) 5 MG 24 hr tablet, Take 5 mg by mouth Daily, Disp: , Rfl: rosuvastatin (Crestor) 10 MG tablet, Take 10 mg by mouth Daily, Disp: , Rfl: timolol (Timoptic-XR) 0.5 % ophthalmic gel-forming, instill 1 drop by ophthalmic route every day into affected eye(s) Ophthalmic, Disp: , Rfl: traZODone (Desyrel) 50 MG tablet, Take 50 mg by mouth at bedtime, Disp: , Rfl: Social History: Social History Socioeconomic History Marital status: Spouse name: Not on file Number of children: Not on file Years of education: Not on file Highest education level: Not on file Occupational History Not on file Tobacco Use Smoking status: Never Smokeless tobacco: Never Substance and Sexual Activity Alcohol use: Yes Alcohol/week: 1.0 standard drink of alcohol Types: 1 Standard drinks or equivalent per week Comment: caffeine 2-3 cups/day Drug use: Never Sexual activity: Not on file Other Topics Concern Not on file Social History Narrative Not on file Social Drivers of Health Financial Resource Strain: Low Risk (03/24/2022) [facility] Overall Financial Resource Strain (CARDIA) Difficulty of Paying Living Expenses: Not hard at all Food Insecurity: No Food Insecurity (03/24/2024) Received from [facility] Hunger Screening Within the past 12 months we worried whether our food would run out before we got money to buy more.: Never True Within the past 12 months the food we bought just didn't last and we didn't have money to get more.: Never True Transportation Needs: No Transportation Needs (08/21/2023) [facility] PRAPARE - Transportation Lack of Transportation (Medical): No Lack of Transportation (Non-Medical): No Physical Activity: Inactive (03/24/2024) Received from [facility] Exercise Vital Sign Days of Exercise per Week: 0 days Minutes of Exercise per Session: 0 min Stress: No Stress Concern Present (01/15/2023) Received from [facility], [facility] [employer] [place] [facility] [employer] [facility] - Occupational Stress Questionnaire Feeling of Stress : Only a little Social Connections: Moderately Integrated (03/24/2022) Received from [facility], [facility] [employer] [facility] Social Connection and Isolation Panel [NHANES] Frequency of Communication with Friends and Family: More than three times a week Frequency of Social Gatherings with Friends and Family: More than three times a week Attends Worship Services: More than 4 times per year Active Member of Clubs or Organizations: Yes Attends Club or Organization Meetings: More than 4 times per year Marital Status: Intimate Partner Violence: Not on file Housing Stability: Low Risk (08/21/2023) Received from [facility], [facility] Housing Instability Are you worried or concerned that in the next two months you may not have stable housing that you own, rent or stay in as a part of a household?: No ROS: Gastrointestinal: denies abdominal pain, ulcers, or changes in appetite or bowel habits Musculoskeletal: Positive generalized arthritis to joints and denies loss of strength. Cardiovascular: denies CP, palpitations, irregular rhythms OBJECTIVE LE EXAM: DERM: Positive hair growth to b/l feet with good skin turgor noted. Negative openings in skin VASC: Palpable pedal pulsed b/l with warm to cool tibia to toes b/l NEURO: Gross sensation intact digits 1-10 and b/l feet ORTHO: +5/5 DF/PF/IN/EV right, +5/5 DF/PF/IN/EV left. 20 degrees inversion and 10 degrees eversion STJ b/l. Ankle ROM less than 10 degrees b/l. Minimal to no pain on palpation to left 2nd MPJ capsule plantarly with negative Hayley test and right 2nd MPJ capsule plantarly with negative Haylye test ASSESSMENT 1. Capsulitis of metatarsophalangeal (MTP) joint of left foot 2. Capsulitis of metatarsophalangeal (MTP) joint of right foot PLAN Patient to continue with oral anti - inflammatories as needed for pain and recommended OTC medications such as tylenol or Ibuprofen Pt was fitted for custom made orthotics today. Orthotics were deemed to fit appropriately and patient was informed of proper break in of devices. Patient education on break in of device. ABN signed and in chart if warranted. Patient signed ABN Lee Hester DPM documented in this encounter [facility] 03-26-2024 History of Present illness Narrative Patient: Екатерина Shaffer : 1945 PCP: Taiwo Ayala MD SUBJECTIVE This is a 78 y.o. female that presents today for a chief complaint of pain to left and right forefoot regions for the past few years but has increased in severity. States pain with increased weight-bearing points just to the plantar aspect of her left 2nd toe region and has had steroid injection in the past by retired physician with improvement up to this time. States painful ambulation in shoe gear with minimal relief with anti-inflammatories Allergies: Allergies Allergen Reactions Morphine Nausea And Vomiting and Unknown Other Reaction(s): Nausea And Vomiting, Other (See Comments) Not true allergy, known side effect. Other reaction(s): Unknown Past Medical History: Past Medical History: Diagnosis Date Arthritis Cataract Diverticulosis Glaucoma (CMS/HCC) Hypertension (CMS/HCC) Thyroid disease (CMS/HCC) Medications: Current Outpatient Medications: amLODIPine (Norvasc) 10 MG tablet, Take 10 mg by mouth in the morning., Disp: , Rfl: amoxicillin (Amoxil) 500 MG tablet, 4 tabs PO once 30-60 mins before procedure with food, Disp: 4 tablet, Rfl: 3 aspirin 81 MG EC tablet, Take 81 mg by mouth in the morning., Disp: , Rfl: brimonidine (AlphaGAN P) 0.2 % ophthalmic solution, instill 1 DROP IN THE RIGHT EYE TWICE DAILY, Disp: , Rfl: escitalopram (Lexapro) 5 MG tablet, Take 1 tablet by mouth at bedtime, Disp: , Rfl: latanoprost (Xalatan) 0.005 % ophthalmic solution, instill 1 (ONE) DROP IN BOTH EYES AT BEDTIME, Disp: , Rfl: levothyroxine (Synthroid, Levoxyl) 100 MCG tablet, Take 100 mcg by mouth Daily, Disp: , Rfl: losartan-hydroCHLOROthiazide (Hyzaar) 100-25 MG tablet, Take 1 tablet by mouth in the morning., Disp: , Rfl: metFORMIN (Glucophage) 500 MG tablet, Take 1 tablet by mouth Daily, Disp: , Rfl: methylPREDNISolone (Medrol Dospak) 4 MG tablets, Follow schedule on MEDROL PACK package instructions to be used as directed, Disp: 21 tablet, Rfl: 0 montelukast (Singulair) 10 MG tablet, Take 10 mg by mouth Daily, Disp: , Rfl: oxybutynin XL (Ditropan-XL) 5 MG 24 hr tablet, Take 5 mg by mouth Daily, Disp: , Rfl: rosuvastatin (Crestor) 10 MG tablet, Take 10 mg by mouth Daily, Disp: , Rfl: timolol (Timoptic-XR) 0.5 % ophthalmic gel-forming, instill 1 drop by ophthalmic route every day into affected eye(s) Ophthalmic, Disp: , Rfl: traZODone (Desyrel) 50 MG tablet, Take 50 mg by mouth at bedtime, Disp: , Rfl: Social History: Social History Socioeconomic History Marital status: Spouse name: Not on file Number of children: Not on file Years of education: Not on file Highest education level: Not on file Occupational History Not on file Tobacco Use Smoking status: Never Smokeless tobacco: Never Substance and Sexual Activity Alcohol use: Yes Alcohol/week: 1.0 standard drink of alcohol Types: 1 Standard drinks or equivalent per week Comment: caffeine 2-3 cups/day Drug use: Never Sexual activity: Not on file Other Topics Concern Not on file Social History Narrative Not on file Social Drivers of Health Financial Resource Strain: Low Risk (03/24/2022) Received from [facility], [employer] [facility] Overall Financial Resource Strain (CARDIA) Difficulty of Paying Living Expenses: Not hard at all Food Insecurity: No Food Insecurity (03/24/2024) Received from [facility] Hunger Screening Within the past 12 months we worried whether our food would run out before we got money to buy more.: Never True Within the past 12 months the food we bought just didn't last and we didn't have money to get more.: Never True Transportation Needs: No Transportation Needs (08/21/2023) [facility] PRAPARE - Transportation Lack of Transportation (Medical): No Lack of Transportation (Non-Medical): No Physical Activity: Inactive (03/24/2024) Received from [facility] Exercise Vital Sign Days of Exercise per Week: 0 days Minutes of Exercise per Session: 0 min Stress: No Stress Concern Present (01/15/2023) [facility], [facility] [employer] [facility] [employer] [facility] - Occupational Stress Questionnaire Feeling of Stress : Only a little Social Connections: Moderately Integrated (03/24/2022) [facility], [facility] Social Connection and Isolation Panel [NHANES] Frequency of Communication with Friends and Family: More than three times a week Frequency of Social Gatherings with Friends and Family: More than three times a week Attends Worship Services: More than 4 times per year Active Member of Clubs or Organizations: Yes Attends Club or Organization Meetings: More than 4 times per year Marital Status: Intimate Partner Violence: Not on file Housing Stability: Low Risk (08/21/2023) Received from [facility], [facility] Housing Instability Are you worried or concerned that in the next two months you may not have stable housing that you own, rent or stay in as a part of a household?: No ROS: Gastrointestinal: denies abdominal pain, ulcers, or changes in appetite or bowel habits Musculoskeletal: Positive generalized arthritis to joints and denies loss of strength. Cardiovascular: denies CP, palpitations, irregular rhythms OBJECTIVE LE EXAM: DERM: Positive hair growth to b/l feet with good skin turgor noted. Negative openings in skin VASC: Palpable pedal pulsed b/l with warm to cool tibia to toes b/l NEURO: Gross sensation intact digits 1-10 and b/l feet ORTHO: +5/5 DF/PF/IN/EV right, +5/5 DF/PF/IN/EV left. 20 degrees inversion and 10 degrees eversion STJ b/l. Ankle ROM less than 10 degrees b/l. Positive pain on palpation to left 2nd MPJ capsule plantarly with negative Hayley test and right 2nd MPJ capsule plantarly with negative Hayley test XRAY: US: DIAGNOSTIC ULTRASOUND REPORT: Verbal order for ultrasound today The 2nd MPJ capsule of the left foot was examined with a 12 MHz linear probe in the transverse and sagital planes on the capsular regions of the MPJ. Images obtained. FINDINGS: Ultrasound exam demonstrates capsulitis/inflammation and a hypoechoic signal at plantar capsule on a series of sagittal and transverse images. The plantar plate examined as well with plantar joint capsule intact. IMPRESSION: Ultrasound findings indicated capsulitis of the left 2nd MPJ. ASSESSMENT 1. Capsulitis of metatarsophalangeal (MTP) joint of left foot 2. Capsulitis of metatarsophalangeal (MTP) joint of right foot 3. Contracture of left ankle 4. Contracture of right ankle PLAN Reviewed ultrasound today with patient Prescription for Medrol pack Pt was given steroid injection to the medial and lateral capsular ligaments of the left 2nd MPJ under US guidance with visualization of injected fluid into area of concern per imaging. Injection consisted of a 2:1 mixture of xylocaine 2%plain and kenalog 10 for a total of 3ccs. Informed pt of risks and benefits of procedure including infection,damage or rupture to soft tissue structures and steroid flare. Pt understood and consented. This is the patients first injection Pt presents today for casting of a removable foot inserts/orthotics today that was accomplished with scanning of feet and sent to orthotics lab.(L3020 right and L3020 left foot). Pt to have signed ABN for device if needed. It was explained to the patient of a break in period for the devices. The patient is ambulatory may benefit functionally for this device. It may be used for the following conditions as noted per EMR. Patient have accommodative devices 5 mm metatarsal pads bilaterally and will pay [id number] and needs ABN signed Lee Hester DPM documented in this encounter [facility] 03-24-2024 History of Present illness Narrative Subjective SUBJECTIVE: Patient ID: Екатерина Shaffer is a 78 y.o. female who presents for a Medicare Annual Wellness exam. HPI The following portions of the patient's history were reviewed and updated as appropriate: allergies, current medications, past family history, past medical history, past social history, past surgical history and problem list. AWV FLOWSHEET : Lifestyle Assessment Do you smoke or use smokeless tobacco?: No If you smoke or use smokeless tobacco, are you ready to quit?: NA Are you exposed to secondhand smoke?: No On average, how many drinks of alcohol do you consume in a week?: None Do you exercise for 30 or more minutes on average at least 3 days a week?: Sometimes Do you have any tooth, denture, or oral problems?: No Do you snore or has anyone told you that you snore?: No Do you try to eat a balanced diet?: Yes Do you experience leakage of urine, also known as urinary incontinence?: Never Do you have difficulty performing any of these activities? (check all that apply): None Do you have difficulty performing any of these activities? (check all that apply): None Fall Risk Fall Risk Assessment Completed?: Yes Have you fallen in the past year?: No Are you worried about falling?: (!) Yes Do you feel unsteady when standing or walking?: (!) Yes Risk Stratification: Moderate Risk Depression Screening Little interest or pleasure in doing things: Not at all Feeling down, depressed, or hopeless: Not at all Trouble falling or staying asleep, or sleeping too much: Not at all Feeling tired or having little energy: Not at all Poor appetite or overeating: Not at all Feeling bad about yourself - or that you are a failure or have let yourself or your family down: Not at all Trouble concentrating on things, such as reading the newspaper or watching television: Not at all Moving or speaking so slowly that other people could have noticed. Or the opposite - being so fidgety or restless that you have been moving around a lot more than usual: Not at all Thoughts that you would be better off , or of hurting yourself in some way: Not at all PEG Scale Safety Assessment Do you have throw rugs on the floor?: No Do you feel safe at your home?: Yes Do you feel unsteady when walking?: (!) Yes Are you having difficulty with driving?: No Do you have trouble seeing?: No What assistive device do you use? (check all that apply): None Hearing Assessment Do you strain or struggle to hear/understand conversations?: (!) Yes Do you have trouble hearing the television or radio when others do not?: No Does your family ever voice concerns about your hearing?: No Do you wear hearing aid/s?: No Personal Health During the past 4 weeks, how would you rate your overall health?: Good Do you understand how to take all of your medications?: Yes How confident are you that you can control and manage most of your health problems?: Very confident In the past 12 months, how many times have you been hospitalized?: (!) One End of Life Planning Do you have a living will?: Yes Do you have a durable power of securities attorney?: Yes Cognitive Screening Do you have trouble remembering or recalling facts or events?: No Do family members or caregivers report that you have difficulty remembering things?: No [employer] REVIEW OF SYSTEMS: Review of Systems Objective PHYSICAL EXAMINATION: Vitals: 03/24/24 1250 BP: 110/72 Weight: 80.7 kg (178 lb) Height: 165.1 cm (5' 5 ) Physical Exam Assessment/Plan ASSESSMENT/PLAN Encounter Diagnoses Name Primary? Medicare annual wellness visit, subsequent Yes Screening for depression Health maintenance discussed. Depression screen was negative. At least 3 minutes spent administering and discussing. Cognitive evaluation did not reveal any impairment. She has advanced directives in place. Return in about 1 year (around 03/24/2025). documented in this encounter [facility] 02-16-2024 Miscellaneous Notes refill documented in this encounter [facility] 02-16-2024 Telephone encounter Note refill [facility] 02-11-2024 History of Present illness Narrative Associated Order(s): Trigger Point Injection (CPT 39280 or 76856): right gluteus janelle Post-Procedure Diagnose(s): Trigger point Images from the original note were not included. HISTORY OF PRESENT ILLNESS: Екатерина Shaffer is an 78 y.o. @ female. Follow up RT BINA RT hip: ~6 months s/p ANTERIOR RT BINA (08/21/23). She completed OP PT with improved balance. She had dry needling and that was helpful. Taking TYL occas. Amb unassisted Wound well healed. Pt is pleased with outcome so far. She does notes some tenderness over RT SI. Right knee: 2 years s/p RT TKA (02/26/22). Doing well, walking unassisted today. Denies issues or concerns with her knee. Denies meds for pain. Scar well healed. Overall happy with the outcome of surgery MEDICATION: Current Outpatient Medications on File Prior to Visit Medication Sig Dispense Refill amLODIPine (Norvasc) 10 MG tablet Take 10 mg by mouth in the morning. aspirin 81 MG EC tablet Take 81 mg by mouth in the morning. brimonidine (AlphaGAN P) 0.2 % ophthalmic solution instill 1 DROP IN THE RIGHT EYE TWICE DAILY escitalopram (Lexapro) 5 MG tablet Take 1 tablet by mouth at bedtime latanoprost (Xalatan) 0.005 % ophthalmic solution instill 1 (ONE) DROP IN BOTH EYES AT BEDTIME levothyroxine (Synthroid, Levoxyl) 100 MCG tablet Take 100 mcg by mouth Daily losartan-hydroCHLOROthiazide (Hyzaar) 100-25 MG tablet Take 1 tablet by mouth in the morning. metFORMIN (Glucophage) 500 MG tablet Take 1 tablet by mouth Daily montelukast (Singulair) 10 MG tablet Take 10 mg by mouth Daily oxybutynin XL (Ditropan-XL) 5 MG 24 hr tablet Take 5 mg by mouth Daily rosuvastatin (Crestor) 10 MG tablet Take 10 mg by mouth Daily timolol (Timoptic-XR) 0.5 % ophthalmic gel-forming instill 1 drop by ophthalmic route every day into affected eye(s) Ophthalmic traZODone (Desyrel) 50 MG tablet Take 50 mg by mouth at bedtime No current facility-administered medications on file prior to visit. MEDICAL HISTORY: Past Medical History: Diagnosis Date Arthritis Cataract Diverticulosis Glaucoma (CMS/HCC) Hypertension (CMS/HCC) Thyroid disease (CMS/HCC) ALLERGIES: Allergies Allergen Reactions Morphine Nausea And Vomiting and Unknown Other Reaction(s): Nausea And Vomiting, Other (See Comments) Not true allergy, known side effect. Other reaction(s): Unknown VITALS: Visit Vitals Smoking Status Never PHYSICAL EXAM: Ortho Exam RIGHT HIP Incision healing nicely Painless ROM 20 IR and 20 ER RT SI tenderness RIGHT KNEE ROM 0-120 No instability Normal temp/color IMAGING: XR hip right 2 or 3 views Imaging Result: February 11, 2024 x-rays AP and lateral of the right hip demonstrate Press-Fit hip replacement in good position alignment without signs of loosening fracture or failure. Impression: Stable appearance of right total hip replacement Harsh Combs D.O. XR knee 1 or 2 views right Imaging Result: February 11, 2004 x-rays AP and lateral of the right knee demonstrate a cemented knee replacement in good position alignment without signs of loosening fracture or failure. Impression: Stable appearance of right total knee replacement Harsh Combs D.O. ASSESSMENT: ICD-10-CM 1. Arthritis of right knee M17.11 XR knee 1 or 2 views right 2. Primary osteoarthritis of right hip M16.11 XR hip right 2 or 3 views amoxicillin (Amoxil) 500 MG tablet 3. S/P total right hip arthroplasty Z96.641 4. S/P total knee arthroplasty, right Z96.651 5. Trigger point M79.10 Trigger Point Injection ([place] 44847 [place] 765[address]): right gluteus janelle RT SI Trigger Point Injection (CP[place] 06468 [place] 522[address]): right gluteus janelle on 02/11/2024 1:34 PM Indications: pain Details: 21 G needle Medications: 40 mg methylPREDNISolone acetate 40 MG/ML Outcome: tolerated well, no immediate complications Procedure, treatment alternatives, risks and benefits explained, specific risks discussed. PLAN: RT SI I reviewed xray findings with the patient and discussed treatment options, answered questions. I discussed with the patient the option of an injection. I advised the patient of risks associated with an injection including a reaction to medication, infection, failure to improve and possible worsening. The patient demonstrated understanding. Patient requesting injection. Skin Cleansed with alcohol swab. Utilizing aseptic technique patient given 40mg Depomedrol was injected. Patient tolerated this well. Neurovasc intact s/p injection. Post injection care instructions discussed. RT HIP I discussed with the patient the general recommendation for the use of prophylactic antibiotics prior to dental work after joint replacement. I advised the patient that the use of prophylactic antibiotics for dental work is a controversial topic. I currently have recommended that prophylactic antibiotics be used for 2 years postop and I did advise the patient that the guidelines and recommendations may change on this in the future. Follow up in 6 months with xrays, any issues/concerns follow up sooner. Dr. Combs obtained history and examined the patient, I am acting as scribe for Dr. Combs/ben RIGHT KNEE Follow up as needed, any issues/concern follow up sooner. Francie Combs D.O. documented in this encounter [facility] 01-16-2024 History of Present illness Narrative Subjective Patient ID: Екатерина Shaffer is a 78 y.o. female. Екатерина presents today for a CV recheck. She is taking all of her medications and not having any side effects. She is sleeping well with the trazodone 50. She does not feel groggy in the morning but is tired all day long. This has been going on for a while. She can doze off while reading or watching TV. Otherwise she has no new problems to report. The following portions of the patient's history were reviewed and updated as appropriate: allergies, current medications, past family history, past medical history, past social history, past surgical history, problem list, and medication reconciliation was completed including current medication and post discharge medication. Review of Systems Constitutional: Positive for fatigue. HENT: Negative. Eyes: Negative. Respiratory: Negative. Cardiovascular: Negative. Gastrointestinal: Negative. Endocrine: Negative. Genitourinary: Negative. Musculoskeletal: Positive for arthralgias. Skin: Negative. Allergic/Immunologic: Negative. Neurological: Negative. Hematological: Negative. Psychiatric/Behavioral: Positive for sleep disturbance (Doing well with medication). The patient is nervous/anxious (Doing well with medication). Objective Physical Exam Vitals reviewed. Constitutional: General: She is not in acute distress. Appearance: She is obese. She is not ill-appearing. HENT: Head: Normocephalic. Mouth/Throat: Lips: [place]. Eyes: General: No scleral icterus. Extraocular Movements: Extraocular movements intact. Conjunctiva/sclera: Conjunctivae normal. Cardiovascular: Rate and Rhythm: Normal rate and regular rhythm. Pulses: Normal pulses. Heart sounds: Normal heart sounds. No murmur heard. Pulmonary: Effort: Pulmonary effort is normal. No respiratory distress. Breath sounds: Normal breath sounds. No wheezing, rhonchi or rales. Abdominal: General: Bowel sounds are normal. Palpations: Abdomen is soft. Musculoskeletal: Cervical back: Neck supple. Right lower leg: No edema. Left lower leg: No edema. Lymphadenopathy: Cervical: No cervical adenopathy. Neurological: General: No focal deficit present. Mental Status: She is alert and oriented to person, place, and time. Cranial Nerves: Cranial nerves 2-12 are intact. Psychiatric: Attention and Perception: Attention normal. Mood and Affect: Mood and affect normal. Speech: Speech normal. Behavior: Behavior normal. Behavior is cooperative. Thought Content: Thought content normal. Cognition and Memory: Cognition normal. Judgment: Judgment normal. Assessment/Plan Екатерина was seen today for hyperlipidemia and hypertension. Diagnoses and all orders for this visit: Essential hypertension - Comprehensive metabolic panel; Future Blood pressure at goal. Check CMP. Continue current regimen Anxiety - escitalopram (LEXAPRO) 5 mg tablet; Take 1 tablet (5 mg total) by mouth in the morning. Stable. Continue Lexapro Impaired glucose tolerance - Hemoglobin A1c; Future Check A1c to screen for diabetes Acquired hypothyroidism - Thyroid profile includes TSH FT4; Future Check TSH and T4 Anemia, unspecified type - CBC; Future She was anemic following her joint replacement. Will recheck CBC to make sure she is trending to normal Insomnia, unspecified - traZODone (DESYREL) 50 mg tablet; Take 1 tablet (50 mg total) by mouth nightly. She is using trazodone with benefit. She is not having any side effects. Renew trazodone 50 mg at bedtime Hyperlipidemia, unspecified - rosuvastatin (CRESTOR) 10 mg tablet; Take 1 tablet (10 mg total) by mouth nightly. Renew rosuvastatin Hypersomnia She scored 12 on the [place] Sleepiness scale. We discussed further evaluation with a sleep study but she declines. She said she would not wear the mask. If she changes her mind and decides to get treatment and we should test her for sleep apnea. Risks of sudden discussed. Overweight She is overweight. It is contributing to high blood pressure and high cholesterol. She would benefit from weight loss. Patient noted to have elevated BMI and the following intervention(s) were applied: encouragement to exercise and prescribed diet education. documented in this encounter [facility] 12-04-2023 History of Present illness Narrative Images from the original note were not included. [address] [facility] [id number] SUBJECTIVE: Patient ID: Екатерина Shaffer is a 78 y.o. female. Chief Complaint Patient presents with redness to the eye States approximately 10 days ago, started with right eye irritation. Several days left eye became red. Other associated symptoms include itching, dry, burning, and crusting of drainage of both eyes. Denies fever, cough, ear pain, or sore throat. Alleviating methods include moist warm compresses Conjunctivitis The current episode started more than 1 week ago. The onset was gradual. The problem occurs continuously. The problem has been gradually worsening. The problem is moderate. Associated symptoms include eye itching, eye discharge, eye pain and eye redness. Pertinent negatives include no fever. The following portions of the patient's history were reviewed and updated as appropriate: allergies, current medications, past family history, past medical history, past social history, past surgical history and problem list. Past Surgical History: Procedure Laterality Date APPENDECTOMY CATARACT EXTRACTION Bilateral CHOLECYSTECTOMY HYSTERECTOMY LAPAROTOMY OOPHERECTOMY Bilateral at different time than uterus MANDIBLE FRACTURE SURGERY jaw broken/pt states she was 14 or 15 REPLACEMENT TOTAL JOINT HIP ANTERIOR SUPINE INTERMUSCULAR Right 08/21/2023 Performed by Dianne Combs DO at [facility]PLACEMENT TOTAL KNEE Left 07/27/2019 REPLACEMENT TOTAL KNEE Right 02/2022 right Past Medical History: Diagnosis Date Acquired deformity of left ankle 10/21/2017 Anxiety 10/24/2015 Cataract Degeneration of lumbar intervertebral disc 12/01/2018 Diabetes mellitus type 2, controlled ([facility]) 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 Essential hypertension Glaucoma 05/30/2020 BILATERAL Hypokalemia Hypothyroidism Impaired glucose tolerance 08/25/2015 Insomnia Joint pain Labyrinthitis Lumbar spondylosis 12/01/2018 Metatarsalgia 03/17/2017 Mixed hyperlipidemia 05/31/2016 Moderate depressive disorder 07/16/2017 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 Multiple acquired skin tags Neuropathy 03/14/2017 Osteoarthritis of hip 10/24/2021 Plantar fasciitis 02/27/2016 Referred otalgia Regurgitation of food Shoulder pain Temporomandibular joint disorder Tinnitus 2018 Visual impairment Vitamin D deficiency 08/23/2015 Immunization History Administered Date(s) Administered COVID-19, mRNA, LNP-S, PF, 100mcg/0.5mL Dose 09/01/2021 COVID-19, mRNA, LNP-S, PF, 30mcg/0.3mL Dose 06/20/2020, 07/11/2020, 08/08/2020, 02/13/2021 Covid-19, Mrna, Lnp-s, Pf,jeanine-sucrose,30 Mcg/0.3ml Fall23 03/08/2023 Influenza (IM) Preservative Free 02/18/2015 Influenza A Monovalent (H5N1), Adjuvanted-201202/19/2011 Influenza High Dose Preservative Free IM 02/19/2011 Influenza Nasal, Unspecified Formulation 02/13/2013, 02/18/2015, 02/18/2016, 02/25/2017 Influenza Vaccine, Quadrivalent, Adjuvanted 03/07/2021 Influenza Whole 02/19/2011 Influenza, Injectable, quadrivalent (PF) 03/05/2019, 02/23/2020, 03/07/2021 Influenza, Trivalent, Adjuvanted 03/05/2019 Influenza, Unspecified 02/13/2013, 02/18/2015, 01/23/2016, 02/18/2016, 03/29/2016, 02/25/2017, 03/05/2019, 02/23/2020, 03/07/2021 Pneumococcal Conjugate 13-Valent 07/22/2014 Pneumococcal Polysaccharide 02/17/2013, 08/22/2015 Tdap 02/13/2013 Zoster Live 05/01/2012 Zoster Vaccine Recombinant 03/27/2021, 09/18/2021 REVIEW OF SYSTEMS: Review of Systems Constitutional: Negative for chills and fever. HENT: Negative. Eyes: Positive for pain, discharge, redness and itching. Negative for visual disturbance. Respiratory: Negative for chest tightness and shortness of breath. Cardiovascular: Negative for chest pain and palpitations. Gastrointestinal: Negative. Endocrine: Negative. Genitourinary: Negative for menstrual problem and pelvic pain. Musculoskeletal: Negative. Skin: Negative. Allergic/Immunologic: Negative. Neurological: Negative for syncope and facial asymmetry. Hematological: Does not bruise/bleed easily. Psychiatric/Behavioral: Negative. PHYSICAL EXAMINATION: Vitals: 12/04/23 1424 BP: 100/60 BP Site: Left Arm BP Postition: Sitting Pulse: 61 Resp: 18 Temp: 37.1 C (98.7 F) TempSrc: Oral SpO2: 95% Weight: 7.711 kg (17 lb) Height: 165.1 cm (5' 5 ) Patient noted to have elevated BMI and the following intervention(s) were applied: encouragement to exercise. Physical Exam Vitals and nursing note reviewed. Constitutional: General: She is not in acute distress. Appearance: She is well-developed. She is not diaphoretic. HENT: Head: Normocephalic and atraumatic. Right Ear: Tympanic membrane and external ear normal. Left Ear: Tympanic membrane and external ear normal. Nose: Nose normal. Mouth/Throat: Mouth: Mucous membranes are moist. Pharynx: No oropharyngeal exudate. Eyes: General: Right eye: No discharge. Left eye: No discharge. Conjunctiva/sclera: Right eye: Right conjunctiva is injected. Exudate present. Left eye: Left conjunctiva is injected. Exudate present. Pupils: Pupils are equal, round, and reactive to light. Neck: Thyroid: No thyromegaly. Vascular: No JVD. Cardiovascular: Rate and Rhythm: Normal rate and regular rhythm. Heart sounds: Normal heart sounds. No murmur heard. No friction rub. No gallop. Pulmonary: Effort: Pulmonary effort is normal. Breath sounds: Normal breath sounds. Abdominal: General: Bowel sounds are normal. There is no distension. Palpations: Abdomen is soft. There is no mass. Tenderness: There is no abdominal tenderness. Musculoskeletal: General: Normal range of motion. Cervical back: Normal range of motion and neck supple. Lymphadenopathy: Cervical: No cervical adenopathy. Skin: General: Skin is warm and dry. Capillary Refill: Capillary refill takes less than 2 seconds. Neurological: Mental Status: She is alert and oriented to person, place, and time. Deep Tendon Reflexes: Reflexes are normal and symmetric. Psychiatric: Mood and Affect: Mood normal. Behavior: Behavior normal. Thought Content: Thought content normal. Judgment: Judgment normal. ASSESSMENT/PLAN: Екатерина was seen today for redness to the eye. Diagnoses and all orders for this visit: Acute conjunctivitis of both eyes, unspecified acute conjunctivitis type - ofloxacin (OCUFLOX) 0.3 % ophthalmic solution; Administer 1 drop to both eyes in the morning and 1 drop at noon and 1 drop in the evening and 1 drop before bedtime. Do all this for 7 days. May continue to use moist eye compresses PRN. Avoid scratching and rubbing eyes. Start ofloxacin as directed ALL QUESTIONS ANSWERED Total time spent was 25 minutes: Preparing to see the patient (e.g., review of tests) Obtaining and/or reviewing separately obtained history Performing a medically appropriate examination and/or evaluation Counseling and educating the patient/family/caregiver Ordering medications, tests, or procedures Follow-up: Next scheduled CARLENE Rossi 12/04/23 1446 [facility] Miscellaneous Notes Rx sent in. She is due for a CV recheck in December documented in this encounter [facility] 12-03-2023 Telephone encounter Note Rx sent in. She is due for a CV recheck in December [facility] 08-23-2023 Nurse Note RN went over discharge information with patient.No further questions left via daughter's vehicle. [facility] 08-23-2023 Nurse Note RN went over discharge information with patient.No further questions left via daughter's vehicle. [employer] spoke with Sergio PIERRE, made aware that patient's dressing became bloody and was bleeding outside of dressing. Sergio PIERRE made aware that the patient was a little hypotensive this morning and complained of lightheadedness when she ambulated to the bathroom. RN changed dressing and applied new aquacel dressing. Per Sergio measures taken were appropriate and would like H&H collected. Order put in. Will see patient later today. documented in this encounter [facility] 08-23-2023 Plan of care note Problem: Pain Goal: Patient goal is pain score less than 4, able to rest, and participant in treatment plan as appropriate Description: INTERVENTIONS: 1. Encourage patient or legal telesales representative to report early pain and ask for pain medicine when needed 2. Assess pain using appropriate pain scale and include the scale used when documenting 3. Administer analgesics based on type and severity of pain and evaluate response within appropriate time frame 4. Implement non-pharmacological measures as appropriate and evaluate response 5. Consider cultural and social influences on pain and pain management 6. Notify LIP if interventions ineffective or patient reports new pain 7. Monitor vital signs including pulse ox, end-tidal CO2 based on pain intervention 8. Reassess pain per policy 9. Teach patient or legal telesales representative interventions for comforting Outcome: Progressing Note: Evaluation of progress towards goal: Pt able to report pain according to 0/10 pain scale. Medicating patient for pain per orders. Problem: Safety Goal: Patient will be injury free during hospitalization Description: INTERVENTIONS: 1. Assess patient's risk for falls and implement fall prevention plan of care per policy 2. Provide and maintain a safe environment 3. Proper use of double Identifiers 4. Medication administration using the 5 rights 5. Hand hygiene 6. Specimens are labeled at the bedside 7. Instruct patient/ patient telesales representative about use of safety devices 8. Include patient/ patient telesales representative in decisions related to safety Outcome: Progressing Note: Evaluation of progress towards goal: Pt's risk for falls assessed and fall prevention implemented as needed, safe environment provided and maintained, hand hygiene completed. Problem: Infection Goal: Absence of infection during hospitalization Description: Interventions: 1. Assess and monitor for signs and symptoms of infection 2. Monitor lab/diagnostic results 3. Monitor all insertion sites i.e., indwelling lines, tubes and drains 4. Monitor endotracheal (as able) and nasal secretions for changes in amount and color 5. Administer medications as ordered 6. Instruct and encourage patient and family to use good hand hygiene technique 7. Identify and instruct patient/patient telesales representative in use of appropriate isolation precautions for identified infection/symptoms 8. Provide and discuss with patient/patient telesales representative on educational MDRO sheet 9. Encourage and monitor nutritional status daily and consult system support analyst if indicated 10. Implement neutropenic guidelines as needed 11. Review exposure to history of communicable disease and recent travel history on admission 12. Encourage annual influenza vaccine 13. Encourage pneumonia vaccine Outcome: Progressing Note: Evaluation of progress towards goal: Patient VS WNL, remains afebrile for shift. Problem: Knowledge Deficit Goal: Patient/patient telesales representative demonstrates understanding of disease process, treatment plan, medications, and discharge instructions Description: INTERVENTIONS 1. Complete learning assessment and assess knowledge base 2. Provide teaching at level of understanding 3. Provide teaching via preferred learning method(s) Outcome: Progressing Note: Evaluation of progress towards goal: Patient is taught verbally at and appropriate level of understanding using the teach back method. Patient was encouraged to asked questions to learn about of their plan of care and medications. The patient received proper education prior to medication administration. The patient understands and has no additional questions at this time. Problem: Discharge Planning Goal: Discharge to post-acute care, other facility, or home with appropriate resources Description: Patient's goal is: INTERVENTIONS 1. Conduct assessment to determine patient/family and health care team treatment goals, and need for post-acute services based on payer coverage, community resources, and patient preferences, and barriers to discharge 2. Coordinate with Social work, Care Navigation, and Utilization Review to arrange appropriate level of services according to patient's needs based on patient preference and payer coverage in collaboration with the physician and health care team 3. Address psychosocial, clinical, and financial barriers to discharge as identified in assessment in conjunction with the patient/family and health care team 4. Consult appropriate ancillary services (i.e.. PT/OT/ST, etc) as needed 5. Communicate with and update the patient/family, physician, and health care team regarding progress on the discharge plan 6. Identify discharge learning needs (meds, wound care, etc). 7. Arrange for needed discharge transportation as appropriate Outcome: Progressing Note: Evaluation of progress towards goal: Patient is knowledgeable and understanding of current discharge plans. Patient states understanding of goals needed to be met prior to discharge. Patient is planned to be discharged when medically ready. Patients home needs are assessed. [facility] [employer] [facility] 08-23-2023 Miscellaneous Notes Problem: Pain Goal: Patient goal is pain score less than 4, able to rest, and participant in treatment plan as appropriate Description: INTERVENTIONS: 1. Encourage patient or legal telesales representative to report early pain and ask for pain medicine when needed 2. Assess pain using appropriate pain scale and include the scale used when documenting 3. Administer analgesics based on type and severity of pain and evaluate response within appropriate time frame 4. Implement non-pharmacological measures as appropriate and evaluate response 5. Consider cultural and social influences on pain and pain management 6. Notify LIP if interventions ineffective or patient reports new pain 7. Monitor vital signs including pulse ox, end-tidal CO2 based on pain intervention 8. Reassess pain per policy 9. Teach patient or legal telesales representative interventions for comforting Outcome: Progressing Note: Evaluation of progress towards goal: Pt able to report pain according to 0/10 pain scale. Medicating patient for pain per orders. Problem: Safety Goal: Patient will be injury free during hospitalization Description: INTERVENTIONS: 1. Assess patient's risk for falls and implement fall prevention plan of care per policy 2. Provide and maintain a safe environment 3. Proper use of double Identifiers 4. Medication administration using the 5 rights 5. Hand hygiene 6. Specimens are labeled at the bedside 7. Instruct patient/ patient telesales representative about use of safety devices 8. Include patient/ patient telesales representative in decisions related to safety Outcome: Progressing Note: Evaluation of progress towards goal: Pt's risk for falls assessed and fall prevention implemented as needed, safe environment provided and maintained, hand hygiene completed. Problem: Infection Goal: Absence of infection during hospitalization Description: Interventions: 1. Assess and monitor for signs and symptoms of infection 2. Monitor lab/diagnostic results 3. Monitor all insertion sites i.e., indwelling lines, tubes and drains 4. Monitor endotracheal (as able) and nasal secretions for changes in amount and color 5. Administer medications as ordered 6. Instruct and encourage patient and family to use good hand hygiene technique 7. Identify and instruct patient/patient telesales representative in use of appropriate isolation precautions for identified infection/symptoms 8. Provide and discuss with patient/patient telesales representative on educational MDRO sheet 9. Encourage and monitor nutritional status daily and consult system support analyst if indicated 10. Implement neutropenic guidelines as needed 11. Review exposure to history of communicable disease and recent travel history on admission 12. Encourage annual influenza vaccine 13. Encourage pneumonia vaccine Outcome: Progressing Note: Evaluation of progress towards goal: Patient VS WNL, remains afebrile for shift. Problem: Knowledge Deficit Goal: Patient/patient telesales representative demonstrates understanding of disease process, treatment plan, medications, and discharge instructions Description: INTERVENTIONS 1. Complete learning assessment and assess knowledge base 2. Provide teaching at level of understanding 3. Provide teaching via preferred learning method(s) Outcome: Progressing Note: Evaluation of progress towards goal: Patient is taught verbally at and appropriate level of understanding using the teach back method. Patient was encouraged to asked questions to learn about of their plan of care and medications. The patient received proper education prior to medication administration. The patient understands and has no additional questions at this time. Problem: Discharge Planning Goal: Discharge to post-acute care, other facility, or home with appropriate resources Description: Patient's goal is: INTERVENTIONS 1. Conduct assessment to determine patient/family and health care team treatment goals, and need for post-acute services based on payer coverage, community resources, and patient preferences, and barriers to discharge 2. Coordinate with Social work, Care Navigation, and Utilization Review to arrange appropriate level of services according to patient's needs based on patient preference and payer coverage in collaboration with the physician and health care team 3. Address psychosocial, clinical, and financial barriers to discharge as identified in assessment in conjunction with the patient/family and health care team 4. Consult appropriate ancillary services (i.e.. PT/OT/ST, etc) as needed 5. Communicate with and update the patient/family, physician, and health care team regarding progress on the discharge plan 6. Identify discharge learning needs (meds, wound care, etc). 7. Arrange for needed discharge transportation as appropriate Outcome: Progressing Note: Evaluation of progress towards goal: Patient is knowledgeable and understanding of current discharge plans. Patient states understanding of goals needed to be met prior to discharge. Patient is planned to be discharged when medically ready. Patients home needs are assessed. DISCHARGE PLANNING NOTE Follow-up Discharge Planning Progress Note Per RN during discharge transition rounds, barriers to discharge are: None Discharge Plan: DC to home with [facility] therapy. Occupational Therapy Treatment Discharge Recommendations OT Recommendations : Home Home Recommendations: 24 hour caregiver support for: (ADls, IADls, mobility, safety, transportation) Post Discharge Therapy Recommendations: Home Occupational Therapy 6 Clicks: Daily Activity Putting on and taking off regular lower body clothing?: A little Bathing (including washing, rinsing, drying)?: A little Toileting, which includes using toilet, bedpan or urinal?: A little Putting on and taking off regular upper body clothing?: A little Taking care of personal grooming such as brushing teeth?: A little Eating meals?: None Scoring Daily Activity Raw Score: 19 CMS G Code Modifier: CK Therapy Plan Need for skilled Occupational Therapy to address deficits in ADL independence and functional mobility due to a status decline resulting from status post R hip replacement. OT Treatment/Interventions: ADL retraining, Functional transfer training, UE strengthening/ROM, Endurance training, Cognitive reorientation, Patient/family training, Equipment eval/education, Balance, Home management, Compensatory technique education, Functional activities OT Frequency: 4-5days/week OT Duration: 10 days Assessment Patient Assessment Therapy Problem List: Decreased balance, Decreased endurance, Decreased mobility, Decreased LE ROM, Decreased LE strength, Decreased ADL status, Decreased high-level ADLs, Decreased safe judgement during ADL Patient Response to Treatment: Progressing toward goals Mood/Affect: Appropriate for circumstances Rehab Prognosis: Good, With continued OT status post acute discharge Visit RN Communication: Yes Medical Record Reviewed: Yes OT Type of Visit: Treatment Precautions Activity: early mobility pass, OK to treat per RN, Constanza Equipment: RW, nonskid slippers, gait belt Weight Bearing Status: WBAT R LE Telemetry/Retail Visual Merchandiser: No Oxygen Used: room air Other: fall risk, hip precautions Pain Assessment Pain Assessment: 0-10 Pain Score: (does not rate, states just stiffness ) Pain Type: Surgical pain Pain Location: Hip, Leg Pain Orientation: Right ADL / IADL Grooming Assistance: Supervision (wash face, wash hair with shampoo cap and complete oral care while seated in chair) Bathing/Showering Assistance: Min assist LE Dressing Assistance: Min assist LE Dressing Deficit: Thread RLE into underwear, Thread LLE into underwear (ed provided on how to complete with patient service coordinator) Other: patient agreeable to OT ADL treatment session Home Management - IADL Other: patient agreeable to OT ADL treatment session Hearing / Speech / Vision Hearing: Within Functional Limits Speech: Within Functional Limits Current Vision: Wears glasses all the time Bed Mobility Other: seated in chair upon arrival and remains at end of session Transfers Sit to Stand: Standby assist Stand to Sit: Standby assist Balance Sitting Balance: Static: Good Sitting Balance: Dynamic: Good Standing Balance: Static: Fair Standing Balance: Dynamic: Fair Other: functional mobility completed a short distance in the room during ADL tasks with use of RW and SBA/ CGA in order to increase strength and endurance as pt prepares to return to community Activity Tolerance Endurance: Tolerates <30 minutes activity WITHOUT vital sign changes Plan Occupational Therapy Care Plan Occupational Therapy Care Plan (Active) Template: OT - Occupational Therapy Problem: Activity Tolerance Dates: Start: 08/22/23 Disciplines: OT Goal: Tolerate > 30 minutes of activity WITH rest breaks Dates: Start: 08/22/23 Expected End: 08/31/23 Description: Goal Description:patient to engage in activities of choice with out changes in vitals in order to promote return to prior level of function Disciplines: OT Outcomes Date/Time User Outcome 08/23/23 1145 HAYDER Hdz Progressing Goal note from Hospital Encounter 06/26/2023 by HAYDER Hdz Evaluation of progress towards goal: tolerates full Adl session Problem: Other (Customize) Dates: Start: 08/22/23 Disciplines: OT Goal: Improve Dates: Start: 08/22/23 Expected End: 08/31/23 Description: Goal Description:Patient to increase IND in ADls to supervision while adhering to precautions with use of AE in order to promote return to prior level of function Disciplines: OT Outcomes Date/Time User Outcome 08/23/23 1145 BRANDEN Hdz/Jennifer Progressing Goal note from Hospital Encounter 06/26/2023 by BRANDEN Hdz/Jennifer Evaluation of progress towards goal: min assist to don underwear, reviewed how to use patient service coordinator for lower body dressing Problem: Standing Balance Dates: Start: 08/22/23 Disciplines: OT Goal: Improve balance to good Dates: Start: 08/22/23 Expected End: 08/31/23 Description: Patient to increase standing balance to good in order to increase IND in ADLS and lower body dressing tasks Disciplines: OT Outcomes Date/Time User Outcome 08/23/23 1145 BRANDEN Hdz/Jennifer Progressing Goal note from Hospital Encounter 06/26/2023 by HAYDER Hdz Evaluation of progress towards goal: fair Occupational Therapy Care Plan (Resolved) There are no resolved problems. 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 Essential hypertension Glaucoma 05/30/2020 BILATERAL Hypokalemia Hypothyroidism Impaired glucose tolerance 08/25/2015 Insomnia Joint pain Labyrinthitis Lumbar spondylosis 12/01/2018 Metatarsalgia 03/17/2017 Mixed hyperlipidemia 05/31/2016 Moderate depressive disorder 07/16/2017 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 Multiple acquired skin tags Neuropathy 03/14/2017 Osteoarthritis of hip 10/24/2021 Plantar fasciitis 02/27/2016 Referred otalgia Regurgitation of food Shoulder pain Temporomandibular joint disorder Tinnitus 2018 Visual impairment Vitamin D deficiency 08/23/2015 Past Surgical History: Procedure Laterality Date APPENDECTOMY CATARACT EXTRACTION Bilateral CHOLECYSTECTOMY HYSTERECTOMY LAPAROTOMY OOPHERECTOMY Bilateral at different time than uterus MANDIBLE FRACTURE SURGERY jaw broken/pt states she was 14 or 15 REPLACEMENT TOTAL JOINT HIP ANTERIOR SUPINE INTERMUSCULAR Right 08/21/2023 Performed by Dianne Combs DO at [facility] REPLACEMENT TOTAL KNEE Left 07/27/2019 REPLACEMENT TOTAL KNEE Right 02/2022 right 6 Clicks: Basic Mobility Turning from your back to your side while in a flat bed without using bed rails?: None Moving from lying on your back to sitting on side of flat bed without using bed rails?: A little Moving to and from bed to a chair (including w/c)?: A little Standing up from a chair using your arms (e.g. w/c or bedside chair)?: None To walk in hospital room?: A little Climbing 3-5 steps with a railing?: A little Scoring 6 Clicks: Basic Mobility Raw Score: 20 [facility] G Code Modifier: CJ Therapy Plan Need for skilled Physical Therapy to address deficits in functional mobility due to a status decline resulting from S/P R BINA by Dr. Combs. Patient Response to Treatment: Progressing toward goals Assessment Patient Assessment Patient Response to Treatment: Progressing toward goals Visit RN Communication: Yes Medical Record Reviewed: Yes PT Type of Visit: Treatment Precautions Activity: Early mobility ok, Ok to treat per RN, Constanza Equipment: nonskid slippers, gait belt, rolling walker Weight Bearing Status: WBAT R LE Other: Anterior hip precautions- clarified with doctors office Pain Assessment Pain Assessment: 0-10 Pain Score: 7 Pain Type: Surgical pain Pain Location: Hip, Leg Pain Orientation: Right Pain Descriptors: Tightness Pain Intervention(s): Ambulation/increased activity Response to Interventions: Pain unchanged Cognition Orientation Level: Oriented X4 Transfers Sit to Stand: Standby assist Stand to Sit: Standby assist Toilet Transfers: Contact guard assist (BSC over toilet) Gait Base of Support: Within Functional Limits Pattern: Decreased diego, Antalgic gait, R Decreased foot clearance, L Decreased foot clearance Gait Assistance: Standby assist, Verbal cues Assistive Device: Rolling walker Gait Distance: 150ft Included Uneven Surface: Yes 2 Turns: Yes Stair Management Technique: Step to pattern, Forwards, With walker, One rail R up Stair Management Assistance: Contact guard assist, Verbal cues Number of Stairs: 2 x 6 stairs (patient also verbally educated on using the walker for curb like steps.) Balance Sitting Balance: Static: Good Sitting Balance: Dynamic: Good Standing Balance: Static: Fair Standing Balance: Dynamic: Fair Activity Tolerance Endurance: Tolerates <30 minutes activity WITHOUT vital sign changes Plan Physical Therapy Care Plan Physical Therapy Care Plan (Active) Template: PT - Physical Therapy Problem: Activity Tolerance Dates: Start: 08/22/23 Disciplines: PT Goal: Tolerate 30 minutes of activity WITH rest breaks Dates: Start: 08/22/23 Expected End: 08/31/23 Description: Goal Description: Disciplines: PT Outcomes Date/Time User Outcome 08/23/23 0937 Hanane Hermosillo, PT Progressing 08/22/23 1433 Hanane Hermosillo PT Progressing Goal note from Hospital Encounter 06/26/2023 by Hanane Hermosillo PT Evaluation of progress towards goal: tolerated 35 min of activity with rest breaks Problem: Bed Mobility Dates: Start: 08/22/23 Disciplines: PT Goal: Patient will perform bed mobility with Stand By Assist Dates: Start: 08/22/23 Expected End: 08/31/23 Description: Goal Description: Pt to perform bed mobility in order to be able to decrease risk of further skin breakdown. Disciplines: PT Outcomes Date/Time User Outcome 08/23/23 0937 Hanane Hermosillo PT Not Progressing 08/22/23 1433 Hanane Hermosillo PT Progressing Goal note from Hospital Encounter 06/26/2023 by Hanane Hermosillo, PT Evaluation of progress towards goal: min A Problem: Gait Dates: Start: 08/22/23 Disciplines: PT Goal: Patient will perform gait with Stand By Assist Dates: Start: 08/22/23 Expected End: 08/31/23 Description: Pt to be able to ambulate 100ft with walker to be able to safely manage household distances at discharge. Disciplines: PT Outcomes Date/Time User Outcome 08/23/23 0937 Hanane Hermosillo, PT Progressing 08/22/23 1433 Hanane Hermosillo PT Progressing Goal note from Hospital Encounter 06/26/2023 by Hanane Hermosillo PT Evaluation of progress towards goal: ambulated within hallway with walker and SBA Problem: Stairs/Curb Dates: Start: 08/22/23 Disciplines: PT Goal: Patient will perform stairs/curb with Minimum Assist Dates: Start: 08/22/23 Expected End: 08/31/23 Description: Pt to ascend and descend 2 stairs with left handrail to be able to safely enter house at discharge. Disciplines: PT Outcomes Date/Time User Outcome 08/23/23 0937 Hanane Hermosillo PT Progressing Goal note from Hospital Encounter 06/26/2023 by Hanane Hermosillo, PT Evaluation of progress towards goal: 2 x 6 stairs with right handrail and CGA Problem: Standing Balance Dates: Start: 08/22/23 Disciplines: PT Goal: Improve balance to good Dates: Start: 08/22/23 Expected End: 08/31/23 Description: Static Dynamic Pt to have balance of good in order to decrease risk of falls at discharge. Disciplines: PT Outcomes Date/Time User Outcome 08/23/23 0937 Hanane Hermosillo PT Progressing 08/22/23 1433 Hanane Hermosillo PT Progressing Goal note from Hospital Encounter 06/26/2023 by Hanane Hermosillo PT Evaluation of progress towards goal: fair with walker Problem: Strength Dates: Start: 08/22/23 Disciplines: PT Goal: Improve strength Dates: Start: 08/22/23 Expected End: 08/31/23 Description: Of extremity/ location: right LE to at least 4-/5 To facilitate: improved transfers and stair management Disciplines: PT Outcomes Date/Time User Outcome 08/23/23 0937 Hanane Hermosillo, PT Progressing 08/22/23 1433 Haanne Hermosillo PT Progressing Goal note from Hospital Encounter 06/26/2023 by Hanane Hermosillo PT Evaluation of progress towards goal: 4-/5 Problem: Transfers Dates: Start: 08/22/23 Disciplines: PT Goal: Patient will perform transfers with Stand By Assist Dates: Start: 08/22/23 Expected End: 08/31/23 Description: Goal Description: Pt to be able to safely transfer with least amount of assistance to demonstrate decreased need for caregiver assistance and ease with home transfers. Disciplines: PT Outcomes Date/Time User Outcome 08/23/23 0937 Hanane Hermosillo PT Progressing 08/22/23 1433 Hanane Hermosillo PT Progressing Goal note from Hospital Encounter 06/26/2023 by Hanane Hermosillo PT Evaluation of progress towards goal: SBA Physical Therapy Care Plan (Resolved) There are no resolved problems. Principal Problem: Primary osteoarthritis of right hip Problem: Pain Goal: Patient goal is pain score less than 4, able to rest, and participant in treatment plan as appropriate Description: INTERVENTIONS: 1. Encourage patient or legal telesales representative to report early pain and ask for pain medicine when needed 2. Assess pain using appropriate pain scale and include the scale used when documenting 3. Administer analgesics based on type and severity of pain and evaluate response within appropriate time frame 4. Implement non-pharmacological measures as appropriate and evaluate response 5. Consider cultural and social influences on pain and pain management 6. Notify LIP if interventions ineffective or patient reports new pain 7. Monitor vital signs including pulse ox, end-tidal CO2 based on pain intervention 8. Reassess pain per policy 9. Teach patient or legal telesales representative interventions for comforting Outcome: Progressing Note: Evaluation of progress towards goal: Pt encouraged to report early pain, non pharmacological measures implemented as needed. Pt able to report pain according to 0/10 pain scale. Medicating patient for pain per orders. Problem: Safety Goal: Patient will be injury free during hospitalization Description: INTERVENTIONS: 1. Assess patient's risk for falls and implement fall prevention plan of care per policy 2. Provide and maintain a safe environment 3. Proper use of double Identifiers 4. Medication administration using the 5 rights 5. Hand hygiene 6. Specimens are labeled at the bedside 7. Instruct patient/ patient telesales representative about use of safety devices 8. Include patient/ patient telesales representative in decisions related to safety Outcome: Progressing Note: Evaluation of progress towards goal: Pt's risk for falls assessed and fall prevention implemented as needed, safe environment provided and maintained, hand hygiene completed. Problem: Infection Goal: Absence of infection during hospitalization Description: Interventions: 1. Assess and monitor for signs and symptoms of infection 2. Monitor lab/diagnostic results 3. Monitor all insertion sites i.e., indwelling lines, tubes and drains 4. Monitor endotracheal (as able) and nasal secretions for changes in amount and color 5. Administer medications as ordered 6. Instruct and encourage patient and family to use good hand hygiene technique 7. Identify and instruct patient/patient telesales representative in use of appropriate isolation precautions for identified infection/symptoms 8. Provide and discuss with patient/patient telesales representative on educational MDRO sheet 9. Encourage and monitor nutritional status daily and consult system support analyst if indicated 10. Implement neutropenic guidelines as needed 11. Review exposure to history of communicable disease and recent travel history on admission 12. Encourage annual influenza vaccine 13. Encourage pneumonia vaccine Outcome: Progressing Note: Evaluation of progress towards goal: Pt assessed and monitored for signs and symptoms of infection, lab and diagnostic results monitored as needed, administer medications as needed. Problem: Knowledge Deficit Goal: Patient/patient telesales representative demonstrates understanding of disease process, treatment plan, medications, and discharge instructions Description: INTERVENTIONS 1. Complete learning assessment and assess knowledge base 2. Provide teaching at level of understanding 3. Provide teaching via preferred learning method(s) Outcome: Progressing Note: Evaluation of progress towards goal: Pt learning and knowledge base assessed, teaching provided at an understandable level as needed, teaching provided via preferred learning method. Problem: Pain Goal: Patient goal is pain score less than 4, able to rest, and participant in treatment plan as appropriate Description: INTERVENTIONS: 1. Encourage patient or legal telesales representative to report early pain and ask for pain medicine when needed 2. Assess pain using appropriate pain scale and include the scale used when documenting 3. Administer analgesics based on type and severity of pain and evaluate response within appropriate time frame 4. Implement non-pharmacological measures as appropriate and evaluate response 5. Consider cultural and social influences on pain and pain management 6. Notify LIP if interventions ineffective or patient reports new pain 7. Monitor vital signs including pulse ox, end-tidal CO2 based on pain intervention 8. Reassess pain per policy 9. Teach patient or legal telesales representative interventions for comforting Outcome: Progressing Note: Evaluation of progress towards goal: Pt able to report pain according to 0/10 pain scale. Medicating patient for pain per orders. Problem: Safety Goal: Patient will be injury free during hospitalization Description: INTERVENTIONS: 1. Assess patient's risk for falls and implement fall prevention plan of care per policy 2. Provide and maintain a safe environment 3. Proper use of double Identifiers 4. Medication administration using the 5 rights 5. Hand hygiene 6. Specimens are labeled at the bedside 7. Instruct patient/ patient telesales representative about use of safety devices 8. Include patient/ patient telesales representative in decisions related to safety Outcome: Progressing Note: Evaluation of progress towards goal: Pt's risk for falls assessed and fall prevention implemented as needed, safe environment provided and maintained, hand hygiene completed. Problem: Infection Goal: Absence of infection during hospitalization Description: Interventions: 1. Assess and monitor for signs and symptoms of infection 2. Monitor lab/diagnostic results 3. Monitor all insertion sites i.e., indwelling lines, tubes and drains 4. Monitor endotracheal (as able) and nasal secretions for changes in amount and color 5. Administer medications as ordered 6. Instruct and encourage patient and family to use good hand hygiene technique 7. Identify and instruct patient/patient telesales representative in use of appropriate isolation precautions for identified infection/symptoms 8. Provide and discuss with patient/patient telesales representative on educational MDRO sheet 9. Encourage and monitor nutritional status daily and consult system support analyst if indicated 10. Implement neutropenic guidelines as needed 11. Review exposure to history of communicable disease and recent travel history on admission 12. Encourage annual influenza vaccine 13. Encourage pneumonia vaccine Outcome: Progressing Note: Evaluation of progress towards goal: Patient VS WNL, remains afebrile for shift. Problem: Knowledge Deficit Goal: Patient/patient telesales representative demonstrates understanding of disease process, treatment plan, medications, and discharge instructions Description: INTERVENTIONS 1. Complete learning assessment and assess knowledge base 2. Provide teaching at level of understanding 3. Provide teaching via preferred learning method(s) Outcome: Progressing Note: Evaluation of progress towards goal: Patient is taught verbally at and appropriate level of understanding using the teach back method. Patient was encouraged to asked questions to learn about of their plan of care and medications. The patient received proper education prior to medication administration. The patient understands and has no additional questions at this time. Problem: Discharge Planning Goal: Discharge to post-acute care, other facility, or home with appropriate resources Description: Patient's goal is: INTERVENTIONS 1. Conduct assessment to determine patient/family and health care team treatment goals, and need for post-acute services based on payer coverage, community resources, and patient preferences, and barriers to discharge 2. Coordinate with Social work, Care Navigation, and Utilization Review to arrange appropriate level of services according to patient's needs based on patient preference and payer coverage in collaboration with the physician and health care team 3. Address psychosocial, clinical, and financial barriers to discharge as identified in assessment in conjunction with the patient/family and health care team 4. Consult appropriate ancillary services (i.e.. PT/OT/ST, etc) as needed 5. Communicate with and update the patient/family, physician, and health care team regarding progress on the discharge plan 6. Identify discharge learning needs (meds, wound care, etc). 7. Arrange for needed discharge transportation as appropriate Outcome: Progressing Note: Evaluation of progress towards goal: Patient is knowledgeable and understanding of current discharge plans. Patient states understanding of goals needed to be met prior to discharge. Patient is planned to be discharged when medically ready. Patients home needs are assessed. ET nurse note: ET seen patient for a Wilbur score of 17. Initial ET skin assessment completed. Patients abdominal fold is red and moist. Beauty Culturist Apprentice applies antifungal powder. Remaining pressure points clear. Skin protocols on chart. Continue to follow wound care order set and turn patient every 2 hours as needed. No additional concerns at this time. Please consult Wound Care Services with any new skin concerns. 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 Essential hypertension Glaucoma 05/30/2020 BILATERAL Hypokalemia Hypothyroidism Impaired glucose tolerance 08/25/2015 Insomnia Joint pain Labyrinthitis Lumbar spondylosis 12/01/2018 Metatarsalgia 03/17/2017 Mixed hyperlipidemia 05/31/2016 Moderate depressive disorder 07/16/2017 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 Multiple acquired skin tags Neuropathy 03/14/2017 Osteoarthritis of hip 10/24/2021 Plantar fasciitis 02/27/2016 Referred otalgia Regurgitation of food Shoulder pain Temporomandibular joint disorder Tinnitus 2018 Visual impairment Vitamin D deficiency 08/23/2015 Past Surgical History: Procedure Laterality Date APPENDECTOMY CATARACT EXTRACTION Bilateral CHOLECYSTECTOMY HYSTERECTOMY LAPAROTOMY OOPHERECTOMY Bilateral at different time than uterus MANDIBLE FRACTURE SURGERY jaw broken/pt states she was 14 or 15 REPLACEMENT TOTAL JOINT HIP ANTERIOR SUPINE INTERMUSCULAR Right 08/21/2023 Performed by Dianne Combs DO at [facility] REPLACEMENT TOTAL KNEE Left 07/27/2019 REPLACEMENT TOTAL KNEE Right 02/2022 right 6 Clicks: Basic Mobility Turning from your back to your side while in a flat bed without using bed rails?: None Moving from lying on your back to sitting on side of flat bed without using bed rails?: A little Moving to and from bed to a chair (including w/c)?: A little Standing up from a chair using your arms (e.g. w/c or bedside chair)?: None To walk in hospital room?: A little Climbing 3-5 steps with a railing?: A lot Scoring 6 Clicks: Basic Mobility Raw Score: 19 [facility] G Code Modifier: CJ Therapy Plan Need for skilled Physical Therapy to address deficits in functional mobility due to a status decline resulting from S/P R BINA on 08/21/[address] Combs. PT Treatment/Interventions: Functional transfer training, LE strengthening/ROM, Endurance training, Balance, Stair training, Bed mobility, Gait training, Functional activities, Neuromuscular reeducation PT Frequency: Other (comment) (1-2x/day) PT Duration: 10 days Patient Response to Treatment: Progressing toward goals Assessment Patient Assessment Therapy Problem List: Abnormal posture, Decreased balance, Decreased endurance, Decreased mobility, Decreased LE ROM, Decreased LE strength Patient Response to Treatment: Progressing toward goals Mood/Affect: Appropriate for circumstances Rehab Prognosis: Good, With continued PT status post acute discharge Visit RN Communication: Yes Medical Record Reviewed: Yes PT Type of Visit: Treatment Precautions Activity: Ok to treat per Constanza RUEDA Equipment: nonskid slippers, gait belt, rolling walker Weight Bearing Status: WBAT R LE Telemetry/Retail Visual Merchandiser: No Other: Anterior hip precautions- clarified with doctors office Pain Assessment Pain Assessment: 0-10 Pain Score: 6 Pain Type: Surgical pain Pain Location: Hip, Leg Pain Orientation: Right Pain Intervention(s): Ambulation/increased activity Response to Interventions: Pain unchanged Home Living Type of Home: House Home Layout: One level Stairs to Enter: 3 Hand Rails: Left Bathroom Shower/Tub: Tub/shower unit Bathroom Toilet: Raised Bathroom Equipment: Shower chair, Grab bars in shower Bathroom Accessibility: Accessible via walker Home Equipment: Rolling walker, Cane, Manager Land, Long-handled shoehorn Prior Function Lives With: Alone Receives Help From: Family Level of Mobility: Independent with ADLs and functional transfers or gait Homemaking Assistance: Independent Hearing / Speech / Vision Hearing: Within Functional Limits Speech: Within Functional Limits Current Vision: Wears glasses all the time Cognition Orientation Level: Oriented X4 Bed Mobility Supine to Sit: Min assist, Verbal cues (Cues for using belt for lifting leg as needed) Sit to Supine: Stand by assist (bed flat and no bed rail) Transfers Sit to Stand: Standby assist Stand to Sit: Standby assist Toilet Transfers: Contact guard assist (BSC over toilet) Gait Base of Support: Within Functional Limits Pattern: Decreased diego, Antalgic gait, R Decreased foot clearance, L Decreased foot clearance Gait Assistance: Verbal cues, Standby assist Assistive Device: Rolling walker Gait Distance: 200ft Limiting Factors to Gait: Fatigue Included Uneven Surface: Yes 2 Turns: Yes Balance Sitting Balance: Static: Good Sitting Balance: Dynamic: Good Standing Balance: Static: Fair Standing Balance: Dynamic: Fair RLE Assessment: (3-/5) LLE Assessment: (4-/5) Activity Tolerance Endurance: Tolerates <30 minutes activity WITHOUT vital sign changes 08/22/23 1343 TKA TKA exercises performed? No Plan Physical Therapy Care Plan Physical Therapy Care Plan (Active) Template: PT - Physical Therapy Problem: Activity Tolerance Dates: Start: 08/22/23 Disciplines: PT Goal: Tolerate 30 minutes of activity WITH rest breaks Dates: Start: 08/22/23 Expected End: 08/31/23 Description: Goal Description: Disciplines: PT Outcomes Date/Time User Outcome 08/22/23 1433 Hanane Hermosillo PT Progressing Goal note from Hospital Encounter 06/26/2023 by Hanane Hermosillo, PT Evaluation of progress towards goal: tolerated increased activity this session Problem: Bed Mobility Dates: Start: 08/22/23 Disciplines: PT Goal: Patient will perform bed mobility with Stand By Assist Dates: Start: 08/22/23 Expected End: 08/31/23 Description: Goal Description: Pt to perform bed mobility in order to be able to decrease risk of further skin breakdown. Disciplines: PT Outcomes Date/Time User Outcome 08/22/231432 Hanane Hermosillo, PT Progressing Goal note from Hospital Encounter 06/26/2023 by Hanane Hermosillo PT Evaluation of progress towards goal: SBA to get back into bed Problem: Gait Dates: Start: 08/22/23 Disciplines: PT Goal: Patient will perform gait with Stand By Assist Dates: Start: 08/22/23 Expected End: 08/31/23 Description: Pt to be able to ambulate 100ft with walker to be able to safely manage household distances at discharge. Disciplines: PT Outcomes Date/Time User Outcome 08/22/231432 Hanane Hermosillo PT Progressing Goal note from Hospital Encounter 06/26/2023 by Hanane Hermosillo, PT Evaluation of progress towards goal: 200ft with walker and SBA Problem: Stairs/Curb Dates: Start: 08/22/23 Disciplines: PT Goal: Patient will perform stairs/curb with Minimum Assist Dates: Start: 08/22/23 Expected End: 08/31/23 Description: Pt to ascend and descend 2 stairs with left handrail to be able to safely enter house at discharge. Disciplines: PT Problem: Standing Balance Dates: Start: 08/22/23 Disciplines: PT Goal: Improve balance to good Dates: Start: 08/22/23 Expected End: 08/31/23 Description: Static Dynamic Pt to have balance of good in order to decrease risk of falls at discharge. Disciplines: PT Outcomes Date/Time User Outcome 08/22/23 143 Hanane Hermosillo PT Progressing Goal note from Hospital Encounter 06/26/2023 by Hanane Hermosillo PT Evaluation of progress towards goal: fair with walker Problem: Strength Dates: Start: 08/22/23 Disciplines: PT Goal: Improve strength Dates: Start: 08/22/23 Expected End: 08/31/23 Description: Of extremity/ location: right LE to at least 4-/5 To facilitate: improved transfers and stair management Disciplines: PT Outcomes Date/Time User Outcome 08/22/23 1433 Hanane Hermosillo PT Progressing Goal note from Hospital Encounter 06/26/2023 by Hanane Hermosillo PT Evaluation of progress towards goal: 3-/5 Problem: Transfers Dates: Start: 08/22/23 Disciplines: PT Goal: Patient will perform transfers with Stand By Assist Dates: Start: 08/22/23 Expected End: 08/31/23 Description: Goal Description: Pt to be able to safely transfer with least amount of assistance to demonstrate decreased need for caregiver assistance and ease with home transfers. Disciplines: PT Outcomes Date/Time User Outcome 08/22/23 1433 Hanane Hermosillo PT Progressing Goal note from Hospital Encounter 06/26/2023 by Hanane Hermosillo PT Evaluation of progress towards goal: SBA/CGA Physical Therapy Care Plan (Resolved) There are no resolved problems. Principal Problem: Primary osteoarthritis of right hip Images from the original note were not included. DISCHARGE PLANNING NOTE Met with pt to complete assessment, pt up sitting in chair ordering her lunch. Pt reports to being independent prior to admit. Pt lives alone. No new DME needs: Pt confirms PCP & Preferred pharmacy noted in epic: [facility], [place], [place]. Pt reports ability to afford medications, denies food/utility/transportation needs. Pt denies alcohol/drug/tobacco use. No depression/anxiety, Negative Wetzel Screen. Beauty Culturist Apprentice discussed post acute care needs. Pt denies any needs at discharge and confirms will have a ride home. Prefers to set up own f/u appts. No other questions or concerns at this time. 08/22/23 1145 Discharge Disposition Discharge Disposition Home with Self Care ([facility] therapy.) County Information [facility] Patient Information Primary Caregiver Self Support System Immediate family Stressors Type of stressor (Denies) Income Information Income Information Retired/Pension/Social Security Referral To Community Resources Denies needs Discharge Planning Living Arrangements Alone (Dtr Verónica will be staying with her.) Support Systems Children;Family members;Friends Assistance Needed Pt plans to DC to home with help from dtr. Denies any DC questions or concerns at this time. Type of Residence Private residence Private Residence 1 story Home Care Services No Community Agencies Currently Utilized Other (Comment) ([facility]) Established DME Comments Has all needed DME, denies any new needs. Patient expects to be discharged to: Return home with help from dtr. [facility] therapy in her home. Does the patient need discharge transport arranged? No Services Requested: Services Requested Discharge Disposition: Home with self care, Home with home health services Facility/Service Name: [facility] therapy Facility/Service Does the patient need discharge transportation arranged?: No Initial DC Assessment Completed: Yes DC Planning Complete Discharge Milestones: Yes Patient Goals: Patient/Caregiver Goals Patient/Caregiver Goals: Home with Home Care ([facility] therapy) Goals: Goals Reduce salt intake to 2 grams per day or less Evaluation of progress towards goal:Increase clonidine 0.1mg to BID A1C is excellent at 5.9% Monitor BP and pulse and will review at next visit Return home (pt-stated) Evaluation of progress towards goal: In progress: Sitting in chair. Doing well with therapy and plans to DC home with [facility] therapy when DC. Problem: Pain Goal: Patient goal is pain score less than 4, able to rest, and participant in treatment plan as appropriate Description: INTERVENTIONS: 1. Encourage patient or legal telesales representative to report early pain and ask for pain medicine when needed 2. Assess pain using appropriate pain scale and include the scale used when documenting 3. Administer analgesics based on type and severity of pain and evaluate response within appropriate time frame 4. Implement non-pharmacological measures as appropriate and evaluate response 5. Consider cultural and social influences on pain and pain management 6. Notify LIP if interventions ineffective or patient reports new pain 7. Monitor vital signs including pulse ox, end-tidal CO2 based on pain intervention 8. Reassess pain per policy 9. Teach patient or legal telesales representative interventions for comforting Note: Evaluation of progress towards goal: Pt encouraged to report early pain, non pharmacological measures implemented as needed. Pt able to report pain according to 0/10 pain scale. Medicating patient for pain per orders. Problem: Safety Goal: Patient will be injury free during hospitalization Description: INTERVENTIONS: 1. Assess patient's risk for falls and implement fall prevention plan of care per policy 2. Provide and maintain a safe environment 3. Proper use of double Identifiers 4. Medication administration using the 5 rights 5. Hand hygiene 6. Specimens are labeled at the bedside 7. Instruct patient/ patient telesales representative about use of safety devices 8. Include patient/ patient telesales representative in decisions related to safety Outcome: Progressing Note: Evaluation of progress towards goal: Pt's risk for falls assessed and fall prevention implemented as needed, safe environment provided and maintained, hand hygiene completed. Problem: Infection Goal: Absence of infection during hospitalization Description: Interventions: 1. Assess and monitor for signs and symptoms of infection 2. Monitor lab/diagnostic results 3. Monitor all insertion sites i.e., indwelling lines, tubes and drains 4. Monitor endotracheal (as able) and nasal secretions for changes in amount and color 5. Administer medications as ordered 6. Instruct and encourage patient and family to use good hand hygiene technique 7. Identify and instruct patient/patient telesales representative in use of appropriate isolation precautions for identified infection/symptoms 8. Provide and discuss with patient/patient telesales representative on educational MDRO sheet 9. Encourage and monitor nutritional status daily and consult system support analyst if indicated 10. Implement neutropenic guidelines as needed 11. Review exposure to history of communicable disease and recent travel history on admission 12. Encourage annual influenza vaccine 13. Encourage pneumonia vaccine Outcome: Progressing Note: Evaluation of progress towards goal: Pt assessed and monitored for signs and symptoms of infection, lab and diagnostic results monitored as needed, administer medications as needed. Problem: Knowledge Deficit Goal: Patient/patient telesales representative demonstrates understanding of disease process, treatment plan, medications, and discharge instructions Description: INTERVENTIONS 1. Complete learning assessment and assess knowledge base 2. Provide teaching at level of understanding 3. Provide teaching via preferred learning method(s) Outcome: Progressing Note: Evaluation of progress towards goal: Pt learning and knowledge base assessed, teaching provided at an understandable level as needed, teaching provided via preferred learning method. Summary: Right total hip replacement Екатерина Shaffer Date of : 1945 Date of Surgery: 08/21/2023 Preoperative diagnosis: Primary osteoarthritis right hip Postoperative diagnosis: Same Procedure: Right total hip arthroplasty utilizing a direct anterior approach Implants: Liz Fitmore size 3 with extended offset neck, 50 mm cup, 36 mm femoral head neutral liner Surgeon: Dianne Combs DO Anesthesia: Anesthesiologist: Julian Delacruz DO PUBLIC RELATIONS: Ellis Gary APRN-PUBLIC RELATIONS; Emily Hill APRN-JOSE Monitored Anesthesia Care, Spinal OR staff: Enroute Controller Primary: Amanda Brady RN Food Manager: Candelaria Walker; MONSE Aguilar Enroute Controller Relief: Shamika Solis RN Scrub Person: Carmela Billingsley CST; Estella Muñoz; ST Robert Mckeon Assistant: Teri Elder Estimated blood loss: 400 mL Complications: None Findings: Advanced arthritis with [id number]-mb-ougy osteophyte formation circumferentially around the femoral head much worse than what appeared on x-rays Procedure summary: The patient was brought to the operative suite she was given general anesthesia and placed supine with a break in the table at the level of her hips preoperative images were obtained verifying ability to visualize the hip with C-arm. Both lower extremities were prepped and draped in the right lower extremity was prepped up to the level of the belly button. Incision was made beginning approximately 2 cm lateral and 2 cm inferior to the anterior superior iliac spine dissection was carried down the fascia the tensor fascia diogenes was identified it was incised the tensor fascia diogenes was peeled laterally and dissection was carried down to the floor of the fascia this was then opened and beneath that I immediately encountered the ascending circumflex vessels. These were coagulated with the irrigating bipolar/Aquamantys. The pericapsular fat was peeled away and the capsule was incised retractors were placed inside the capsule and the capsule lobectomy was performed. The notch between the greater trochanter and the neck superiorly was extremely narrow I could not even fit a retractor between these. I made a cut through the femoral neck through and through along the medial and distal half and then I completed the cut proximally it with an osteotome so as to protect the greater trochanter. The head was removed. It sized out to 48. The capsule was released from the posterior trochanter and a vaginotomy was performed on the inferior capsule. All remnants of the labrum were excised. Reaming was performed medializing with a 47 mm Reamer then reaming up to 49 mm at which point there was good bleeding in the periphery and circumferentially in the cup. Next a size 50 mm cup was impacted into place it was snug and secure. I further stabilized it with a single superior acetabular screw and an apex hole eliminating screw was inserted. I then irrigated the cuff with diluted Betadine and I impacted the liner 36 x 50. I attention was turned towards the femur dissection was slow and tedious exposure of the greater trochanter inner aspect took some time due to exuberant capsule. Finally this was removed the conjoint tendon was released and the femur was gradually delivered anteriorly with flexion of the leg and adduction of the leg beneath the contralateral leg. Canal was opened with a box osteotome and broaching was performed initially starter broach was inserted it would not seat height obtained an intraoperative x-ray and realized that the broach need to go further lateral. The broach was removed and I used Kerrison rongeur was and box osteotome to further gain access laterally. At this time broaching went smoothly and I broached up to b B3 broach this was left in place it was snug and secure trial reductions were performed ultimately an extended offset neck fit best The broach and trial components were removed a size B3 stem was impacted into place it was snug and secure a 0/36 mm head was impacted over dry Baca taper and the hip was reduced range of motion was taken to extremes the leg lengths were symmetric the hip was well balanced there was no tendency towards dislocation. I then irrigated thoroughly and irrigated more with diluted Betadine I closed the fascia of the tensor fascia diogenes with an 0 Stratafix suture. The subcutaneous layers and subcutaneous fascia was closed with 0 Vicryl and then ultimately a running 0 Vicryl subcuticular stitch. The margins of the wound were infiltrated with 21 cc of 0.5% Marcaine tincture benzoin and Steri-Strips were applied followed by an Aquacel dressing. The patient was transported to the recovery room in stable condition documented in this encounter [facility] 08-23-2023 Progress note Formatting of t his note might be different from the original. DISCHARGE PLANNING NOTE Follow-up Discharge Planning Progress Note Per RN during discharge transition rounds, barriers to discharge are: None Discharge Plan: DC to home with [facility] therapy. [facility] 08-23-2023 Hospital course Narrative Orthopaedic Discharge Summary Patient ID: Екатерина Shaffer [id number] y.o. 1945 Admit date: 08/21/2023 Discharge date and time: 08/23/2023 Admitting Physician: Dianne Combs DO Discharge Physician: same Admission Diagnoses: Severe degenerative joint disease right hip Discharge Diagnoses: Severe degenerative joint disease right hip Admission Condition: Stable Discharged Condition: Stable Indication for Admission: The patient was noted via outpatient basis to have recalcitrant pain and decreased range of motion to the operative hip with physical and diagnostic modalities consistent with severe degenerative joint disease. They exhibited an antalgic gait which was affecting balance, coordination, stability on stairs and causing pain to hip and low back. They tried nonsteroidal anti-inflammatories, cortisone injection, strength and fitness program at home without relief of symptoms. X-rays revealed severe degenerative joint disease to the operative hip with decrease joint space height noted , marginal osteophytes noted, and flattening of the articular surfaces noted. The patient requested to have a total hip arthroplasty performed because the pain was markedly affecting activities of daily living and ability to sleep. Surgical procedure: Procedure(s): REPLACEMENT TOTAL JOINT HIP ANTERIOR SUPINE INTERMUSCULAR (Right) - Wound Class: Clean - Incision Closure: Deep and Superficial Layers Hospital Course:See [facility] inpatient notes for specifics Patient was admitted to the hospital and underwent a right anterior total hip arthroplasty on the above mentioned date. The patient progressed well throughout the hospital stay. First postoperative day patient was placed in physical therapy to gait training with a walker weightbearing as tolerated to operative lower extremity and increase strength and range of motion of the operative lower extremity. The patient was placed on Permanent hip dislocation precautions to the operative hip. Patient was placed on 6 weeks no active abduction to operative hip. Patient was placed on DVT and infection prophylaxis postoperatively. At time of discharge the patient was experiencing no difficulty with spontaneous urinations and flatus. The Patient showed excellent oral intake of fluids and solids. The Patient denied chest pain shortness of breath or orthopnea, abdominal pain or dyspepsia.. The Patient's condition on discharge was stable and the incision was stable on discharge. The patient experienced no adverse drug reactions while admitted the hospital. The patient is expected to make a full and expedient recovery and to achieve a level ambulation similar to or slightly less than that prior to admission. The Patient's operative lower extremity was neurovascularly unchanged without any sensory or motor deficits noted distal to the operative hip. Dressing was changed today as she had some drainage leaking from border. New dressing has only one scant area of drainage with no signs of infection. H&H was ordered which was within acceptable post op parameters and patients blood pressure was stable at 119/67. The Patient's activity level on discharge is to be gait training with a walker weightbearing as tolerated to operative lower extremity. The patient was placed on DVT prophylaxis. Dressing will stay in place for 7 days and will be removed by our office or our home PT. Patient was given a follow-up appointment in my office in approximately 10 days. Disposition: Stable Patient Instructions: Activity: Gait training with walker weightbearing as tolerated to right Lower extremity, Increased strength and range of motion operative hip. Diet: Regular home diet Wound Care: Dressing to stay in place for 7 days after placement. Follow-up with Dianne Combs DO in 10-14 days. Signed: CARLENE SEGOVIA APRN-CNP 08/23/23 1325 CARLENE Segovia 08/23/23 1330 documented in this encounter [facility] 08-23-2023 Progress note Formatting of castillo parsons note is different from the original. Occupational Therapy Treatment Discharge Recommendations OT Recommendations : Home Home Recommendations: 24 hour caregiver support for: (ADls, IADls, mobility, safety, transportation) Post Discharge Therapy Recommendations: Home Occupational Therapy 6 Clicks: Daily Activity Putting on and taking off regular lower body clothing?: A little Bathing (including washing, rinsing, drying)?: A little Toileting, which includes using toilet, bedpan or urinal?: A little Putting on and taking off regular upper body clothing?: A little Taking care of personal grooming such as brushing teeth?: A little Eating meals?: None Scoring Daily Activity Raw Score: 19 CMS G Code Modifier: CK Therapy Plan Need for skilled Occupational Therapy to address deficits in ADL independence and functional mobility due to a status decline resulting from status post R hip replacement. OT Treatment/Interventions: ADL retraining, Functional transfer training, UE strengthening/ROM, Endurance training, Cognitive reorientation, Patient/family training, Equipment eval/education, Balance, Home management, Compensatory technique education, Functional activities OT Frequency: 4-5days/week OT Duration: 10 days Assessment Patient Assessment Therapy Problem List: Decreased balance, Decreased endurance, Decreased mobility, Decreased LE ROM, Decreased LE strength, Decreased ADL status, Decreased high-level ADLs, Decreased safe judgement during ADL Patient Response to Treatment: Progressing toward goals Mood/Affect: Appropriate for circumstances Rehab Prognosis: Good, With continued OT status post acute discharge Visit RN Communication: Yes Medical Record Reviewed: Yes OT Type of Visit: Treatment Precautions Activity: early mobility pass, OK to treat per RN, Constanza Equipment: RW, nonskid slippers, gait belt Weight Bearing Status: WBAT R LE Telemetry/Retail Visual Merchandiser: No Oxygen Used: room air Other: fall risk, hip precautions Pain Assessment Pain Assessment: 0-10 Pain Score: (does not rate, states just stiffness ) Pain Type: Surgical pain Pain Location: Hip, Leg Pain Orientation: Right ADL / IADL Grooming Assistance: Supervision (wash face, wash hair with shampoo cap and complete oral care while seated in chair) Bathing/Showering Assistance: Min assist LE Dressing Assistance: Min assist LE Dressing Deficit: Thread RLE into underwear, Thread LLE into underwear (ed provided on how to complete with patient service coordinator) Other: patient agreeable to OT ADL treatment session Home Management - IADL Other: patient agreeable to OT ADL treatment session Hearing / Speech / Vision Hearing: Within Functional Limits Speech: Within Functional Limits Current Vision: Wears glasses all the time Bed Mobility Other: seated in chair upon arrival and remains at end of session Transfers Sit to Stand: Standby assist Stand to Sit: Standby assist Balance Sitting Balance: Static: Good Sitting Balance: Dynamic: Good Standing Balance: Static: Fair Standing Balance: Dynamic: Fair Other: functional mobility completed a short distance in the room during ADL tasks with use of RW and SBA/ CGA in order to increase strength and endurance as pt prepares to return to community Activity Tolerance Endurance: Tolerates <30 minutes activity WITHOUT vital sign changes Plan Occupational Therapy Care Plan Occupational Therapy Care Plan (Active) Template: OT - Occupational Therapy Problem: Activity Tolerance Dates: Start: 08/22/23 Disciplines: OT Goal: Tolerate > 30 minutes of activity WITH rest breaks Dates: Start: 08/22/23 Expected End: 08/31/23 Description: Goal Description:patient to engage in activities of choice with out changes in vitals in order to promote return to prior level of function Disciplines: OT Outcomes Date/Time User Outcome 08/23/23 1145 Yesenia Brady OTR/Jennifer Progressing Goal note from Hospital Encounter 06/26/2023 by Yesenia Brady OTR/Jennifer Evaluation of progress towards goal: tolerates full Adl session Problem: Other (Customize) Dates: Start: 08/22/23 Disciplines: OT Goal: Improve Dates: Start: 08/22/23 Expected End: 08/31/23 Description: Goal Description:Patient to increase IND in ADls to supervision while adhering to precautions with use of AE in order to promote return to prior level of function Disciplines: OT Outcomes Date/Time User Outcome 08/23/23 1145 Yesenia Brady OTR/Jennifer Progressing Goal note from Hospital Encounter 06/26/2023 by Yesenia Brady OTR/Jennifer Evaluation of progress towards goal: min assist to don underwear, reviewed how to use patient service coordinator for lower body dressing Problem: Standing Balance Dates: Start: 08/22/23 Disciplines: OT Goal: Improve balance to good Dates: Start: 08/22/23 Expected End: 08/31/23 Description: Patient to increase standing balance to good in order to increase IND in ADLS and lower body dressing tasks Disciplines: OT Outcomes Date/Time User Outcome 08/23/23 1145 Yesenia Brady OTR/Jennifer Progressing Goal note from Hospital Encounter 06/26/2023 by Yesenia Brady OTR/Jennifer Evaluation of progress towards goal: fair Occupational Therapy Care Plan (Resolved) There are no resolved problems. Principal Problem: Primary osteoarthritis of right hip [employer] Work Phone: 08-23-2023 Nurse Note Beauty Culturist Apprentice spoke with Sergio PIERRE, made aware that patient's dressing became bloody and was bleeding outside of dressing. Sergio PIERRE made aware that the patient was a little hypotensive this morning and complained of lightheadedness when she ambulated to the bathroom. RN changed dressing and applied new aquacel dressing. Per Sergio measures taken were appropriate and would like H&H collected. Order put in. Will see patient later today. [facility] 08-23-2023 Progress note Formatting of t his note is different from the original. 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 Essential hypertension Glaucoma 05/30/2020 BILATERAL Hypokalemia Hypothyroidism Impaired glucose tolerance 08/25/2015 Insomnia Joint pain Labyrinthitis Lumbar spondylosis 12/01/2018 Metatarsalgia 03/17/2017 Mixed hyperlipidemia 05/31/2016 Moderate depressive disorder 07/16/2017 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 Multiple acquired skin tags Neuropathy 03/14/2017 Osteoarthritis of hip 10/24/2021 Plantar fasciitis 02/27/2016 Referred otalgia Regurgitation of food Shoulder pain Temporomandibular joint disorder Tinnitus 2018 Visual impairment Vitamin D deficiency 08/23/2015 Past Surgical History: Procedure Laterality Date APPENDECTOMY CATARACT EXTRACTION Bilateral CHOLECYSTECTOMY HYSTERECTOMY LAPAROTOMY OOPHERECTOMY Bilateral at different time than uterus MANDIBLE FRACTURE SURGERY jaw broken/pt states she was 14 or 15 REPLACEMENT TOTAL JOINT HIP ANTERIOR SUPINE INTERMUSCULAR Right 08/21/2023 Performed by Dianne Combs DO at [facility] REPLACEMENT TOTAL KNEE Left 07/27/2019 REPLACEMENT TOTAL KNEE Right 02/2022 right 6 Clicks: Basic Mobility Turning from your back to your side while in a flat bed without using bed rails?: None Moving from lying on your back to sitting on side of flat bed without using bed rails?: A little Moving to and from bed to a chair (including w/c)?: A little Standing up from a chair using your arms (e.g. w/c or bedside chair)?: None To walk in hospital room?: A little Climbing 3-5 steps with a railing?: A little Scoring 6 Clicks: Basic Mobility Raw Score: 20 CMS G Code Modifier: CJ Therapy Plan Need for skilled Physical Therapy to address deficits in functional mobility due to a status decline resulting from S/P R BINA by Dr. Combs. Patient Response to Treatment: Progressing toward goals Assessment Patient Assessment Patient Response to Treatment: Progressing toward goals Visit RN Communication: Yes Medical Record Reviewed: Yes PT Type of Visit: Treatment Precautions Activity: Early mobility ok, Ok to treat per RN Constanza Equipment: nonskid slippers, gait belt, rolling walker Weight Bearing Status: WBAT R LE Other: Anterior hip precautions- clarified with doctors office Pain Assessment Pain Assessment: 0-10 Pain Score: 7 Pain Type: Surgical pain Pain Location: Hip, Leg Pain Orientation: Right Pain Descriptors: Tightness Pain Intervention(s): Ambulation/increased activity Response to Interventions: Pain unchanged Cognition Orientation Level: Oriented X4 Transfers Sit to Stand: Standby assist Stand to Sit: Standby assist Toilet Transfers: Contact guard assist (BSC over toilet) Gait Base of Support: Within Functional Limits Pattern: Decreased diego, Antalgic gait, R Decreased foot clearance, L Decreased foot clearance Gait Assistance: Standby assist, Verbal cues Assistive Device: Rolling walker Gait Distance: 150ft Included Uneven Surface: Yes 2 Turns: Yes Stair Management Technique: Step to pattern, Forwards, With walker, One rail R up Stair Management Assistance: Contact guard assist, Verbal cues Number of Stairs: 2 x 6 stairs (patient also verbally educated on using the walker for curb like steps.) Balance Sitting Balance: Static: Good Sitting Balance: Dynamic: Good Standing Balance: Static: Fair Standing Balance: Dynamic: Fair Activity Tolerance Endurance: Tolerates <30 minutes activity WITHOUT vital sign changes Plan Physical Therapy Care Plan Physical Therapy Care Plan (Active) Template: PT - Physical Therapy Problem: Activity Tolerance Dates: Start: 08/22/23 Disciplines: PT Goal: Tolerate 30 minutes of activity WITH rest breaks Dates: Start: 08/22/23 Expected End: 08/31/23 Description: Goal Description: Disciplines: PT Outcomes Date/Time User Outcome 08/23/23 0937 Hanane Hermosillo, PT Progressing 08/22/23 1433 Hanane Hermosillo, PT Progressing Goal note from Hospital Encounter 06/26/2023 by Hanane Hermosillo, PT Evaluation of progress towards goal: tolerated 35 min of activity with rest breaks Problem: Bed Mobility Dates: Start: 08/22/23 Disciplines: PT Goal: Patient will perform bed mobility with Stand By Assist Dates: Start: 08/22/23 Expected End: 08/31/23 Description: Goal Description: Pt to perform bed mobility in order to be able to decrease risk of further skin breakdown. Disciplines: PT Outcomes Date/Time User Outcome 08/23/23 0937 Hanane Hermosillo, PT Not Progressing 08/22/23 1433 Hanane Hermosillo, PT Progressing Goal note from Hospital Encounter 06/26/2023 by Hanane Hermosillo, PT Evaluation of progress towards goal: min A Problem: Gait Dates: Start: 08/22/23 Disciplines: PT Goal: Patient will perform gait with Stand By Assist Dates: Start: 08/22/23 Expected End: 08/31/23 Description: Pt to be able to ambulate 100ft with walker to be able to safely manage household distances at discharge. Disciplines: PT Outcomes Date/Time User Outcome 08/23/23 0937 Hanane Hermosillo, PT Progressing 08/22/23 1433 Hanane Hermosillo, PT Progressing Goal note from Hospital Encounter 06/26/2023 by Hanane Hermosillo, PT Evaluation of progress towards goal: ambulated within hallway with walker and SBA Problem: Stairs/Curb Dates: Start: 08/22/23 Disciplines: PT Goal: Patient will perform stairs/curb with Minimum Assist Dates: Start: 08/22/23 Expected End: 08/31/23 Description: Pt to ascend and descend 2 stairs with left handrail to be able to safely enter house at discharge. Disciplines: PT Outcomes Date/Time User Outcome 08/23/23 0937 Hanaen Hermosillo, PT Progressing Goal note from Hospital Encounter 06/26/2023 by Hanane Hermosillo, PT Evaluation of progress towards goal: 2 x 6 stairs with right handrail and CGA Problem: Standing Balance Dates: Start: 08/22/23 Disciplines: PT Goal: Improve balance to good Dates: Start: 08/22/23 Expected End: 08/31/23 Description: Static Dynamic Pt to have balance of good in order to decrease risk of falls at discharge. Disciplines: PT Outcomes Date/Time User Outcome 08/23/23 0937 Hanane Hermosillo PT Progressing 08/22/23 1433 Hanane Hermosillo PT Progressing Goal note from Hospital Encounter 06/26/2023 by Hanane Hermosillo PT Evaluation of progress towards goal: fair with walker Problem: Strength Dates: Start: 08/22/23 Disciplines: PT Goal: Improve strength Dates: Start: 08/22/23 Expected End: 08/31/23 Description: Of extremity/ location: right LE to at least 4-/5 To facilitate: improved transfers and stair management Disciplines: PT Outcomes Date/Time User Outcome 08/23/23 0937 Hanane Hermosillo PT Progressing 08/22/23 1433 Hanane Hermosillo PT Progressing Goal note from Hospital Encounter 06/26/2023 by Hanane Hermosillo PT Evaluation of progress towards goal: 4-/5 Problem: Transfers Dates: Start: 08/22/23 Disciplines: PT Goal: Patient will perform transfers with Stand By Assist Dates: Start: 08/22/23 Expected End: 08/31/23 Description: Goal Description: Pt to be able to safely transfer with least amount of assistance to demonstrate decreased need for caregiver assistance and ease with home transfers. Disciplines: PT Outcomes Date/Time User Outcome 08/23/23 0937 Hanane Hermosillo PT Progressing 08/22/23 1433 Hanane Hermosillo PT Progressing Goal note from Hospital Encounter 06/26/2023 by Hanane Hermosillo PT Evaluation of progress towards goal: SBA Physical Therapy Care Plan (Resolved) There are no resolved problems. Principal Problem: Primary osteoarthritis of right hip [employer] 08-22-2023 Plan of care note Problem: Pain Goal: Patient goal is pain score less than 4, able to rest, and participant in treatment plan as appropriate Description: INTERVENTIONS: 1. Encourage patient or legal telesales representative to report early pain and ask for pain medicine when needed 2. Assess pain using appropriate pain scale and include the scale used when documenting 3. Administer analgesics based on type and severity of pain and evaluate response within appropriate time frame 4. Implement non-pharmacological measures as appropriate and evaluate response 5. Consider cultural and social influences on pain and pain management 6. Notify LIP if interventions ineffective or patient reports new pain 7. Monitor vital signs including pulse ox, end-tidal CO2 based on pain intervention 8. Reassess pain per policy 9. Teach patient or legal telesales representative interventions for comforting Outcome: Progressing Note: Evaluation of progress towards goal: Pt encouraged to report early pain, non pharmacological measures implemented as needed. Pt able to report pain according to 0/10 pain scale. Medicating patient for pain per orders. Problem: Safety Goal: Patient will be injury free during hospitalization Description: INTERVENTIONS: 1. Assess patient's risk for falls and implement fall prevention plan of care per policy 2. Provide and maintain a safe environment 3. Proper use of double Identifiers 4. Medication administration using the 5 rights 5. Hand hygiene 6. Specimens are labeled at the bedside 7. Instruct patient/ patient telesales representative about use of safety devices 8. Include patient/ patient telesales representative in decisions related to safety Outcome: Progressing Note: Evaluation of progress towards goal: Pt's risk for falls assessed and fall prevention implemented as needed, safe environment provided and maintained, hand hygiene completed. Problem: Infection Goal: Absence of infection during hospitalization Description: Interventions: 1. Assess and monitor for signs and symptoms of infection 2. Monitor lab/diagnostic results 3. Monitor all insertion sites i.e., indwelling lines, tubes and drains 4. Monitor endotracheal (as able) and nasal secretions for changes in amount and color 5. Administer medications as ordered 6. Instruct and encourage patient and family to use good hand hygiene technique 7. Identify and instruct patient/patient telesales representative in use of appropriate isolation precautions for identified infection/symptoms 8. Provide and discuss with patient/patient telesales representative on educational MDRO sheet 9. Encourage and monitor nutritional status daily and consult system support analyst if indicated 10. Implement neutropenic guidelines as needed 11. Review exposure to history of communicable disease and recent travel history on admission 12. Encourage annual influenza vaccine 13. Encourage pneumonia vaccine Outcome: Progressing Note: Evaluation of progress towards goal: Pt assessed and monitored for signs and symptoms of infection, lab and diagnostic results monitored as needed, administer medications as needed. Problem: Knowledge Deficit Goal: Patient/patient telesales representative demonstrates understanding of disease process, treatment plan, medications, and discharge instructions Description: INTERVENTIONS 1. Complete learning assessment and assess knowledge base 2. Provide teaching at level of understanding 3. Provide teaching via preferred learning method(s) Outcome: Progressing Note: Evaluation of progress towards goal: Pt learning and knowledge base assessed, teaching provided at an understandable level as needed, teaching provided via preferred learning method. [facility] 08-22-2023 Plan of care note Problem: Pain Goal: Patient goal is pain score less than 4, able to rest, and participant in treatment plan as appropriate Description: INTERVENTIONS: 1. Encourage patient or legal telesales representative to report early pain and ask for pain medicine when needed 2. Assess pain using appropriate pain scale and include the scale used when documenting 3. Administer analgesics based on type and severity of pain and evaluate response within appropriate time frame 4. Implement non-pharmacological measures as appropriate and evaluate response 5. Consider cultural and social influences on pain and pain management 6. Notify LIP if interventions ineffective or patient reports new pain 7. Monitor vital signs including pulse ox, end-tidal CO2 based on pain intervention 8. Reassess pain per policy 9. Teach patient or legal telesales representative interventions for comforting Outcome: Progressing Note: Evaluation of progress towards goal: Pt able to report pain according to 0/10 pain scale. Medicating patient for pain per orders. Problem: Safety Goal: Patient will be injury free during hospitalization Description: INTERVENTIONS: 1. Assess patient's risk for falls and implement fall prevention plan of care per policy 2. Provide and maintain a safe environment 3. Proper use of double Identifiers 4. Medication administration using the 5 rights 5. Hand hygiene 6. Specimens are labeled at the bedside 7. Instruct patient/ patient telesales representative about use of safety devices 8. Include patient/ patient telesales representative in decisions related to safety Outcome: Progressing Note: Evaluation of progress towards goal: Pt's risk for falls assessed and fall prevention implemented as needed, safe environment provided and maintained, hand hygiene completed. Problem: Infection Goal: Absence of infection during hospitalization Description: Interventions: 1. Assess and monitor for signs and symptoms of infection 2. Monitor lab/diagnostic results 3. Monitor all insertion sites i.e., indwelling lines, tubes and drains 4. Monitor endotracheal (as able) and nasal secretions for changes in amount and color 5. Administer medications as ordered 6. Instruct and encourage patient and family to use good hand hygiene technique 7. Identify and instruct patient/patient telesales representative in use of appropriate isolation precautions for identified infection/symptoms 8. Provide and discuss with patient/patient telesales representative on educational MDRO sheet 9. Encourage and monitor nutritional status daily and consult system support analyst if indicated 10. Implement neutropenic guidelines as needed 11. Review exposure to history of communicable disease and recent travel history on admission 12. Encourage annual influenza vaccine 13. Encourage pneumonia vaccine Outcome: Progressing Note: Evaluation of progress towards goal: Patient VS WNL, remains afebrile for shift. Problem: Knowledge Deficit Goal: Patient/patient telesales representative demonstrates understanding of disease process, treatment plan, medications, and discharge instructions Description: INTERVENTIONS 1. Complete learning assessment and assess knowledge base 2. Provide teaching at level of understanding 3. Provide teaching via preferred learning method(s) Outcome: Progressing Note: Evaluation of progress towards goal: Patient is taught verbally at and appropriate level of understanding using the teach back method. Patient was encouraged to asked questions to learn about of their plan of care and medications. The patient received proper education prior to medication administration. The patient understands and has no additional questions at this time. Problem: Discharge Planning Goal: Discharge to post-acute care, other facility, or home with appropriate resources Description: Patient's goal is: INTERVENTIONS 1. Conduct assessment to determine patient/family and health care team treatment goals, and need for post-acute services based on payer coverage, community resources, and patient preferences, and barriers to discharge 2. Coordinate with Social work, Care Navigation, and Utilization Review to arrange appropriate level of services according to patient's needs based on patient preference and payer coverage in collaboration with the physician and health care team 3. Address psychosocial, clinical, and financial barriers to discharge as identified in assessment in conjunction with the patient/family and health care team 4. Consult appropriate ancillary services (i.e.. PT/OT/ST, etc) as needed 5. Communicate with and update the patient/family, physician, and health care team regarding progress on the discharge plan 6. Identify discharge learning needs (meds, wound care, etc). 7. Arrange for needed discharge transportation as appropriate Outcome: Progressing Note: Evaluation of progress towards goal: Patient is knowledgeable and understanding of current discharge plans. Patient states understanding of goals needed to be met prior to discharge. Patient is planned to be discharged when medically ready. [facility] needs are assessed[facility] Progress note Formatting of t his note might be different from the original. ET nurse note: ET seen patient for a Wilbur score of 17. Initial ET skin assessment completed. Patients abdominal fold is red and moist. Beauty Culturist Apprentice applies antifungal powder. Remaining pressure points clear. Skin protocols on chart. Continue to follow wound care order set and turn patient every 2 hours as needed. No additional concerns at this time. Please consult Wound Care Services with any new skin concerns. [facility]-22-2023 Progress note Formatting of t his note is different from the original. 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 Essential hypertension Glaucoma 05/30/2020 BILATERAL Hypokalemia Hypothyroidism Impaired glucose tolerance 08/25/2015 Insomnia Joint pain Labyrinthitis Lumbar spondylosis 12/01/2018 Metatarsalgia 03/17/2017 Mixed hyperlipidemia 05/31/2016 Moderate depressive disorder 07/16/2017 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 Multiple acquired skin tags Neuropathy 03/14/2017 Osteoarthritis of hip 10/24/2021 Plantar fasciitis 02/27/2016 Referred otalgia Regurgitation of food Shoulder pain Temporomandibular joint disorder Tinnitus 2018 Visual impairment Vitamin D deficiency 08/23/2015 Past Surgical History: Procedure Laterality Date APPENDECTOMY CATARACT EXTRACTION Bilateral CHOLECYSTECTOMY HYSTERECTOMY LAPAROTOMY OOPHERECTOMY Bilateral at different time than uterus MANDIBLE FRACTURE SURGERY jaw broken/pt states she was 14 or 15 REPLACEMENT TOTAL JOINT HIP ANTERIOR SUPINE INTERMUSCULAR Right 08/21/2023 Performed by Dianne Combs DO at [facility] REPLACEMENT TOTAL KNEE Left 07/27/2019 REPLACEMENT TOTAL KNEE Right 02/2022 right 6 Clicks: Basic Mobility Turning from your back to your side while in a flat bed without using bed rails?: None Moving from lying on your back to sitting on side of flat bed without using bed rails?: A little Moving to and from bed to a chair (including w/c)?: A little Standing up from a chair using your arms (e.g. w/c or bedside chair)?: None To walk in hospital room?: A little Climbing 3-5 steps with a railing?: A lot Scoring 6 Clicks: Basic Mobility Raw Score: 19 CMS G Code Modifier: CJ Therapy Plan Need for skilled Physical Therapy to address deficits in functional mobility due to a status decline resulting from S/P R BINA on 08/21/[address] Comsb. PT Treatment/Interventions: Functional transfer training, LE strengthening/ROM, Endurance training, Balance, Stair training, Bed mobility, Gait training, Functional activities, Neuromuscular reeducation PT Frequency: Other (comment) (1-2x/day) PT Duration: 10 days Patient Response to Treatment: Progressing toward goals Assessment Patient Assessment Therapy Problem List: Abnormal posture, Decreased balance, Decreased endurance, Decreased mobility, Decreased LE ROM, Decreased LE strength Patient Response to Treatment: Progressing toward goals Mood/Affect: Appropriate for circumstances Rehab Prognosis: Good, With continued PT status post acute discharge Visit RN Communication: Yes Medical Record Reviewed: Yes PT Type of Visit: Treatment Precautions Activity: Ok to treat per RN, Constanza Equipment: nonskid slippers, gait belt, rolling walker Weight Bearing Status: WBAT R LE Telemetry/Retail Visual Merchandiser: No Other: Anterior hip precautions- clarified with doctors office Pain Assessment Pain Assessment: 0-10 Pain Score: 6 Pain Type: Surgical pain Pain Location: Hip, Leg Pain Orientation: Right Pain Intervention(s): Ambulation/increased activity Response to Interventions: Pain unchanged Home Living Type of Home: House Home Layout: One level Stairs to Enter: 3 Hand Rails: Left Bathroom Shower/Tub: Tub/shower unit Bathroom Toilet: Raised Bathroom Equipment: Shower chair, Grab bars in shower Bathroom Accessibility: Accessible via walker Home Equipment: Rolling walker, Cane, Manager Land, Long-handled shoehorn Prior Function Lives With: Alone Receives Help From: Family Level of Mobility: Independent with ADLs and functional transfers or gait Homemaking Assistance: Independent Hearing / Speech / Vision Hearing: Within Functional Limits Speech: Within Functional Limits Current Vision: Wears glasses all the time Cognition Orientation Level: Oriented X4 Bed Mobility Supine to Sit: Min assist, Verbal cues (Cues for using belt for lifting leg as needed) Sit to Supine: Stand by assist (bed flat and no bed rail) Transfers Sit to Stand: Standby assist Stand to Sit: Standby assist Toilet Transfers: Contact guard assist (BSC over toilet) Gait Base of Support: Within Functional Limits Pattern: Decreased diego, Antalgic gait, R Decreased foot clearance, L Decreased foot clearance Gait Assistance: Verbal cues, Standby assist Assistive Device: Rolling walker Gait Distance: 200ft Limiting Factors to Gait: Fatigue Included Uneven Surface: Yes 2 Turns: Yes Balance Sitting Balance: Static: Good Sitting Balance: Dynamic: Good Standing Balance: Static: Fair Standing Balance: Dynamic: Fair RLE Assessment: (3-/5) LLE Assessment: (4-/5) Activity Tolerance Endurance: Tolerates <30 minutes activity WITHOUT vital sign changes 08/22/23 1343 TKA TKA exercises performed? No Plan Physical Therapy Care Plan Physical Therapy Care Plan (Active) Template: PT - Physical Therapy Problem: Activity Tolerance Dates: Start: 08/22/23 Disciplines: PT Goal: Tolerate 30 minutes of activity WITH rest breaks Dates: Start: 08/22/23 Expected End: 08/31/23 Description: Goal Description: Disciplines: PT Outcomes Date/Time User Outcome 08/22/23 1433 Hanane Hermosillo PT Progressing Goal note from Hospital Encounter 06/26/2023 by Hanane Hermosillo PT Evaluation of progress towards goal: tolerated increased activity this session Problem: Bed Mobility Dates: Start: 08/22/23 Disciplines: PT Goal: Patient will perform bed mobility with Stand By Assist Dates: Start: 08/22/23 Expected End: 08/31/23 Description: Goal Description: Pt to perform bed mobility in order to be able to decrease risk of further skin breakdown. Disciplines: PT Outcomes Date/Time User Outcome 08/22/23 1433 Hanane Hermosillo PT Progressing Goal note from Hospital Encounter 06/26/2023 by Hanane Hermosillo PT Evaluation of progress towards goal: SBA to get back into bed Problem: Gait Dates: Start: 08/22/23 Disciplines: PT Goal: Patient will perform gait with Stand By Assist Dates: Start: 08/22/23 Expected End: 08/31/23 Description: Pt to be able to ambulate 100ft with walker to be able to safely manage household distances at discharge. Disciplines: PT Outcomes Date/Time User Outcome 08/22/23 1433 Hanane Hermosillo, PT Progressing Goal note from Hospital Encounter 06/26/2023 by Hanane Hermosillo, PT Evaluation of progress towards goal: 200ft with walker and SBA Problem: Stairs/Curb Dates: Start: 08/22/23 Disciplines: PT Goal: Patient will perform stairs/curb with Minimum Assist Dates: Start: 08/22/23 Expected End: 08/31/23 Description: Pt to ascend and descend 2 stairs with left handrail to be able to safely enter house at discharge. Disciplines: PT Problem: Standing Balance Dates: Start: 08/22/23 Disciplines: PT Goal: Improve balance to good Dates: Start: 08/22/23 Expected End: 08/31/23 Description: Static Dynamic Pt to have balance of good in order to decrease risk of falls at discharge. Disciplines: PT Outcomes Date/Time User Outcome 08/22/23 143 Hanane Hermosillo, PT Progressing Goal note from Hospital Encounter 06/26/2023 by Hanane Hermosillo, PT Evaluation of progress towards goal: fair with walker Problem: Strength Dates: Start: 08/22/23 Disciplines: PT Goal: Improve strength Dates: Start: 08/22/23 Expected End: 08/31/23 Description: Of extremity/ location: right LE to at least 4-/5 To facilitate: improved transfers and stair management Disciplines: PT Outcomes Date/Time User Outcome 08/22/23 143 Hanane Hermosillo PT Progressing Goal note from Hospital Encounter 06/26/2023 by Hanane Hermosillo, PT Evaluation of progress towards goal: 3-/5 Problem: Transfers Dates: Start: 08/22/23 Disciplines: PT Goal: Patient will perform transfers with Stand By Assist Dates: Start: 08/22/23 Expected End: 08/31/23 Description: Goal Description: Pt to be able to safely transfer with least amount of assistance to demonstrate decreased need for caregiver assistance and ease with home transfers. Disciplines: PT Outcomes Date/Time User Outcome 08/22/23 1433 Hanane Hermosillo PT Progressing Goal note from Hospital Encounter 06/26/2023 by Hanane Hermosillo PT Evaluation of progress towards goal: SBA/CGA Physical Therapy Care Plan (Resolved) There are no resolved problems. Principal Problem: Primary osteoarthritis of right hip [facility] 08-22-2023 History of Present illness Narrative Orthopedic Progress Note: Post-Operative Day 1 Status post Procedure(s): REPLACEMENT TOTAL JOINT HIP ANTERIOR SUPINE INTERMUSCULAR (Right) - Wound Class: Clean - Incision Closure: Deep and Superficial Layers Progress plan discharge in next 24 hours PLAN: Patient will stay for overnight to continue to work with PT as she has limited help at home. Anticipate discharge tomorrow. Dressing to stay in place for 7 days post op unless there is drainage leaking from border. Patient verbalized understanding. Discharge Plan home Anticipated discharge date 08/23/2023 LOS: 0 days SUBJECTIVE: Patient states that she is doing ok but is concerned with transition from sit to stand and ambulating to bathroom. Pain is controlled currently. OBJECTIVE FINDINGS: BP 105/57 Pulse 65 Temp 36.8 C (98.2 F) (Oral) Resp 15 Ht 165.1 cm (5' 5 ) Wt 84.4 kg (186 lb) SpO2 96% BMI 30.95 kg/m O2 Device: None (Room air) General alert, appears stated age, and cooperative Neurovascular neurovascularly intact Wound Dressings intact, clean with no leaking drainage DVT Exam No evidence of DVT seen on physical exam. Data Review Labs Recent Results (from the past 48 hour(s)) ABO Rh Repeat Collection Time: 08/21/23 10:00 AM Result Value Ref Range ABO A RH Positive Imaging X-ray hip right 2-3 views with or without pelvis Result Date: 08/21/2023 Narrative: History: [Postoperative evaluation] [Right hip radiographs demonstrate interval placement of a total right hip prosthesis. Alignment and appearance of the prosthesis appear unremarkable. There is no obvious fracture, excessive femoral shortening, or evidence of hardware malposition.] Impression: [Unremarkable appearance total right hip prosthesis.] Finalized by Kaleb Ogden MD on 08/21/2023 5:19 PM X-ray hip right 2-3 views with or without pelvis Result Date: 08/21/2023 Narrative: XR HIP RT 2-3 VIEWS W OR WO PELVIS HISTORY: Hip replacement. COMPARISON: 03/24/2022. IMPRESSION: Reference air kerma 9.9 mGy. Fluoroscopic guidance provided. Please see details within procedural/operative note. Finalized by Jovani James MD on 08/21/2023 5:01 PM X-ray knee left 1 or 2 views Result Date: 07/30/2023 Narrative: Imaging Result: July 30, 2023 x-rays AP and lateral of the left knee demonstrate cemented knee replacement in good position alignment without signs of loosening fracture or failure. Impression: Stable appearance of left total knee replacement Harsh Combs D.O. X-ray hip right 2-3 views with or without pelvis Result Date: 07/25/2023 Narrative: Imaging Result: July 25, 2023 x-rays AP and lateral of the right hip demonstrate narrowing of the right hip joint with subchondral sclerosis and osteophyte formation. There are no fractures. Impression: Advanced osteoarthritis right hip CARLENE Mulligan D.O. 08/22/23 1243 documented in this encounter [facility] 08-22-2023 Progress note Formatting of castillo parsons note is different from the original. Images from the original note were not included. DISCHARGE PLANNING NOTE Met with pt to complete assessment, pt up sitting in chair ordering her lunch. Pt reports to being independent prior to admit. Pt lives alone. No new DME needs: Pt confirms PCP & Preferred pharmacy noted in epic: Taiwo Ayala, [facility], [place], [place]. Pt reports ability to afford medications, denies food/utility/transportation needs. Pt denies alcohol/drug/tobacco use. No depression/anxiety, Negative Wetzel Screen. Beauty Culturist Apprentice discussed post acute care needs. Pt denies any needs at discharge and confirms will have a ride home. Prefers to set up own f/u appts. No other questions or concerns at this time. 08/22/23 1145 Discharge Disposition Discharge Disposition Home with Self Care ([facility] therapy.) [facility] Information [facility] Patient Information Primary Caregiver Self Support System Immediate family Stressors Type of stressor (Denies) Income Information Income Information Retired/Pension/Social Security Referral To Community Resources Denies needs Discharge Planning Living Arrangements Alone (Dtr Verónica will be staying with her.) Support Systems Children;Family members;Friends Assistance Needed Pt plans to DC to home with help from dtr. Denies any DC questions or concerns at this time. Type of Residence Private residence Private Residence 1 story Home Care Services No Community Agencies Currently Utilized Other (Comment) ([facility]) Established DME Comments Has all needed DME, denies any new needs. Patient expects to be discharged to: Return home with help from dtr. [facility] therapy in her home. Does the patient need discharge transport arranged? No Services Requested: Services Requested Discharge Disposition: Home with self care, Home with home health services Facility/Service Name: [facility] therapy Facility/Service Does the patient need discharge transportation arranged?: No Initial DC Assessment Completed: Yes DC Planning Complete Discharge Milestones: Yes Patient Goals: Patient/Caregiver Goals Patient/Caregiver Goals: Home with Home Care ([facility] therapy) Goals: Goals Reduce salt intake to 2 grams per day or less Evaluation of progress towards goal:Increase clonidine 0.1mg to BID A1C is excellent at 5.9% Monitor BP and pulse and will review at next visit Return home (pt-stated) Evaluation of progress towards goal: In progress: Sitting in chair. Doing well with therapy and plans to DC home with [facility] therapy when DC. [employer] [facility] 08-21-2023 Plan of care note Problem: Pain Goal: Patient goal is pain score less than 4, able to rest, and participant in treatment plan as appropriate Description: INTERVENTIONS: 1. Encourage patient or legal telesales representative to report early pain and ask for pain medicine when needed 2. Assess pain using appropriate pain scale and include the scale used when documenting 3. Administer analgesics based on type and severity of pain and evaluate response within appropriate time frame 4. Implement non-pharmacological measures as appropriate and evaluate response 5. Consider cultural and social influences on pain and pain management 6. Notify LIP if interventions ineffective or patient reports new pain 7. Monitor vital signs including pulse ox, end-tidal CO2 based on pain intervention 8. Reassess pain per policy 9. Teach patient or legal telesales representative interventions for comforting Note: Evaluation of progress towards goal: Pt encouraged to report early pain, non pharmacological measures implemented as needed. Pt able to report pain according to 0/10 pain scale. Medicating patient for pain per orders. Problem: Safety Goal: Patient will be injury free during hospitalization Description: INTERVENTIONS: 1. Assess patient's risk for falls and implement fall prevention plan of care per policy 2. Provide and maintain a safe environment 3. Proper use of double Identifiers 4. Medication administration using the 5 rights 5. Hand hygiene 6. Specimens are labeled at the bedside 7. Instruct patient/ patient telesales representative about use of safety devices 8. Include patient/ patient telesales representative in decisions related to safety Outcome: Progressing Note: Evaluation of progress towards goal: Pt's risk for falls assessed and fall prevention implemented as needed, safe environment provided and maintained, hand hygiene completed. Problem: Infection Goal: Absence of infection during hospitalization Description: Interventions: 1. Assess and monitor for signs and symptoms of infection 2. Monitor lab/diagnostic results 3. Monitor all insertion sites i.e., indwelling lines, tubes and drains 4. Monitor endotracheal (as able) and nasal secretions for changes in amount and color 5. Administer medications as ordered 6. Instruct and encourage patient and family to use good hand hygiene technique 7. Identify and instruct patient/patient telesales representative in use of appropriate isolation precautions for identified infection/symptoms 8. Provide and discuss with patient/patient telesales representative on educational MDRO sheet 9. Encourage and monitor nutritional status daily and consult system support analyst if indicated 10. Implement neutropenic guidelines as needed 11. Review exposure to history of communicable disease and recent travel history on admission 12. Encourage annual influenza vaccine 13. Encourage pneumonia vaccine Outcome: Progressing Note: Evaluation of progress towards goal: Pt assessed and monitored for signs and symptoms of infection, lab and diagnostic results monitored as needed, administer medications as needed. Problem: Knowledge Deficit Goal: Patient/patient telesales representative demonstrates understanding of disease process, treatment plan, medications, and discharge instructions Description: INTERVENTIONS 1. Complete learning assessment and assess knowledge base 2. Provide teaching at level of understanding 3. Provide teaching via preferred learning method(s) Outcome: Progressing Note: Evaluation of progress towards goal: Pt learning and knowledge base assessed, teaching provided at an understandable level as needed, teaching provided via preferred learning method. [facility] 08-21-2023 Note XR HIP RT 2-3 VIEWS W OR WO PELVIS History: [Postoperative evaluation] [Right hip radiographs demonstrate interval placement of a total right hip prosthesis. Alignment and appearance of the prosthesis appear unremarkable. There is no obvious fracture, excessive femoral shortening, or evidence of hardware malposition.] Impression: [Unremarkable appearance total right hip prosthesis.] Finalized by Kaleb Ogden MD on 08/21/2023 5:19 PM [facility] 08-21-2023 Procedure note Summary: Right total hip replacement Екатерина Shaffer Date of : 1945 Date of Surgery: 08/21/2023 Preoperative diagnosis: Primary osteoarthritis right hip Postoperative diagnosis: Same Procedure: Right total hip arthroplasty utilizing a direct anterior approach Implants: Liz Fitmore size 3 with extended offset neck, 50 mm cup, 36 mm femoral head neutral liner Surgeon: Dianne Combs DO Anesthesia: Anesthesiologist: Julian Delacruz DO PUBLIC RELATIONS: LIZBET Gaines; LIZBET Adan Monitored Anesthesia Care, Spinal OR staff: Enroute Controller Primary: Amanda Brady RN Food Manager: Candelaria Walker; MONSE Aguilar Enroute Controller Relief: Shamika Solis RN Scrub Person: Carmela Billingsley CST; Estella Muñoz; ST Robert Mckeon Assistant: Teri Elder Estimated blood loss: 400 mL Complications: None Findings: Advanced arthritis with [id number] osteophyte formation circumferentially around the femoral head much worse than what appeared on x-rays Procedure summary: The patient was brought to the operative suite she was given general anesthesia and placed supine with a break in the table at the level of her hips preoperative images were obtained verifying ability to visualize the hip with C-arm. Both lower extremities were prepped and draped in the right lower extremity was prepped up to the level of the belly button. Incision was made beginning approximately 2 cm lateral and 2 cm inferior to the anterior superior iliac spine dissection was carried down the fascia the tensor fascia diogenes was identified it was incised the tensor fascia diogenes was peeled laterally and dissection was carried down to the floor of the fascia this was then opened and beneath that I immediately encountered the ascending circumflex vessels. These were coagulated with the irrigating bipolar/Aquamantys. The pericapsular fat was peeled away and the capsule was incised retractors were placed inside the capsule and the capsule lobectomy was performed. The notch between the greater trochanter and the neck superiorly was extremely narrow I could not even fit a retractor between these. I made a cut through the femoral neck through and through along the medial and distal half and then I completed the cut proximally it with an osteotome so as to protect the greater trochanter. The head was removed. It sized out to 48. The capsule was released from the posterior trochanter and a vaginotomy was performed on the inferior capsule. All remnants of the labrum were excised. Reaming was performed medializing with a 47 mm Reamer then reaming up to 49 mm at which point there was good bleeding in the periphery and circumferentially in the cup. Next a size 50 mm cup was impacted into place it was snug and secure. I further stabilized it with a single superior acetabular screw and an apex hole eliminating screw was inserted. I then irrigated the cuff with diluted Betadine and I impacted the liner 36 x 50. I attention was turned towards the femur dissection was slow and tedious exposure of the greater trochanter inner aspect took some time due to exuberant capsule. Finally this was removed the conjoint tendon was released and the femur was gradually delivered anteriorly with flexion of the leg and adduction of the leg beneath the contralateral leg. Canal was opened with a box osteotome and broaching was performed initially starter broach was inserted it would not seat height obtained an intraoperative x-ray and realized that the broach need to go further lateral. The broach was removed and I used Kerrison rongeur was and box osteotome to further gain access laterally. At this time broaching went smoothly and I broached up to b B3 broach this was left in place it was snug and secure trial reductions were performed ultimately an extended offset neck fit best The broach and trial components were removed a size B3 stem was impacted into place it was snug and secure a 0/36 mm head was impacted over dry Baca taper and the hip was reduced range of motion was taken to extremes the leg lengths were symmetric the hip was well balanced there was no tendency towards dislocation. I then irrigated thoroughly and irrigated more with diluted Betadine I closed the fascia of the tensor fascia diogenes with an 0 Stratafix suture. The subcutaneous layers and subcutaneous fascia was closed with 0 Vicryl and then ultimately a running 0 Vicryl subcuticular stitch. The margins of the wound were infiltrated with 21 cc of 0.5% Marcaine tincture benzoin and Steri-Strips were applied followed by an Aquacel dressing. The patient was transported to the recovery room [facility] Attending History and physical note HISTORY AND PHYSICAL INTERVAL NOTE: Екатерина Shaffer 1945 [id number] H&P reviewed. The patient was examined and there are no changes to the H&P. Dianne Combs DO Source Note - Dianne Combs DO - 08/16/2023 11:48 AM EDT [facility]21-[facility]23 History and physical note HISTORY AND PHYSICAL INTERVAL NOTE: Екатерина Shaffer 1945 [id number] H&P reviewed. The patient was examined and there are no changes to the H&P. Dianne Combs DO Source Note - Dianne Combs DO - 08/16/2023 11:48 AM EDT documented [facility] encounter [facility] History of Present illness Narrative Subjective Patient ID: Екатерина Shaffer is a 77 y.o. female. Екатерина presents for preoperative clearance for a total right hip arthroplasty. She has had both knees replaced in the past and did well with them. She is having progressive pain. She has failed conservative measures such as oral medications. It is affecting her quality of life. It is impairing her ability to do ADLs. She can walk a city block or climb a flight of stairs without having any chest pain or shortness a breath. She has no known heart disease. She does not have diabetes or kidney disease. She has not had any recent illness. The following portions of the patient's history were reviewed and updated as appropriate: allergies, current medications, past family history, past medical history, past social history, past surgical history, problem list, and medication reconciliation was completed including current medication and post discharge medication. Review of Systems Constitutional: Negative. HENT: Negative. Eyes: Negative. Respiratory: Negative. Cardiovascular: Negative. Gastrointestinal: Negative. Genitourinary: Negative. Musculoskeletal: Positive for arthralgias. Neurological: Negative. Psychiatric/Behavioral: Negative. Objective Physical Exam Vitals reviewed. Constitutional: General: She is not in acute distress. Appearance: She is obese. She is not ill-appearing. HENT: Head: Normocephalic. Right Ear: External ear normal. Left Ear: External ear normal. Nose: Nose normal. Mouth/Throat: Lips: [place]. Mouth: Mucous membranes are moist. Dentition: Has dentures (uppers). Pharynx: Oropharynx is clear. Eyes: General: No scleral icterus. Extraocular Movements: Extraocular movements intact. Conjunctiva/sclera: Conjunctivae normal. Cardiovascular: Rate and Rhythm: Normal rate and regular rhythm. Pulses: Normal pulses. Heart sounds: Normal heart sounds. No murmur heard. Pulmonary: Effort: Pulmonary effort is normal. No respiratory distress. Breath sounds: Normal breath sounds. No wheezing, rhonchi or rales. Abdominal: General: Bowel sounds are normal. Palpations: Abdomen is soft. Musculoskeletal: Cervical back: Neck supple. Right lower leg: No edema. Left lower leg: No edema. Lymphadenopathy: Cervical: No cervical adenopathy. Neurological: Mental Status: She is alert. Cranial Nerves: Cranial nerves 2-12 are intact. Gait: Gait abnormal (Antalgic). Psychiatric: Attention and Perception: Attention normal. Mood and Affect: Mood and affect normal. Speech: Speech normal. Behavior: Behavior normal. Behavior is cooperative. Thought Content: Thought content normal. Cognition and Memory: Cognition normal. Judgment: Judgment normal. Assessment/Plan Екатерина was seen today for medical clearance for hip surgery. Diagnoses and all orders for this visit: Primary osteoarthritis of right hip Екатерина has failed conservative measures and has elected to have right hip replacement. Pre-op evaluation Laboratory evaluation, chest x-ray, EKG were all reviewed. She has sinus bradycardia. She can do 4 METS of activity without any symptoms of angina. She has no known heart disease. She has no recent illness. No further cardiac workup is indicated. She is medically cleared for surgery. Essential hypertension Blood pressure at goal. Take medications with sip of water on the morning of surgery. documented in this encounter [facility] 07-25-2023 Instructions Rosanna Dye RN - 07/25/2023 11:15 AM EST Preoperative Education Checklist- General Surgery date: 08/21/23 Surgery time: 10a Arrival time: 8a Please come back to the hospital between 08/12/23-08/20/23Saturday-Saturday 630a-430p. Stop at the registration desk upon arrival. After they draw the lab, they will give you a green blood band, bring that back with you day of surgery. 1. Bring a photo ID and your insurance card with you the day of surgery. You will check in at the main lobby of the [facility]- registration desk is straight ahead as soon as you walk in. Tell them you are here for surgery. 2. If you have a Living Will/Durable 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 for Health Care that is not on file here, please bring a copy the day of surgery. 3. Please shower/bathe the night before surgery with the provided soap or wipes. Do not shower the morning of surgery- you will do use wipes when you arrive here at the hospital before getting into your surgical gown. Do not shave the area of your procedure for 2 days prior to your surgery. 4. NO powder, lotion, perfume/cologne, aftershave, make-up, deodorant, or hair products after you have bathed. 5. NO nail persian/acrylic on at least one finger. If you are having a hand, wrist or foot surgery then all nail persian and artificial/acrylic nails must be removed from that hand or foot. 6. Avoid ALL Aspirin and non-steroidal anti-inflammatory drugs and certain vitamins (Ibuprofen, Advil, Aleve, Excedrin, Meloxicam, Celebrex, fish/krill oil, etc.) for 7 days prior to surgery as instructed by your surgeon and/or your prescribing doctor. Tylenol IS ALLOWED. If you are on Ticlid, Xarelto, Eliquis, Pradaxa, Plavix or Coumadin, please check with your prescribing doctor for instructions for when to stop them. 7. If you use an inhaler, continue to use it routinely. 8. Nothing to eat or drink (not even water, gum, mints, or hard candy!) AFTER midnight prior to your surgery. 9. Take only medications that you are instructed to on the morning of surgery with a TINY SIP OF WATER. 10. Choose a responsible adult that will be able to drive you home when you are discharged from your hospital stay for your surgery and can stay with you in your home for 24 hours after your procedure. You must NOT drive any vehicle or operate any machinery for 24 hours after surgery. 11. When you dress for your appointment, please wear loose fitting clothing that is appropriate to accommodate your surgical area procedure. BRING WITH YOU ANY DEVICES YOU MAY NEED: VERA hose, ice machine, sling/swath, brace or special shoe, oversized zip-up or button up shirt, CPAP machine if staying overnight. 12. Do NOT wear jewelry, watches, or any piercings or metal for surgery- leave these valuables and money at home. 13. Do NOT wear contact lenses for surgery- glasses are okay if needed. 14. The anesthesiologist will talk with you the day of surgery and will ask you to sign a Consent Form. 15. Refrain from smoking or any type of tobacco use for at least 8 hours and marijuana for 24 hours prior to arrival for your surgery. 16. If a GREEN BLOOD band is given to you, please bring it with you for the day of surgery. 17. Notify your surgeon if you develop any illness before your surgery. 18. If you are staying overnight, please DO NOT BRING your home medications with you. 19. If you have any questions prior to surgery, please call the Preadmission Testing office at [phone], Mon.-Fri. 7 a.m.-3 p.m. Leave a voicemail if needed. Pre-Surgery Instructions: Medication Instructions amLODIPine (NORVASC) 10 mg tablet Take morning of procedure aspirin 81 mg Check with prescribing doctor for instructions brimonidine (ALPHAGAN) 0.2 % ophthalmic solution Take morning of procedure dorzolamide-timoloL (COSOPT) 22.3-6.8 mg/mL ophthalmic solution Take morning of procedure escitalopram (LEXAPRO) 5 mg tablet Stop taking 0 days prior to procedure latanoprost (XALATAN) 0.005 % ophthalmic solution Take morning of procedure levothyroxine (SYNTHROID, LEVOTHROID) 100 MCG tablet Take morning of procedure losartan-hydroCHLOROthiazide (HYZAAR) 100-25 mg per tablet Take morning of procedure metFORMIN (GLUCOPHAGE) 500 mg tablet Stop taking 0 days prior to procedure montelukast (SINGULAIR) 10 mg tablet Take morning of procedure oxybutynin XL (DITROPAN-XL) 5 mg 24 hr tablet Stop taking 0 days prior to procedure rosuvastatin (CRESTOR) 10 mg tablet Stop taking 0 days prior to procedure sodium chloride (LESVIA 128) 5 % ophthalmic ointment Stop taking 0 days prior to procedure traZODone (DESYREL) 50 mg tablet Stop taking 0 days prior to procedure How to Avoid an Infection after Your Surgery Your doctor will give you specific instructions, but remember: -ALWAYS wash hands before caring for your incision. -No picking, scratching, or rubbing your incision. -No creams, lotion, powder, rubbing alcohol or hydrogen peroxide on the incision (can harm the tissue and slow healing). -Your doctor will give you specific instructions for what type of dressing you will need and how often it will need changed for infection purposes. -No tight clothing on incision. -Do not allow anyone to touch your incision unless they are cleaning, checking, or redressing it (be sure they wash their hands first). -No contact of your incision with pets; avoid sleeping with pets. -Take full course of antibiotic if prescribed for you after surgery- do not stop unless directed to by your physician. You may also be given an antibiotic prior to your surgery to help prevent surgical site infections. -Eat a healthy and varied diet including proteins, fruits, and vegetables to help promote wound healing and keep blood sugars under control if you are diabetic. -Smoking slows the healing process by decreasing the amount of oxygen in your blood that is needed for tissue healing. Try to avoid or stop smoking if possible. LOOK at your incision each morning and each night to check the progress of healing. Some soreness, numbness, itching and/or mild bruising around the incision is normal. Call your doctor if you notice any of the following: -Increased redness or hardening around the incision area. -Increased pain at the incision site. -Incision feels hot to the touch. -Swelling or pulling apart of the incision edges. -Yellow or green drainage or foul odor coming from the incision. -Bleeding from the incision (apply pressure as needed). -Fever higher than 101 degrees Fahrenheit for more than 4 hours. SHOWERING: Your doctor will give you specific instructions, but remember: -Be careful getting into and out of the shower. -Showers should be quick (5 minutes or less). -Use a clean washcloth to gently wash your incision with soap and water and pat the area dry with a clean towel. -No re-using wash cloths or towels; get a fresh one to clean your incision. -Do not soak in the bathtub, go swimming or use a hot tub (Jacuzzi), or perform activities where your incision is submerged in water or exposed to any fluids or substances until instructed by your doctor. -If your have the sticky strips (steri-strips) over the incision, it is OK to shower with them. Do not remove them. Let them fall off on their own. If you have a question, call your doctor s office. Go to the follow-up appointment with your doctor. documented in this encounter [facility] 07-12-2023 History of Present illness Narrative Subjective Patient ID: Екатерина Shaffer is a 77 y.o. female. Екатерина presents for recheck of her diabetes, blood pressure and high cholesterol. She is doing well. She is taking her medications. She does not have any side effects. She is having hip replaced in a couple months. That limits her activities. The following portions of the patient's history were reviewed and updated as appropriate: allergies, current medications, past family history, past medical history, past social history, past surgical history, problem list, and medication reconciliation was completed including current medication and post discharge medication. Review of Systems Constitutional: Negative. HENT: Negative. Eyes: Negative. Respiratory: Negative. Cardiovascular: Negative. Gastrointestinal: Negative. Endocrine: Negative. Genitourinary: Negative. Musculoskeletal: Positive for arthralgias. Skin: Negative. Allergic/Immunologic: Negative. Neurological: Negative. Hematological: Negative. Psychiatric/Behavioral: Positive for dysphoric mood (Doing well on medication). Objective Physical Exam Vitals reviewed. Constitutional: General: She is not in acute distress. Appearance: She is obese. HENT: Head: Normocephalic. Cardiovascular: Rate and Rhythm: Normal rate and regular rhythm. Pulses: Normal pulses. Heart sounds: Normal heart sounds. No murmur heard. Pulmonary: Effort: Pulmonary effort is normal. No respiratory distress. Breath sounds: Normal breath sounds. No wheezing, rhonchi or rales. Abdominal: General: Bowel sounds are normal. Palpations: Abdomen is soft. Tenderness: There is no abdominal tenderness. Neurological: General: No focal deficit present. Mental Status: She is alert and oriented to person, place, and time. Cranial Nerves: Cranial nerves 2-12 are intact. Psychiatric: Attention and Perception: Attention normal. Mood and Affect: Mood normal. Speech: Speech normal. Behavior: Behavior normal. Behavior is cooperative. Thought Content: Thought content normal. Cognition and Memory: Cognition normal. Judgment: Judgment normal. Assessment/Plan Екатерина was seen today for diabetes. Diagnoses and all orders for this visit: Type 2 diabetes mellitus without complication, without long-term current use of insulin ([facility] [place] [facility]) - Hemoglobin A1c; Future Check A1c. Follow up with reordering clerk as directed. Essential hypertension - Basic Metabolic Panel; Future Blood pressure at goal. Check BMP. Continue current regimen Mixed hyperlipidemia - Lipid panel; Future Check lipid panel Insomnia, unspecified - traZODone (DESYREL) 50 mg tablet; Take 1 tablet (50 mg total) by mouth nightly. Stable. Continue current regimen. Recurrent major depressive disorder, in full remission ([facility] [place]) Stable. Continue current regimen. Obesity with body mass index 30 or greater She is obese. It is contributing to diabetes, high blood pressure and high cholesterol. She would benefit from weight loss. She will be getting a new hip soon and so hopefully she will be able to exercise more. Other orders - sodium chloride (LESVIA 128) 5 % ophthalmic ointment; Administer 1 drop to both eyes nightly. documented in this encounter [facility] 06-18-2023 Miscellaneous Notes Surgeon: Dr. Michelle Negro Type of surgery: Lt hip replacement Date of surgery: 09/10/23 Surgery location: [facility] Type of anesthesia: General On a blood thinner?: N./A On an antiplatelet?:ASA History of CVA/TIA, DVT/PE? None known Last saw Dr. Orellana 05/17/23 Reviewed. If patient doing well no active cardiac issues can be cleared as low to moderate risk, can hold aspirin for 5-7 days prior to procedure and resume when cleared afterwards. If having any cardiac issues to come in for evaluation prior to final clearance. Thank you Beauty Culturist Apprentice called patient regarding cardiac clearance and Amber response. Pt denies any cardiac issues - no sob, Chest pain, LH/dizziness. Pt v/u we will fax the clearance to Dr. Combs's office today. [facility]23 Telephone encounter Note Surgeon: Dr. Michelle Negro Type of surgery: Lt hip replacement Date of surgery: 09/10/23 Surgery location: [facility] Type of anesthesia: General On a blood thinner?: N./A On an antiplatelet?:ASA History of CVA/TIA, DVT/PE? None known Last saw Dr. Orellana 05/17/23 [facility] 06-18-2023 Telephone encounter Note Reviewed. If patient doing well no active cardiac issues can be cleared as low to moderate risk, can hold aspirin for 5-7 days prior to procedure and resume when cleared afterwards. If having any cardiac issues to come in for evaluation prior to final clearance. Thank you [facility] 06-18-2023 Telephone encounter Note Beauty Culturist Apprentice called patient regarding cardiac clearance and Amber response. Pt denies any cardiac issues - no sob, Chest pain, LH/dizziness. Pt v/u we will fax the clearance to Dr. Combs's office today. [facility] 05-17-2023 Miscellaneous Notes FYI you saw pt today called back and she states pt is not taking the HCTZ Dr Canrey stopped it.Pt will monitor B/P and call us with readings.slm documented in this encounter [facility] 05-17-2023 Telephone encounter Note FYI you saw pt today called back and she states pt is not taking the HCTZ Dr Carney stopped it.Pt will monitor B/P and call us with readings.slm [facility] 05-17-2023 History of Present illness Narrative Екатерина Shaffer Date of visit: 05/17/2023 Date of : 1945 Age: 77 y.o. 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 Essential hypertension Insomnia Joint pain Lumbar spondylosis Acquired deformity of left ankle Moderate depressive episode Mixed hyperlipidemia Neuropathy Osteoarthritis of knee Osteopenia Type 2 diabetes mellitus without complication ([facility] [place]) Temporomandibular joint disorder Vitamin D deficiency Plantar fasciitis Acquired hallux valgus Arthritis of right hip Artificial knee joint present Atrophy of vagina Bilateral sensorineural hearing loss Bilateral tinnitus Glaucoma Hypokalemia Hypothyroidism Idiopathic peripheral neuropathy Impaired glucose tolerance Labyrinthitis Metatarsalgia Gonzalez's neuroma of both feet Referred otalgia Decreased hearing of right ear Acute labyrinthitis Hip pain Hyponatremia S/P total knee arthroplasty, right Weakness Leukocytosis Acute kidney injury ([facility] [place]) Anemia Dyspnea on exertion Stress incontinence Urge incontinence Renal cyst, right BMI 30.0-30.9,adult Recurrent major depressive disorder, in full remission ([facility] [place] [facility]) Allergies Allergen Reactions Morphine Sulfate Other reaction(s): Unknown Morphine Nausea And Vomiting and Other (See Comments) Not true allergy, known side effect. Current Outpatient Medications Medication Sig Dispense Refill amLODIPine (NORVASC) 10 mg tablet TAKE 1 TABLET BY MOUTH IN THE MORNING 90 tablet 1 aspirin 81 mg Take 1 tablet (81 mg total) by mouth in the morning. 150 tablet 2 dorzolamide-timoloL (COSOPT) 22.3-6.8 mg/mL ophthalmic solution Administer 1 drop to both eyes in the morning and 1 drop before bedtime. escitalopram (LEXAPRO) 5 mg tablet TAKE 1 TABLET BY MOUTH NIGHTLY 90 tablet 1 latanoprost (XALATAN) 0.005 % ophthalmic solution Administer 1 drop to both eyes nightly. levothyroxine (SYNTHROID, LEVOTHROID) 100 MCG tablet TAKE 1 TABLET BY MOUTH DAILY 90 tablet 2 losartan-hydroCHLOROthiazide (HYZAAR) 100-25 mg per tablet Take 1 tablet by mouth in the morning. 90 tablet 3 metFORMIN (GLUCOPHAGE) 500 mg tablet TAKE 1 TABLET BY MOUTH DAILY 90 tablet 1 montelukast (SINGULAIR) 10 mg tablet TAKE 1 TABLET BY MOUTH DAILY 30 tablet 5 oxybutynin XL (DITROPAN-XL) 5 mg 24 hr tablet TAKE 1 TABLET BY MOUTH EVERY DAY 30 tablet 5 rosuvastatin (CRESTOR) 10 mg tablet TAKE 1 TABLET BY MOUTH EVERY DAY (Patient taking differently: nightly.) 90 tablet 2 sodium chloride (LESVIA 128) 5 % ophthalmic ointment Administer 1 drop to both eyes in the morning. (Patient taking differently: Administer 1 drop to both eyes nightly.) 3.5 g 12 traZODone (DESYREL) 50 mg tablet TAKE 1 TABLET BY MOUTH DAILY (Patient taking differently: Take 1 tablet (50 mg total) by mouth nightly.) 30 tablet 2 No current facility-administered medications for this visit. Chief Complaint Patient presents with Follow-up 6 MO LABS DONE @ PCP L/S LLD History of Present Illness Patient with history of sinus bradycardia, normal EF with mild MR/TR, hypertension, hyperlipidemia, prediabetes, obesity. Here for routine follow-up visit. Stated that he is doing fairly well. No chest pain or shortness of breath reported. Rarely feels lightheaded bending down and getting up too quick. No syncope or presyncope reported. Brought her blood pressure log with him from home and usually runs within normal limits, with occasional episodes of systolic blood pressure up to the 140s and 1 incident with systolic blood pressure 150. Diastolic reasonably stable. Heart rate ranges in the high 50s to low 60s. No orthopnea reported. Occasional leg edema when she is on her feet for long hours. Has been watching her diet and trying to lose weight. Last 2 lb since November. 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 Essential hypertension Glaucoma 05/30/2020 BILATERAL Hypokalemia Hypothyroidism Impaired glucose tolerance 08/25/2015 Insomnia Joint pain Labyrinthitis Lumbar spondylosis 12/01/2018 Metatarsalgia 03/17/2017 Mixed hyperlipidemia 05/31/2016 Moderate depressive disorder 07/16/2017 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 Multiple acquired skin tags Neuropathy 03/14/2017 Osteoarthritis of hip 10/24/2021 Plantar fasciitis 02/27/2016 Referred otalgia Regurgitation of food Shoulder pain Temporomandibular joint disorder Tinnitus 2018 Vitamin D deficiency 08/23/2015 No data recorded No data recorded No data recorded Past Surgical History: Procedure Laterality Date APPENDECTOMY CHOLECYSTECTOMY EYE SURGERY HYSTERECTOMY MANDIBLE FRACTURE SURGERY jaw broken/pt states she was 14 or 15 REPLACEMENT TOTAL KNEE Left 07/27/2019 REPLACEMENT TOTAL KNEE Right 02/2022 right Family History Problem Relation Age of Onset Marfan syndrome Mother Heart attack Father Stroke Sister 65 Hyperlipidemia Sister Hypertension Sister Lymphoma Sister Atrial fibrillation Sister Thyroid nodules Sister 68 Marfan syndrome Brother Other Maternal Aunt - Malignant neoplastic disease Other Maternal Uncle - Malignant neoplastic disease Heart attack Maternal Grandmother Diabetes Paternal Grandfather Marfan syndrome Nephew Social History Socioeconomic History Marital status: Spouse name: Not on file Number of children: Not on file Years of education: Not on file Highest education level: Not on file Occupational History Not on file Tobacco Use Smoking status: Never Smokeless tobacco: Never Vaping Use Vaping Use: Never used Substance and Sexual Activity Alcohol use: Yes Comment: occational glass of wine Drug use: Never Sexual activity: Not Currently Partners: Male Other Topics Concern Caffeine Use Yes Social History Narrative Not on file Social Determinants of Health Financial Resource Strain: Low Risk (03/24/2022) Overall Financial Resource Strain (CARDIA) Difficulty of Paying Living Expenses: Not hard at all Food Insecurity: No Food Insecurity (01/15/2023) Hunger Screening Food Insecurity - Worry: Never True Food Insecurity - Inability: Never True Transportation Needs: No Transportation Needs (03/24/2022) PRAPARE - Transportation Lack of Transportation (Medical): No Lack of Transportation (Non-Medical): No Physical Activity: Inactive (01/15/2023) Exercise Vital Sign Days of Exercise per Week: 0 days Minutes of Exercise per Session: 0 min Stress: No Stress Concern Present (01/15/2023) [employer] [place] [employer] - Occupational Stress Questionnaire Feeling of Stress : Only a little Social Connections: Moderately Integrated (03/24/2022) Social Connection and Isolation Panel [NHANES] Frequency of Communication with Friends and Family: More than three times a week Frequency of Social Gatherings with Friends and Family: More than three times a week Attends Worship Services: More than 4 times per year Active Member of Clubs or Organizations: Yes Attends Club or Organization Meetings: More than 4 times per year Marital Status: Interpersonal Safety: Not At Risk (03/24/2022) Humiliation, Afraid, Rape, and Kick questionnaire Fear of Current or Ex-Partner: No Emotionally Abused: No Physically Abused: No Sexually Abused: No Review of Systems Review of Systems Constitutional: Negative for chills, fever and malaise/fatigue. HENT: Negative for hearing loss and nosebleeds. Eyes: Negative for blurred vision. Respiratory: Negative for cough, shortness of breath, sputum production and wheezing. Hematologic/Lymphatic: Negative for bleeding problem. Skin: Negative for rash and suspicious lesions. Musculoskeletal: Negative for joint pain and myalgias. Gastrointestinal: Negative for abdominal pain, change in bowel habit, hematochezia, melena, nausea and vomiting. Genitourinary: Negative for dysuria and hematuria. Neurological: Negative for dizziness, focal weakness, headaches and paresthesias. CARDIOVASCULAR: Please review HPI. Physical Examination General appearance: Alert, oriented and cooperative. In no acute distress. Skin: Warm and dry to touch. Head: Normocephalic, without obvious abnormality, atraumatic. Ears, Nose, Mouth, Throat: Throat clear without erythema or exudate. Dentition intact. Eyes: Conjunctivae unremarkable, EOM intact. Neck: No JVD, No carotid bruit. Neck supple, trachea midline. Respiratory: Clear to auscultation bilaterally, no use of accessory muscles. Cardiovascular: RRR with normal S1 and S2 with no murmurs. Gastrointestinal: Soft, non-tender. Bowel sounds normal. Musculoskeletal: No peripheral edema. Neurologic: Oriented to time, person and place, affect appropriate. No focal/major motor defects noted. Psychiatric: Appropriate mood, memory and judgement. VITAL SIGNS: BP 126/76 (BP Site: Left Arm) Pulse 63 Ht 165.1 cm (5' 5 ) Wt 87.5 kg (193 lb) SpO2 93% BMI 32.12 kg/m No orders of the defined types were placed in this encounter. There are no discontinued medications. IMPRESSIONS/PLAN 1. Essential hypertension - Lipid panel; Future 2. Mild mitral regurgitation 3. Mild tricuspid regurgitation 4. Dyslipidemia Previous cardiac related labs and test results were reviewed and discussed with the patient. Asymptomstic sinus bradycardia Normal EF with grade 1 diastolic dysfunction TTE 05/2022 Mild MR/TR Hypertension -10/2022: Total cholesterol 139, HDL 55, LDL 47, triglycerides 187 Hyperlipidemia Prediabetes Obesity, BMI 32 Patient here for routine follow-up. Doing well and stable from cardiac standpoint. Occasional mildly elevated blood pressure readings at home. Recommended the patient continue to monitor blood pressure at home with goal less than 140/90, cut down salt intake and avoid use of NSAIDs, if persistently elevated to let us know for further recommendations. No cardiac testing ordered today. No changes in medications. Counseled on following a low carb heart healthy diet, exercise and weight loss. Will recheck lipids, follow-up on results with recommendations as needed. Patient was started by PCP on metformin for management of prediabetes. Follow-up in 1 year or sooner if needed. Patient to call us with any cardiac questions or concerns. TODAYS ORDERS Orders Placed This Encounter Procedures Lipid panel FOLLOW UP Return in about 1 year (around 05/17/2024). PCP: Taiwo Ayala DO Referring Physician: Taiwo Ayala DO [address], [address] [place] [phone] documented in this encounter [facility] 05-17-2023 Miscellaneous Notes Rx sent in. She is due for appt documented in this encounter [facility] 05-17-2023 Telephone encounter Note Rx sent in. She is due for appt [facility] 05-16-2023 Miscellaneous Notes Left message for patient to remind them to bring their most current medication list with them to their appointment. documented in this encounter [facility] 05-16-2023 Telephone encounter Note Left message for patient to remind them to bring their most current medication list with them to their appointment. [facility] 05-23-2022 Hospital Discharge instructions Patient Education 05/23/2022 11:15:26 Overactive Bladder, Adult Overactive Bladder, Adult Overactive bladder refers to a condition in which a person has a sudden need to pass urine. The person may leak urine if he or she cannot get to the bathroom fast enough (urinary incontinence). A person with this condition may also wake up several times in the night to go to the bathroom. Overactive bladder is associated with poor nerve signals between your bladder and your brain. Your bladder may get the signal to empty before it is full. You may also have very sensitive muscles that make your bladder squeeze too soon. These symptoms might interfere with daily work or social activities. What are the causes? This condition may be associated with or caused by: Urinary tract infection. Infection of nearby tissues, such as the prostate. Prostate enlargement. Surgery on the uterus or urethra. Bladder stones, inflammation, or tumors. Drinking too much caffeine or alcohol. Certain medicines, especially medicines that get rid of extra fluid in the body (diuretics). Muscle or nerve weakness, especially from: ?A spinal cord injury. ?Stroke. ?Multiple sclerosis. ?Parkinson's disease. Diabetes. Constipation. What increases the risk? You may be at greater risk for overactive bladder if you: Are an older adult. Smoke. Are going through menopause. Have prostate problems. Have a neurological disease, such as stroke, dementia, Parkinson's disease, or multiple sclerosis (MS). Eat or drink things that irritate the bladder. These include alcohol, spicy food, and caffeine. Are overweight or obese. What are the signs or symptoms? Symptoms of this condition include: Sudden, strong urge to urinate. Leaking urine. Urinating 8 or more times a day. Waking up to urinate 2 or more times a night. How is this diagnosed? Your health care provider may suspect overactive bladder based on your symptoms. He or she will diagnose this condition by: A physical exam and medical history. Blood or urine tests. You might need bladder or urine tests to help determine what is causing your overactive bladder. You might also need to see a health care provider who specializes in urinary tract problems (urologist). How is this treated? Treatment for overactive bladder depends on the cause of your condition and whether it is mild or severe. You can also make lifestyle changes at home. Options include: Bladder training. This may include: ?Learning to control the urge to urinate by following a schedule that directs you to urinate at regular intervals (timed voiding). ?Doing Kegel exercises to strengthen your pelvic floor muscles, which support your bladder. Toning these muscles can help you control urination, even if your bladder muscles are overactive. Special devices. This may include: ?Biofeedback, which uses sensors to help you become aware of your body's signals. ?Electrical stimulation, which uses electrodes placed inside the body (implanted) or outside the body. These electrodes send gentle pulses of electricity to strengthen the nerves or muscles that control the bladder. ?Women may use a plastic device that fits into the vagina and supports the bladder (pessary). Medicines. ?Antibiotics to treat bladder infection. ?Antispasmodics to stop the bladder from releasing urine at the wrong time. ?Tricyclic antidepressants to relax bladder muscles. ?Injections of botulinum toxin type A directly into the bladder tissue to relax bladder muscles. Lifestyle changes. This may include: ?Weight loss. Talk to your health care provider about weight loss methods that would work best for you. ?Diet changes. This may include reducing how much alcohol and caffeine you consume, or drinking fluids at different times of the day. ?Not smoking. Do not use any products that contain nicotine or tobacco, such as cigarettes and e-cigarettes. If you need help quitting, ask your health care provider. Surgery. ?A device may be implanted to help manage the nerve signals that control urination. ?An electrode may be implanted to stimulate electrical signals in the bladder. ?A procedure may be done to change the shape of the bladder. This is done only in very severe cases. Follow these instructions at home: Lifestyle Make any diet or lifestyle changes that are recommended by your health care provider. These may include: ?Drinking less fluid or drinking fluids at different times of the day. ?Cutting down on caffeine or alcohol. ?Doing Kegel exercises. ?Losing weight if needed. ?Eating a healthy and balanced diet to prevent constipation. This may include: ?Eating foods that are high in fiber, such as fresh fruits and vegetables, whole grains, and beans. ?Limiting foods that are high in fat and processed sugars, such as fried and sweet foods. General instructions Take ynpu-wcz-xzuvphz and prescription medicines only as told by your health care provider. If you were prescribed an antibiotic medicine, take it as told by your health care provider. Do not stop taking the antibiotic even if you start to feel better. Use any implants or pessary as told by your health care provider. If needed, wear pads to absorb urine leakage. Keep a journal or log to track how much and when you drink and when you feel the need to urinate. This will help your health care provider monitor your condition. Keep all follow-up visits as told by your health care provider. This is important. Contact a health care provider if: You have a fever. Your symptoms do not get better with treatment. Your pain and discomfort get worse. You have more frequent urges to urinate. Get help right away if: You are not able to control your bladder. Summary Overactive bladder refers to a condition in which a person has a sudden need to pass urine. Several conditions may lead to an overactive bladder. Treatment for overactive bladder depends on the cause and severity of your condition. Follow your health care provider's instructions about lifestyle changes, doing Kegel exercises, keeping a journal, and taking medicines. This information is not intended to replace advice given to you by your health care provider. Make sure you discuss any questions you have with your health care provider. Document Released: 03/02/2010 Document Revised: 08/27/2019 Document Reviewed: 05/22/2018 [employer] Patient Education 2020 [employer]. Follow Up Care 04/23/2022 08:41:34 With:Shahid HARDY, JOHN Ortiz, U[facility] Address: [address] [place] [address] [phone] When:Within 2 Month(s) [facility] 02-28-2022 Note Education Materials Orthopedics Knee Rehabilitation in the Home After knee surgery, it is important to follow instructions from your health care provider about rehabilitation or rehab. It is important to design a program that is safe and effective for you. Your health care provider and rehabilitation therapist will work with you to meet your specific abilities and needs. What are the benefits? Knee rehab can help: ? Strengthen your knee. ? Improve the flexibility and movement (range of motion) of your knee joint. ? Reduce swelling. ? Improve blood flow and prevent blood clots. How to do exercises at home Continue exercises at home that your health care provider or physical therapist instructed you to do in the hospital. Do not exercise in a pool until your incision has healed and your health care provider says that you can. Pool exercise is also called aquatic therapy. Before you exercise ? Take pain medicines, if told by your health care provider. Do not take the medicine if it makes you feel dizzy or sleepy. ? Do a warm-up activity, such as gentle walking or riding a stationary bike, as told by your health care provider. This warms up your muscles and helps to prevent injury. While doing exercises ? When standing, make sure you are near something sturdy that you can hold onto for balance, such as a heavy chair or the wall. ? Do exercises exactly as told by your health care provider and adjust them as directed. ? As you are recovering, choose an exercise pace that is comfortable for you, and gradually work up to your goal. ? Do not use a lot of force to bend your knee. Bend it gently. Increase activity as your knee heals. Follow these instructions at home: Activity ? Rest as told by your health care provider. ? Avoid sitting for a long time without moving. Get up to take short walks every 1?2 hours. This is important to improve blood flow and breathing. Ask for help if you feel weak or unsteady. ? Do not lift anything that is heavier than 10 lb (4.5 kg), or the limit that you are told, until your health care provider says that it is safe. ? Do not use your knee to support your body weight until your health care provider says that you can. Use crutches or a walker as told by your health care provider. ? Do not twist or kneel on your injured knee. ? Return to your normal activities as told by your health care provider. Ask your health care provider what activities are safe for you. Managing pain, stiffness, and swelling ? Put ice on affected areas after you exercise, or as needed. Icing can help to relieve joint pain and swelling. To do this: ? Put ice in a plastic bag or use the icing device (cold flow pad or cold therapy unit) that you were given. Follow instructions from your health care provider about how to use the icing device. ? Place a towel between your skin and the bag or device. ? Leave the ice on for 20 minutes, 2?3 times a day. ? If directed, apply heat to affected areas before you exercise, or as needed. Heat can reduce the stiffness of your muscles and joints. Use the heat source that your health care provider recommends, such as a moist heat pack or a heating pad. To do this: ? Place a towel between your skin and the heat source. ? Leave the heat on for 20?30 minutes. ? Remove the heat if your skin turns bright red. This is especially important if you are unable to feel pain, heat, or cold. You may have a greater risk of getting burned. ? Wear compression stockings as told by your health care provider. These stockings help to prevent blood clots and reduce swelling in your legs. ? Raise your legs while sitting or lying down. Do not place your knee on top of pillows to elevate it. Keep your legs straight to prevent your knee from getting stuck in a bent position (contracture). Preventing falls ? Keep your home well-lit and free of clutter, especially in walkways and stairways. Keep floors dry and use non-skid mats. ? Remove tripping hazards from floors, such as throw rugs and cords. ? Install grab bars in bathrooms, and put night-lights in your bedroom and bathroom. ? Wear closed-toe shoes that fit well and support your feet. Wear shoes that have rubber soles or low heels. ? Talk with your health care provider about any ojqb-xys-ynyzfzw and prescription medicines that you are taking. Some medicines can cause dizziness or changes in blood pressure, which increase your risk of falling. General recommendations ? Teach your family about your condition and how they can help in your recovery. Include them during a physical therapy session. ? Keep all follow-up visits as told by your health care provider and physical therapist. This is important. Questions to ask your health care provider ? What exercises are safe for me to do? ? How often should I do the exercises? ? How can I manage the (more content not included)... [facility] 02-28-2022 Note [facility] 2SOUT Clinical Discharge Summary PERSON INFORMATION Name ЕКАТЕРИНА SHAFFER Age 76 Years 1945 Sex FEMALE Language Hungarian PCP TAIWO AYALA Marital Status Med Service Observation N [id number] Acct# Arrival 02/26/2022 05:54:00 Visit Reason SURGERY - RIGHT TOTAL KNEE Acuity LOS 000 47:29 Address: [address] [place] [id number] Comment: PROVIDER INFORMATION VITALS INFORMATION Vital Sign Triage Latest Temp Oral 36.6 DegC 36.6 DegC Temp Temporal Temp Intravascular Temp Axillary Temp Rectal 02 Sat 98 % 93 % Respiratory Rate 16 br/min 16 br/min Peripheral Pulse Rate 51 bpm 62 bpm Apical Heart Rate Blood Pressure 208 mmHg / 110 mmHg 182 mmHg / 81 mmHg Comment: MEDICAL INFORMATION Allergy Info: No known allergies Medication List: Medications That Were Updated - Follow Below Instructions Other Medications Updated: hydroCHLOROthiazide (hydroCHLOROthiazide 25 mg oral tablet) 1 tab(s) Oral every day. TAKE 1 TABLET BY MOUTH EVERY DAY. Updated: latanoprost ophthalmic (latanoprost 0.005% ophthalmic solution) 1 Drops Both eyes once a day (at bedtime). INSTILL 1 DROP IN BOTH EYES AT BEDTIME DIRECTED. Updated: metoprolol (Metoprolol Succinate ER 50 mg oral tablet, extended release) 1 tab(s) Oral every day. TAKE 1 TABLET BY MOUTH EVERY MORNING. Updated: montelukast (montelukast 10 mg oral tablet) 1 tab(s) Oral every day. TAKE 1 TABLET BY MOUTH EVERY DAY. Medications to Continue That Have Not Changed Other Medications cloNIDine (cloNIDine 0.1 mg oral tablet) 1 tab(s) Oral 2 times a day. ferrous sulfate (ferrous sulfate 325 mg (65 mg elemental iron) oral delayed release tablet) 1 tab(s) Oral every day. levothyroxine (levothyroxine 100 mcg (0.1 mg) oral tablet) 1 tab(s) Oral every day. losartan (losartan 100 mg oral tablet) 1 tab(s) Oral every day. metFORMIN (metFORMIN 500 mg oral tablet) 1 tab(s) Oral every day. potassium chloride (potassium chloride 20 mEq oral tablet, extended release) 1 tab(s) Oral every day. rosuvastatin (rosuvastatin 10 mg oral tablet) 1 tab(s) Oral every day. sodium chloride, hypertonic, ophthalmic (Lesvia 128 ophthalmic ointment) small amount Both eyes At bedtime. timolol ophthalmic (timolol hemihydrate 0.5% ophthalmic solution) 1 Drops Both eyes once a day (in the morning). traZODone (traZODone 50 mg oral tablet) 1 tab(s) Oral once a day (at bedtime). Comment: Lab and Radiology Results Laboratory or Other Results This Visit (last charted value for your 02/26/2022 visit) Chemistry 02/27/2022 9:17 AM Glucose, POC: 126 mg/dL -- Normal range between ( 74 and 118 ) Diagnostic Radiology 02/26/2022 10:34 AM XR Knee One or Two Views Right: XR Knee One or Two Views Right Radiology Report 02/26/2022 4:26 PM Radiology Report: Radiology Report DIET & ACTIVITY Patient Activity Level: As Tolerated Patient Diet: Regular Patient Activity Restrictions: DISCHARGE INFORMATION Discharge Disposition: Discharge Location: DEPART REASON INCOMPLETE INFORMATION PATIENT EDUCATION INFORMATION Instructions: Knee Rehabilitation in the Home Follow up: With: Address: When: TAIWO [place] [address] Business (1) 03/06/2022 10:00 AM With: Address: When: Dianne Combs [address], [address] [place] [address] Business (1) 03/06/2022 1:00 PM DIAGNOSIS 1:Primary osteoarthritis of right knee; 2:Sinus bradycardia; 3:Diabetes mellitus; 4:Hypertension; 5:Hypothyroidism; 6:Glaucoma; 7:Anxiety Comment: PHYS DOC NOTES [facility] 02-26-2022 Note [id number] [facility] 02-21-2022 Note Medical clearance ne eded for upcoming surgery on 02/26/22. call made to Dr. Combs's office, spoke with Luisa. Questioned how the clearance was coming. States the patient did get a release on 02/14/22. She will look for the paperwork and fax it over to us. [Electronically Signed on: 02/21/2022 10:08 EDT] Leela Altman RN [Verified on: 02/21/2022 10:08 EDT] Leela Altman RN [facility] 02-12-2022 Note PAT chart for 2021 surgery reviewed per anesthesiologist Dr. Hurst on 02-12-2022- requesting medical clearance and blood pressure optimization prior to surgery- Dr. Combs's office called and Luisa notified of request on 02-12-2022. [Electronically Signed on: 02/12/2022 11:27 EDT] Margi Beard RN [Verified on: 02/12/2022 11:27 EDT] Margi Beard RN [facility] Evaluation + Plan note Future Appointments Appointment Date:07/25/2022 10:15:00 AM Scheduled Provider:Nyasia Key MD Location:[facility] Appointment Type:URO Office Visit [facility] Evaluation note Diagnosis Capsulitis of metatarsophalangeal (MTP) joint of left foot- Primary Capsulitis of metatarsophalangeal (MTP) joint of right foot Contracture of left ankle Contracture of right ankle documented in this encounter [facility] HealthcareEvaluation [facility]* Diagnosis Capsulitis of metatarsophalangeal (MTP) joint of left foot- Primary Capsulitis of metatarsophalangeal (MTP) joint of right foot documented in this encounter [facility]* Diagnosis Arthritis of right knee- Primary Primary osteoarthritis of right hip S/P total right hip arthroplasty S/P total knee arthroplasty, right Trigger point documented in this encounter [facility] HealthcareEvaluation note* Diagnosis Capsulitis of metatarsophalangeal (MTP) joint of left foot- Primary Capsulitis of metatarsophalangeal (MTP) joint of right foot documented in this encounter [facility] HealthcareEvaluation note* Diagnosis Essential hypertension- Primary Unspecified essential hypertension [facility] Diagnosis Unspecified asthma, uncomplicated [facility] Diagnosis Essential hypertension Unspecified essential hypertension [facility] Diagnosis Essential hypertension- Primary Unspecified essential hypertension Mild mitral regurgitation Mild tricuspid regurgitation Dyslipidemia Other and unspecified hyperlipidemia [facility]* Diagnosis Prediabetes Other abnormal glucose Essential hypertension Unspecified essential hypertension [facility]* Diagnosis Overactive bladder Hypertonicity of bladder Unspecified asthma, uncomplicated documented in this encounter [facility]* Diagnosis Hypothyroidism, unspecified Essential hypertension Unspecified essential hypertension documented in this encounter [facility]* Diagnosis Anxiety Anxiety state, unspecified documented in this encounter [facility]* Diagnosis Unspecified asthma, uncomplicated documented in this encounter [facility]* Diagnosis Type 2 diabetes mellitus without complication, without long-term current use of insulin ([facility])- Primary Essential hypertension Unspecified essential hypertension Mixed hyperlipidemia Insomnia, unspecified Recurrent major depressive disorder, in full remission ([facility]) Obesity with body mass index 30 or greater Essential hypertension- Primary Unspecified essential hypertension Type 2 diabetes mellitus without complication, without long-term current use of insulin ([facility]) Preop examination Unspecified pre-operative examination Anemia, unspecified type documented in this encounter [facility]* Diagnosis Prediabetes Other abnormal glucose documented in this encounter [facility]* Diagnosis Essential hypertension- Primary Unspecified essential hypertension documented in this encounter [facility]* Diagnosis Anxiety Anxiety state, unspecified documented in this encounter [facility]* Diagnosis Acute conjunctivitis of both eyes, unspecified acute conjunctivitis type- Primary documented in this encounter [facility]* Diagnosis Anxiety Anxiety state, unspecified documented in this encounter [facility]* Diagnosis Essential hypertension- Primary Unspecified essential hypertension Type 2 diabetes mellitus without complication, without long-term current use of insulin ([facility]) Preop examination Unspecified pre-operative examination Anemia, unspecified type Essential hypertension Unspecified essential hypertension Type 2 diabetes mellitus without complication, without long-term current use of insulin ([facility]) Preop examination Unspecified pre-operative examination Anemia, unspecified type documented in this encounter [facility]* Diagnosis Primary osteoarthritis of right hip- Primary Pre-op evaluation Essential hypertension Unspecified essential hypertension documented in this encounter [facility]* Diagnosis Hypothyroidism, unspecified documented in this encounter [facility]* Diagnosis Overactive bladder Hypertonicity of bladder documented in this encounter [facility] note* Diagnosis Primary osteoarthritis of right hip- Primary Post-operative pain Other acute postoperative pain Primary osteoarthritis of right hip documented in this encounter [facility] note* Diagnosis Essential hypertension- Primary Unspecified essential hypertension documented in this encounter [facility]* Diagnosis Overactive bladder Hypertonicity of bladder documented in this encounter [facility] note* Diagnosis Essential hypertension- Primary Unspecified essential hypertension Anxiety Anxiety state, unspecified Impaired glucose tolerance Impaired glucose tolerance test Acquired hypothyroidism Unspecified hypothyroidism Anemia, unspecified type Insomnia, unspecified Hyperlipidemia, unspecified Hypersomnia Hypersomnia, unspecified Overweight documented in this encounter [facility]* Diagnosis Hyperlipidemia, unspecified documented in this encounter [facility]* Diagnosis Hypothyroidism, unspecified documented in this encounter [facility]* Diagnosis Medicare annual wellness visit, subsequent- Primary Screening for depression documented in this encounter [facility]* Diagnosis Essential hypertension- Primary Unspecified essential hypertension Vitamin D deficiency Impaired glucose tolerance Impaired glucose tolerance test Recurrent major depressive disorder, in full remission ([facility]) Class 1 obesity due to excess calories with serious comorbidity and body mass index (BMI) of 30.0 to 30.9 in adult documented in this encounter [facility]* Diagnosis S/P total right hip arthroplasty Primary osteoarthritis of right hip Lumbar pain Lumbago [facility] Diagnosis Overactive bladder Hypertonicity of bladder documented in this encounter [facility]* Diagnosis Hypothyroidism, unspecified documented in this encounter [facility]* Diagnosis Insomnia, unspecified documented in this encounter [facility]* Diagnosis Hyperlipidemia, unspecified documented in this encounter [facility]* Diagnosis Prediabetes Other abnormal glucose documented in this encounter [facility]* Diagnosis Anxiety Anxiety state, unspecified documented in this encounter [facility]* Diagnosis Insomnia, unspecified Unspecified asthma, uncomplicated documented in this encounter [facility]* Diagnosis Essential hypertension- Primary Unspecified essential hypertension Anxiety Anxiety state, unspecified Unspecified asthma, uncomplicated Degeneration of intervertebral disc of lumbar region with discogenic back pain and lower extremity pain Mixed hyperlipidemia Impaired glucose tolerance Impaired glucose tolerance test Hypothyroidism, unspecified type Overactive bladder Hypertonicity of bladder [facility] Diagnosis Hyperlipidemia, unspecified [facility] Narrative No data available for this section [facility] Discharge instructions* Attachments The following attachments cannot be sent through Care Everywhere. * Managing pain after surgery (Hungarian) documented in [facility] encounter[facility] SystemInstructionsNot on file documented in this encounterProMedica Health SystemInstructionsNot on file documented in this encounterPro[facility]ica [facility] SystemInstructionsNot on file documented in this encounterPro[facility] SystemInstructionsNot on file documented in this encounterPro[facility] SystemInstructionsNot on file documented in this encounterProMedipr Health SystemInstructionsNot on file documented in this encounterPro[facility] SystemInstructionsNot on file documented in this encounterPro[facility] SystemInstructionsNot on file documented in this encounterPro[facility] SystemInstructionsNot on file documented in this encounterPro[facility]ica Health SystemInstructionsNot on file documented in this encounterProMedica Health SystemInstructionsNot on file documented in this encounterProMedip[facility] Health SystemInstructions* Attachments The following attachments cannot be sent through Care Everywhere. * Conjunctivitis (Noninfectious Pinkeye) Discharge Instructions (Hungarian) documented in this encounterPro[facility] SystemInstructionsNot on file documented in this encounterProMedica Health SystemInstructionsNot on file documented in this encounterProMedipr Health SystemInstructionsNot on file documented in this encounterProMedipr Health SystemInstructionsNot on file documented in this [facility] SystemInstructionsNot on file documented in this encounterProT[facility] SystemInstructions* Attachments The following attachments cannot be sent through Care Everywhere. * Back exercises (Hungarian) [facility] No data available for this section [facility] reason for referral (narrative)* Medication Prior Authorization - Pending Review Specialty Diagnoses / Procedures Referred By Jhonny chong Referred To Contact Taiwo Ayala, DO [address], [place] [address] Phone: tel: fax: Referral ID Status Reason Start Date Expiration Date V isits Requested Visits Authorized [id number] Pending Review 1 1 [facility] Summary Purpose Family History No Family History Records FoundNo Family History Records FoundNo Family History Records FoundNo Family History Records FoundNo Family History Records FoundNo Family History Records FoundNo Family History Records FoundNo Family History Records FoundNo Family History Records FoundNo Family History Records Found Advance Directives Documents on File Type Date Recorded Patient [employer] Consultant Expl anation Living Will 04/24/2022 3:52 PM Durable 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 04/24/2022 11:09 AM Date Activated Date Inactivated Comments 08/21/2023 7:16 AM 08/23/2023 6:06 PM Date Activated Date Inactivated Comments 03/24/2022 9:28 AM 03/26/2022 8:07 PM Latest Code Status on File Code Status Date Activated Date Inactivated Comments Full Code 03/24/2022 9:28 AM 03/26/2022 8:07 PM Documents on File Type Date Recorded Patient [employer] Consultant Expl anation Living Will 04/24/2022 3:52 PM Durable 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 04/24/2022 11:09 AM Latest Code Status on File Code Status Date Activated Date Inactivated Comments Full Code 03/24/2022 9:28 AM 03/26/2022 8:07 PM Latest Code Status on File Code Status Date Activated Date Inactivated Comments Full Code 08/21/2023 7:16 AM 08/23/2023 6:06 PM Code Status History Code Status Date Activated Date Inactivated Comments Full Code 03/24/2022 9:28 AM 03/26/2022 8:07 PM Date Activated Date Inactivated Comments 08/21/2023 7:16 AM 08/23/2023 6:06 PM Date Activated Date Inactivated Comments 03/24/2022 9:28 AM 03/26/2022 8:07 PM Reason for Referral Specialty Diagnoses / Procedures Referred By Jhonny chong Referred To Contact Diagnoses Primary osteoarthritis of right hip Procedures Discharge medication instruction-no alcohol while taking pain medications Sergio Velez T, RADIOLOGY RESIDENT-POWER DISTRIBUTION ENGINEER [address] [place] [address] Referral ID Status Reason Start Date Expiration Date V isits Requested Visits Authorized [id number] Pending Review 08/23/2023 08/22/2024 1 1 Specialty Diagnoses / Procedures Referred By Contac t Referred To Contact Diagnoses Primary osteoarthritis of right hip Procedures Discharge instruction after anesthesia/sedation Sergio Velez, RADIOLOGY RESIDENT-POWER DISTRIBUTION ENGINEER [address] [place] [address] Referral ID Status Reason Start Date Expiration Date V isits Requested Visits Authorized [id number] Pending Review 08/23/2023 08/22/2024 1 1 Specialty Diagnoses / Procedures Referred By Contac t Referred To Contact Procedures Follow-up with MD 7-14 days after surgery Sergio Velez, RADIOLOGY RESIDENT-POWER DISTRIBUTION ENGINEER [address] [place] [address] Referral ID Status Reason Start Date Expiration Date V isits Requested Visits Authorized [id number] Pending Review 08/23/2023 08/22/2024 1 1 Specialty Diagnoses / Procedures Referred By Contac t Referred To Contact Procedures Dressing instructions- keep incision clean and dry Sergio Velez, RADIOLOGY RESIDENT-POWER DISTRIBUTION ENGINEER [address] [place] [address] Referral ID Status Reason Start Date Expiration Date V isits Requested Visits Authorized [id number] Pending Review 08/23/2023 08/22/2024 1 1 Specialty Diagnoses / Procedures Referred By Contac t Referred To Contact Procedures Hygiene- may shower Sergio Velez, RADIOLOGY RESIDENT-POWER DISTRIBUTION ENGINEER [address] [place] [address] Referral ID Status Reason Start Date Expiration Date V isits Requested Visits Authorized [id number] Pending Review 08/23/2023 08/22/2024 1 1 Specialty Diagnoses / Procedures Referred By Contac t Referred To Contact Diagnoses Primary osteoarthritis of right hip Procedures Apply ice to affected area Sergio Velez, RADIOLOGY RESIDENT-POWER DISTRIBUTION ENGINEER [address] [place] [address] Referral ID Status Reason Start Date Expiration Date V isits Requested Visits Authorized [id number] Pending Review 08/23/2023 08/22/2024 1 1 Specialty Diagnoses / Procedures Referred By Contac t Referred To Contact Diagnoses Primary osteoarthritis of right hip Procedures Wear VERA hose- on in morning, off at night Sergio Velez, RADIOLOGY RESIDENT-POWER DISTRIBUTION ENGINEER [address] [place] [address] Referral ID Status Reason Start Date Expiration Date V isits Requested Visits Authorized [id number] Pending Review 08/23/2023 08/22/2024 1 1 Specialty Diagnoses / Procedures Referred By Contac t Referred To Contact Procedures Elevate surgical leg above heart while sitting Sergio Velez, RADIOLOGY RESIDENT-POWER DISTRIBUTION ENGINEER [address] [place] [address] Referral ID Status Reason Start Date Expiration Date V isits Requested Visits Authorized [id number] Pending Review 08/23/2023 08/22/2024 1 1 Specialty Diagnoses / Procedures Referred By Lidiaac t Referred To Contact Diagnoses Essential hypertension Type 2 diabetes mellitus without complication, without long-term current use of insulin ([facility]) Preop examination Anemia, unspecified type Procedures ECG 12 lead Dianne Combs, DO [address] [address] Referral ID Status Reason Start Date Expiration Date V isits Requested Visits Authorized [id number] Pending Review 07/11/2023 07/10/2024 1 1 Specialty Diagnoses / Procedures Referred By Contact Referred To Contact Orthopaedic Surgery Diagnoses Trigger point Procedures Trigger Point Injection ([place] [address] [place] [address]): right gluteus janelle Dianne Combs, DO [address] [facility] [address] [place] [address] Dianne Combs, DO 112 [facility] [address] [place] [address] Referral ID Status Reason Start Date Expiration Date V isits Requested Visits Authorized [id number] Pending Review 02/11/2024 08/09/2024 1 1 Additional Source Comments INFORMATION SOURCE (unrecogn ized section and content) DATE CREATED AUTHOR 01/30/2019 [facility] DATE CREATED AUTHOR AUTHOR'S ORGANIZ ATION 10/24/2021 [facility] DATE CREATED AUTHOR AUTHOR'S ORGANIZ ATION 02/28/2022 [facility] DATE CREATED AUTHOR AUTHOR'S ORGANIZ ATION 09/25/2022 [facility] DATE CREATED AUTHOR AUTHOR'S ORGANIZ ATION 10/26/2022 [facility] DATE CREATED AUTHOR AUTHOR'S ORGANIZ ATION 05/19/2024 [facility] DATE CREATED AUTHOR AUTHOR'S ORGANIZ ATION 07/16/2024 [facility] DATE CREATED AUTHOR AUTHOR'S ORGANIZ ATION 08/29/2024 [facility] DATE CREATED AUTHOR AUTHOR'S ORGANIZ ATION 09/21/2024 [facility] DATE CREATED AUTHOR AUTHOR'S ORGANIZ ATION 01/14/2025 [facility] Patient Care team informatio n (unrecognized section and content) Sorter Operator Relationship Specialty Start Date End Date Taiwo Ayala MD [address] [place] [address] PCP - General Family Medicine 02/25/23 Sorter Operator Relationship Specialty Start Date End Date Taiwo Ayala MD [address], [place] [address] PCP - General Family Medicine 02/25/23 Sorter Operator Relationship Specialty Start Date End Date Taiwo Ayala MD [address], [place] [address] PCP - General Family Medicine 02/25/23 Sorter Operator Relationship Specialty Start Date End Date Taiwo Ayala MD [address], [place] [address] PCP - General Family Medicine 02/25/23 Sorter Operator Relationship Specialty Start Date End Date Taiwo Ayala MD [address] [place] [address] PCP - General Family Medicine 02/25/23 Sorter Operator Relationship Specialty Start Date End Date Taiwo Ayala MD [address] [place] [address] PCP - General Family Medicine 02/25/23 Sorter Operator Relationship Specialty Start Date End Date Taiwo Ayala DO [address] [place] [address] PCP - General Family Medicine 01/17/22 Sorter Operator Relationship Specialty Start Date End Date Taiwo Ayala DO [address] [place] [address] PCP - General Family Medicine 01/17/22 Sorter Operator Relationship Specialty Start Date End Date Taiwo Ayala DO [address] [place] [address] PCP - General Family Medicine 01/17/22 Sorter Operator Relationship Specialty Start Date End Date Taiwo Ayala DO [address] [place] [address] PCP - General Family Medicine 01/17/22 Sorter Operator Relationship Specialty Start Date End Date Taiwo Ayala DO [address] [place] [address] PCP - General Family Medicine 01/17/22 Sorter Operator Relationship Specialty Start Date End Date Taiwo Ayala DO [address] [place] [address] PCP - General Family Medicine 01/17/22 Sorter Operator Relationship Specialty Start Date End Date JoneduTaiwo thakur DO [address] [place] [address] PCP - General Family Medicine 01/17/22 Sorter Operator Relationship Specialty Start Date End Date JoneduTaiwo thakur DO [address] [place] [address] PCP - General Family Medicine 01/17/22 Sorter Operator Relationship Specialty Start Date End Date JoneduTaiwo thakur DO [address] [place] [address] PCP - General Family Medicine 01/17/22 Sorter Operator Relationship Specialty Start Date End Date Taiwo Ayala DO [address] [place] [address] PCP - General Family Medicine 01/17/22 Sorter Operator Relationship Specialty Start Date End Date JoneduTaiwo thakur DO [address] [place] [address] PCP - General Family Medicine 01/17/22 Sorter Operator Relationship Specialty Start Date End Date JonjordynTaiwo DO [address] [place] [address] PCP - General Family Medicine 01/17/22 Sorter Operator Relationship Specialty Start Date End Date Taiwo Ayala DO [address], [place] [address] PCP - General Family Medicine 01/17/22 Sorter Operator Relationship Specialty Start Date End Date JoneduTaiwo thakur DO [address] [place] [address] PCP - General Family Medicine 01/17/22 Sorter Operator Relationship Specialty Start Date End Date Taiwo Ayala DO [address], [place] [address] PCP - General Family Medicine 01/17/22 Sorter Operator Relationship Specialty Start Date End Date Taiwo Ayala DO [address], [place] [address] PCP - General Family Medicine 01/17/22 Sorter Operator Relationship Specialty Start Date End Date Taiwo Ayala DO [address] [place] [address] PCP - General Family Medicine 01/17/22 Marcia Calderon [facility] Nurse - [facility] 06/19/24 Sorter Operator Relationship Specialty Start Date End Date Taiwo Ayala DO [address] [place] [address] PCP - General Family Medicine 01/17/22 Marcia Calderon [facility] Nurse - [employer] 06/19/24 Sorter Operator Relationship Specialty Start Date End Date Taiwo Ayala MD PCP - General Family Medicine 02/25/23 Sorter Operator Relationship Specialty Start Date End Date Taiwo Ayala MD PCP - General Family Medicine 02/25/23 Sorter Operator Relationship Specialty Start Date End Date Taiwo Ayala DO [address] [place] [address] PCP - General Family Medicine 01/17/22 Marcia Alasandro [facility] Nurse - [employer] 06/19/24 Sorter Operator Relationship Specialty Start Date End Date Taiwo Ayala DO [address] [place] [address] PCP - General Family Medicine 01/17/22 Marcia Alasandro [facility] Nurse - [employer] 06/19/24 Sorter Operator Relationship Specialty Start Date End Date Taiwo Ayala DO [address] [place] [address] PCP - General Family Medicine 01/17/22 Marcia Alasandro [facility] Nurse - [employer] 06/19/24 Sorter Operator Relationship Specialty Start Date End Date Taiwo Ayala DO [address] [place] [address] PCP - General Family Medicine 01/17/22 Marcia Alasandro [facility] Nurse - [employer] 06/19/24 Sorter Operator Relationship Specialty Start Date End Date JoneduTaiwo thakur DO [address], [place] [address] PCP - General Family Medicine 01/17/22 Marcia Claderon [facility] Nurse - [employer] 06/19/24 Sorter Operator Relationship Specialty Start Date End Date Taiwo Ayala DO [address], [facility] [place] [id number] PCP - General Family Medicine 01/17/22 Marcia Yumiko [facility] Nurse - [employer] 06/19/24 Reason for Visit (unrecogniz ed section and content) Reason Comments Foot Pain B/L foot pain Reason Comments Consent Or Instructions 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 Follow-up Inj follow up Reason Comments Follow-up Reason Comments Follow-up Orthotic follow up Reason Comments Follow-up EST PT F/U 1YR L/S M S LABS DONE SCHED W/ PT Reason Comments Med Refill Reason Comments Follow-up 6 MO LABS DONE @ PCP L/S LLD Reason Onset Date Comments Surgical Or Dental Clearance 06/18/2023 Reason Comments Diabetes Reason Comments redness to the eye Reason Onset Date Comments Med Refill 12/03/2023 Reason Comments medical clearance for hip surgery Specialty Diagnoses / Procedures Referred By Jhonny t Referred To Contact Diagnoses Primary osteoarthritis of right hip right hip degenerative joint disease Procedures IN TOTAL HIP ARTHROPLASTY REPLACEMENT TOTAL JOINT HIP ANTERIOR SUPINE INTERMUSCULAR Dianne Combs DO [address] [place] [address] Referral ID Status Reason Start Date Expiration Date Visits Re quested Visits Authorized [id number] 1 1 Reason Comments Hyperlipidemia Hypertension Reason Comments maw Reason Comments Hypothyroidism Hypertension Reason Comments Hyperlipidemia Hypertension Scheduled Active and Recently Administ ered Medications (unrecognized section and content) Medication Order 08/21/2023 08/22/2023 08/23/2023 acetaminophen (TYLENOL EXTRA STRENGTH) tablet 1,000 mg 1,000 mg, oral, Every 6 hours, First dose on Sat08/21/23 at 2000, Start 6 hours after the pre-op dose. 1934 (Given - Provider: Heidi Ospina RN) 0230 (Given - Provider: Heidi Ospina RN)0943 (Given - Provider: Constanza Galarza RN)1542 (Given - Provider: Constanza Galarza RN)2133 (Given - Provider: Heidi Ospina RN) 0257 (Given - Provider: Heidi Ospina RN)1018 (Given - Provider: Shayy Sma RN - Comment: Could not be given at scheduled time due to max dose for that 24 h period being reached)1400 (Due) acetaminophen (TYLENOL) tablet 650 mg (COMPLETED) 650 mg, oral, Once, On Sat08/21/23 at 1000, For 1 dose, Pre-op 1030 (Given - Provider: Velvet Woo RN) amLODIPine (NORVASC) tablet 10 mg 10 mg, oral, Daily, First dose on Sat08/22/23 at 0900, Look-alike/sound-alike medication - verify indication for use. Avoid grapefruit juice. 0943 (Given - Provider: Constanza Galarza RN) 0900 (Canceled Entry - Provider: Shayy Sam RN)1121 (Given - Provider: Shayy Sam RN) aspirin EC tablet 325 mg 325 mg, oral, Daily, First dose on Sat08/22/23 at 0900, Start Day of Surgery. In order to meet SCIP measures, VTE prophylaxis must be started within 24 hours of the end of the surgical procedure Do not crush or chew. 0943 (Given - Provider: Constanza Galarza RN) 0821 (Given - Provider: Shayy Sam RN) brimonidine (ALPHAGAN) 0.2 % ophthalmic solution 1 drop 1 drop, right eye, 2 times daily, First dose on Debbie 08/22/23 at 0900 0945 (Given - Provider: Constanza Galarza RN)2135 (Given - Provider: Heidi Ospina RN) 0823 (Given - Provider: Shayy Sam RN) ceFAZolin (ANCEF) IVPB 2000 mg/50 mL in iso-osmotic dextrose (40 mg/mL premix) (COMPLETED) 2,000 mg, intravenous, at 100 mL/hr, Administer over 30 Minutes, Once, On Sat08/21/23 at 1000, For 1 dose, Pre-op, Look-alike/sound-alike medication - verify indication for use., Indication: Surgical prophylaxis 1322 (Given - Provider: Emily Hill APRN-PUBLIC RELATIONS) celecoxib (CeleBREX) capsule 200 mg (COMPLETED) 200 mg, oral, Once, On Sat08/21/23 at 1000, For 1 dose, Pre-op, Look-alike/sound-alike medication - verify indication for use. 1030 (Given - Provider: Velvet Woo RN) escitalopram (LEXAPRO) tablet 5 mg 5 mg, oral, Nightly, First dose on Sat08/21/23 at 2200, Look-alike/sound-alike medication - verify indication for use. 2204 (Given - Provider: Heidi Ospina RN) 2134 (Given - Provider: Heidi Ospina RN) levothyroxine (SYNTHROID, LEVOTHROID) tablet 100 mcg 100 mcg, oral, Daily, First dose on Sat08/22/23 at 0600, Look-alike/sound-alike medication. Verify indication for use Administer on empty stomach at least ONE hour before or TWO hours after food Enteral Feeding: For 7 days or less of tube feeding- do NOT hold tube feedings, after 7 days- hold tube feedings ONE hour before and ONE hour after administration DOES NOT APPLY TO NEONATES Monitor thyroid function tests weekly 0548 (Given - Provider: Heidi Ospina RN) 0636 (Given - Provider: Heidi Ospina RN) losartan (COZAAR) 100 mg, hydroCHLOROthiazide (HYDRODIURIL) 25 mg for HYZAAR 100/25 oral, Daily, First dose on Sat08/22/23 at 0900, Give both components as replacement for Hyzaar 100/25. 0944 (Given - Provider: Constanza Galarza RN) 0821 (Given - Provider: Shayy Sam RN) metFORMIN (GLUCOPHAGE) tablet 500 mg 500 mg, oral, Daily with breakfast, First dose on Sat08/22/23 at 0800, Hold dose and notify prescriber if blood glucose is less than 100 mg/dL or patient status has changed to NPO. Look-alike/sound-alike medication - verify indication for use. May alter blood glucose or insulin requirements. Metformin and use of contrast media will be reviewed according to Metformin and Metformin Containing Medications and Contrast Media policy. 0944 (Given - Provider: Constanza Galarza RN) 08 (Given - Provider: Shayy Sam RN) rosuvastatin (CRESTOR) tablet 10 mg 10 mg, oral, Nightly, First dose on Sat08/21/23 at 2200, Look-alike/sound-alike medication - verify indication for use. 2207 (Given - Provider: Heidi Ospina RN) 2132 (Given - Provider: Heidi Ospina RN) sennosides-docusate sodium (SENOKOT-S) 8.6-50 mg 1 tablet 1 tablet, oral, 2 times daily, First dose on Sat08/22/23 at 0900, Start Post-Op Day 1: Hold for diarrhea 0944 (Given - Provider: Constanza Galarza RN)194 (Given - Provider: Heidi Ospina RN) 08 (Given - Provider: Shayy Sam RN) timolol (TIMOPTIC) 0.5 % ophthalmic solution 1 drop 1 drop, both eyes, Daily, First dose on Sat08/22/23 at 0900 0945 (Given - Provider: Constanza Galarza RN) 0823 (Given - Provider: Shayy Sam RN) tranexamic acid (LYSTEDA) tablet 1,950 mg (COMPLETED) 1,950 mg, oral, Once, On Sat08/21/23 at 1000, For 1 dose, Pre-op 1030 (Given - Provider: Velvet Woo RN) traZODone (DESYREL) tablet 50 mg 50 mg, oral, Nightly, First dose on Sat08/21/23 at 2200, Look-alike/sound-alike medication - verify indication for use. 2207 (Given - Provider: Heidi Ospina RN) 2132 (Given - Provider: Heidi Ospina RN) Continuous Medication Order 08/21/2023 08/22/2023 08/23/2023 lactated ringers infusion (CANCELED) 100 mL/hr, intravenous, Continuous, Starting on Sat08/21/23 at 1000, Pre-op, If fluid restriction is not indicated, infuse at a rate up to 5 mL/kg/hr not to exceed the total replacement volume (2 ml/kg/hr) from the time NPO status was initiated. 1029 (New Bag - Provider: Velvet Woo RN)1312 (Continued by Anesthesia - Provider: LIZBET Adan)1507 (New Bag - Provider: LIZBET Adan)1544 (Paused - Provider: LIZBET Gaines - Comment: Switch to gravity)1545 (Restarted - Provider: LIZBET Gaines)1634 (Anesthesia Volume Adjustment - Provider: LIZBET Gaines) sodium chloride 0.9 % infusion 125 mL/hr, intravenous, Continuous, Starting on Sat08/21/23 at 1930 2203 (New Bag - Provider: Heidi Ospina RN) 0552 (New Bag - Provider: Heidi Ospina RN) PRN Medication Order 08/21/2023 08/22/2023 08/23/2023 bisacodyL (DULCOLAX) suppository 10 mg 10 mg, rectal, As needed, constipation, if no BM within 6 hours of administering Milk of Magnesia, Starting on Sat08/23/23 at 0000, Start Post-Op Day 2 Look-alike/sound-alike medication - verify indication for use. bupivacaine PF (MARCAINE) 0.5 % (5 mg/mL) injection (CANCELED) As needed, Starting on Sat08/21/23 at 1640, Intra-op 1640 (Given - Provider: Dianne Combs DO) hydrOXYzine (ATARAX) tablet 10 mg 10 mg, oral, 3 times daily PRN, itching, Starting on Sat08/21/23 at 1919, Look-alike/sound-alike medication - verify indication for use. magnesium hydroxide (MILK OF MAGNESIA) suspension 30 mL 30 mL, oral, 2 times daily PRN, if no BM by post-op day 2, Starting on Sat08/23/23 at 0000, Start Post-Op Day 2: DO NOT use in Renal/Dialysis patients Shake well. ondansetron (PF) (ZOFRAN) injection 4 mg 4 mg, intravenous, Every 6 hours PRN, nausea, vomiting, Starting on Sat08/21/23 at 1919, Administer over 2-5 minutes. oxyCODONE (ROXICODONE) immediate release tablet 10 mg(Linked Group 1) 10 mg, oral, Every 3 hours PRN, severe pain - pain scale 7-10, Starting on Sat08/21/23 at 1919, The oral route is preferred for patients tolerating oral intake without nausea and vomiting. IV pain medications should be used if the oral route is ineffective for symptom control or if patient unable to take medications orally. Look-alike/sound-alike medication - verify indication for use. Immediate release. 0008 (See Alternative - Provider: Heidi Ospina RN)0549 (See Alternative - Provider: Heidi Ospina RN)1241 (See Alternative - Provider: Constanza Galarza RN)194 (See Alternative - Provider: Heidi Ospina RN) 0049 (See Alternative - Provider: Heidi Ospina RN)0635 (See Alternative - Provider: Heidi Ospina RN)1127 (See Alternative - Provider: Shayy Sam RN)1529 (See Alternative - Provider: Ani Caballero RN) oxyCODONE (ROXICODONE) immediate release tablet 5 mg(Linked Group 1) 5 mg, oral, Every 3 hours PRN, moderate pain - pain scale 4-6, Starting on Sat08/21/23 at 1919, The oral route is preferred for patients tolerating oral intake without nausea and vomiting. IV pain medications should be used if the oral route is ineffective for symptom control or if patient unable to take medications orally. Look-alike/sound-alike medication - verify indication for use. Immediate release. 0008 (Given - Provider: Heidi Ospina RN)0549 (Given - Provider: Heidi Ospina RN)1241 (Given - Provider: Constanza Galarza RN)194 (Given - Provider: Heidi Ospina RN) 0049 (Given - Provider: Heidi Ospina RN)0652 (Given - Provider: Heidi Ospina RN)1127 (Given - Provider: Shayy Sam RN)1529 (Given - Provider: Ani Caballero RN) Linked Groups Order Group 1: oxyCODONE (ROXICODONE) immediate release tablet 5 mgJump to med 5 mg, oral, Every 3 hours PRN, moderate pain - pain scale 4-6, Starting on Sat08/21/23 at 1918, The oral route is preferred for patients tolerating oral intake without nausea and vomiting. IV pain medications should be used if the oral route is ineffective for symptom control or if patient unable to take medications orally. Look-alike/sound-alike medication - verify indication for use. Immediate release. Or oxyCODONE (ROXICODONE) immediate release tablet 10 mgJump to med 10 mg, oral, Every 3 hours PRN, severe pain - pain scale 7-10, Starting on Sat08/21/23 at 1918, The oral route is preferred for patients tolerating oral intake without nausea and vomiting. IV pain medications should be used if the oral route is ineffective for symptom control or if patient unable to take medications orally. Look-alike/sound-alike medication - verify indication for use. Immediate release. FOR RECORDS PERTAINING TO PATIENTS WHO ARE OR HAVE BEEN ENROLLED IN A CHEMICAL DEPENDENCY/SUBSTANCEABUSE PROGRAM, SOME INFORMATION MAY BE OMITTED. This clinical summary was aggregated from multiple sources. Caution should be exercised in using it in the provision of clinical care. This summary normalizes information from multiple sources, and as a consequence, information in this document may materially change the coding, format and clinical context of patient data. In addition, data may be omitted in some cases. CLINICAL DECISIONS SHOULD BE BASED ON THE PRIMARY CLINICAL RECORDS. [employer] [facility]. provides no warranty or guarantee of the accuracy or completeness of information in this document.
--- NOTE | 2025-01-27 13:48 | PM.CN ---
Consult Note: HPI Data of Consult Patient: known to practice within the last 3 years Requesting Physician: Rosalee Stinson NP Primary Care Provider: KATLIN AYALA Consult Narrative Reason for consult: low back pain Narrative: Екатерина Prieto a pleasant 79 year old female with chronic low back pain secondary to myalgia, lumbar spondylosis, lumbar DDD presents for evaluation. pt interested in repeating lumbar TPI as prior injection provided significant relief, shes noticed increased low back pain and spasming over the last 4 weeks unresponsive to heat, ice, tylenol, stretching, and massage. pt reporting pain 7/10 in low back increasing to 10/10 at times. cc:: CC: Rosalee Stinson NP Review of Systems ROS Musculoskeletal Reports: back pain Meds Home Medications and Allergies Home Medications ?Medication ?Instructions ?Recorded ?Confirmed ?Type amlodipine 10 mg tablet (Norvasc) 10 mg PO DAILY 09/08/24 09/08/24 History aspirin 81 mg tablet,delayed 81 mg PO DAILY 09/08/24 09/08/24 History release escitalopram oxalate 5 mg tablet 5 mg PO DAILY 09/08/24 09/08/24 History (Lexapro) levothyroxine 100 mcg tablet 100 mcg PO DAILY 09/08/24 09/08/24 History (Synthroid) losartan 50 mg-hydrochlorothiazide 1 tab PO DAILY 09/08/24 09/08/24 History 12.5 mg tablet magnesium oxide 400 mg (241.3 mg 200 mg PO DAILY 09/08/24 09/08/24 History magnesium) tablet metformin 500 mg tablet 500 mg PO DAILY 09/08/24 09/08/24 History montelukast 10 mg tablet 10 mg PO DAILY 09/08/24 09/08/24 History (Singulair) oxybutynin chloride 5 mg tablet 5 mg PO DAILY 09/08/24 09/08/24 History pregabalin 50 mg capsule (Lyrica) 50 mg PO TID 09/08/24 09/08/24 History rosuvastatin 10 mg tablet 10 mg PO DAILY 09/08/24 09/08/24 History trazodone 100 mg tablet 50 mg PO DAILY 09/08/24 09/08/24 History pregabalin 50 mg capsule (Lyrica) 50 mg PO TID #90 caps 12/30/24 Rx Allergies Allergy/AdvReac Type Severity Reaction Status Date / Time morphine Allergy Unknown Unknown Verified 09/08/24 08:16 Exam Constitutional Documenting provider has reviewed patient's vital signs: yes Common normals: no apparent distress, oriented x3, healthy appearing, alert and well nourished General appearance: cooperative HENMT Common normals: normocephalic, hearing grossly normal bilaterally and moist oral mucous membranes Head and scalp: normocephalic Eye Common normals: PERRL Pupil: PERRL Neck & C-Spine Common normals: full ROM General: normal visual inspection Chest Common normals: inspection of chest normal Respiratory Common normals: normal respiratory effort, no retractions and no use of accessory muscles Back & Pelvis Lumbar spine/lower back: ROM limited, pain with ROM, lumbar spinal tenderness, paraspinal muscle tenderness Lumbar paraspinal muscle tenderness: bilateral and paraspinal muscle spasm Lumbar paraspinal muscle spasm: bilateral Bilateral lumbar paraspinal muscle spasm: L5 Other: myofascial spasming and trigger points noted below Back image (female):  1. Neuro Common normals: oriented x3 Sensorium/orientation: alert Psych Common normals: mental status grossly normal, thought process normal, cooperative, affect normal, speech normal and activity/motor behavior normal Speech: normal speech Thought process: normal thought process Results Additional Findings Additional findings: If on a controlled substance or opioids, I have checked an [place] report on this patient and there are no aberrancies noted in the prescribing history.??If on a controlled substance or opioid a drug screen was completed and reviewed within the last year, and if there has not been a drug screen completed we ordered one today to monitor higher risk, state monitored pain medication use. As part of providing excellent, safe, comprehensive care, the following was completed at our patient's visit: 1. A medication reconciliation and review to ensure accurate knowledge of current/active medications, including asking our patients to inform us about any [id number] medications or herbal remedies/nutritional supplements/alternative remedies. 2. A review to specifically ensure our patients have had annual screening for screening for depression, screening for tobacco use, and screening for unhealthy alcohol use. For concerning screenings had a discussion with the patient, provided patient education, and recommended follow-up with primary care provider when appropriate. If patient noted with a risk of falling, they received education on strength, gait, and balance training to prevent future risk of falling. Portions of this note may have been carried over from the previous visit and updated as appropriate. Please note this office utilizes paper charting in addition to the electronic medical record. A list of current medications, vitals, and PMH is available there as the clinical staff outside of myself do not have access to [employer] charting during the clinic day operations. As part of providing quality comprehensive care the current medications, vitals, and PMH were reviewed in the paper chart. Assessment and Plan Assessment and Plan (1) Myalgia, other site: Assessment and Plan: OPERATION:?bilateral latissimus dorsi trigger point injection for myalgia other site COMPLICATIONS:?None. DESCRIPTION OF PROCEDURE:?The procedure risks, hazards and alternatives were discussed with the patient and a proper consent was obtained. The area over the myofascial spasm was prepped with alcohol utilizing sterile technique. After isolating it between two palpating fingertips a 25-gauge 1.5 needle was placed in the center of the myofascial spasms and a negative aspiration was performed. Then 1cc of lidocaine 2% and depo-medrol 10mg was injected into each trigger point x4. The patient tolerated the procedure well without any apparent difficulties or complications. They were feeling relief by the time the block had set. (2) Lumbar spondylosis: Plan bilateral latissimus dorsi trigger point injection completed as noted above consider lumbar MBBs/RFAs for facet mediated low back pain in the future, handout provided f/u PRN
== END 2025-01-27 13:20 | disposition home or self-care (01) ==
LOC: PM 13:19
PROVIDERS: PCP Family Medicine; Visit Provider Nurse Practitioner
DX: M79.18 Myalgia, other site (principal); M47.816 Spondylosis without myelopathy or radiculopathy, lumbar region
CPT/HCPCS: 20552; J1010